=== PATIENT | female | born 1970 | race Caucasian/White ===

== ENCOUNTER 2020-02-22 08:06 | Outpatient (REF) | payer OTHER, SELFPAY ==
[2020-02-22 08:45] LABS: MANUAL DIFF FLAG NO
[2020-02-22 08:50] LABS: Basophils Percent Auto 0.4 % (0-2); Eosinophils Absolute Auto 0.2 X10*3/uL (0.0-0.4); Eosinophils Percent Auto 2.1 % (0-4); Hematocrit 45.3 % (37-47); Hemoglobin 14.4 g/dl (12.0-16.0); Imm Gran Abs Auto 0.01 X10*3/uL (0.00-0.03); Imm Gran Pct Auto 0.1 % (0.0-0.4); Lymphocytes Absolute Auto 1.9 X10*3/uL (1.2-4.9); Lymphocytes Percent Auto 25.6 % (20-40); Mean Corpuscular HGB Conc 31.8 g/dl (31.0-35.0); Mean Corpuscular Hemoglobin 27.6 pg (27.0-33.0); Mean Corpuscular Volume 86.8 fL (80-98); Mean Platelet Volume 9.5 fL (9.4-12.3); Monocytes Absolute Auto 0.4 X10*3/uL (0.1-1.2); Monocytes Percent Auto 5.8 % (2-11); Platelet Count 373 X10*3/uL (160-400); Red Blood Count 5.22 X10*6/uL (4.20-5.50); Red Cell Distribution Width 12.7 % (11.0-16.0); White Blood Count 7.5 X10*3/uL (4.8-10.8)
[2020-02-22 09:31] LABS: Erythrocyte Sedimentation Rate 13 MM/HR (0-20)
[2020-02-22 10:17] LABS: Glucose Urine UA NEG (NEG); Leukocyte Esterase Urine NEG (NEG); Nitrite Urine NEG (NEG); Urine Blood NEG (NEG); Urine Ketones NEG (NEG); Urine Protein NEG (NEG-TRACE)
[2020-02-22 10:22] LABS: Alanine Aminotransferase 16 U/L (0-31); Albumin Level 4.3 g/dL (3.5-5.0); Alkaline Phosphatase 80 U/L (39-117); Anion Gap 13 (12-20); Aspartate Amino Transferase 16 U/L (5-31); Bilirubin Total 0.6 mg/dL (0.0-1.0); Blood Urea Nitrogen 14 mg/dL (9-16); C Reactive Protein 0.11 mg/dL (< or = 0.50); Calcium 9.7 mg/dL (8.4-10.2); Carbon Dioxide 28 mmol/L (22-29); Chloride 105 mmol/L (96-108); Cholesterol 204 mg/dL; Estimated Glomerular Filt Rate > 60; Glucose Fasting 91 mg/dL (60-99); HDL Cholesterol 56 mg/dL; LDL Cholesterol Calculated 126 mg/dl; Potassium 4.1 mmol/l (3.3-5.1); Sodium 142 mmol/L (135-145); Total Protein 7.3 g/dL (6.5-8.0); Triglycerides 114 mg/dL
[2020-02-22 10:27] LABS: Appearance Urine CLEAR; Color Urine YELLOW
[2020-02-22 10:30] LABS: TSH reflex Free T4 1.67 mIU/mL (0.32-4.0); Vitamin D 25-OH Total 43.1 ng/mL (>30)
[2020-02-22 11:18] LABS: RBC Urine 0 /HPF (0); Squamous Epithelial Cell Urine TRACE /LPF; WBC Urine 0 /HPF (0-4)
== END 2020-02-22 08:07 | disposition home or self-care (01) ==
LOC: HO.LAB 08:06
PROVIDERS: PCP Internal Medicine; Visit Provider Internal Medicine
DX: E78.00 Pure hypercholesterolemia, unspecified (principal); I25.119 Atherosclerotic heart disease of native coronary artery with unspecified angina pectoris; M51.36 Other intervertebral disc degeneration, lumbar region; M54.16 Radiculopathy, lumbar region; I10 Essential (primary) hypertension; E55.9 Vitamin D deficiency, unspecified; E66.3 Overweight
CPT/HCPCS: 36415; 80053; 80061; 81003; 81015; 82306; 84443; 85025; 85652; 86140

== ENCOUNTER 2020-06-14 08:23 | Outpatient (REF) | payer OTHER, SELFPAY ==
[2020-06-14 08:45] LABS: MANUAL DIFF FLAG NO
[2020-06-14 08:55] LABS: Basophils Percent Auto 0.3 % (0-2); Eosinophils Absolute Auto 0.1 X10*3/uL (0.0-0.4); Eosinophils Percent Auto 1.6 % (0-4); Hemoglobin 14.3 g/dl (12.0-16.0); Imm Gran Abs Auto 0.01 X10*3/uL (0.00-0.03); Imm Gran Pct Auto 0.1 % (0.0-0.4); Lymphocytes Percent Auto 28.8 % (20-40); Mean Corpuscular HGB Conc 31.8 g/dl (31.0-35.0); Mean Corpuscular Hemoglobin 27.4 pg (27.0-33.0); Mean Corpuscular Volume 86.4 fL (80-98); Mean Platelet Volume 9.2 fL (9.4-12.3); Monocytes Absolute Auto 0.4 X10*3/uL (0.1-1.2); Monocytes Percent Auto 5.3 % (2-11); Neutrophils Absolute Auto 4.3 X10*3/uL (2.0-8.3); Neutrophils Percent Auto 63.9 % (45-73); Platelet Count 374 X10*3/uL (160-400); Red Blood Count 5.21 X10*6/uL (4.20-5.50); Red Cell Distribution Width 12.9 % (11.0-16.0); White Blood Count 6.8 X10*3/uL (4.8-10.8)
[2020-06-14 08:59] LABS: Glucose Urine UA NEG (NEG); Leukocyte Esterase Urine NEG (NEG); Nitrite Urine NEG (NEG); Specific Gravity - Urine >= 1.030 (1.005-1.025); Urine Blood NEG (NEG); Urine Ketones NEG (NEG); Urine Protein NEG (NEG-TRACE)
[2020-06-14 09:00] LABS: Appearance Urine CLEAR; Color Urine YELLOW
[2020-06-14 09:28] LABS: Alanine Aminotransferase 16 U/L (0-31); Albumin Level 4.2 g/dL (3.5-5.0); Alkaline Phosphatase 91 U/L (39-117); Anion Gap 11 (12-20); Aspartate Amino Transferase 17 U/L (5-31); Bilirubin Total 0.6 mg/dL (0.0-1.0); Blood Urea Nitrogen 13 mg/dL (9-16); Calcium 9.5 mg/dL (8.4-10.2); Carbon Dioxide 29 mmol/L (22-29); Chloride 108 mmol/L (96-108); Cholesterol 195 mg/dL; Estimated Glomerular Filt Rate > 60; Glucose Fasting 90 mg/dL (60-99); HDL Cholesterol 61 mg/dL; LDL Cholesterol Calculated 116 mg/dl; Potassium 4.6 mmol/L (3.3-5.1); Sodium 143 mmol/L (135-145); Total Protein 7.1 g/dL (6.5-8.0); Triglycerides 90 mg/dL
[2020-06-14 09:48] LABS: TSH reflex Free T4 1.26 uIU/mL (0.32-4.0); Vitamin D 25-OH Total 42.7 ng/mL (>30)
== END 2020-06-14 08:24 | disposition home or self-care (01) ==
LOC: HO.LAB 08:23
PROVIDERS: PCP Internal Medicine; Visit Provider Internal Medicine
DX: I10 Essential (primary) hypertension (principal); I25.119 Atherosclerotic heart disease of native coronary artery with unspecified angina pectoris; E78.00 Pure hypercholesterolemia, unspecified; E66.3 Overweight; E55.9 Vitamin D deficiency, unspecified
CPT/HCPCS: 36415; 80053; 80061; 81003; 82306; 84443; 85025

== ENCOUNTER 2020-07-20 15:53 | Outpatient (REF) | payer OTHER, SELFPAY ==
--- NOTE | ~2020-07-20 | XR_ITS ---
EXAMINATION: XR BILATERAL HAND AND LEFT KNEE CLINICAL INFORMATION: Arthralgia. COMPARISON: None. TECHNIQUE: 3 views each hand. 2 views left knee. FINDINGS: Left Hand: There is no visible acute fracture, dislocation or subluxation. The joint spaces are maintained normal. The soft tissues are normal. Right Hand: There is no visible acute fracture, dislocation or subluxation. The joint spaces are normal. No bony erosive changes or periosteal thickening. The soft tissues are normal. Left knee: There is no visible acute fracture, dislocation subluxation. There is no joint effusion. XR/XR hand RT min 3V IMPRESSION: Unremarkable bilateral hands and left knee exam.
--- NOTE | ~2020-07-20 | XR_ITS ---
EXAMINATION: XR BILATERAL HAND AND LEFT KNEE CLINICAL INFORMATION: Arthralgia. COMPARISON: None. TECHNIQUE: 3 views each hand. 2 views left knee. FINDINGS: Left Hand: There is no visible acute fracture, dislocation or subluxation. The joint spaces are maintained normal. The soft tissues are normal. Right Hand: There is no visible acute fracture, dislocation or subluxation. The joint spaces are normal. No bony erosive changes or periosteal thickening. The soft tissues are normal. Left knee: There is no visible acute fracture, dislocation subluxation. There is no joint effusion. XR/XR knee LT 2V IMPRESSION: Unremarkable bilateral hands and left knee exam.
--- NOTE | ~2020-07-20 | XR_ITS ---
EXAMINATION: XR BILATERAL HAND AND LEFT KNEE CLINICAL INFORMATION: Arthralgia. COMPARISON: None. TECHNIQUE: 3 views each hand. 2 views left knee. FINDINGS: Left Hand: There is no visible acute fracture, dislocation or subluxation. The joint spaces are maintained normal. The soft tissues are normal. Right Hand: There is no visible acute fracture, dislocation or subluxation. The joint spaces are normal. No bony erosive changes or periosteal thickening. The soft tissues are normal. Left knee: There is no visible acute fracture, dislocation subluxation. There is no joint effusion. XR/XR hand LT min 3V IMPRESSION: Unremarkable bilateral hands and left knee exam.
[2020-07-20 18:35] LABS: Rheumatoid Factor < 15.0 IU/mL (<15.0)
[2020-07-20 18:57] LABS: Thyroid Stimulating Hormone 1.31 uIU/mL (0.32-4.0)
[2020-07-20 20:22] LABS: Erythrocyte Sedimentation Rate 9 MM/HR (0-20)
[2020-07-22 13:21] LABS: Anti Nuclear Antibody Screen NEGATIVE (NEGATIVE)
== END 2020-07-20 15:54 | disposition home or self-care (01) ==
LOC: HO.XRAY 15:53
PROVIDERS: PCP Internal Medicine; Visit Provider Psychiatry & Neurology Neurology
DX: M79.7 Fibromyalgia (principal); M25.50 Pain in unspecified joint
CPT/HCPCS: 36415; 73130; 73560; 82550; 84443; 85652; 86038; 86039; 86431

== ENCOUNTER 2020-07-25 15:48 | Emergency (ER) | payer OTHER, SELFPAY ==
--- NOTE | ~2020-07-25 | XR_ITS ---
EXAMINATION: SINGLE VIEW CHEST, SINGLE VIEW ABDOMEN CLINICAL INFORMATION: Pain with question of ingestion of glass foreign body COMPARISON: Lumbar spine radiographs 02/19/2019, chest radiograph 06/10/2017 TECHNIQUE: Single view chest, single view abdomen FINDINGS: No significant abnormalities seen involving the heart lungs mediastinum or bony thorax. No radiopaque foreign body is seen incidental note made of a mild thoracic scoliosis The abdominal bowel gas pattern is normal. Phleboliths are noted in the pelvis. There is a 1 cm ovoid bony density seen at the superior aspect of the right acetabulum which appears to represent a bone island. Appearances were identical on the lumbar spine films from 02/19/2019 Bony structures appear unremarkable. No radiopaque foreign body is seen. XR/XR chest 1V IMPRESSION: No acute disease in the chest or abdomen. No evidence of a radiopaque foreign body.
--- NOTE | ~2020-07-25 | XR_ITS ---
EXAMINATION: SINGLE VIEW CHEST, SINGLE VIEW ABDOMEN CLINICAL INFORMATION: Pain with question of ingestion of glass foreign body COMPARISON: Lumbar spine radiographs 02/19/2019, chest radiograph 06/10/2017 TECHNIQUE: Single view chest, single view abdomen FINDINGS: No significant abnormalities seen involving the heart lungs mediastinum or bony thorax. No radiopaque foreign body is seen incidental note made of a mild thoracic scoliosis The abdominal bowel gas pattern is normal. Phleboliths are noted in the pelvis. There is a 1 cm ovoid bony density seen at the superior aspect of the right acetabulum which appears to represent a bone island. Appearances were identical on the lumbar spine films from 02/19/2019 Bony structures appear unremarkable. No radiopaque foreign body is seen. XR/XR KUB IMPRESSION: No acute disease in the chest or abdomen. No evidence of a radiopaque foreign body.
[2020-07-25 16:30] VITALS: BP 148/91; PULSE 85; RESP 16; TEMP 36.5; O2SAT 98; BMI 27.8
--- NOTE | 2020-07-25 17:20 | ED_ITS ---
HPI - General Adult General Chief complaint: Abdominal Pain Stated complaint: Abdominal pain Time Seen by Provider: 07/25/20 17:20 History of Present Illness HPI narrative: Patient complains of intermittent upper abdominal pain coming and going sometimes last in our, not associated with anything, not associated with eating not associated with exertion She is concerned it may be from swallowing a small piece of glass 4 days ago, but the pain began yesterday, pain is located in the upper epigastric area, it does not radiate it sometimes lasts for a few hours sometimes a few minutes, s ometimes it goes away it is not associated with exertion there is no diaphoresis no shortness of breath no radiation of pain no dizziness no fainting no feeling weak no nausea vomiting or diarrhea Related Data Home Medications Medication Instructions Recorded Confirmed ascorbic acid (vitamin C) 500 mg mg PO 03/16/20 06/17/20 capsule aspirin 81 mg tablet,delayed 81 mg PO DAILY 03/16/20 06/17/20 release cholecalciferol (vitamin D3) 50 50 mcg PO DAILY 03/16/20 06/17/20 mcg (2,000 unit) tablet coenzyme Q10 10 mg capsule 10 mg PO TID 03/16/20 06/17/20 plant stanol madonna 450 mg tablet mg PO 03/16/20 06/17/20 Allergies Allergy/AdvReac Type Severity Reaction Status Date / Time lisinopril Allergy Unknown angioedema, Verified 06/17/20 15:21 throat swelling pravastatin Allergy Unknown myalgia, Verified 06/17/20 15:21 angioedema rosuvastatin AdvReac Unknown myalgia Verified 06/17/20 15:21 Review of Systems Review of Systems: Positive for intermittent upper abdominal pain No fever no chills no dizziness no weakness no confusion no headache no vision changes no neck pain no chest pain, no shortness of breath no difficulty breathing, no nausea no vomiting no diarrhea no dysuria no changes to bowel or bladder no skin rash no joint pains no numbness or weakness PMFSH Past Medical History Source: nursing notes reviewed Medical History (Updated 07/26/20 @ 00:00 by Background Daemlillie) Benign essential hypertension Coronary artery disease involving [place] coronary artery of [place] heart with angina pectoris Dizziness Lumbar degenerative disc disease Lumbar radiculopathy, chronic Overweight (BMI 25.0-29.9) Pityriasis rosea Pure hypercholesterolemia Vitamin D deficiency Surgical History History of cardiac catheterization Family History Family History Father Diabetes Hypertension Hypercholesteremia Mother Hypertension Diabetes Hypercholesteremia Family/Other FH: mental illness Social History Social History Alcohol intake: never Smoking Status: Never smoker Use of substances other than those prescribed or required for medical reasons: No Advance Directives: No Advance Directives Information Provided: No Physical Exam Vital Signs: Vital Signs: Last Vital Signs Temp 97.7 F 07/25/20 16:30 Pulse 67 07/25/20 21:08 Resp 16 07/25/20 21:08 BP 149/94 H 07/25/20 21:08 Pulse Ox 98 07/25/20 21:08 Body Mass Index 27.8 General appearance is no acute distress comfortable relaxed cooperative The eyes are anicteric, no pallor Pharynx mucous membranes moist otherwise normal The neck is supple The chest is clear to auscultation bilaterally with full symmetrical breath sounds, there is no pain with deep breath or palpation Heart no murmurs Abdomen soft nontender no rebound no guarding notes extremities no edema no rash, full range of motion x4 Skin no rash Neuro no focal deficit Course Course Course Narrative: EKG was a normal sinus rhythm without any acute ischemic change no acute ST or T-wave changes the rate was 67 PA interval was normal QRS duration was normal QT was normal The patient's abdominal exam remained normal and nontender As the patient has a history of heart attack there is some concern about her upper abdominal intermittent pain which occasionally radiates into her chest so troponins and EKG were done Two troponins were normal A KUB did not show any foreign body we did this because of her concern about swallowing a piece of glass, although she has no difficulty swallowing she has no pain in her throat her chest, and had no abdominal pain for 3 days after p ossibly swallowing the glass She does have a customer contact sales associate and says she will call him tomorrow and the patient is discharged with stable vital signs asymptomatic 2-troponin and normal EKG Medical Decision Making Lab Data Lab results reviewed: Yes I reviewed the patient's lab results. Result diagrams: 07/25/20 17:32 07/25/20 17:32 Labs: Lab Results 07/25/20 07/25/20 07/25/20 Range/Units 17:32 17:32 17:32 WBC 8.7 (4.8-10.8) X10*3/uL RBC 4.93 (4.20-5.50) X10*6/uL Hgb 13.4 (12.0-16.0) g/dl Hct 42.3 (37-47) % MCV 85.8 (80-98) fL MCH 27.2 (27.0-33.0) pg MCHC 31.7 (31.0-35.0) g/dl RDW 13.2 (11.0-16.0) % Plt Count 389 (160-400) X10*3/uL MPV 9.4 (9.4-12.3) fL Immature Gran % (Auto) 0.2 (0.0-0.4) % Neut % (Auto) 70.4 (45-73) % Lymph % (Auto) 22.9 (20-40) % [place] % (Auto) 5.5 (2-11) % Eos % (Auto) 0.7 (0-4) % Baso % (Auto) 0.3 (0-2) % Lymph # (Auto) 2.0 (1.2-4.9) X10*3/uL [place] # (Auto) 0.5 (0.1-1.2) X10*3/uL Eos # (Auto) 0.1 (0.0-0.4) X10*3/uL Baso # (Auto) 0.0 (0.0-0.2) X10*3/uL Abs Immat Gran (auto) 0.02 (0.00-0.03) X10*3/uL Absolute Neuts (auto) 6.1 (2.0-8.3) X10*3/uL Absolute Nucleated RBC 0.000 (0.0-0.012) X10*3/uL Nucleated RBC % (auto) 0.0 (0.0-0.2) /100WBC Sodium 141 (135-145) mmol/L Potassium 4.6 (3.3-5.1) mmol/L Chloride 103 (96-108) mmol/L Carbon Dioxide 30 H (22-29) mmol/L Anion Gap 13 (12-20) BUN 17 H (9-16) mg/dL Creatinine 0.78 (0.5-1.4) mg/dL Estim Creat Clear Calc 80.2 Estimated GFR > 60 Random Glucose 97 (60-115) mg/dL Calcium 9.3 (8.4-10.2) mg/dL Total Bilirubin 0.5 (0.0-1.0) mg/dL Direct Bilirubin < 0.2 (0.0-0.5) mg/dL AST 21 (5-31) U/L ALT 34 H (0-31) U/L Alkaline Phosphatase 94 (39-117) U/L Troponin I High Sens < 3.5 (<3.5-17.0) ng/L Total Protein 6.8 (6.5-8.0) g/dL Albumin 4.0 (3.5-5.0) g/dL Lipase 57 (8-78) U/L Urine Test (NEGATIVE) 07/25/20 07/25/20 Range/Units 17:49 20:20 WBC (4.8-10.8) X10*3/uL RBC (4.20-5.50) X10*6/uL Hgb (12.0-16.0) g/dl Hct (37-47) % MCV (80-98) fL MCH (27.0-33.0) pg MCHC (31.0-35.0) g/dl RDW (11.0-16.0) % Plt Count (160-400) X10*3/uL MPV (9.4-12.3) fL Immature Gran % (Auto) (0.0-0.4) % Neut % (Auto) (45-73) % Lymph % (Auto) (20-40) % [place] % (Auto) (2-11) % Eos % (Auto) (0-4) % Baso % (Auto) (0-2) % Lymph # (Auto) (1.2-4.9) X10*3/uL [place] # (Auto) (0.1-1.2) X10*3/uL Eos # (Auto) (0.0-0.4) X10*3/uL Baso # (Auto) (0.0-0.2) X10*3/uL Abs Immat Gran (auto) (0.00-0.03) X10*3/uL Absolute Neuts (auto) (2.0-8.3) X10*3/uL Absolute Nucleated RBC (0.0-0.012) X10*3/uL Nucleated RBC % (auto) (0.0-0.2) /100WBC Sodium (135-145) mmol/L Potassium (3.3-5.1) mmol/L Chloride (96-108) mmol/L Carbon Dioxide (22-29) mmol/L Anion Gap (12-20) BUN (9-16) mg/dL Creatinine (0.5-1.4) mg/dL Estim Creat Clear Calc Estimated GFR Random Glucose (60-115) mg/dL Calcium (8.4-10.2) mg/dL Total Bilirubin (0.0-1.0) mg/dL Direct Bilirubin (0.0-0.5) mg/dL AST (5-31) U/L ALT (0-31) U/L Alkaline Phosphatase (39-117) U/L Troponin I High Sens < 3.5 (<3.5-17.0) ng/L Total Protein (6.5-8.0) g/dL Albumin (3.5-5.0) g/dL Lipase (8-78) U/L Urine Test NEGATIVE (NEGATIVE) Discharge Plan Discharge Clinical Impression: Chest pain, Abdominal pain Patient Disposition: Home, Self-Care Additional Instructions: You came in for a pain in her upper abdomen We are not sure what is the cause, our testing today did not identify any cause I am concerned because of your history of heart attack, and I saw in the computer your last stress test was somewhat abnormal With a normal EKG today and 2-troponin tests negative it is unlikely you will have any dangerous heart attack in the next several weeks, but we strongly recommend that you follow with your customer contact sales associate this week and see if he wants to do any further testing Return to the ER any time for chest pain worsening abdominal pain vomiting shortness of breath dizziness any worse condition or any concerns Prescriptions: No Action cholecalciferol (vitamin D3) 50 mcg (2,000 unit) tablet 50 mcg PO DAILY RF: 0 aspirin [Adult Low Dose Aspirin] 81 mg tablet,delayed release (DR/EC) 81 mg PO DAILY RF: 0 ascorbic acid (vitamin C) 500 mg capsule PO RF: 0 Cholest Off 450 mg tablet PO RF: 0 coenzyme Q10 10 mg capsule 10 mg PO TID RF: 0 Referrals: Suzette Todd, LISSA-BC [Nurse Practitioner] - 2 days (Patient seen for intermittent abdominal pain, no cause found, EKG in ER normal, 2 troponins negative and recommend close follow-up with customer contact sales associate due to prior heart attack) Aren Mendez MD [Physician] - 2 days (Intermittent upper abdominal pain radiating to the chest with normal EKG and 2-troponins, recommended close follow-up with Cardiology for patient with prior heart attack) Interventions: ED Discharge Assessment Last Done: 07/25/20 21:39 Discharge Date/Time: 07/25/20 21:40
--- NOTE | 2020-07-25 17:21 | ECG_ITS ---
Test Reason : pain Blood Pressure : / mmHG Vent. Rate : 067 BPM Atrial Rate : 067 BPM P-R Int : 118 ms QRS Dur : 088 ms QT Int : 414 ms P-R-T Axes : 051 053 057 degrees QTc Int : 437 ms Normal sinus rhythm Normal ECG No previous ECGs available Referred By: Andrew Christian Electronically Signed By:Luis Roth
[2020-07-25 17:36] LABS: MANUAL DIFF FLAG NO
[2020-07-25 17:37] LABS: Basophils Percent Auto 0.3 % (0-2); Eosinophils Absolute Auto 0.1 X10*3/uL (0.0-0.4); Eosinophils Percent Auto 0.7 % (0-4); Hematocrit 42.3 % (37-47); Hemoglobin 13.4 g/dl (12.0-16.0); Imm Gran Abs Auto 0.02 X10*3/uL (0.00-0.03); Imm Gran Pct Auto 0.2 % (0.0-0.4); Lymphocytes Percent Auto 22.9 % (20-40); Mean Corpuscular HGB Conc 31.7 g/dl (31.0-35.0); Mean Corpuscular Hemoglobin 27.2 pg (27.0-33.0); Mean Corpuscular Volume 85.8 fL (80-98); Mean Platelet Volume 9.4 fL (9.4-12.3); Monocytes Absolute Auto 0.5 X10*3/uL (0.1-1.2); Monocytes Percent Auto 5.5 % (2-11); Neutrophils Absolute Auto 6.1 X10*3/uL (2.0-8.3); Neutrophils Percent Auto 70.4 % (45-73); Platelet Count 389 X10*3/uL (160-400); Red Blood Count 4.93 X10*6/uL (4.20-5.50); Red Cell Distribution Width 13.2 % (11.0-16.0); White Blood Count 8.7 X10*3/uL (4.8-10.8)
[2020-07-25 18:04] LABS: UPreg QC Valid YES; Urine Pregnancy NEGATIVE (NEGATIVE)
[2020-07-25 18:08] LABS: Alanine Aminotransferase 34 U/L (0-31); Alkaline Phosphatase 94 U/L (39-117); Anion Gap 13 (12-20); Aspartate Amino Transferase 21 U/L (5-31); Bilirubin Direct < 0.2 mg/dL (0.0-0.5); Bilirubin Total 0.5 mg/dL (0.0-1.0); Blood Urea Nitrogen 17 mg/dL (9-16); Calcium 9.3 mg/dL (8.4-10.2); Carbon Dioxide 30 mmol/L (22-29); Chloride 103 mmol/L (96-108); Creatinine Clr Calc Pharmacy 80.2; Estimated Glomerular Filt Rate > 60; Glucose Random 97 mg/dL (60-115); Lipase 57 U/L (8-78); Potassium 4.6 mmol/L (3.3-5.1); Sodium 141 mmol/L (135-145); Total Protein 6.8 g/dL (6.5-8.0)
[2020-07-25 18:14] LABS: Troponin-I High Sensitivity < 3.5 ng/L (<3.5-17.0)
[2020-07-25 19:01] VITALS: BP 161/88; PULSE 71; RESP 14; O2SAT 99
[2020-07-25 21:04] LABS: Troponin-I High Sensitivity < 3.5 ng/L (<3.5-17.0)
[2020-07-25 21:08] VITALS: BP 149/94; PULSE 67; RESP 16; O2SAT 98
== END 2020-07-25 21:40 | disposition home or self-care (01) ==
PROVIDERS: Physician Assistant Medical; Emergency Provider Emergency Medicine Emergency Medical Services; PCP Internal Medicine
DX: R07.9 Chest pain, unspecified (principal); R10.10 Upper abdominal pain, unspecified; I10 Essential (primary) hypertension; E78.00 Pure hypercholesterolemia, unspecified; Z79.82 Long term (current) use of aspirin; Z79.899 Other long term (current) drug therapy
CPT/HCPCS: 36415; 71045; 74018; 80048; 80076; 81025; 83690; 84484; 85025; 93005; 99283; 99284

== ENCOUNTER 2020-08-25 09:13 | Outpatient (REF) | payer OTHER, SELFPAY ==
[2020-08-25 09:42] LABS: MANUAL DIFF FLAG NO
[2020-08-25 09:44] LABS: Basophils Percent Auto 0.3 % (0-2); Eosinophils Absolute Auto 0.1 X10*3/uL (0.0-0.4); Hematocrit 44.4 % (37-47); Imm Gran Abs Auto 0.02 X10*3/uL (0.00-0.03); Imm Gran Pct Auto 0.3 % (0.0-0.4); Lymphocytes Absolute Auto 1.4 X10*3/uL (1.2-4.9); Lymphocytes Percent Auto 20.4 % (20-40); Mean Corpuscular HGB Conc 31.5 g/dl (31.0-35.0); Mean Corpuscular Volume 85.7 fL (80-98); Mean Platelet Volume 9.4 fL (9.4-12.3); Monocytes Absolute Auto 0.5 X10*3/uL (0.1-1.2); Monocytes Percent Auto 7.3 % (2-11); Neutrophils Absolute Auto 4.9 X10*3/uL (2.0-8.3); Neutrophils Percent Auto 70.7 % (45-73); Platelet Count 427 X10*3/uL (160-400); Red Blood Count 5.18 X10*6/uL (4.20-5.50)
[2020-08-25 10:12] LABS: Alanine Aminotransferase 15 U/L (0-31); Albumin Level 4.2 g/dL (3.5-5.0); Alkaline Phosphatase 92 U/L (39-117); Anion Gap 12 (12-20); Aspartate Amino Transferase 14 U/L (5-31); Bilirubin Total 0.6 mg/dL (0.0-1.0); Blood Urea Nitrogen 9 mg/dL (9-16); Calcium 9.5 mg/dL (8.4-10.2); Carbon Dioxide 26 mmol/L (22-29); Chloride 110 mmol/L (96-108); Cholesterol 184 mg/dL; Estimated Glomerular Filt Rate > 60; Glucose Fasting 96 mg/dL (60-99); HDL Cholesterol 51 mg/dL; LDL Cholesterol Calculated 117 mg/dl; Potassium 4.7 mmol/L (3.3-5.1); Sodium 143 mmol/L (135-145); Total Protein 7.2 g/dL (6.5-8.0); Triglycerides 80 mg/dL
[2020-08-25 10:33] LABS: TSH reflex Free T4 0.74 uIU/mL (0.32-4.0); Vitamin D 25-OH Total 44.1 ng/mL (>30)
[2020-08-25 10:41] LABS: Appearance Urine CLOUDY; Color Urine DARK YELLOW; Glucose Urine UA NEG (NEG); Leukocyte Esterase Urine NEG (NEG); Nitrite Urine NEG (NEG); PH 6.5 (5.0-8.0); Specific Gravity - Urine 1.025 (1.005-1.025); Urine Blood 3+ (NEG); Urine Ketones NEG (NEG); Urine Protein TRACE MG/DL (NEG-TRACE)
[2020-08-25 10:54] LABS: Bacteria Urine 3+ /LPF; Mucus Urine 1+ /LPF; Squamous Epithelial Cell Urine 1+ /LPF
== END 2020-08-25 09:14 | disposition home or self-care (01) ==
LOC: HO.LAB 09:13
PROVIDERS: PCP Internal Medicine; Visit Provider Internal Medicine
DX: E55.9 Vitamin D deficiency, unspecified (principal); I10 Essential (primary) hypertension; E78.00 Pure hypercholesterolemia, unspecified
CPT/HCPCS: 36415; 80053; 80061; 81001; 82306; 84443; 85025

== ENCOUNTER → 2020-09-02 11:08 | Outpatient (BNVA) | payer OTHER, SELFPAY | PROVIDERS: PCP Internal Medicine; Referring Provider Internal Medicine; Visit Provider Nurse Practitioner Family | DX: I42.9 Cardiomyopathy, unspecified (principal); I25.119 Atherosclerotic heart disease of native coronary artery with unspecified angina pectoris; I10 Essential (primary) hypertension; E78.00 Pure hypercholesterolemia, unspecified; Z98.890 Other specified postprocedural states | CPT/HCPCS: 99212 ==

== ENCOUNTER 2020-09-14 16:32 | Outpatient (REF) | payer OTHER, SELFPAY ==
[2020-09-15 04:28] LABS: SARS COV2 IgG Positive (Negative)
== END 2020-09-14 16:33 | disposition home or self-care (01) ==
LOC: HO.LAB 16:32
PROVIDERS: PCP Internal Medicine; Visit Provider Internal Medicine
DX: Z20.822 Contact with and (suspected) exposure to COVID-19 (principal)
CPT/HCPCS: 36415; 86769

== ENCOUNTER → 2020-09-19 13:47 | Outpatient (BNVA) | payer OTHER, SELFPAY | PROVIDERS: PCP Internal Medicine; Referring Provider Internal Medicine; Visit Provider Nurse Practitioner Family | DX: I42.9 Cardiomyopathy, unspecified (principal); I25.119 Atherosclerotic heart disease of native coronary artery with unspecified angina pectoris; I10 Essential (primary) hypertension; E78.00 Pure hypercholesterolemia, unspecified; Z98.890 Other specified postprocedural states | CPT/HCPCS: 99212 ==

== ENCOUNTER 2020-10-06 22:03 | Emergency (ER) | payer OTHER, SELFPAY ==
--- NOTE | ~2020-10-06 | XR_ITS ---
EXAMINATION: CHEST 2 VIEWS CLINICAL INFORMATION: Palpitations. COMPARISON: 07/25/2020. TECHNIQUE: PA and lateral views of the chest obtained. FINDINGS: The lungs are well expanded. No focal infiltrate, effusion, edema, or pneumothorax. Cardiac and mediastinal silhouettes are within normal limits for technique. No acute bony abnormality seen XR/XR chest 2V IMPRESSION: No evidence of acute disease
[2020-10-06 22:05] VITALS: BP 193/106; PULSE 119; RESP 22; TEMP 36.6; O2SAT 100; BMI 28.3
--- NOTE | 2020-10-06 23:38 | ECG_ITS ---
Test Reason : PALPITATIONS Blood Pressure : / mmHG Vent. Rate : 116 BPM Atrial Rate : 116 BPM P-R Int : 136 ms QRS Dur : 082 ms QT Int : 322 ms P-R-T Axes : 070 056 061 degrees QTc Int : 447 ms Sinus tachycardia Left ventricular hypertrophy with repolarization abnormality Abnormal ECG When compared with ECG of 25-JUL-2020 17:53, Vent. rate has increased BY 49 BPM Nonspecific T wave abnormality, worse in Lateral leads Referred By: Generic ED Physician Electronically Signed By:REG CARNES MD
[2020-10-07 01:11] VITALS: BP 158/89; PULSE 69; RESP 14; O2SAT 99
[2020-10-07 02:00] VITALS: BP 150/83; PULSE 63; RESP 16; O2SAT 100
--- NOTE | 2020-10-07 03:24 | ED.ARRPALP ---
HPI - Arrhythmia/Palpitations General Chief Complaint: Arrhythmia/Palpitations Stated Complaint: palpitations Time Seen by Provider: 10/07/20 03:17 History of Present Illness HPI narrative: Patient is a 50-year-old female presents today with having palpitation. It was very sudden in onset. But patient was talking on the phone. Patient denies any history of the same. No coughing or congestion or upper respiratory symptoms. No diaphoresis. No chest pain associated with the symptoms. Patient's symptom has resolved. Patient was not extremely upset at the time. Patient denies any history of thyroid problems. Any history of irregular heartbeat. Any history of sudden . Patient is from home. Denies any alcohol. Denies any recreational drugs. Related Data Home Medications Medication Instructions Recorded Confirmed aspirin 81 mg tablet,delayed 81 mg PO DAILY 03/16/20 09/19/20 release cholecalciferol (vitamin D3) 50 50 mcg PO DAILY 03/16/20 09/19/20 mcg (2,000 unit) tablet coenzyme Q10 10 mg capsule 10 mg PO TID 03/16/20 09/19/20 plant stanol madonna 450 mg tablet mg PO 03/16/20 09/19/20 ascorbic acid (vitamin C) 500 mg See Rx Instructions PO DAILY cap 09/14/20 09/19/20 capsule ibuprofen 600 mg tablet 600 mg PO TID PRN 09/14/20 09/19/20 Previous Rx's Medication Instructions Recorded evolocumab 140 mg/mL subcutaneous 140 mg SUBCUT Q2W 90 Days #7 ml 09/02/20 pen injector lisinopril 2.5 mg tablet 2.5 mg PO DAILY 30 Days #30 tab 09/02/20 Allergies Allergy/AdvReac Type Severity Reaction Status Date / Time lisinopril Allergy Unknown angioedema, Verified 09/19/20 13:49 throat swelling pravastatin Allergy Unknown myalgia, Verified 09/19/20 13:49 angioedema rosuvastatin AdvReac Unknown myalgia Verified 09/19/20 13:49 Review of Systems Review of Systems: Constitutional: No Weight loss, No Fever, No Chills, No Night Sweats, No Fatigue, No Malaise ENT/Mouth: No Hearing loss, No Ear Pain, No Nasal Congestion, No Sinus Pain, No Hoarseness, No sore throat, No Rhinorrhea, No Swallowing Difficulty Eyes: No Eye Pain, No Swelling, No Redness, No Foreign Body, No Discharge, No Vision Changes Cardiovascular: No Chest Pain, No SOB, No Dyspnea on Exertion, No Orthopnea, No Edema, positive Palpitations Respiratory: No Cough, No Sputum, No Wheezing, No Smoke Exposure, No Dyspnea Gastrointestinal: No Nausea, No Vomiting, No Diarrhea, No Constipation, No abdominal Pain, No Hematochezia, No Melena Genitourinary: no irregular bleeding, No Dysuria, No Urinary Frequency, No Hematuria, No Urinary Incontinence, No Urgency, No Flank Pain, No Urinary Flow Changes, No Hesitancy Musculoskeletal: No joint pain, No Myalgias, No Joint Swelling Skin: No Skin Lesions, No rash Neuro: No Weakness, No Numbness, No Paresthesias, No Loss of Consciousness, No Dizziness, No Headache Psych: No Anxiety/Panic, No Depression, No SI/HI/AH/VH, No Social Issues, Heme/Lymph: No Bruising, No Bleeding,No Lymphadenopathy Endocrine: No Polyuria, No Polydipsia, No Temperature Intolerance PMFSH Past Medical History Medical History Benign essential hypertension Cardiomyopathy Coronary artery disease involving [place] coronary artery of [place] heart with angina pectoris Dizziness Lumbar degenerative disc disease Lumbar radiculopathy, chronic Overweight (BMI 25.0-29.9) Pityriasis rosea Pure hypercholesterolemia Throat pain Visual impairment Vitamin D deficiency Surgical History History of cardiac catheterization Family History Family History Father Diabetes Hypertension Hypercholesteremia Mother Hypertension Diabetes Hypercholesteremia Family/Other FH: mental illness Social History Social History Alcohol intake: never Advance Directives: No Advance Directives Information Provided: No Patient : No Physical Exam Vital Signs: Vital Signs: Last Vital Signs Temp 98 F 10/06/20 22:05 Pulse 64 10/07/20 03:48 Resp 16 10/07/20 03:48 BP 137/82 10/07/20 03:48 Pulse Ox 100 10/07/20 02:00 Body Mass Index 28.3 MDM - Arrhythmia/Palpitations MDM Narrative Medical decision making narrative: Patient fair peering no acute distress. Heart rate is now 70. Patient's blood pressure is normal. Will get EKG. Will place patient on monitor. Will check electrolytes. Currently in no distress Patient never had any chest pain. No diaphoresis. Had palpitation. Never had near-syncope or syncopal episode. Well-appearing. Patient has had previous stress test. The last EF was actually normal. Has been followed by Cardiology. Patient wants to go home. Will have patient closely follow-up with cardiology on an outpatient basis. Question further monitoring. In stable condition.. Lab Data Result diagrams: 10/07/20 03:35 10/07/20 03:35 Labs: Lab Results 10/07/20 10/07/20 10/07/20 Range/Units 03:35 03:35 03:35 WBC 7.9 (4.8-10.8) X10*3/uL RBC 5.05 (4.20-5.50) X10*6/uL Hgb 13.7 (12.0-16.0) g/dl Hct 42.9 (37-47) % MCV 85.0 (80-98) fL MCH 27.1 (27.0-33.0) pg MCHC 31.9 (31.0-35.0) g/dl RDW 13.6 (11.0-16.0) % Plt Count 331 (160-400) X10*3/uL MPV 9.1 L (9.4-12.3) fL Immature Gran % (Auto) 0.1 (0.0-0.4) % Neut % (Auto) 73.7 H (45-73) % Lymph % (Auto) 19.9 L (20-40) % [place] % (Auto) 5.3 (2-11) % Eos % (Auto) 0.6 (0-4) % Baso % (Auto) 0.4 (0-2) % Lymph # (Auto) 1.6 (1.2-4.9) X10*3/uL [place] # (Auto) 0.4 (0.1-1.2) X10*3/uL Eos # (Auto) 0.1 (0.0-0.4) X10*3/uL Baso # (Auto) 0.0 (0.0-0.2) X10*3/uL Abs Immat Gran (auto) 0.01 (0.00-0.03) X10*3/uL Absolute Neuts (auto) 5.8 (2.0-8.3) X10*3/uL Absolute Nucleated RBC 0.000 (0.0-0.012) X10*3/uL Nucleated RBC % (auto) 0.0 (0.0-0.2) /100WBC Sodium 142 (135-145) mmol/L Potassium 4.2 (3.3-5.1) mmol/L Chloride 108 (96-108) mmol/L Carbon Dioxide 27 (22-29) mmol/L Anion Gap 11 L (12-20) BUN 14 D (9-16) mg/dL Creatinine 0.81 (0.5-1.4) mg/dL Estim Creat Clear Calc 77.9 Estimated GFR > 60 Random Glucose 106 (60-115) mg/dL Calcium 9.4 (8.4-10.2) mg/dL Troponin I High Sens 6.4 (<3.5-17.0) ng/L ECG Data Interpretation: EKG showed a sinus pattern heart rate was 115. TR cares QT within normal limits. There is no acute ST segment elevation noted. Discharge Plan Discharge Clinical Impression: Palpitations Patient Disposition: Home, Self-Care Instructions: Heart Palpitations (ED) Prescriptions: No Action cholecalciferol (vitamin D3) 50 mcg (2,000 unit) tablet 50 mcg PO DAILY RF: 0 aspirin [Adult Low Dose Aspirin] 81 mg tablet,delayed release (DR/EC) 81 mg PO DAILY RF: 0 Cholest Off 450 mg tablet PO RF: 0 coenzyme Q10 10 mg capsule 10 mg PO TID RF: 0 ascorbic acid (vitamin C) 500 mg capsule See Rx Instructions PO DAILY RF: 0 ibuprofen 600 mg tablet 600 mg PO TID PRNRF: 0 lisinopril 2.5 mg tablet 2.5 mg PO DAILY 30 Days Qty: 30 RF: 1 Repatha SureClick 140 mg/mL pen injector 140 mg subcut Q2W 90 Days Qty: 7 RF: 3 Referrals: Aren Mendez MD [Physician] - 2 days
[2020-10-07 03:45] LABS: MANUAL DIFF FLAG NO
[2020-10-07 03:47] LABS: Basophils Percent Auto 0.4 % (0-2); Eosinophils Absolute Auto 0.1 X10*3/uL (0.0-0.4); Eosinophils Percent Auto 0.6 % (0-4); Hematocrit 42.9 % (37-47); Hemoglobin 13.7 g/dl (12.0-16.0); Imm Gran Abs Auto 0.01 X10*3/uL (0.00-0.03); Imm Gran Pct Auto 0.1 % (0.0-0.4); Lymphocytes Absolute Auto 1.6 X10*3/uL (1.2-4.9); Lymphocytes Percent Auto 19.9 % (20-40); Mean Corpuscular HGB Conc 31.9 g/dl (31.0-35.0); Mean Corpuscular Hemoglobin 27.1 pg (27.0-33.0); Mean Platelet Volume 9.1 fL (9.4-12.3); Monocytes Absolute Auto 0.4 X10*3/uL (0.1-1.2); Monocytes Percent Auto 5.3 % (2-11); Neutrophils Absolute Auto 5.8 X10*3/uL (2.0-8.3); Neutrophils Percent Auto 73.7 % (45-73); Platelet Count 331 X10*3/uL (160-400); Red Blood Count 5.05 X10*6/uL (4.20-5.50); Red Cell Distribution Width 13.6 % (11.0-16.0); White Blood Count 7.9 X10*3/uL (4.8-10.8)
--- NOTE | 2020-10-07 03:47 | PC.NURSE ---
LABS DRAWN TO LAB. PT UP TO RESTROOM. SAMPLE OBTAINED. PT DENIES FEELING PALPITATIONS AT THIS TIME. PT DENIES ANY CP. PT REMAINS ON MONITOR WITH HR 64. WILL CONTINUE TO MONITOR PT.
[2020-10-07 03:48] VITALS: BP 137/82; PULSE 64; RESP 16
[2020-10-07 04:12] LABS: Troponin-I High Sensitivity 6.4 ng/L (<3.5-17.0)
[2020-10-07 04:34] LABS: Anion Gap 11 (12-20); Blood Urea Nitrogen 14 mg/dL (9-16); Calcium 9.4 mg/dL (8.4-10.2); Carbon Dioxide 27 mmol/L (22-29); Creatinine Clr Calc Pharmacy 77.9; Estimated Glomerular Filt Rate > 60; Glucose Random 106 mg/dL (60-115)
[2020-10-07 04:36] LABS: Chloride 108 mmol/L (96-108); Potassium 4.2 mmol/L (3.3-5.1); Sodium 142 mmol/L (135-145)
== END 2020-10-07 05:01 | disposition home or self-care (01) ==
PROVIDERS: Emergency Provider Emergency Medicine Emergency Medical Services; PCP Internal Medicine
DX: R00.2 Palpitations (principal); I10 Essential (primary) hypertension; I25.119 Atherosclerotic heart disease of native coronary artery with unspecified angina pectoris; Z79.82 Long term (current) use of aspirin; Z79.899 Other long term (current) drug therapy
CPT/HCPCS: 36415; 71046; 80048; 84484; 85025; 93005; 99283; 99284

== ENCOUNTER → 2020-11-08 14:59 | Outpatient (REF) | payer OTHER, SELFPAY ==
--- NOTE | 2020-11-08 15:02 | CA_ITS ---
Transthoracic Echocardiogram Patient (Last, First, Middle): Susy Concepcion, Gender: Female Date of : 1970 Age: 50 Procedure Date: 11/08/2020 Procedure Type: Transthoracic Echocardiogram Location: OP Height: 157.48 cm Weight: 69.4 kg BSA: 1.71 m2 Heart Rate: bpm BP: 122 / 60 mmHg Helper Metal Hanging: LAWRENCE Referring MD: Mabel Tafoya FUR DRESSERLavern Symptoms: I25.119 - Atherosclerotic heart disease of [place] coronar... Study Quality: Fair ECG Rhythm: Sinus Conclusions: - The left ventricular systolic function is mildly decreased. The visually estimated ejection fraction is between 45-50%. - No obvious valvular pathology seen on this study. Findings Left Ventricle Normal left ventricular cavity size. There is normal left ventricular wall thickness. The left ventricular systolic function is mildly decreased. The visually estimated ejection fraction is between 45-50%. There is mild global hypokinesis. Diastolic function is normal for age. Right Ventricle Normal right ventricular cavity size and systolic function. Atria Both atria are normal in size. Aortic Valve There is a normal trileaflet aortic valve. There is no aortic valve stenosis. There is no aortic valve regurgitation. Mitral Valve The posterior mitral leaflet has restricted mobility. There is trace mitral valve regurgitation. There is no mitral valve stenosis. Pulmonic Valve The pulmonic valve was not well visualized. Tricuspid Valve Normal tricuspid valve structure. There is mild tricuspid valve regurgitation. The pulmonary artery systolic pressure is normal. Great Vessels The aortic annulus, sinuses of valsalva, and asc aorta are normal in size. Venous The inferior vena cava is normal in size and collapses greater than 50% with inspiration. Pericardium/Pleural There is no evidence of pericardial effusion. Prior Study Comparison No significant change compared to prior study dated: 08/12/2018. Recommendations, Care & Conclusions No obvious valvular pathology seen on this study. Measurements 2D Linear Measurements IVSd: 1.11 0.6-0.9/0.6-1.0 cm LVIDd: 4.89 3.9-5.3/4.2-5.9 cm LVIDd Index: 2.86 2.4-3.2/2.2-3.1 cm/m2 LVIDs: 3.92 2.0-3.6 cm LVPWd: 1.12 0.7-1.1 cm Ao Root: 2.60 2.1-3.5 cm LA Diam: 4.10 2.7-3.8/3.0-4.0 cm LAIDs Index: 2.40 1.5-2.3 cm/m2 LV Mass: 253.77 67-162/88-224 g LV Mass Index: 148.41 43-95/49-115 g/m2 LVOT Diam: 2.00 3.0+(-)1.3 cm 2D Systolic Function EF 4C: 36.30 >55% EF 2C: 46.20 >55% EF BiP: 41.40 >55% Mitral Valve MV Pk E: 0.72 MV PK A: 0.65 MV Decel Time: 188.00 E/A: 1.10 E'Lateral: 14.50 E'Medial: 7.07 E/E' Med: 10.10 E/E' Lat: 4.90 PHT: 55.00 MVA PHT: 4.00 Decel [place]: 3.81 Aortic Valve AoV Pk Silviano: 1.18 AoV Mn Silviano: 0.80 AoV VTI: 0.26 AoV Pk Grad: 6.00 Aov Mn Grad: 3.00 DEVORAH Cont.VTI: 2.26 LVOT LVOT Pk Silviano: 0.76 LVOT Mn Silviano: 0.58 LVOT VTI: 0.19 LVOT Pk Grad: 2.00 LVOT Mn Grad: 1.00 LVOT Diam: 2.00 LVOT Area: 3.14 Diastolic Function MV Pk E: 0.72 MV Pk A: 0.65 E/A: 1.10 E'Medial: 7.07 E/E' Med: 10.10 E' Laterial: 14.50 E/E' Lat: 4.90 Tricuspid Valve TR Pk Silviano: 1.72 TR Pk Grad: 12.00 RA Press: 3.00 RVSP: 15.00 Great Vessels Aorta Ao Root-2D: 2.60 2.0-3.7 cm Ao Asc: 2.90 2.1-3.4 cm Pulmonary Valve PV Pk Silviano: 0.76 Peak PV Grad: 2.00 Updated in Other Vendor System with Status of Final Samson Pineda MD electronically signed on 11/09/2020 12:20:16 PM with status of Final
== END ==
LOC: HO.CARD 14:59
PROVIDERS: Visit Provider Nurse Practitioner Family
DX: I25.119 Atherosclerotic heart disease of native coronary artery with unspecified angina pectoris (principal); I42.9 Cardiomyopathy, unspecified
CPT/HCPCS: 93306

== ENCOUNTER 2021-01-12 16:59 | Outpatient (REF) | payer OTHER, SELFPAY ==
[2021-01-12 18:03] LABS: MANUAL DIFF FLAG NO
[2021-01-12 18:08] LABS: Appearance Urine CLEAR; Color Urine YELLOW; Glucose Urine UA NEG (NEG); Leukocyte Esterase Urine NEG (NEG); Nitrite Urine NEG (NEG); Specific Gravity - Urine >= 1.030 (1.005-1.025); Urine Blood NEG (NEG); Urine Ketones 5 MG/DL (NEG); Urine Protein TRACE MG/DL (NEG-TRACE)
[2021-01-12 18:23] LABS: Alanine Aminotransferase 16 U/L (0-31); Albumin Level 4.4 g/dL (3.5-5.0); Alkaline Phosphatase 87 U/L (39-117); Anion Gap 11 (12-20); Aspartate Amino Transferase 15 U/L (5-31); Bilirubin Total 0.6 mg/dL (0.0-1.0); Blood Urea Nitrogen 12 mg/dL (9-16); Calcium 9.9 mg/dL (8.4-10.2); Carbon Dioxide 28 mmol/L (22-29); Chloride 106 mmol/L (96-108); Cholesterol 199 mg/dL; Estimated Glomerular Filt Rate > 60; Glucose Fasting 101 mg/dL (60-99); HDL Cholesterol 56 mg/dL; LDL Cholesterol Calculated 122 mg/dl; Potassium 4.3 mmol/L (3.3-5.1); Sodium 141 mmol/L (135-145); Total Protein 7.2 g/dL (6.5-8.0); Triglycerides 108 mg/dL
[2021-01-12 18:43] LABS: TSH reflex Free T4 0.78 uIU/mL (0.32-4.0); Vitamin D 25-OH Total 53.3 ng/mL (>30)
[2021-01-12 20:26] LABS: Basophils Percent Auto 0.5 % (0-2); Eosinophils Percent Auto 0.5 % (0-4); Hemoglobin 13.5 g/dl (12.0-16.0); Imm Gran Abs Auto 0.01 X10*3/uL (0.00-0.03); Imm Gran Pct Auto 0.1 % (0.0-0.4); Lymphocytes Absolute Auto 1.9 X10*3/uL (1.2-4.9); Lymphocytes Percent Auto 24.1 % (20-40); Mean Corpuscular HGB Conc 32.1 g/dl (31.0-35.0); Mean Corpuscular Hemoglobin 27.9 pg (27.0-33.0); Mean Corpuscular Volume 86.8 fL (80-98); Mean Platelet Volume 9.9 fL (9.4-12.3); Monocytes Absolute Auto 0.4 X10*3/uL (0.1-1.2); Monocytes Percent Auto 5.4 % (2-11); Neutrophils Absolute Auto 5.5 X10*3/uL (2.0-8.3); Neutrophils Percent Auto 69.4 % (45-73); Platelet Count 397 X10*3/uL (160-400); Red Blood Count 4.84 X10*6/uL (4.20-5.50); Red Cell Distribution Width 13.1 % (11.0-16.0); White Blood Count 7.9 X10*3/uL (4.8-10.8)
== END 2021-01-12 17:00 | disposition home or self-care (01) ==
LOC: HO.LAB 16:59
PROVIDERS: PCP Internal Medicine; Visit Provider Internal Medicine
DX: E55.9 Vitamin D deficiency, unspecified (principal); E66.3 Overweight; I10 Essential (primary) hypertension; I25.119 Atherosclerotic heart disease of native coronary artery with unspecified angina pectoris
CPT/HCPCS: 36415; 80053; 80061; 81003; 82306; 84443; 85025

== ENCOUNTER → 2021-01-25 13:39 | Outpatient (BNVA) | payer OTHER, SELFPAY | PROVIDERS: PCP Internal Medicine; Referring Provider Internal Medicine; Visit Provider Nurse Practitioner Family | DX: I42.9 Cardiomyopathy, unspecified (principal); I25.119 Atherosclerotic heart disease of native coronary artery with unspecified angina pectoris; I10 Essential (primary) hypertension; E78.00 Pure hypercholesterolemia, unspecified | CPT/HCPCS: 99212 ==

== ENCOUNTER → 2021-02-08 15:27 | Outpatient (BNVA) | payer OTHER, SELFPAY | PROVIDERS: PCP Internal Medicine; Referring Provider Internal Medicine; Visit Provider Nurse Practitioner Family ==

== ENCOUNTER → 2021-03-01 14:16 | Outpatient (BNVA) | payer OTHER, SELFPAY | PROVIDERS: PCP Internal Medicine; Referring Provider Internal Medicine; Visit Provider Nurse Practitioner Family | DX: I10 Essential (primary) hypertension (principal); I42.9 Cardiomyopathy, unspecified; I25.119 Atherosclerotic heart disease of native coronary artery with unspecified angina pectoris; E78.00 Pure hypercholesterolemia, unspecified | CPT/HCPCS: 99212 ==

== ENCOUNTER 2021-03-21 07:29 | Outpatient (REF) | payer OTHER, SELFPAY ==
[2021-03-21 09:01] LABS: Appearance Urine HAZY; Color Urine YELLOW; Glucose Urine UA NEG (NEG); Leukocyte Esterase Urine NEG (NEG); Nitrite Urine NEG (NEG); Urine Blood NEG (NEG); Urine Ketones NEG (NEG); Urine Protein NEG (NEG-TRACE)
== END 2021-03-21 07:30 | disposition home or self-care (01) ==
LOC: HO.LAB 07:29
PROVIDERS: PCP Internal Medicine; Visit Provider Internal Medicine
DX: I10 Essential (primary) hypertension (principal)
CPT/HCPCS: 81003

== ENCOUNTER 2021-05-09 07:27 | Outpatient (REF) | payer OTHER, SELFPAY ==
[2021-05-09 08:11] LABS: MANUAL DIFF FLAG NO
[2021-05-09 08:31] LABS: Basophils Percent Auto 0.3 % (0-2); Eosinophils Absolute Auto 0.1 X10*3/uL (0.0-0.4); Eosinophils Percent Auto 1.8 % (0-4); Hematocrit 44.1 % (37.0-47.0); Imm Gran Abs Auto 0.01 X10*3/uL (0.00-0.03); Imm Gran Pct Auto 0.1 % (0.0-0.4); Lymphocytes Absolute Auto 1.8 X10*3/uL (1.2-4.9); Lymphocytes Percent Auto 23.9 % (20-40); Mean Corpuscular HGB Conc 31.7 g/dl (31.0-35.0); Mean Corpuscular Hemoglobin 27.6 pg (27.0-33.0); Mean Corpuscular Volume 86.8 fL (80.0-98.0); Mean Platelet Volume 9.5 fL (9.4-12.3); Monocytes Absolute Auto 0.4 X10*3/uL (0.1-1.2); Monocytes Percent Auto 5.3 % (2-11); Neutrophils Percent Auto 68.6 % (45-73); Platelet Count 370 X10*3/uL (160-400); Red Blood Count 5.08 X10*6/uL (4.20-5.50); Red Cell Distribution Width 12.9 % (11.0-16.0); White Blood Count 7.4 X10*3/uL (4.8-10.8)
[2021-05-09 08:48] LABS: Alanine Aminotransferase 20 U/L (0-31); Alkaline Phosphatase 96 U/L (39-117); Anion Gap 9 (12-20); Aspartate Amino Transferase 15 U/L (5-31); Bilirubin Total 0.4 mg/dL (0.0-1.0); Blood Urea Nitrogen 13 mg/dL (9-16); Carbon Dioxide 31 mmol/L (22-29); Chloride 109 mmol/L (96-108); Cholesterol 196 mg/dL; Estimated Glomerular Filt Rate > 60; Glucose Fasting 95 mg/dL (60-99); HDL Cholesterol 52 mg/dL; LDL Cholesterol Calculated 124 mg/dl; Potassium 4.7 mmol/L (3.3-5.1); Sodium 144 mmol/L (135-145); Triglycerides 102 mg/dL
[2021-05-09 09:08] LABS: TSH reflex Free T4 1.48 uIU/mL (0.32-4.0); Vitamin D 25-OH Total 51.8 ng/mL (>30)
[2021-05-09 09:15] LABS: Appearance Urine CLEAR; Color Urine YELLOW; Glucose Urine UA NEG (NEG); Leukocyte Esterase Urine NEG (NEG); Nitrite Urine NEG (NEG); PH 6.5 (5.0-8.0); Urine Blood NEG (NEG); Urine Ketones NEG (NEG); Urine Protein NEG (NEG-TRACE)
== END 2021-05-09 07:28 | disposition home or self-care (01) ==
LOC: HO.LAB 07:27
PROVIDERS: PCP Internal Medicine; Visit Provider Internal Medicine
DX: E78.00 Pure hypercholesterolemia, unspecified (principal); E55.9 Vitamin D deficiency, unspecified; I10 Essential (primary) hypertension
CPT/HCPCS: 36415; 80053; 80061; 81003; 82306; 84443; 85025

== ENCOUNTER 2021-05-10 10:03 | Outpatient (REF) | payer OTHER, SELFPAY ==
--- NOTE | ~2021-05-10 | XR_ITS ---
EXAMINATION: XR RIBS, BILATERAL CLINICAL INFORMATION: Chest pain COMPARISON: Previous chest x-ray most recent September 2020 TECHNIQUE: 3 views of the bilateral ribs and one view of the chest were obtained. FINDINGS: Lungs are clear. No consolidation, pneumothorax, or pleural effusion. The cardiomediastinal silhouette and pulmonary vasculature are normal. There is a mild thoracic scoliosis similar to previous exam. Osseous structures are otherwise unremarkable. Ribs are intact. No fractures are identified. XR/XR ribs BI min 4V w CXR1V IMPRESSION: Mild thoracic scoliosis otherwise unremarkable examination.
== END 2021-05-10 10:04 | disposition home or self-care (01) ==
LOC: HO.XRAY 10:03
PROVIDERS: PCP Internal Medicine; Visit Provider Internal Medicine
DX: R07.9 Chest pain, unspecified (principal)
CPT/HCPCS: 71111

== ENCOUNTER → 2021-06-06 14:42 | Outpatient (BNVA) | payer OTHER, SELFPAY | PROVIDERS: PCP Internal Medicine; Referring Provider Internal Medicine; Visit Provider Nurse Practitioner Family | DX: I42.9 Cardiomyopathy, unspecified (principal); I25.119 Atherosclerotic heart disease of native coronary artery with unspecified angina pectoris; I10 Essential (primary) hypertension; E78.00 Pure hypercholesterolemia, unspecified; I25.2 Old myocardial infarction; Z79.82 Long term (current) use of aspirin; Z79.899 Other long term (current) drug therapy | CPT/HCPCS: 93005; 99212 ==

== ENCOUNTER 2021-09-06 11:53 | Outpatient (REF) | payer OTHER, SELFPAY ==
--- NOTE | ~2021-09-06 | XR_ITS ---
EXAMINATION: XR FOOT, RIGHT CLINICAL INFORMATION: Pain in right foot COMPARISON: Right foot radiograph from 11/28/2009 TECHNIQUE: AP, lateral, and oblique views of the right foot. FINDINGS: No acute visible fracture or dislocation. Joint spaces and alignment are maintained. Soft tissues are unremarkable. XR/XR foot RT 2V IMPRESSION: No acute visible fracture or dislocation.
[2021-09-06 12:07] LABS: MANUAL DIFF FLAG NO
[2021-09-06 13:14] LABS: Basophils Percent Auto 0.3 % (0-2); Eosinophils Absolute Auto 0.1 X10*3/uL (0.0-0.4); Eosinophils Percent Auto 1.7 % (0-4); Hematocrit 43.4 % (37.0-47.0); Hemoglobin 13.7 g/dl (12.0-16.0); Imm Gran Abs Auto 0.03 X10*3/uL (0.00-0.03); Imm Gran Pct Auto 0.5 % (0.0-0.4); Lymphocytes Absolute Auto 1.5 X10*3/uL (1.2-4.9); Lymphocytes Percent Auto 25.3 % (20-40); Mean Corpuscular HGB Conc 31.6 g/dl (31.0-35.0); Mean Corpuscular Volume 85.4 fL (80.0-98.0); Mean Platelet Volume 9.9 fL (9.4-12.3); Monocytes Absolute Auto 0.4 X10*3/uL (0.1-1.2); Monocytes Percent Auto 6.7 % (2-11); Neutrophils Absolute Auto 3.9 x10*3/uL (2.0-8.3); Neutrophils Percent Auto 65.5 % (45-73); Platelet Count 384 X10*3/uL (160-400); Red Blood Count 5.08 X10*6/uL (4.20-5.50); Red Cell Distribution Width 12.8 % (11.0-16.0); White Blood Count 5.9 X10*3/uL (4.8-10.8)
[2021-09-06 13:45] LABS: Alanine Aminotransferase 23 U/L (0-31); Albumin Level 4.2 g/dL (3.5-5.0); Alkaline Phosphatase 90 U/L (39-117); Anion Gap 12 (12-20); Aspartate Amino Transferase 22 U/L (5-31); Bilirubin Total 0.4 mg/dL (0.0-1.0); Blood Urea Nitrogen 12 mg/dL (9-16); Carbon Dioxide 26 mmol/L (22-29); Chloride 108 mmol/L (96-108); Cholesterol 193 mg/dL; Estimated Glomerular Filt Rate > 60; Glucose Fasting 83 mg/dL (60-99); HDL Cholesterol 56 mg/dL; LDL Cholesterol Calculated 121 mg/dl; Potassium 4.3 mmol/L (3.3-5.1); Sodium 142 mmol/L (135-145); Total Protein 7.1 g/dL (6.5-8.0); Triglycerides 84 mg/dL
[2021-09-06 13:53] LABS: Appearance Urine CLEAR; Color Urine YELLOW; Glucose Urine UA NEG (NEG); Leukocyte Esterase Urine NEG (NEG); Nitrite Urine NEG (NEG); PH 5.5 (5.0-8.0); Specific Gravity - Urine >= 1.030 (1.005-1.025); Urine Blood NEG (NEG); Urine Ketones 5 MG/DL (NEG); Urine Protein TRACE MG/DL (NEG-TRACE)
[2021-09-06 14:11] LABS: TSH reflex Free T4 1.12 uIU/mL (0.32-4.0)
== END 2021-09-06 11:54 | disposition home or self-care (01) ==
LOC: HO.LAB 11:53
PROVIDERS: PCP Internal Medicine; Visit Provider Internal Medicine
DX: M79.671 Pain in right foot (principal); E78.00 Pure hypercholesterolemia, unspecified; E55.9 Vitamin D deficiency, unspecified; I10 Essential (primary) hypertension
CPT/HCPCS: 36415; 73620; 80053; 80061; 81003; 82306; 84443; 85025

== ENCOUNTER 2021-09-22 16:16 | Outpatient (REF) | payer OTHER, SELFPAY ==
--- NOTE | ~2021-09-22 | XR_ITS ---
EXAMINATION: XR THORACIC SPINE CLINICAL INFORMATION: Pain in thoracic spine. COMPARISON: 07/18/2011 TECHNIQUE: 3 views of the thoracic spine were obtained. FINDINGS: There is minimal scoliosis of the upper thoracic spine convex left and of the lower thoracic spine convex right. Disc spaces appear generally maintained without significant spurring appreciated. No paraspinal line bulge is identified. Pedicles appear intact. No destructive bony lesions appreciated. There is minimal spurring in the lower thoracic spine. XR/XR thoracic spine 3V IMPRESSION: No significant thoracic spine abnormality appreciated.
== END 2021-09-22 16:17 | disposition home or self-care (01) ==
LOC: HO.XRAY 16:16
PROVIDERS: PCP Internal Medicine; Visit Provider Nurse Practitioner Family
DX: M54.6 Pain in thoracic spine (principal)
CPT/HCPCS: 72072

== ENCOUNTER → 2021-11-20 13:59 | Outpatient (REF) | payer OTHER, SELFPAY ==
--- NOTE | 2021-11-20 14:02 | CA_ITS ---
Transthoracic Echocardiogram Patient (Last, First, Middle): Susy Concepcion, Gender: Female Date of : 1970 Age: 51 Procedure Date: 11/20/2021 Procedure Type: Transthoracic Echocardiogram Location: OP Height: 157.48 cm Weight: 68.95 kg BSA: 1.70 m2 Heart Rate: 67 bpm BP: 126 / 78 mmHg Custodial Services Manager: SB Referring MD: Mabel Tafoya HOSPICE LIAISONLavern Symptoms: I42.9 - Cardiomyopathy, unspecified Study Quality: Adequate ECG Rhythm: Sinus Conclusions: - The left ventricular systolic function is mildly decreased. The calculated ejection fraction is 50% by biplane method. - No obvious valvular pathology seen on this study. Findings Left Ventricle Normal left ventricular cavity size. The left ventricular systolic function is mildly decreased. The calculated ejection fraction is 50% by biplane method. Diastolic function is normal for age. There is mild septal asymmetric hypertrophy. Right Ventricle Normal right ventricular cavity size. There is low normal right ventricular systolic function. Atria Both atria are normal in size. Aortic Valve There is a normal trileaflet aortic valve. There is no aortic valve stenosis. There is no aortic valve regurgitation. Mitral Valve The mitral valve appears normal. There is trace mitral valve regurgitation. There is no mitral valve stenosis. Pulmonic Valve The pulmonic valve is likely normal. Tricuspid Valve Normal tricuspid valve structure. There is trace tricuspid valve regurgitation. The pulmonary artery systolic pressure is normal. Great Vessels The aorta was not well visualized. Venous The inferior vena cava is normal in size and collapses greater than 50% with inspiration. Pericardium/Pleural There is no evidence of pericardial effusion. Prior Study Comparison No significant change compared to prior study dated: 11/08/2020. Recommendations, Care & Conclusions No obvious valvular pathology seen on this study. Measurements 2D Linear Measurements IVSd: 1.11 0.6-0.9/0.6-1.0 cm LVIDd: 5.33 3.9-5.3/4.2-5.9 cm LVIDd Index: 3.14 2.4-3.2/2.2-3.1 cm/m2 LVIDs: 3.86 2.0-3.6 cm LVPWd: 0.65 0.7-1.1 cm LA Diam: 4.00 2.7-3.8/3.0-4.0 cm LAIDs Index: 2.35 1.5-2.3 cm/m2 LV Mass: 213.49 67-162/88-224 g LV Mass Index: 125.58 43-95/49-115 g/m2 LVOT Diam: 2.20 3.0+(-)1.3 cm 2D Systolic Function EF 4C: 48.80 >55% EF 2C: 49.40 >55% EF BiP: 50.20 >55% Mitral Valve MV Pk E: 0.56 MV PK A: 0.41 MV Decel Time: 213.00 E/A: 1.40 E'Lateral: 8.92 E'Medial: 6.31 E/E' Med: 8.90 E/E' Lat: 6.30 PHT: 62.00 MVA PHT: 3.55 Decel [place]: 2.63 Aortic Valve AoV Pk Silviano: 1.26 AoV Mn Silviano: 0.87 AoV VTI: 0.25 AoV Pk Grad: 6.00 Aov Mn Grad: 4.00 DEVORAH Cont.VTI: 2.51 LVOT LVOT Pk Silviano: 0.82 LVOT Mn Silviano: 0.57 LVOT VTI: 0.16 LVOT Pk Grad: 3.00 LVOT Mn Grad: 2.00 LVOT Diam: 2.20 LVOT Area: 3.80 Diastolic Function MV Pk E: 0.56 MV Pk A: 0.41 E/A: 1.40 E'Medial: 6.31 E/E' Med: 8.90 E' Laterial: 8.92 E/E' Lat: 6.30 Right Ventricle TAPSE (mm): 16.90 TVS' Silviano: 11.20 Tricuspid Valve TR Pk Silviano: 1.86 TR Pk Grad: 14.00 RA Press: 3.00 RVSP: 17.00 Great Vessels Aorta Sinus of Valsalva: 3.00 2.0-3.5 cm Ao Asc: 3.10 2.1-3.4 cm Pulmonary Veins Pulm Vein S/D 1.40 Pulmonary Valve PV Pk Silviano: 0.83 Peak PV Grad: 3.00 Updated in Other Vendor System with Status of Final Samson Pineda MD electronically signed on 11/20/2021 4:04:51 PM with status of Final
== END ==
LOC: HO.CARD 13:59
PROVIDERS: PCP Internal Medicine; Visit Provider Nurse Practitioner Family
DX: I42.9 Cardiomyopathy, unspecified (principal); I10 Essential (primary) hypertension
CPT/HCPCS: 93306

== ENCOUNTER 2021-12-15 20:28 | Emergency (ER) | payer OTHER, SELFPAY ==
--- NOTE | 2021-12-15 20:29 | ECG_ITS ---
Test Reason : CHEST PAIN Blood Pressure : / mmHG Vent. Rate : 096 BPM Atrial Rate : 096 BPM P-R Int : 118 ms QRS Dur : 094 ms QT Int : 352 ms P-R-T Axes : 064 021 005 degrees QTc Int : 444 ms AGE AND GENDER SPECIFIC ECG ANALYSIS Normal sinus rhythm Moderate voltage criteria for LVH, may be normal variant ( R in aVL , Gove product ) Anterior infarct , possibly acute Lateral injury pattern ACUTE PA / STEMI Abnormal ECG When compared with ECG of 06-OCT-2020 22:09, ST now depressed in Inferior leads ST elevation has replaced ST depression in Anterior leads Nonspecific T wave abnormality no longer evident in Lateral leads Referred By: Lyn Kemp Electronically Signed By:NIK MCNEAL
[2021-12-15 20:35] VITALS: BP 197/111; PULSE 108; RESP 18; TEMP 36.6; O2SAT 98; BMI 27.4
--- NOTE | 2021-12-15 20:42 | ED_ITS ---
HPI - Chest Pain General Chief Complaint: Chest Pain Stated Complaint: Chest pain Time Seen by Provider: 12/15/21 20:34 Source: patient, old records reviewed and science interpreter Mode of arrival: ambulatory Limitations: no limitations History of Present Illness HPI narrative: 51 yo female with hx of HTN, HLD, Cardiomyopathy, CAD s/p angioplasty in 2016 here with c/o chest pain x 4 hours with SOB and nausea. Didn't take any medications today. She reports her pain did not improve with a shower. She has not had this pain before. MD complaint: chest pain Pertinent past history: coronary artery disease Onset (ago): hour(s) (4) Timing of current episode: constant Prior episodes: No Onset: during rest Pain location: substernal Pain radiation: right arm and left arm Severity: severe Quality: other (pressure) Relieving factors: nothing Exacerbating factors: exertion Associated symptoms: nausea and dyspnea Treatment prior to arrival: none Related Data Home Medications Medication Instructions Recorded Confirmed aspirin 81 mg tablet,delayed 81 mg PO DAILY 03/16/20 06/06/21 release (Adult Low Dose Aspirin) cholecalciferol (vitamin D3) 50 50 mcg PO DAILY 03/16/20 06/06/21 mcg (2,000 unit) tablet coenzyme Q10 10 mg capsule 10 mg PO TID 03/16/20 06/06/21 ibuprofen 600 mg tablet 600 mg PO TID PRN 09/14/20 06/06/21 ascorbic acid (vitamin C) 500 mg 500 mg PO DAILY 01/16/21 06/06/21 capsule plant stanol madonna 450 mg tablet 450 mg PO .QD 03/01/21 06/06/21 (Cholest Off) Previous Rx's Medication Instructions Recorded metoprolol succinate 25 mg 25 mg PO BID 90 days #180 tabs 02/08/21 tablet,extended release 24 hr alirocumab 75 mg/mL subcutaneous 75 mg subcut Q2W 90 days #7 mL 06/06/21 pen injector (Praluent Pen) Allergies Allergy/AdvReac Type Severity Reaction Status Date / Time lisinopril Allergy Unknown angioedema, Verified 09/22/21 15:42 throat swelling pravastatin Allergy Unknown myalgia, Verified 09/22/21 15:42 angioedema rosuvastatin AdvReac Unknown myalgia Verified 09/22/21 15:42 Review of Systems Review of Systems: Constitutional : No Weight loss, No Fever, No Chills ENT/Mouth : No sore throat, No Rhinorrhea Eyes: No Eye Pain, No Swelling Cardiovascular : pos Chest Pain, pos SOB, no Dyspnea on Exertion, No Orthopnea, No Edema, No Palpitations Respiratory : No Cough, No Sputum Gastrointestinal : pos Nausea, No Vomiting, No Diarrhea, No abdominal Pain, No Hematochezia, No Melena Genitourinary : No Dysuria, No Urinary Frequency Musculoskeletal : No joint pain, No Myalgias, No Joint Swelling Skin : No Skin Lesions, No rash Neuro : No Weakness, No Numbness, No Dizziness, No Headache Psych : No Anxiety/Panic, No Depression Heme/Lymph: No Bruising, No Lymphadenopathy Endocrine : No Polyuria, No Polydipsia All other systems reviewed and are negative [facility] Past Medical History Attestation statement: The following information was validated with the patient. Medical History Anxiety Benign essential hypertension Cardiomyopathy Coronary artery disease involving jamul coronary artery of jamul heart with angina pectoris Dizziness Lumbar degenerative disc disease Lumbar radiculopathy, chronic Overweight (BMI 25.0-29.9) Pityriasis rosea Pure hypercholesterolemia Tachycardia Throat pain Visual impairment Vitamin D deficiency Surgical History History of cardiac catheterization Family History Family History Father Diabetes Hypertension Hypercholesteremia Mother Hypertension Diabetes Hypercholesteremia Family/Other FH: mental illness Social History Social History Housing: House Alcohol intake: never Patient Tobacco Use Status: Former Tobacco user Second Hand Smoke Exposure: Yes Advance Directives: No service: No Current occupational status: employed 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 Oriented X3. in pain mild acute distress. Eyes: Pupils equal, round and reactive to light. ENT: Pharynx normal. Neck: Normal inspection. Neck supple. CVS: Normal heart rate and rhythm. Pulses normal. Respiratory: No respiratory distress. Breath sounds normal. Abdomen: Soft and non-tender. Skin: Skin warm and dry. Normal skin color. Normal skin turgor. Extremities: No lower extremity edema. No calf ttp Neuro: Oriented X 3. No motor deficit. No sensory deficit. Course Course Course Narrative: call to interventional cardiology 840pm - 842pm Dr. Roth send to medical laboratory technologist [facility] was called 842pm states they do not have a truck attempting to call [facility] for transport given ASPIRIN, brilinta, heparin, nitro paste - statin held as patient has hx of angioedema due statins IV fentanyl for pain as well MDM - Chest Pain MDM Narrative Medical decision making narrative: 51 yo female with a hx of HTN, HLD, cardiomyopathy, CAD s/p angioplasty in 2016 comes in with 4 hours of chest pain at rest feels like pressure, did not take any of her medications today. States she has shortness of breath. She tried to take a shower but it did not help. Her EKG shows anterior/lateral STEMI. Meds ordered other than statin given angioedema. Lab Data Result diagrams: 12/15/21 20:43 12/15/21 20:43 Labs: Lab Results 12/15/21 12/15/21 12/15/21 Range/Units 20:39 20:43 20:43 WBC (4.8-10.8) X10*3/uL RBC (4.20-5.50) X10*6/uL Hgb (12.0-16.0) g/dl Hct (37.0-47.0) % MCV (80.0-98.0) fL MCH (27.0-33.0) pg MCHC (31.0-35.0) g/dl RDW (11.0-16.0) % Plt Count (160-400) X10*3/uL MPV (9.4-12.3) fL Immature Gran % (Auto) (0.0-0.4) % Neut % (Auto) (45-73) % Lymph % (Auto) (20-40) % [place] % (Auto) (2-11) % Eos % (Auto) (0-4) % Baso % (Auto) (0-2) % Lymph # (Auto) (1.2-4.9) X10*3/uL [place] # (Auto) (0.1-1.2) X10*3/uL Eos # (Auto) (0.0-0.4) X10*3/uL Baso # (Auto) (0.0-0.2) X10*3/uL Abs Immat Gran (auto) (0.00-0.03) X10*3/uL Absolute Neuts (auto) (2.0-8.3) x10*3/uL Absolute Nucleated RBC (0.0-0.012) X10*3/uL Nucleated RBC % (auto) (0.0-0.2) /100WBC Sodium 143 (135-145) mmol/L Potassium 3.7 (3.3-5.1) mmol/L Chloride 106 (96-108) mmol/L Carbon Dioxide 24 (22-29) mmol/L Anion Gap 17 (12-20) BUN 15 (9-16) mg/dL Creatinine 0.92 (0.5-1.4) mg/dL Estim Creat Clear Calc 69.4 Estimated GFR > 60 POC Glucose 132 H (60-115) mg/dL Random Glucose 140 H (60-115) mg/dL Calcium 9.7 (8.4-10.2) mg/dL Total Bilirubin 0.4 (0.0-1.0) mg/dL AST 19 (5-31) U/L ALT 15 (0-31) U/L Alkaline Phosphatase 107 (39-117) U/L Troponin I High Sens 94.6 H* (<3.5-17.0) ng/L Total Protein 8.0 (6.5-8.0) g/dL Albumin 4.7 (3.5-5.0) g/dL COVID-19 (AYAKA) (Negative) COVID-19 Clin Com 12/15/21 12/15/21 Range/Units 20:43 20:46 WBC 8.7 (4.8-10.8) X10*3/uL RBC 5.43 (4.20-5.50) X10*6/uL Hgb 14.3 (12.0-16.0) g/dl Hct 44.3 (37.0-47.0) % MCV 81.6 (80.0-98.0) fL MCH 26.3 L (27.0-33.0) pg MCHC 32.3 (31.0-35.0) g/dl RDW 13.7 (11.0-16.0) % Plt Count 445 H (160-400) X10*3/uL MPV 9.5 (9.4-12.3) fL Immature Gran % (Auto) 0.3 (0.0-0.4) % Neut % (Auto) 59.1 (45-73) % Lymph % (Auto) 32.8 (20-40) % [place] % (Auto) 6.5 (2-11) % Eos % (Auto) 0.8 (0-4) % Baso % (Auto) 0.5 (0-2) % Lymph # (Auto) 2.9 (1.2-4.9) X10*3/uL [place] # (Auto) 0.6 (0.1-1.2) X10*3/uL Eos # (Auto) 0.1 (0.0-0.4) X10*3/uL Baso # (Auto) 0.0 (0.0-0.2) X10*3/uL Abs Immat Gran (auto) 0.03 (0.00-0.03) X10*3/uL Absolute Neuts (auto) 5.1 (2.0-8.3) x10*3/uL Absolute Nucleated RBC 0.000 (0.0-0.012) X10*3/uL Nucleated RBC % (auto) 0.0 (0.0-0.2) /100WBC Sodium (135-145) mmol/L Potassium (3.3-5.1) mmol/L Chloride (96-108) mmol/L Carbon Dioxide (22-29) mmol/L Anion Gap (12-20) BUN (9-16) mg/dL Creatinine (0.5-1.4) mg/dL Estim Creat Clear Calc Estimated GFR POC Glucose (60-115) mg/dL Random Glucose (60-115) mg/dL Calcium (8.4-10.2) mg/dL Total Bilirubin (0.0-1.0) mg/dL AST (5-31) U/L ALT (0-31) U/L Alkaline Phosphatase (39-117) U/L Troponin I High Sens (<3.5-17.0) ng/L Total Protein (6.5-8.0) g/dL Albumin (3.5-5.0) g/dL COVID-19 (AYAKA) Negative (Negative) COVID-19 Clin Com See Note ECG Data ECG #1: Attestation: I personally reviewed and interpreted this ECG as follows: ECG interpretation date: 12/15/21 Interpretation: Rate: 96 Rhythm: NSR Palmer: normal ,m LVH Normal P waves. Normal GABRIEL. Normal QRS complex. ST T wave : NENA I , aVL V2/V3 ST depressions in II, III, aVF. qTC: normal prior studies: ACUTE [place] The study has been interpreted contemporaneously by me. . Critical Care Time Critical Care Time Critical Care Time: Yes Total Critical Care Time: 35 Attestation: review of records, transfer to tertiary center I attest to this time spent taking care of the patient Discharge Plan Discharge Clinical Impression: ST elevation (STEMI) myocardial infarction Patient Disposition: Xfer Acute Care Hospital Transfer Details: [facility] Prescriptions: No [facility] metoprolol succinate 25 mg tablet extended release 24 hr 25 mg PO BID 90 Days Qty: 180 3RF cholecalciferol (vitamin D3) 50 mcg (2,000 unit) tablet 50 mcg PO DAILY aspirin [Adult Low Dose Aspirin] 81 mg tablet,delayed release (DR/EC) 81 mg PO DAILY coenzyme Q10 10 mg capsule 10 mg PO TID ascorbic acid (vitamin C) 500 mg capsule 500 mg PO DAILY Cholest Off 450 mg tablet 450 mg PO .QD ibuprofen 600 mg tablet 600 mg PO TID PRN Praluent Pen 75 mg/mL pen injector 75 mg subcut Q2W 90 Days Qty: 7 3RF Rx Instructions: inject into abdomen, thigh, or upper arm (deltoid muscle); rotate sites Interventions: Acute Care Transfer Worksheet (ED) Last Done: 12/15/21 21:16 Discharge Date/Time: 12/15/21 21:00
[2021-12-15 20:43] LABS: Glucose, Whole Blood 132 mg/dL (60-115)
[2021-12-15 20:45] VITALS: BP 190/123; PULSE 105; PULSE 107; RESP 20; O2SAT 99; BMI 29.5
[2021-12-15] MEDS: Ticagrelor 90 MG TABLET 180 MG PO (20:45)
[2021-12-15] MEDS: Heparin Sodium,Porcine 5,000 UNIT/ML VIAL 4000 UNIT IVPUSH (20:46)
[2021-12-15] MEDS: Aspirin 81 MG TAB.CHEW 324 MG PO (20:47)
[2021-12-15] MEDS: Nitroglycerin 2 % Oint 1 GM Packet 1 INCH TRANSDERMA (20:47)
[2021-12-15 20:48] LABS: MANUAL DIFF FLAG NO
[2021-12-15 20:51] VITALS: RESP 16
[2021-12-15] MEDS: fentaNYL citrate/PF 100 MCG/2 ML VIAL 25 MCG IVPUSH (20:51)
[2021-12-15] MEDS: ondansetron HCL 4 MG/2 ML VIAL IVPUSH (20:51)
[2021-12-15 20:55] VITALS: BP 176/119; PULSE 109; RESP 22; O2SAT 99
--- NOTE | 2021-12-15 20:56 | PC.NURSE ---
This US/Pct called [facility] at 2036 per .[facility] called for a Stemi-Standby at 2037 Chandler stated he had to pass to [facility],due to being at level 0. At 2055 accepted patient to the International Account Representative.EMS transfered pt at 2101
[2021-12-15 21:03] LABS: Basophils Percent Auto 0.5 % (0-2); Eosinophils Absolute Auto 0.1 X10*3/uL (0.0-0.4); Eosinophils Percent Auto 0.8 % (0-4); Hematocrit 44.3 % (37.0-47.0); Hemoglobin 14.3 g/dl (12.0-16.0); Imm Gran Abs Auto 0.03 X10*3/uL (0.00-0.03); Imm Gran Pct Auto 0.3 % (0.0-0.4); Lymphocytes Absolute Auto 2.9 X10*3/uL (1.2-4.9); Lymphocytes Percent Auto 32.8 % (20-40); Mean Corpuscular HGB Conc 32.3 g/dl (31.0-35.0); Mean Corpuscular Hemoglobin 26.3 pg (27.0-33.0); Mean Corpuscular Volume 81.6 fL (80.0-98.0); Mean Platelet Volume 9.5 fL (9.4-12.3); Monocytes Absolute Auto 0.6 X10*3/uL (0.1-1.2); Monocytes Percent Auto 6.5 % (2-11); Neutrophils Absolute Auto 5.1 x10*3/uL (2.0-8.3); Neutrophils Percent Auto 59.1 % (45-73); Platelet Count 445 X10*3/uL (160-400); Red Blood Count 5.43 X10*6/uL (4.20-5.50); Red Cell Distribution Width 13.7 % (11.0-16.0); White Blood Count 8.7 X10*3/uL (4.8-10.8)
[2021-12-15 21:08] LABS: COVID-19 Test Negative (Negative)
--- NOTE | 2021-12-15 21:12 | PC.NURSE ---
multiple attempts to give report to crime lab technician and there was no answer. pt left at 2099 and they answered at this time 2112 report being given by Camelia LUNA.
--- NOTE | 2021-12-15 21:15 | PC.NURSE ---
EMS left with pt approx 2100. Report given to CHERYL Rodriguez at [facility] 21:15.
[2021-12-15 21:33] LABS: Troponin-I High Sensitivity 94.6 ng/L (<3.5-17.0)
[2021-12-15 21:37] LABS: Alanine Aminotransferase 15 U/L (0-31); Albumin Level 4.7 g/dL (3.5-5.0); Alkaline Phosphatase 107 U/L (39-117); Anion Gap 17 (12-20); Aspartate Amino Transferase 19 U/L (5-31); Bilirubin Total 0.4 mg/dL (0.0-1.0); Blood Urea Nitrogen 15 mg/dL (9-16); Calcium 9.7 mg/dL (8.4-10.2); Carbon Dioxide 24 mmol/L (22-29); Chloride 106 mmol/L (96-108); Creatinine Clr Calc Pharmacy 69.4; Estimated Glomerular Filt Rate > 60; Glucose Random 140 mg/dL (60-115); Potassium 3.7 mmol/L (3.3-5.1); Sodium 143 mmol/L (135-145)
== END 2021-12-15 21:00 | disposition short-term general hospital (02) ==
PROVIDERS: Emergency Provider Emergency Medicine; PCP Internal Medicine
DX: I21.3 ST elevation (STEMI) myocardial infarction of unspecified site (principal); R07.89 Other chest pain; I25.10 Atherosclerotic heart disease of native coronary artery without angina pectoris; I10 Essential (primary) hypertension; Z20.822 Contact with and (suspected) exposure to COVID-19; Z79.899 Other long term (current) drug therapy; Z87.891 Personal history of nicotine dependence
CPT/HCPCS: 36415; 80053; 82947; 84484; 85025; 87635; 93005; 96374; 96375; 99285; J2405; J3010

== ENCOUNTER 2022-01-05 08:05 | Outpatient (REF) | payer OTHER, SELFPAY ==
--- NOTE | ~2022-01-05 | XR_ITS ---
EXAMINATION: XR KNEE, LEFT CLINICAL INFORMATION: Pain. COMPARISON: Left knee radiographs dated 07/20/2020. TECHNIQUE: AP and lateral views of the left knee. FINDINGS: No joint space narrowing or marginal osteophytes. No osseous erosion. No fracture or dislocation. No abnormal soft tissue calcification. No significant joint effusion. XR/XR knee LT 2V IMPRESSION: Unremarkable examination.
== END 2022-01-05 08:06 | disposition home or self-care (01) ==
LOC: HO.XRAY 08:05
PROVIDERS: PCP Internal Medicine; Visit Provider Internal Medicine
DX: M25.562 Pain in left knee (principal)
CPT/HCPCS: 73560

== ENCOUNTER 2022-01-19 09:22 | Outpatient (REF) | payer OTHER, SELFPAY ==
[2022-01-19 09:40] LABS: MANUAL DIFF FLAG NO
[2022-01-19 10:48] LABS: Basophils Percent Auto 0.4 % (0-2); Eosinophils Absolute Auto 0.1 X10*3/uL (0.0-0.4); Eosinophils Percent Auto 1.9 % (0-4); Hematocrit 42.7 % (37.0-47.0); Hemoglobin 13.3 g/dl (12.0-16.0); Imm Gran Abs Auto 0.01 X10*3/uL (0.00-0.03); Imm Gran Pct Auto 0.1 % (0.0-0.4); Lymphocytes Absolute Auto 1.5 X10*3/uL (1.2-4.9); Mean Corpuscular HGB Conc 31.1 g/dl (31.0-35.0); Mean Corpuscular Hemoglobin 26.2 pg (27.0-33.0); Mean Corpuscular Volume 84.1 fL (80.0-98.0); Mean Platelet Volume 9.8 fL (9.4-12.3); Monocytes Absolute Auto 0.4 X10*3/uL (0.1-1.2); Monocytes Percent Auto 5.9 % (2-11); Neutrophils Absolute Auto 5.2 x10*3/uL (2.0-8.3); Neutrophils Percent Auto 71.7 % (45-73); Platelet Count 362 X10*3/uL (160-400); Red Blood Count 5.08 X10*6/uL (4.20-5.50); Red Cell Distribution Width 13.7 % (11.0-16.0); White Blood Count 7.3 X10*3/uL (4.8-10.8)
[2022-01-19 11:21] LABS: Alanine Aminotransferase 21 U/L (0-31); Albumin Level 4.1 g/dL (3.5-5.0); Alkaline Phosphatase 94 U/L (39-117); Anion Gap 15 (12-20); Aspartate Amino Transferase 19 U/L (5-31); Bilirubin Total 0.4 mg/dL (0.0-1.0); Blood Urea Nitrogen 14 mg/dL (9-16); Calcium 10.1 mg/dL (8.4-10.2); Carbon Dioxide 27 mmol/L (22-29); Chloride 108 mmol/L (96-108); Cholesterol 196 mg/dL; Estimated Glomerular Filt Rate > 60; Glucose Fasting 84 mg/dL (60-99); HDL Cholesterol 52 mg/dL; LDL Cholesterol Calculated 129 mg/dl; Potassium 4.8 mmol/L (3.3-5.1); Sodium 145 mmol/L (135-145); Triglycerides 78 mg/dL
[2022-01-23 15:27] LABS: Vitamin D 25-OH, D2 <4 ng/mL; Vitamin D 25-OH, D3 39 ng/mL; Vitamin D 25-OH, Total 39 ng/mL (30-100)
== END 2022-01-19 09:23 | disposition home or self-care (01) ==
LOC: HO.LAB 09:22
PROVIDERS: PCP Internal Medicine; Visit Provider Nurse Practitioner Family
DX: I42.9 Cardiomyopathy, unspecified (principal); E55.9 Vitamin D deficiency, unspecified; E78.00 Pure hypercholesterolemia, unspecified; I10 Essential (primary) hypertension
CPT/HCPCS: 36415; 80053; 80061; 82306; 85025

== ENCOUNTER → 2022-01-24 09:28 | Outpatient (BNVA) | payer OTHER, SELFPAY | PROVIDERS: PCP Internal Medicine; Referring Provider Internal Medicine; Visit Provider Internal Medicine Cardiovascular Disease | DX: I22.0 Subsequent ST elevation (STEMI) myocardial infarction of anterior wall (principal); I25.5 Ischemic cardiomyopathy; I10 Essential (primary) hypertension; Z79.899 Other long term (current) drug therapy | CPT/HCPCS: 93005; 99212 ==

== ENCOUNTER → 2022-02-15 12:56 | Outpatient (REF) | payer OTHER, SELFPAY ==
--- NOTE | 2022-02-15 12:58 | CA_ITS ---
Transthoracic Echocardiogram Patient (Last, First, Middle): Susy Concepcion, Gender: Female Date of : 1970 Age: 52 Procedure Date: 02/15/2022 Procedure Type: Transthoracic Echocardiogram Location: OP Height: 157.48 cm Weight: 70.31 kg BSA: 1.72 m2 Heart Rate: bpm BP: 118 / 82 mmHg Photograph Tinter: TO Referring MD: Aren Mendez MD Symptoms: I42.9 - Cardiomyopathy, unspecified Study Quality: Adequate ECG Rhythm: Sinus Conclusions: - The left ventricular systolic function is low normal. The visually estimated ejection fraction is between 50-55%. Findings Left Ventricle Normal left ventricular cavity size. The left ventricular systolic function is low normal. The visually estimated ejection fraction is between 50-55%. There is no evidence of regional wall motion abnormalities. Prior Study Comparison No significant change compared to prior study dated: 11/20/2021. Measurements 2D Linear Measurements IVSd: 1.01 0.6-0.9/0.6-1.0 cm LVIDd: 4.98 3.9-5.3/4.2-5.9 cm LVIDd Index: 2.90 2.4-3.2/2.2-3.1 cm/m2 LVIDs: 3.57 2.0-3.6 cm LVPWd: 0.90 0.7-1.1 cm LA Diam: 3.60 2.7-3.8/3.0-4.0 cm LAIDs Index: 2.09 1.5-2.3 cm/m2 LV Mass: 212.02 67-162/88-224 g LV Mass Index: 123.27 43-95/49-115 g/m2 2D Systolic Function EF 4C: 57.20 >55% EF 2C: 56.60 >55% EF BiP: 56.80 >55% Mitral Valve MV Pk E: 0.57 MV PK A: 0.48 MV Decel Time: 247.00 E/A: 1.20 E'Lateral: 12.30 E'Medial: 6.96 E/E' Med: 8.20 E/E' Lat: 4.60 PHT: 72.00 MVA PHT: 3.06 Decel [place]: 2.31 Diastolic Function MV Pk E: 0.57 MV Pk A: 0.48 E/A: 1.20 E'Medial: 6.96 E/E' Med: 8.20 E' Laterial: 12.30 E/E' Lat: 4.60 Tricuspid Valve RA Press: 3.00 Updated in Other Vendor System with Status of Final Samson Pineda MD electronically signed on 02/15/2022 5:48:39 PM with status of Final
== END ==
LOC: HO.CARD 12:56
PROVIDERS: PCP Internal Medicine; Visit Provider Internal Medicine Cardiovascular Disease
DX: I42.9 Cardiomyopathy, unspecified (principal); I25.5 Ischemic cardiomyopathy
CPT/HCPCS: 93308

== ENCOUNTER 2022-02-16 07:44 | Outpatient (REF) | payer OTHER, SELFPAY ==
[2022-02-16 09:28] LABS: Alanine Aminotransferase 45 U/L (0-31); Albumin Level 4.3 g/dL (3.5-5.0); Alkaline Phosphatase 98 U/L (39-117); Anion Gap 14 (12-20); Aspartate Amino Transferase 30 U/L (5-31); Bilirubin Total 0.6 mg/dL (0.0-1.0); Blood Urea Nitrogen 13 mg/dL (9-16); Calcium 9.5 mg/dL (8.4-10.2); Carbon Dioxide 26 mmol/L (22-29); Chloride 108 mmol/L (96-108); Cholesterol 141 mg/dL; Estimated Glomerular Filt Rate > 60; Glucose Fasting 84 mg/dL (60-99); HDL Cholesterol 53 mg/dL; LDL Cholesterol Calculated 64 mg/dl; Potassium 4.3 mmol/L (3.3-5.1); Sodium 144 mmol/L (135-145); Total Protein 7.1 g/dL (6.5-8.0); Triglycerides 123 mg/dL
== END 2022-02-16 07:45 | disposition home or self-care (01) ==
LOC: HO.LAB 07:44
PROVIDERS: PCP Internal Medicine; Visit Provider Internal Medicine
DX: E78.00 Pure hypercholesterolemia, unspecified (principal)
CPT/HCPCS: 36415; 80053; 80061

== ENCOUNTER → 2022-02-21 14:52 | Outpatient (BNVA) | payer OTHER, SELFPAY | PROVIDERS: PCP Internal Medicine; Visit Provider Internal Medicine Cardiovascular Disease | DX: I25.10 Atherosclerotic heart disease of native coronary artery without angina pectoris (principal); I25.5 Ischemic cardiomyopathy | CPT/HCPCS: 99212 ==

== ENCOUNTER 2022-04-03 11:03 | Outpatient (REF) | payer OTHER, SELFPAY ==
[2022-04-03 12:40] LABS: Cholesterol 127 mg/dL; HDL Cholesterol 61 mg/dL; LDL Cholesterol Calculated 51 mg/dl; Triglycerides 78 mg/dL
[2022-04-03 13:36] LABS: Appearance Urine Clear; Color Urine Yellow; Glucose Urine UA Negative (Negative); Leukocyte Esterase Urine Negative (Negative); Nitrite Urine Negative (Negative); PH 7.5 (5.0-9.0); Specific Gravity - Urine 1.025 (1.005-1.025); Urine Blood Negative (Negative); Urine Ketones Negative (Negative); Urine Protein Trace mg/dL (Neg-Trace)
== END 2022-04-03 11:04 | disposition home or self-care (01) ==
LOC: HO.LAB 11:03
PROVIDERS: PCP Internal Medicine; Visit Provider Internal Medicine Cardiovascular Disease
DX: N39.0 Urinary tract infection, site not specified (principal); I25.119 Atherosclerotic heart disease of native coronary artery with unspecified angina pectoris
CPT/HCPCS: 36415; 80061; 81003

== ENCOUNTER → 2022-04-25 08:20 | Outpatient (REF) | payer OTHER, SELFPAY ==
--- NOTE | ~2022-04-25 | NM_ITS ---
Myocardial perfusion study Indication: Chest pain with prior coronary disease to evaluate for myocardial ischemia Technique: The patient was brought in for a Lexiscan perfusion study on 04/25/2022. Patient performed low-level exercise and was injected 0.4 mg of Lexiscan intravenously. Within a minute of injection, 25 mCi of sestamibi was given intravenously. Images were obtained using the SPECT gamma camera interlaced with the gating device. Images were obtained in supine position. Resting perfusion study was performed on 04/26/2022. Patient was administered 25 mCi of sestamibi intravenously at rest. Images were then obtained in supine position. Images obtained with and without CT attenuation. Total DLP 103 mGy-cm. Images were processed with the software and compared side to side in short axis, horizontal long axis and vertical long axis views. Findings: The stress perfusion study showed non attenuated images show mildly reduced uptake in the apex of the LV myocardium. Remainder of the LV myocardium is normally perfused. Attenuation corrected images show moderately reduced uptake in the apex and mildly reduced uptake in the distal anterior and distal septum of the LV myocardium.. The gated study shows low normal LV systolic function with calculated LVEF of 50%. LV cavity is mildly dilated size. The gated study shows normal systolic wall thickening and contraction of segments. Resting study shows improved uptake in the apex both on attenuated as well as non attenuated corrected images. Gating at rest reveals normal systolic wall motion with ejection fraction at 51%. The findings are consistent with apical ischemia. NM/NM radha perf SPECT rest & str Impression: 1. Myocardial perfusion imaging study shows apical ischemia 2. Gated LVEF is 50% 3. Transient ischemic dilatation present with baseline LV cavity dilatation EKG is nondiagnostic for ischemia
--- NOTE | 2022-04-25 08:26 | CA_ITS ---
Acquisition Time: 2022-04-25 08:37:05 Total Exercise Time: 00:02:00 Test Indications: CAD Medications: Protocol: LEXISCAN Max HR: 148 BPM 87% of Pred: 170 BPM Max BP: 158/088 mmHG Max Work Load: 1.6 METS Pharmacological stress test with Lexiscan injection, while walking slow on treadmill, with sob and feeling awful , without arrythmia, with normotensive response to injection, with nondiagnostic EKG for ischemia - nonspecific ST changes at baseline and during test. She expereinced much anxiety post injection and in recovery. She was treated with Aminophylline 75mg IVP to reverse Lexsican. Nuclear images pending. Test reviewed with Dr Mendez. Referred By: Aren Mendez Overread By: MICHAELA ESTEVES
== END ==
LOC: HO.CARD 08:20
PROVIDERS: Visit Provider Internal Medicine Cardiovascular Disease
DX: R07.89 Other chest pain (principal); I22.0 Subsequent ST elevation (STEMI) myocardial infarction of anterior wall; I25.10 Atherosclerotic heart disease of native coronary artery without angina pectoris
CPT/HCPCS: 78452; 93017; A9500; J2785

== ENCOUNTER → 2022-05-17 14:44 | Outpatient (BNVA) | payer OTHER, SELFPAY | PROVIDERS: PCP Internal Medicine; Referring Provider Internal Medicine; Visit Provider Internal Medicine Cardiovascular Disease | DX: I25.119 Atherosclerotic heart disease of native coronary artery with unspecified angina pectoris (principal); I10 Essential (primary) hypertension; I22.0 Subsequent ST elevation (STEMI) myocardial infarction of anterior wall; R42 Dizziness and giddiness; E78.00 Pure hypercholesterolemia, unspecified; M79.605 Pain in left leg; M79.604 Pain in right leg; Z95.2 Presence of prosthetic heart valve | CPT/HCPCS: 99212 ==

== ENCOUNTER 2022-05-28 14:59 | Outpatient (REF) | payer OTHER, SELFPAY | END 2022-05-28 15:00 | disposition home or self-care (01) | LOC: HO.MAMMO 14:59 | PROVIDERS: PCP Internal Medicine; Visit Provider Internal Medicine | DX: Z13.89 Encounter for screening for other disorder (principal) ==

== ENCOUNTER 2022-06-06 14:40 | Outpatient (REF) | payer OTHER, SELFPAY ==
--- NOTE | ~2022-06-06 | US_ITS ---
EXAMINATION: US LOWER EXTREMITY DUPLEX, BILATERAL CLINICAL INFORMATION: Pain in right leg TECHNIQUE: Real-time ultrasound and Doppler techniques (integrating B-mode 2-D vascular images, Doppler spectral analysis and color flow Doppler imaging) were utilized to interrogate the lower extremities. COMPARISON: None FINDINGS: RIGHT LEG: Common femoral artery: 109 cm/s, Triphasic Profunda femoris artery: 88.6 cm/s, Triphasic Superficial femoral artery (proximal): 101 cm/s, Triphasic Superficial femoral artery (mid): 104 cm/s, Triphasic Superficial femoral artery (distal): 110 cm/s, Triphasic Popliteal artery: 57.2 cm/s, Triphasic Posterior tibial artery: 81.4 cm/s, Triphasic Peroneal artery: 39.8 cm/s, Triphasic LEFT LEG: Common femoral artery: 127 cm/s, Triphasic Profunda femoris artery: 94.9 cm/s, Triphasic Superficial femoral artery (proximal): 94.4 cm/s, Triphasic Superficial femoral artery (mid): 112 cm/s, Triphasic Superficial femoral artery (distal): 103 cm/s, Triphasic Popliteal artery: 64.6 cm/s, Triphasic Posterior tibial artery: 68.3 cm/s, Triphasic Peroneal artery: 36.9 cm/s, Triphasic US/US arterial duplex LE BI IMPRESSION: There is no evidence of any hemodynamically significant lower extremity arterial disease by waveform or duplex Doppler criteria at rest.
--- NOTE | ~2022-06-06 | XR_ITS ---
EXAMINATION: XR FOOT, RIGHT CLINICAL INFORMATION: Pain COMPARISON: 09/06/2021 TECHNIQUE: AP, lateral, and oblique views of the right foot. FINDINGS: First MTP joint degenerative changes. No acute fracture or dislocation. XR/XR foot RT min 3V IMPRESSION: First MTP joint degenerative changes.
== END 2022-06-06 14:41 | disposition home or self-care (01) ==
LOC: HO.US 14:40
PROVIDERS: Absent Provider Internal Medicine; PCP Internal Medicine; Visit Provider Internal Medicine Cardiovascular Disease
DX: M79.604 Pain in right leg (principal); M79.605 Pain in left leg; M79.671 Pain in right foot
CPT/HCPCS: 73630; 93925

== ENCOUNTER 2022-06-17 15:41 | Emergency (ER) | payer OTHER, SELFPAY ==
--- NOTE | 2022-06-17 15:43 | ECG_ITS ---
Test Reason : SYNCOPE Blood Pressure : / mmHG Vent. Rate : 070 BPM Atrial Rate : 070 BPM P-R Int : 120 ms QRS Dur : 088 ms QT Int : 366 ms P-R-T Axes : 070 054 068 degrees QTc Int : 395 ms Normal sinus rhythm Nonspecific T wave abnormality Abnormal ECG When compared with ECG of 15-DEC-2021 20:30, ST no longer depressed in Inferior leads ST no longer elevated in Anterolateral leads Nonspecific T wave abnormality now evident in Anterolateral leads Referred By: Generic ED Physician Electronically Signed By:ALICIA ESTEVEZ
[2022-06-17 16:17] LABS: MANUAL DIFF FLAG NO
[2022-06-17 16:19] VITALS: BP 148/86; PULSE 77; RESP 16; TEMP 36.6; O2SAT 100; BMI 28.3
[2022-06-17 16:19] LABS: Basophils Percent Auto 0.3 % (0-2); Eosinophils Percent Auto 0.1 % (0-4); Hematocrit 42.7 % (37.0-47.0); Hemoglobin 13.5 g/dl (12.0-16.0); Imm Gran Abs Auto 0.02 X10*3/uL (0.00-0.03); Imm Gran Pct Auto 0.3 % (0.0-0.4); Lymphocytes Absolute Auto 1.1 X10*3/uL (1.2-4.9); Lymphocytes Percent Auto 15.7 % (20-40); Mean Corpuscular HGB Conc 31.6 g/dl (31.0-35.0); Mean Corpuscular Hemoglobin 26.8 pg (27.0-33.0); Mean Corpuscular Volume 84.7 fL (80.0-98.0); Mean Platelet Volume 8.9 fL (9.4-12.3); Monocytes Absolute Auto 0.2 X10*3/uL (0.1-1.2); Monocytes Percent Auto 3.4 % (2-11); Neutrophils Absolute Auto 5.7 x10*3/uL (2.0-8.3); Neutrophils Percent Auto 80.2 % (45-73); Platelet Count 348 X10*3/uL (160-400); Red Blood Count 5.04 X10*6/uL (4.20-5.50); Red Cell Distribution Width 13.5 % (11.0-16.0); White Blood Count 7.2 X10*3/uL (4.8-10.8)
[2022-06-17 16:24] VITALS: PULSE 78; RESP 16; TEMP 37.1; O2SAT 100
[2022-06-17 16:26] LABS: COVID-19 Test Positive (Negative); IDNOW Serial# 55D5AD1C
[2022-06-17 16:36] LABS: Alanine Aminotransferase 16 U/L (0-31); Albumin Level 4.2 g/dL (3.5-5.0); Alkaline Phosphatase 92 U/L (39-117); Anion Gap 13 (12-20); Aspartate Amino Transferase 14 U/L (5-31); Bilirubin Total 0.4 mg/dL (0.0-1.0); Blood Urea Nitrogen 7 mg/dL (9-16); Calcium 9.3 mg/dL (8.4-10.2); Carbon Dioxide 28 mmol/L (22-29); Chloride 104 mmol/L (96-108); Creatinine Clr Calc Pharmacy 92.1; Estimated Glomerular Filt Rate > 60; Glucose Random 180 mg/dL (60-115); Potassium 4.1 mmol/L (3.3-5.1); Sodium 141 mmol/L (135-145); Total Protein 6.8 g/dL (6.5-8.0)
--- NOTE | 2022-06-17 16:44 | ED_ITS ---
HPI - General Adult General Chief complaint: Syncope Stated complaint: syncope Time Seen by Provider: 06/17/22 16:33 Source: patient and family (Daughter) Mode of arrival: ambulatory Limitations: no limitations History of Present Illness HPI narrative: 52-year-old female history of HTN, HLD, Cardiomyopathy, CAD s/p angioplasty, with recently in November patient had ST elevation CA, patient is here visiting her father who is terminally sick and passing away patient got very emotional and sad about her father became anxious and passed out for few seconds, patient was advised to come down to the emergency room for further evaluation, while in the emergency room patient appears very anxious apparently patient is in grief, patient decline headache, no chest pain, no shortness of breath. Patient also declined any flu-like symptoms however patient tested positive for COVID during this visit. Patient now feels back to her normal baseline. Related Data Home Medications Medication Instructions Recorded Confirmed cholecalciferol (vitamin D3) 50 50 mcg PO DAILY 03/16/20 05/17/22 mcg (2,000 unit) tablet coenzyme Q10 10 mg capsule 10 mg PO TID 03/16/20 05/17/22 ascorbic acid (vitamin C) 500 mg 500 mg PO DAILY 01/16/21 05/17/22 capsule ticagrelor 90 mg tablet (Brilinta) 90 mg PO BID 01/24/22 05/17/22 Previous Rx's Medication Instructions Recorded aspirin 81 mg tablet,delayed 81 mg PO DAILY 90 days #90 tabs 12/25/21 release (Adult Low Dose Aspirin) alirocumab 75 mg/mL subcutaneous 75 mg subcut Q14D #2 mL 01/31/22 pen injector (Praluent Pen) ezetimibe 10 mg tablet 10 mg PO DAILY #90 tabs 03/23/22 sacubitril 24 mg-valsartan 26 mg 1 tab PO BID #180 tabs 03/23/22 tablet (Entresto) metoprolol succinate 25 mg 50 mg PO BID #90 tabs 05/17/22 tablet,extended release 24 hr Allergies Allergy/AdvReac Type Severity Reaction Status Date / Time lisinopril Allergy Unknown angioedema, Verified 06/05/22 14:36 throat swelling pravastatin Allergy Unknown myalgia, Verified 06/05/22 14:36 angioedema rosuvastatin AdvReac Unknown myalgia Verified 06/05/22 14:36 Review of Systems Review of Systems: All other systems are reviewed and are negative Constitutional: Reports as per HPI and Reports no additional constitutional complaints Eyes: Reports as per HPI and Reports no additional eye complaints Reports system reviewed and no additional complaints, except as documented Cardiovascular: Reports as per HPI and Reports no additional cardiovascular complaints Respiratory: Reports as per HPI and Reports no additional respiratory complaints Gastrointestinal: Reports as per HPI and Reports no additional gastrointestinal complaints Genitourinary: Reports no additional female genitourinary complaints Musculoskeletal: Reports no additional musculoskeletal complaints Skin/Breast: Reports system reviewed and no additional complaints, except as docu Psychiatric: Reports no additional psychiatric complaints Endocrine: Reports no additional endocrine complaints Hematologic/Lymphatic: Reports no additional hematologic/lymphatic complaints Allergic/Immunologic: Reports no additional allergic/immunologic complaints Reports system reviewed and no additional complaints, except as documented and Reports Abnormal speech present [facility] Past Medical History Medical History Anxiety Benign essential hypertension Cardiomyopathy Coronary artery disease involving [place] coronary artery of [place] heart with angina pectoris Dizziness Lumbar degenerative disc disease Lumbar radiculopathy, chronic Overweight (BMI 25.0-29.9) Pityriasis rosea Pure hypercholesterolemia Tachycardia Throat pain Visual impairment Vitamin D deficiency Surgical History History of cardiac catheterization Stented coronary artery Family History Family History Father Diabetes Hypertension Hypercholesteremia Mother Hypertension Diabetes Hypercholesteremia Family/Other FH: mental illness Social History Social History Housing: House Alcohol intake: never Patient Tobacco Use Status: Former Tobacco user Second Hand Smoke Exposure: Yes Advance Directives: No Advance Directives Information Provided: No service: No Current occupational status: employed 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 Blood pressure normal. Heart rate normal. Respiration rate normal. Temperature normal. Oxygen saturation normal. Appearance: Anxious, Alert. Oriented X3. No acute distress. Head: Normal external exam. Normocephalic. Atraumatic. No López signs noted. No raccoon eyes noted Eyes: PERRLA. EOMI. Conjunctiva and sclera normal. Eyelids normal. ENT: TM's Normal. Pharynx normal. Uvula midline. Moist mucous membranes. No trismus noted. No drooling noted. No muffled voice noted. Neck: Normal inspection. Neck supple. FROM. No adenopathy. Thyroid Normal. No meningeal signs. No neck mass noted. CVS: Normal heart rate and rhythm. Heart sound normal. No murmurs noted. Pulses normal throughout. Respiratory: No respiratory distress. Painless inspiration. Breath sounds normal. No wheezes/rales/rhonchi noted. Chest nontender. No accessory muscle usage noted or decreased air movement noted. Abdomen: Soft and nontender. Bowel sounds normal in all 4 quadrants. No distention noted. No organomegaly noted. No visible injury noted. Back: No CVA tenderness. Full range of motion noted. Skin: Skin warm and dry. Normal skin color. Normal skin turgor. No rashes/lesions/lacerations noted. Extremities: No lower extremity edema. Extremities exhibit normal range of motion. Extremities nontender. Neuro: Oriented X 3. Cranial nerve exam: II-XII are grossly intact No motor deficit. No sensory deficit. Reflexes normal. Course Course Course Narrative: 52-year-old female who is going through stressful event in her life that her father is passing away in the hospital, patient got emotional while visiting her sick father and had anxiety attack ended up with brief period of syncope, patie nt had a history of ACS and STEMI with 2 stent placed 6 months ago but patient today has no symptoms to suggest ACS. Medical Decision Making Differential Diagnosis Differential Diagnoses: The differential diagnosis associated with the presentation includes (ACS, dehydration, neurogenic syncope, vasovagal syncope, anxiety and emotional syncope) Lab Data MDM Lab Attestation statement: I reviewed the patient's lab results. 06/17/22 16:11 06/17/22 16:11 Labs: Lab Results 06/17/22 06/17/22 06/17/22 Range/Units 16:11 16:11 16:12 WBC 7.2 (4.8-10.8) X10*3/uL RBC 5.04 (4.20-5.50) X10*6/uL Hgb 13.5 (12.0-16.0) g/dl Hct 42.7 (37.0-47.0) % MCV 84.7 (80.0-98.0) fL MCH 26.8 L (27.0-33.0) pg MCHC 31.6 (31.0-35.0) g/dl RDW 13.5 (11.0-16.0) % Plt Count 348 (160-400) X10*3/uL MPV 8.9 L (9.4-12.3) fL Immature Gran % (Auto) 0.3 (0.0-0.4) % Neut % (Auto) 80.2 H (45-73) % Lymph % (Auto) 15.7 L (20-40) % [place] % (Auto) 3.4 (2-11) % Eos % (Auto) 0.1 (0-4) % Baso % (Auto) 0.3 (0-2) % Lymph # (Auto) 1.1 L (1.2-4.9) X10*3/uL [place] # (Auto) 0.2 (0.1-1.2) X10*3/uL Eos # (Auto) 0.0 (0.0-0.4) X10*3/uL Baso # (Auto) 0.0 (0.0-0.2) X10*3/uL Abs Immat Gran (auto) 0.02 (0.00-0.03) X10*3/uL Absolute Neuts (auto) 5.7 (2.0-8.3) x10*3/uL Absolute Nucleated RBC 0.000 (0.0-0.012) X10*3/uL Nucleated RBC % (auto) 0.0 (0.0-0.2) /100WBC Sodium 141 (135-145) mmol/L Potassium 4.1 (3.3-5.1) mmol/L Chloride 104 (96-108) mmol/L Carbon Dioxide 28 (22-29) mmol/L Anion Gap 13 (12-20) BUN 7 L (9-16) mg/dL Creatinine 0.75 (0.5-1.4) mg/dL Estim Creat Clear Calc 92.1 Estimated GFR > 60 Random Glucose 180 H (60-115) mg/dL Calcium 9.3 (8.4-10.2) mg/dL Magnesium 2.0 (1.6-2.6) mg/dL Total Bilirubin 0.4 (0.0-1.0) mg/dL AST 14 (5-31) U/L ALT 16 (0-31) U/L Alkaline Phosphatase 92 (39-117) U/L Total Protein 6.8 (6.5-8.0) g/dL Albumin 4.2 (3.5-5.0) g/dL COVID-19 (AYAKA) Positive A (Negative) COVID-19 Clin Com See Note Independent Interpretation I performed an independent interpretation of an: EKG (Normal sinus rhythm at 70 beats per minute, normal intervals, normal axis deviation, nonspecific T-wave abnormality.) Discharge Plan Discharge Clinical Impression: Anxiety Patient Disposition: Home, Self-Care Instructions: Anxiety (ED) Prescriptions: No Action aspirin [Adult Low Dose Aspirin] 81 mg tablet,delayed release (DR/EC) 81 mg PO DAILY 90 Days Qty: 90 3RF Praluent Pen 75 mg/mL pen injector 75 mg subcut Q14D Qty: 2 11RF Entresto 24-26 mg tablet 1 tab PO BID Qty: 180 1RF ezetimibe 10 mg tablet 10 mg PO DAILY Qty: 90 1RF cholecalciferol (vitamin D3) 50 mcg (2,000 unit) tablet 50 mcg PO DAILY coenzyme Q10 10 mg capsule 10 mg PO TID ascorbic acid (vitamin C) 500 mg capsule 500 mg PO DAILY Brilinta 90 mg tablet 90 mg PO BID metoprolol succinate 25 mg tablet extended release 24 hr 50 mg PO BID Qty: 90 3RF Referrals: Jamey Garcia MD [Primary Care Provider] -
[2022-06-17 17:05] LABS: Appearance Urine Clear; Color Urine Yellow; Glucose Urine UA Negative (Negative); Leukocyte Esterase Urine Trace (Negative); Nitrite Urine Negative (Negative); Specific Gravity - Urine <= 1.005 (1.005-1.025); UMIC TRIGGER UACC YES; Urine Blood Negative (Negative); Urine Ketones Negative (Negative); Urine Protein Negative (Neg-Trace)
[2022-06-17 17:10] LABS: Bacteria Urine None Seen (None Seen); Hyaline Casts Urine 0-2 /LPF (0-2); RBC Urine 0-2 /HPF (0-2); Squamous Epithelial Cell Urine 0-2 /HPF (0-2); WBC Urine 0-5 /HPF (0-5)
[2022-06-17 17:21] LABS: Amphetamine Screen Urine Not Detected (Not Detect); Barbiturates, Urine Not Detected (Not Detect); Benzodiazepines Screen Urine Not Detected (Not Detect); Cannabinoid Screen Urine Not Detected (Not Detect); Cocaine Screen Urine Not Detected (Not Detect); Fentanyl, urine Not Detected (Not Detect); Opiate Screen Urine Not Detected (Not Detect); Phencyclidine Screen Urine Not Detected (Not Detect)
[2022-06-17 17:28] VITALS: BP 138/77; PULSE 69
[2022-06-17 17:29] VITALS: BP 153/83; PULSE 73
[2022-06-17 17:30] VITALS: BP 129/87; PULSE 83
[2022-06-17 17:33] LABS: Troponin-I High Sensitivity 4.7 ng/L (<3.5-17.0)
== END 2022-06-17 19:31 | disposition home or self-care (01) ==
PROVIDERS: Physician Assistant; Emergency Provider Emergency Medicine; PCP Internal Medicine
DX: R55 Syncope and collapse (principal); F41.1 Generalized anxiety disorder; F43.0 Acute stress reaction; Z20.822 Contact with and (suspected) exposure to COVID-19; Z20.828 Contact with and (suspected) exposure to other viral communicable diseases; Z79.899 Other long term (current) drug therapy; Z87.891 Personal history of nicotine dependence
CPT/HCPCS: 36415; 80053; 80307; 81001; 83735; 84484; 85025; 87635; 93005; 99285

== ENCOUNTER 2022-07-13 12:49 | Outpatient (REF) | payer OTHER, SELFPAY ==
--- NOTE | ~2022-07-13 | MM_ITS ---
EXAMINATION: MM SCREENING DIGITAL BREAST TOMOSYNTHESIS, BILATERAL CLINICAL INFORMATION: Screening. Asymptomatic. The lifetime risk of breast cancer based on the Tyrer-Cuzick Model is 11.3%. COMPARISON: Mammography: July 10, 2021 and studies dating back to May 13, 2012 TECHNIQUE: Digital breast tomosynthesis is performed in both the craniocaudal and mediolateral oblique views along with computer-aided detection (CAD). Synthesized 2D images are generated from the tomosynthesis. FINDINGS: The breasts are extremely dense, which lowers the sensitivity of mammography (ACR BI-RADS breast composition Category d). There are no significant masses, abnormal calcifications, or other abnormalities. MM/MM tomosynthesis screening BI IMPRESSION: No significant changes ASSESSMENT: BI-RADS 1: Negative RECOMMENDATION: Routine annual mammography screening. This patient's information was entered into a reminder system with a target due date for their next mammogram.
== END 2022-07-13 12:50 | disposition home or self-care (01) ==
LOC: HO.MAMMO 12:49
PROVIDERS: PCP Internal Medicine; Visit Provider Internal Medicine
DX: Z12.31 Encounter for screening mammogram for malignant neoplasm of breast (principal)
CPT/HCPCS: 77063; 77067

== ENCOUNTER 2022-08-15 09:11 | Outpatient (REF) | payer OTHER, SELFPAY ==
[2022-08-15 09:32] LABS: MANUAL DIFF FLAG NO
[2022-08-15 10:34] LABS: Appearance Urine Clear; Color Urine Yellow; Glucose Urine UA Negative (Negative); Leukocyte Esterase Urine Negative (Negative); Nitrite Urine Negative (Negative); PH 6.5 (5.0-9.0); Specific Gravity - Urine 1.015 (1.005-1.025); Urine Blood Negative (Negative); Urine Ketones Negative (Negative); Urine Protein Negative (Neg-Trace)
[2022-08-15 10:35] LABS: Basophils Percent Auto 0.4 % (0-2); Eosinophils Absolute Auto 0.2 X10*3/uL (0.0-0.4); Eosinophils Percent Auto 2.5 % (0-4); Hematocrit 43.9 % (37.0-47.0); Hemoglobin 13.6 g/dl (12.0-16.0); Imm Gran Abs Auto 0.02 X10*3/uL (0.00-0.03); Imm Gran Pct Auto 0.3 % (0.0-0.4); Lymphocytes Absolute Auto 1.5 X10*3/uL (1.2-4.9); Lymphocytes Percent Auto 21.4 % (20-40); Mean Corpuscular Hemoglobin 26.6 pg (27.0-33.0); Mean Corpuscular Volume 85.9 fL (80.0-98.0); Mean Platelet Volume 9.4 fL (9.4-12.3); Monocytes Absolute Auto 0.5 X10*3/uL (0.1-1.2); Monocytes Percent Auto 7.2 % (2-11); Neutrophils Absolute Auto 4.9 x10*3/uL (2.0-8.3); Neutrophils Percent Auto 68.2 % (45-73); Platelet Count 400 X10*3/uL (160-400); Red Blood Count 5.11 X10*6/uL (4.20-5.50); Red Cell Distribution Width 13.6 % (11.0-16.0); White Blood Count 7.1 X10*3/uL (4.8-10.8)
[2022-08-15 11:04] LABS: Alanine Aminotransferase 20 U/L (0-31); Albumin Level 4.2 g/dL (3.5-5.0); Alkaline Phosphatase 82 U/L (39-117); Anion Gap 11 (12-20); Aspartate Amino Transferase 17 U/L (5-31); Bilirubin Total 0.5 mg/dL (0.0-1.0); Blood Urea Nitrogen 14 mg/dL (9-16); Calcium 9.6 mg/dL (8.4-10.2); Carbon Dioxide 29 mmol/L (22-29); Chloride 108 mmol/L (96-108); Cholesterol 147 mg/dL; Estimated Glomerular Filt Rate > 60; Glucose Fasting 80 mg/dL (60-99); HDL Cholesterol 56 mg/dL; LDL Cholesterol Calculated 74 mg/dl; Potassium 4.6 mmol/L (3.3-5.1); Sodium 143 mmol/L (135-145); Total Protein 6.8 g/dL (6.5-8.0); Triglycerides 89 mg/dL
[2022-08-15 11:23] LABS: TSH reflex Free T4 1.75 uIU/mL (0.32-4.0); Vitamin D 25-OH Total 56.5 ng/mL (>30)
== END 2022-08-15 09:12 | disposition home or self-care (01) ==
LOC: HO.LAB 09:11
PROVIDERS: PCP Internal Medicine; Visit Provider Internal Medicine
DX: E78.00 Pure hypercholesterolemia, unspecified (principal); I10 Essential (primary) hypertension; E55.9 Vitamin D deficiency, unspecified; R30.0 Dysuria
CPT/HCPCS: 36415; 80053; 80061; 81003; 82306; 84443; 85025

== ENCOUNTER → 2022-08-16 14:19 | Outpatient (BNVA) | payer OTHER, SELFPAY | PROVIDERS: PCP Internal Medicine; Referring Provider Internal Medicine; Visit Provider Internal Medicine Cardiovascular Disease | DX: I25.10 Atherosclerotic heart disease of native coronary artery without angina pectoris (principal); I25.5 Ischemic cardiomyopathy | CPT/HCPCS: 93005; 99212 ==

== ENCOUNTER 2022-08-31 14:49 | Outpatient (REF) | payer OTHER, SELFPAY ==
--- NOTE | ~2022-08-31 | XR_ITS ---
EXAMINATION: Left knee and left tibia and fibula. CLINICAL INDICATION: Pain in left leg. COMPARISON: None. TECHNIQUE: Left knee 2 views. Left tibia and fibula 2 views. FINDINGS: LEFT KNEE: There is mild loss of patellofemoral compartment joint space. The medial and lateral compartment is patent. No visible fracture, dislocation or bony erosive changes. The soft tissues are normal. LEFT TIBIA AND FIBULA: There is no visible fracture or bony abnormality. The soft tissues are normal. The ankle mortise and subtalar joints are normal. XR/XR tibia fibula LT 2V IMPRESSION: 1. Unremarkable left knee exam. 2. Unremarkable left tibia and fibula exam.
--- NOTE | ~2022-08-31 | XR_ITS ---
EXAMINATION: Left knee and left tibia and fibula. CLINICAL INDICATION: Pain in left leg. COMPARISON: None. TECHNIQUE: Left knee 2 views. Left tibia and fibula 2 views. FINDINGS: LEFT KNEE: There is mild loss of patellofemoral compartment joint space. The medial and lateral compartment is patent. No visible fracture, dislocation or bony erosive changes. The soft tissues are normal. LEFT TIBIA AND FIBULA: There is no visible fracture or bony abnormality. The soft tissues are normal. The ankle mortise and subtalar joints are normal. XR/XR knee LT 2V IMPRESSION: 1. Unremarkable left knee exam. 2. Unremarkable left tibia and fibula exam.
== END 2022-08-31 14:50 | disposition home or self-care (01) ==
LOC: HO.XRAY 14:49
PROVIDERS: PCP Internal Medicine; Visit Provider Internal Medicine
DX: M25.562 Pain in left knee (principal); M79.605 Pain in left leg
CPT/HCPCS: 73560; 73590

== ENCOUNTER 2022-09-03 14:35 | Outpatient (AMB) | payer OTHER, SELFPAY ==
[2022-09-03 14:48] VITALS: BP 122/80; PULSE 80; O2SAT 98; BMI 26.0
--- NOTE | 2022-09-03 14:48 | MHC.PC.OV ---
Vital Signs 09/03/22 14:48 Height 5 ft 5 in Weight 156 lb BMI 26.0 BP 122/80 Blood Pressure Location Lt brachial Position Sitting Pulse 80 Pulse Source Pulse Oximeter Pulse Oximetry (%) 98 Oxygen Delivery Method Room Air Intake Visit Reasons: F/U Intake Note: Patient is here for a follow up appointment and left leg pain. Program Strategist Required: No Accompanied by: Self / Same As Patient Allergies lisinopril Allergy (Unknown, Verified 09/13/23 14:55) angioedema, throat swelling pravastatin Allergy (Unknown, Verified 09/13/23 14:55) myalgia, angioedema rosuvastatin Adverse Reaction (Unknown, Verified 09/13/23 14:55) myalgia Medication List - Last Reconciled 09/03/22 by Jamey Garcia MD alirocumab (Praluent Pen) 75 mg subcut Q14D ascorbic acid (vitamin C) 500 mg PO DAILY aspirin (Adult Low Dose Aspirin) 81 mg PO DAILY 90 days cholecalciferol (vitamin D3) 50 mcg PO DAILY coenzyme Q10 10 mg PO TID ezetimibe 10 mg PO DAILY metoprolol succinate ER 50 mg (2 x 25 mg) PO BID sacubitril-valsartan 24-26 mg (Entresto) 1 tab PO BID ticagrelor (Brilinta) 90 mg PO BID Tobacco use date assessed: 09/03/22 HPI F/U HPI Details Patient comes in today for her follow-up visit States that she continues to experience a persistent pain over her left posterior leg (proximally) and left popliteal area - states that she had this pain for years but feels that her symptoms have been getting worse lately She has been worked up for this and so far all of her tests have been negative but patient is insistent that it feels like she has some vascular occlusive disease that is causing her leg symptoms and would like to see a specialist for this States that she feels okay otherwise She denies any headaches or dizziness Denies any chest pains, no shortness of breath No nausea/ vomiting, no abdominal pain No change in bowel habits noted Had her follow-up labs done couple of weeks ago - to discuss her results COUNT INCLUDES THE [facility] Medical History Anxiety Tachycardia Visual impairment Throat pain Dizziness Overweight (BMI 25.0-29.9) Vitamin D deficiency Lumbar radiculopathy, chronic Lumbar degenerative disc disease Pityriasis rosea Pure hypercholesterolemia Coronary artery disease involving [place] coronary artery of [place] heart with angina pectoris Surgical History Stented coronary artery History of cardiac catheterization Family History Father Diabetes Hypertension Hypercholesteremia Mother Hypertension Diabetes Hypercholesteremia Family/Other FH: mental illness Social History Housing: House Alcohol intake: never Patient Tobacco Use Status: Former Tobacco user e-Cigarette/Vaping Use: Never Used Second Hand Smoke Exposure: Yes service: No Current occupational status: employed Current occupation: [employer] Cognitive needs: No Hearing needs: No Vision needs: No Questionnaire PHQ-9 Over the last 2 weeks, how often have you been bothered by any of the following problems? 1. Little interest or pleasure in doing things: not at all 2. Feeling down, depressed, or hopeless: not at all 3. Trouble falling or staying asleep, or sleeping too much: not at all 4. Feeling tired or having little energy: not at all 5. Poor appetite or overeating: not at all 6. Feeling bad about yourself - or that you are a failure or have let yourself or your family down: not at all 7. Trouble concentrating on things, such as reading the newspaper or watching television: not at all 8. Moving or speaking so slowly that other people could have noticed. Or the opposite - being so fidgety or restless that you have been moving around a lot more than usual: not at all 9. Thoughts that you would be better off or of hurting yourself in some way: not at all Total score: 0 Depression Screening Interpretation: Negative 48834 - PHQ-9 Billing: Yes Source: Developed by Drs. Aaron Bettencourt, Rand Loja, James Pires and colleagues, with an educational tez from [employer]. Thrive Questionnaire Date Thrive assessed: 09/03/22 I am a: Patient What is your living situation today?: I have a steady place to live Within the past 12 months, did the food you bought not last and you didn't have the money to get more?: Never true Within the past 12 months, did you worry whether your food would run out before you got money to buy more?: Never true Do you have trouble paying for medicines?: No Do you have trouble getting transportation to medical appointments?: No Do you have trouble paying your heating and electricity bill?: No Do you have trouble taking care of your child, family member or friend?: No Do you have trouble with day-to-day activities such as bathing, preparing meals, shopping, managing finances, etc.?: No Are you currently unemployed and looking for a job?: No Are you interested in more education?: No Please select the resources that you would like help with: None Currently or been in a relationship where the following occur: no concerns reported AUDIT C Alcohol Use Questionnaire (AUDIT-C) 1. How often do you have a drink containing alcohol?: Never 3. How often do you have six or more drinks on one occasion?: Never Total Score: 0 Score Reviewed/Action Taken: Yes JOHANNE-7 AMB Questionnaire JOHANNE-7 Date JOHANNE - 7 assessed: 09/03/22 Feeling nervous, anxious, or on edge: 1 = Several days (pt has family emergency at the moment. ) Not being able to stop or control worryin = Not at all Worrying too much about different things: 0 = Not at all Trouble relaxin = Not at all Being so restless that it is hard to sit still: 0 = Not at all Becoming easily annoyed or irritable: 0 = Not at all Feeling afraid as if something awful might happen: 0 = Not at all Total JOHANNE-7 score (0-4 normal; 5-9 mild; 10-14 moderate; 15-21 severe): 1 Source: Developed by Drs. Aaron Bettencourt, Rand Loja, James Pires and colleagues, with an educational tez from [employer]. Review of Systems Const Denies chills, Reports fatigue, Denies fever(s) and Denies headache(s) ENT Denies dysphagia, Denies dizziness, Denies otalgia, Denies headache(s), Denies odynophagia, Denies sinus pain and Denies sore throat Card Denies chest pain, Denies palpitations and Denies dyspnea Resp Denies cough, Denies dyspnea and Denies wheezing GI Denies abdominal pain, Denies constipation, Denies dysphagia, Denies heartburn, Denies diarrhea, Denies nausea, Denies odynophagia and Denies vomiting Denies difficulty voiding, Denies nocturia and Denies dysuria Musc Details: (+) worsening pain over her left popliteal area (behind the knee) and over the adjacent posterior aspect of the left leg proximally Reports back pain (over the lower back - chronic) Skin/Breast Denies rash Neuro Denies dizziness and Denies headache(s) Endo Reports fatigue and Denies palpitations Aller/Immun Denies wheezing Physical exam (Primary Care) Vital Signs: Last Vital Signs Pulse 80 09/03/22 14:48 BP 122/80 09/03/22 14:48 Pulse Ox 98 09/03/22 14:48 Oxygen Delivery Method Room Air 09/03/22 14:48 BMI result Body Mass Index 26.0 Tobacco/Smoking Status: Tobacco use Status Tobacco use date assessed 09/03/22 09/03/22 14:50 Patient Tobacco Use Status Former Tobacco user 09/03/22 14:50 e-Cigarette/Vaping Use Never Used 09/03/22 14:50 PHQ-9: PHQ-9 Score PHQ-9: Total score 0 09/03/22 15:30 Depression Screening Interpretation: Negative Thrive Assessment: Date of Thrive Assessment Date Thrive assessed 09/03/22 09/03/22 14:50 Currently or been in a relationship where the following occur: no concerns reported Const General: no acute distress and alert HENMT Ears: TM normal on the left and TM abnormal perforated without discharge on the right Throat: Yes posterior oropharynx normal and Yes tonsils normal (no TP congestion) Neck Neck: Yes no lymphadenopathy and Yes supple Thyroid: Thyroid normal Resp Auscultation: clear to auscultation bilaterally, no rales and no wheezes Cardio Rate: regular rate Rhythm: regular rhythm Heart sounds: no murmurs GI Palpation (GI): Soft to palpation and nontender Auscultation: normal bowel sounds General: Yes no CVA tenderness Back/Spine/Pelvis Back: no CVA tenderness Thoracic/Lumbar Spine: lumbar spinal tenderness (mild) Extrem General: Yes no clubbing, cyanosis or edema Left lower extremity: knee Details: tenderness Location: of the popliteal fossa; no swelling and lower leg Details: tenderness (mild) Location: of the posterior calf (proximally) and no edema Results Reviewed Results Reviewed: Laboratory Tests 04/03/22 08/15/22 08/15/22 11:27 09:30 09:30 WBC 7.1 Hgb 13.6 Hct 43.9 Plt Count 400 Sodium Potassium Creatinine Estimated GFR Fasting Glucose Calcium AST ALT Triglycerides 78 Cholesterol 127 LDL Cholesterol, Calc 51 HDL Cholesterol 61 25-OH Vitamin D Total TSH Ur Specific [place] 1.015 Urine Protein Negative Urine Glucose (UA) Negative Urine Blood Negative 08/15/22 09:30 WBC Hgb Hct Plt Count Sodium 143 Potassium 4.6 Creatinine 0.89 Estimated GFR > 60 Fasting Glucose 80 Calcium 9.6 AST 17 ALT 20 Triglycerides 89 Cholesterol 147 LDL Cholesterol, Calc 74 HDL Cholesterol 56 25-OH Vitamin D Total 56.5 TSH 1.75 Ur Specific [place] Urine Protein Urine Glucose (UA) Urine Blood Assessment and Plan Assessment & Plan (1) Popliteal pain: Code(s): M79.609 - Pain in unspecified limb Plan: Per request, will refer her to vascular surgery for further evaluation and management (2) Coronary artery disease involving [place] coronary artery of [place] heart with angina pectoris: Comment: Had NSTEMI, S/P angioplasty (PTCA) in 02/2016; myocardial perfusion study done on 07/25/2017 was normal. Repeat study done at [facility] in 08/2020 showed normal imaging after exercise stress test at average estimated functional capacity. Mild small perfusion defects in the mid to basal anteroseptal wall and apex that improved on stress images, suggestive of artifact. LV function is borderline normal with an EF of 58% at rest and 52% with stress, with normal wall motion and thickening Code(s): I25.119 - Atherosclerotic heart disease of [place] coronary artery with unspecified angina pectoris Plan: S/P STEMI in November 2021, with EKG (+) for ST elevations in the precordial leads and ST depression in the inferior leads; troponin I levels were significanty elevated at the time Coronary angiography done at [facility] on 12/15/21 revealed (+) total occlusion of the mid LAD with severe mid RCA stenosis Patient underwent PCI of the mid LAD on 12/15/21 with a single DESMOND and staged PCI of the mid RCA 3 days later on 12/18/21 with a single DESMOND Echocardiogram done on 12/17/21 revealed severely reduced LV systolic function at 20 to 25% with regional wall abnormalities in the LAD territory Patient also had NSTEMI, S/P angioplasty (PTCA) back in 02/2016; myocardial perfusion study done on 07/25/2017 was normal Continue Aspirin 81 mg QD and Brilinta 90 mg BID Continue Metoprolol ER 50 mg BID and Entresto 24-26 mg BID Follow up with cardiology as scheduled (3) Benign essential hypertension: Code(s): I10 - Essential (primary) hypertension Plan: ReInforced low-sodium diet -? goal is systolic BP of at least 120 or less Continue Metoprolol ER 50 mg BID and Entresto 24-26 mg BID BP currently remains elevated and cardiology is considering switching Entresto to ARB if high BP persists (4) Pure hypercholesterolemia: Code(s): E78.00 - Pure hypercholesterolemia, unspecified Plan: Results of her labs done a couple of weeks ago reviewed and discussed with patient Reinforced low cholesterol diet Continue Praluent 75 mg Q 2 weeks (was started on this by cardiology a few months ago) Patient has been tried on and could not tolerate several statins in the past, including Rosuvastatin and Pravastatin; also reportedly could not tolerate Repatha in the past Patient has been taking OTC CholestOff and Ezetimibe 10 mg QD but her lipids were still not at goal Will recheck her fasting lipids in 3 months for follow up (5) Vitamin D deficiency: Code(s): E55.9 - Vitamin D deficiency, unspecified Plan: Continue Vitamin D3 1000 units QD (6) Lumbar degenerative disc disease: Code(s): M51.36 - Other intervertebral disc degeneration, lumbar region Plan: Reinforced activity and weight lifting restrictions Lumbar spine MRI done at [facility] back in February 2020 revealed (+) transitional segment anatomy and lumbar spine degenerative disease with left L4-L5 lateral recess stenosis and possible traversing left L5 nerve root impingement (7) Arthralgia: Code(s): M25.50 - Pain in unspecified joint Qualifiers: Joint pain location: unspecified Qualified Code(s): M25.50 - Pain in unspecified joint Plan: Follow up with rheumatology as scheduled (8) Anxiety: Code(s): F41.9 - Anxiety disorder, unspecified Plan: Feels that she is doing well presently although still has frequent wide swings in her blood pressure readings, which were thought to be related to her anxiety in the past Was started on a trial of Escitalopram 5 mg QD a few months ago to see if this will help control her anxiety better - patient stopped taking it after 1 dose as she felt that this Rx caused her BP and HR to increase further and does not wish to start or try anything else for now (9) Overweight (BMI 25.0-29.9): Code(s): E66.3 - Overweight Plan: Reinforced diet/exercise as tolerated/lose weight Plan Follow up in 3 months Orders: Orders Lipid Panel 3 Months E78.00 - Pure hypercholesterolemia, unspecified Complete Blood Count Auto Diff 3 Months I10 - Essential (primary) hypertension Comprehensive [place]. Panel Fast 3 Months E78.00 - Pure hypercholesterolemia, unspecified Referrals Vascular Surgery Referral M79.609 - Pain in unspecified limb Coding Level of Care Code Est Pt Level 4 (49295) Diagnoses Popliteal pain M79.609 Coronary artery disease involving [place] coronary artery of [place] heart with angina pectoris I25.119 Benign essential hypertension I10 Pure hypercholesterolemia E78.00 Vitamin D deficiency E55.9 Lumbar degenerative disc disease M51.36 Arthralgia, unspecified joint M25.50 Joint pain location: unspecified Anxiety F41.9 Overweight (BMI 25.0-29.9) E66.3
== END 2022-09-03 15:45 | disposition home or self-care (01) ==
LOC: HO.HMGH 14:35
PROVIDERS: PCP Internal Medicine; Visit Provider Internal Medicine
DX: M79.609 Pain in unspecified limb (principal); I25.119 Atherosclerotic heart disease of native coronary artery with unspecified angina pectoris; I10 Essential (primary) hypertension; E78.00 Pure hypercholesterolemia, unspecified; E55.9 Vitamin D deficiency, unspecified; M51.36 Other intervertebral disc degeneration, lumbar region; M25.50 Pain in unspecified joint; F41.9 Anxiety disorder, unspecified; E66.3 Overweight
CPT/HCPCS: 99499

== ENCOUNTER 2022-09-06 07:42 | Emergency (ER) | payer OTHER, SELFPAY ==
--- NOTE | ~2022-09-06 | US_ITS ---
EXAMINATION: US VENOUS ULTRASOUND WITH DOPPLER LOWER EXTREMITY, LEFT CLINICAL INFORMATION: Left lower extremity pain. COMPARISON: 06/06/2022. TECHNIQUE: Ultrasound of the deep veins is performed from the hip to the calf with compression sonography and color and pulse Doppler assessment. Spectral analysis with color-flow imaging is performed. FINDINGS: There is normal venous compression and respiratory variation and augmented flow. The visualized common femoral vein, superficial femoral vein, profunda femoral vein, popliteal vein, and the trifurcation region shows no evidence of deep venous thrombosis. There is a 1.9 x 1.5 x 2.2 cm left-sided Valle cyst. If the patient's symptoms persist, followup ultrasound in 5 days 7 days might be of value to exclude proximal propagation from a non-visualized calf vein. US/US venous duplex LE IMPRESSION: 1. No DVT demonstrated in the left lower extremity. 2. There is a 2.2 cm left-sided Valle's cyst.
--- NOTE | 2022-09-06 07:56 | ED.LOWEXIN ---
HPI - Extremity Injury (Lower) General Chief Complaint: Extremity Problem Stated Complaint: L leg pain Time Seen by Provider: 09/06/22 07:53 Source: patient, RN notes reviewed and old records reviewed Mode of arrival: ambulatory History of Present Illness HPI Narrative: 52-year-old female history of HTN, HLD, Cardiomyopathy, CAD s/p angioplasty,?STEMI on Brilinta and ASA, presenting to the ED complaining of LLE pain times 2-3 weeks. Reports pain behind knee. Also reports intermittent abdominal pain with associated nausea for some time, denies abdominal pain at present. Denies known injury/trauma or fall, numbness, tingling, weakness, SOB/CP, fever, vomiting Onset (ago): week(s) Related Data Home Medications Medication Instructions Recorded Confirmed cholecalciferol (vitamin D3) 50 50 mcg PO DAILY 03/16/20 09/03/22 mcg (2,000 unit) tablet coenzyme Q10 10 mg capsule 10 mg PO TID 03/16/20 09/03/22 ascorbic acid (vitamin C) 500 mg 500 mg PO DAILY 01/16/21 09/03/22 capsule Previous Rx's Medication Instructions Recorded aspirin 81 mg tablet,delayed 81 mg PO DAILY 90 days #90 tabs 12/25/21 release (Adult Low Dose Aspirin) alirocumab 75 mg/mL subcutaneous 75 mg subcut Q14D #2 mL 01/31/22 pen injector (Praluent Pen) ezetimibe 10 mg tablet 10 mg PO DAILY #90 tabs 03/23/22 metoprolol succinate 25 mg 50 mg PO BID #90 tabs 05/17/22 tablet,extended release 24 hr sacubitril 24 mg-valsartan 26 mg 1 tab PO BID #180 tabs 07/02/22 tablet (Entresto) ticagrelor 90 mg tablet (Brilinta) 90 mg PO BID #180 tabs 07/02/22 Allergies Allergy/AdvReac Type Severity Reaction Status Date / Time lisinopril Allergy Unknown angioedema, Verified 09/06/22 08:04 throat swelling pravastatin Allergy Unknown myalgia, Verified 09/06/22 08:04 angioedema rosuvastatin AdvReac Unknown myalgia Verified 09/06/22 08:04 Review of Systems Review of Systems: Constitutional: No Fever, No Chills ENT/Mouth: No Ear Pain, No Nasal Congestion, No sore throat, No Rhinorrhea, No Swallowing Difficulty Cardiovascular: No Chest Pain, No SOB Respiratory: No Cough, No Sputum, No Wheezing Gastrointestinal: No Nausea, No Vomiting, No Diarrhea, No Constipation, + Abdominal pain Genitourinary: No Dysuria, No Urinary Frequency, No Hematuria, No Flank Pain Musculoskeletal: + joint pain, No Myalgias, No Joint Swelling Skin: No Skin Lesions, No rash Neuro: No Weakness, No Numbness, No Paresthesias Yes all other systems are reviewed and are negative Constitutional: Constitutional: Reports as per [facility] Past Medical History Attestation statement: The following information was validated with the patient. Source: old records reviewed Medical History Anxiety Coronary artery disease involving [place] coronary artery of [place] heart with angina pectoris Dizziness Lumbar degenerative disc disease Lumbar radiculopathy, chronic Overweight (BMI 25.0-29.9) Pityriasis rosea Pure hypercholesterolemia Tachycardia Throat pain Visual impairment Vitamin D deficiency Surgical History History of cardiac catheterization Stented coronary artery Family History Family History Father Diabetes Hypertension Hypercholesteremia Mother Hypertension Diabetes Hypercholesteremia Family/Other FH: mental illness Social History Social History Housing: House Alcohol intake: never Patient Tobacco Use Status: Former Tobacco user e-Cigarette/Vaping Use: Never Used Second Hand Smoke Exposure: Yes service: No Current occupational status: employed 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 Cognitive needs: No Hearing needs: No Vision needs: No Physical Exam Vital Signs: Vital Signs: Last Vital Signs Temp 97.3 F 09/06/22 07:59 Pulse 80 09/06/22 08:05 Resp 16 09/06/22 08:05 BP 134/87 09/06/22 07:59 Pulse Ox 99 09/06/22 08:05 O2 Del Method Room Air 09/06/22 08:05 BMI result Body Mass Index 28.6 Const: General: cooperative, healthy appearing and no acute distress Orientation/consciousness: patient oriented x3 Limitations: no limitations HEENT: Head: Yes normal to inspection and Yes atraumatic Ears: hearing grossly normal bilaterally General nose exam: Normal external nose present Face and sinus: Yes normal facial exam Eyes: General: appearance normal, both eyes and all related structures EOM: EOMs intact bilaterally Neck: Neck: Yes normal visual inspection and Yes no meningeal signs Resp: Effort & Inspection: normal respiratory effort and no respiratory distress Auscultation: clear to auscultation bilaterally Cardio: Rate: regular rate Heart sounds: S1 normal heart sound present and S2 normal heart sound present GI: Inspection: Yes normal to inspection Palpation (GI): Soft to palpation, nontender, no guarding and not rigid : General: Yes no CVA tenderness Back/Spine/Pelvis: Back: no CVA tenderness Skin: Rashes: no rashes Wounds: no wounds Neuro: General: patient oriented x3, tone normal and no meningeal signs Gait exam (Neuro): Normal gait present Extrem: Other: No appreciable left lower extremity pitting edema. No erythema/warmth. + mild tenderness to left calf/behind knee. No ecchymosis. NV intact distally General: Yes normal to inspection and Yes no pedal edema Course Course Course Narrative: -[id number]--no leukocytosis. Labs otherwise reassuring. UA negative US venous duplex LE LT IMPRESSION: 1.? No DVT demonstrated in the left lower extremity. 2.? There is a 2.2 cm left-sided Valle's cyst. Results discussed with patient including worrisome signs and symptoms and strict return precautions, and when to return to the emergency department. They verbalized understanding and feel safe for discharge at this time. Medical Decision Making Medical Decision Making MDM Narrative: 52-year-old female history of HTN, HLD, Cardiomyopathy, CAD s/p angioplasty,?STEMI on Brilinta and ASA, presenting to the ED complaining of LLE pain times 2-3 weeks. Also reports intermittent abdominal pain with associated nausea for some time, denies abdominal pain at present. On exam vital signs stable, NAD, nontoxic appearing, physical exam as noted above, abdomen soft/nontender. No appreciable left lower extremity pitting edema. Mild tenderness to left calf/behind knee. Neurovascular intact distally. Concern for DVT vs MSK pain/strain. Lower suspicion for PE, sciatica, cellulitis, compartment syndrome, appendicitis/diverticulitis with nontender abdomen Plan: Labs, UA, venous duplex ultrasound Please refer to course for remaining clinical decision making, interpretation of labs/imaging results, and discussions with consultants and/or family members. Differential Diagnosis Differential Diagnoses: The differential diagnosis associated with the presentation includes As above Admission/Observation Consideration of admission/observation: Escalation of care including admission/observation considered Lab Data MDM Lab Attestation statement: I reviewed the patient's lab results. 09/06/22 08:37 09/06/22 08:37 Labs: Lab Results 09/06/22 09/06/22 09/06/22 Range/Units 08:37 08:37 08:37 WBC 5.5 (4.8-10.8) X10*3/uL RBC 4.97 (4.20-5.50) X10*6/uL Hgb 13.4 (12.0-16.0) g/dl Hct 42.5 (37.0-47.0) % MCV 85.5 (80.0-98.0) fL MCH 27.0 (27.0-33.0) pg MCHC 31.5 (31.0-35.0) g/dl RDW 13.6 (11.0-16.0) % Plt Count 385 (160-400) X10*3/uL MPV 9.4 (9.4-12.3) fL Immature Gran % (Auto) 0.2 (0.0-0.4) % Neut % (Auto) 61.6 (45-73) % Lymph % (Auto) 29.1 (20-40) % Cole % (Auto) 6.1 (2-11) % Eos % (Auto) 2.5 (0-4) % Baso % (Auto) 0.5 (0-2) % Lymph # (Auto) 1.6 (1.2-4.9) X10*3/uL Cole # (Auto) 0.3 (0.1-1.2) X10*3/uL Eos # (Auto) 0.1 (0.0-0.4) X10*3/uL Baso # (Auto) 0.0 (0.0-0.2) X10*3/uL Abs Immat Gran (auto) 0.01 (0.00-0.03) X10*3/uL Absolute Neuts (auto) 3.4 (2.0-8.3) x10*3/uL Absolute Nucleated RBC 0.000 (0.0-0.012) X10*3/uL Nucleated RBC % (auto) 0.0 (0.0-0.2) /100WBC Sodium 145 (135-145) mmol/L Potassium 4.8 (3.3-5.1) mmol/L Chloride 113 H (96-108) mmol/L Carbon Dioxide 26 (22-29) mmol/L Anion Gap 11 L (12-20) BUN 10 (9-16) mg/dL Creatinine 0.83 (0.5-1.4) mg/dL Estim Creat Clear Calc 74.8 Estimated GFR > 60 Random Glucose 94 (60-115) mg/dL Calcium 9.6 (8.4-10.2) mg/dL Magnesium 2.1 (1.6-2.6) mg/dL Total Bilirubin 0.6 (0.0-1.0) mg/dL Direct Bilirubin 0.2 (0.0-0.5) mg/dL AST 19 (5-31) U/L ALT 19 (0-31) U/L Alkaline Phosphatase 82 (39-117) U/L Total Protein 6.7 (6.5-8.0) g/dL Albumin 4.0 (3.5-5.0) g/dL Lipase 30 (8-78) U/L Urine Color Yellow Urine Appearance Clear Urine pH 6.5 (5.0-9.0) Ur Specific [place] 1.020 (1.005-1.025) Urine Protein Negative (Neg-Trace) mg/dL Urine Glucose (UA) Negative (Negative) mg/dL Urine Ketones Negative (Negative) mg/dL Urine Blood Negative (Negative) Urine Nitrite Negative (Negative) Ur Leukocyte Esterase Negative (Negative) Radiology Impression Discussion of test interpretation with radiology: I have reviewed the radiologist's reading. External Record Review External record reviewed: Inpatient record, Office record, Outpatient record, Prior outpatient labs, Prior outpatient radiology, Primary care record and Outside ED record Tests considered The following testing was considered but not selected: As above Discharge Plan Discharge Clinical Impression: Valle's cyst Patient Disposition: Home, Self-Care Instructions: Bakers Cyst (ED) Additional Instructions: Your ultrasound shows a Valle cyst, no DVT If you continue to have symptoms we recommend a follow-up ultrasound in 5-7 days Your blood work is unremarkable Paced follow-up with her doctor If you develop worsening swelling, redness, fever, shortness of breath return to the ED Prescriptions: No Action aspirin [Adult Low Dose Aspirin] 81 mg tablet,delayed release (DR/EC) 81 mg PO DAILY 90 Days Qty: 90 3RF Praluent Pen 75 mg/mL pen injector 75 mg subcut Q14D Qty: 2 11RF ezetimibe 10 mg tablet 10 mg PO DAILY Qty: 90 1RF Entresto 24-26 mg tablet 1 tab PO BID Qty: 180 1RF Brilinta 90 mg tablet 90 mg PO BID Qty: 180 1RF cholecalciferol (vitamin D3) 50 mcg (2,000 unit) tablet 50 mcg PO DAILY coenzyme Q10 10 mg capsule 10 mg PO TID ascorbic acid (vitamin C) 500 mg capsule 500 mg PO DAILY metoprolol succinate 25 mg tablet extended release 24 hr 50 mg PO BID Qty: 90 3RF Referrals: [facility] [place] [facility] Surgeons [Provider Group] Jamey Garcia MD [Primary Care Provider] - 3 days Interventions: ED Discharge Assessment Last Done: 09/06/22 10:10 Discharge Date/Time: 09/06/22 10:11
[2022-09-06 07:59] VITALS: BP 134/87; PULSE 66; RESP 16; TEMP 36.3; O2SAT 99; BMI 28.6
[2022-09-06 08:05] VITALS: PULSE 80; RESP 16; O2SAT 99
--- NOTE | 2022-09-06 08:10 | PC.NURSE ---
Pt on stretcher, airway open and patent, no obvious signs of distress, no difficulty/labored breathing. Pt a&ox4, skin color normal for ethnicity, warm, and dry. Lung sounds clr and equal bilaterally all lezama. Heart sounds normal. Bowel sounds present. Abdomen soft, non-tender. Pt reports that she gets abdominal pain every once in a while that comes and goes, pt denies any abdominal pain currently. No edema noted. Pt complaining of left posterior leg pain for the past 3 weeks, area appears unremarkable, no redness or swelling noted. Pt hx OR about a year ago, pt on blood thinners, and reports that she has taken all her medications as prescribed.
[2022-09-06 08:42] LABS: MANUAL DIFF FLAG NO
[2022-09-06 08:46] LABS: Basophils Percent Auto 0.5 % (0-2); Eosinophils Absolute Auto 0.1 X10*3/uL (0.0-0.4); Eosinophils Percent Auto 2.5 % (0-4); Hematocrit 42.5 % (37.0-47.0); Hemoglobin 13.4 g/dl (12.0-16.0); Imm Gran Abs Auto 0.01 X10*3/uL (0.00-0.03); Imm Gran Pct Auto 0.2 % (0.0-0.4); Lymphocytes Absolute Auto 1.6 X10*3/uL (1.2-4.9); Lymphocytes Percent Auto 29.1 % (20-40); Mean Corpuscular HGB Conc 31.5 g/dl (31.0-35.0); Mean Corpuscular Volume 85.5 fL (80.0-98.0); Mean Platelet Volume 9.4 fL (9.4-12.3); Monocytes Absolute Auto 0.3 X10*3/uL (0.1-1.2); Monocytes Percent Auto 6.1 % (2-11); Neutrophils Absolute Auto 3.4 x10*3/uL (2.0-8.3); Neutrophils Percent Auto 61.6 % (45-73); Platelet Count 385 X10*3/uL (160-400); Red Blood Count 4.97 X10*6/uL (4.20-5.50); Red Cell Distribution Width 13.6 % (11.0-16.0); White Blood Count 5.5 X10*3/uL (4.8-10.8)
[2022-09-06 08:48] LABS: Appearance Urine Clear; Color Urine Yellow; Glucose Urine UA Negative (Negative); Leukocyte Esterase Urine Negative (Negative); Nitrite Urine Negative (Negative); PH 6.5 (5.0-9.0); Urine Blood Negative (Negative); Urine Ketones Negative (Negative); Urine Protein Negative (Neg-Trace)
[2022-09-06 09:03] LABS: Alanine Aminotransferase 19 U/L (0-31); Alkaline Phosphatase 82 U/L (39-117); Anion Gap 11 (12-20); Aspartate Amino Transferase 19 U/L (5-31); Bilirubin Direct 0.2 mg/dL (0.0-0.5); Bilirubin Total 0.6 mg/dL (0.0-1.0); Blood Urea Nitrogen 10 mg/dL (9-16); Calcium 9.6 mg/dL (8.4-10.2); Carbon Dioxide 26 mmol/L (22-29); Chloride 113 mmol/L (96-108); Creatinine Clr Calc Pharmacy 74.8; Estimated Glomerular Filt Rate > 60; Glucose Random 94 mg/dL (60-115); Lipase 30 U/L (8-78); Magnesium 2.1 mg/dL (1.6-2.6); Potassium 4.8 mmol/L (3.3-5.1); Sodium 145 mmol/L (135-145); Total Protein 6.7 g/dL (6.5-8.0)
== END 2022-09-06 10:11 | disposition home or self-care (01) ==
PROVIDERS: Physician Assistant; Emergency Provider Emergency Medicine; PCP Internal Medicine
DX: M71.22 Synovial cyst of popliteal space [Baker], left knee (principal); I25.10 Atherosclerotic heart disease of native coronary artery without angina pectoris; R60.0 Localized edema; Z79.899 Other long term (current) drug therapy; Z87.891 Personal history of nicotine dependence
CPT/HCPCS: 36415; 80048; 80076; 81003; 83690; 83735; 85025; 93971; 99284

== ENCOUNTER → 2022-09-10 08:31 | Outpatient (REF) | payer OTHER, SELFPAY ==
--- NOTE | ~2022-09-10 | NM_ITS ---
EXERCISE MYOCARDIAL PERFUSION STUDY INDICATION: Coronary artery disease, assess for ischemia TECHNIQUE: The patient was brought in for an exercise perfusion study on 09/10/2022. Patient performed exercise as per Ifeanyi protocol and was injected 25 mCi of sestamibi once target heart rate was achieved. Images were obtained using the SPECT gamma camera interlaced with the gating device. Images were obtained in supine position. Resting perfusion study was performed on 09/13/2022. Patient was administered 25 mCi of sestamibi intravenously at rest. Images were then obtained in supine position. Images were processed with the software and compared side to side in short axis, horizontal long axis and vertical long axis views. Total DLP 104mGy-cm. FINDINGS: Raw images were reviewed. The stress perfusion study showed mildly diminished tracer uptake at the apex. There is improvement in uptake with CT attenuation correction and hence could be artifactual. The gated study shows low normal LV systolic function with calculated LVEF of 50%. LV cavity is normal in size. The gated study shows normal wall thickening and contraction of segments. Resting study shows minimally reduced uptake at the apex but otherwise unremarkable. Gating at rest reveals normal wall motion with ejection fraction at 49%. The findings are consistent with no clear reversible defects. Very mild fixed apical defect which might be just artifactual. NM/NM cardiolite stress test IMPRESSION: 1. Myocardial perfusion imaging study shows no clear evidence of any ischemia or infarction. In spite of stated history of LAD occlusion/STEMI, perfusion in this territory looks almost normal except for very small fixed defect at the apex; this also has normal contractility and hence could be artifactual. 2. Gated LVEF is 50% during stress and 49% during rest. 3. Transient ischemic dilatation not present. EKG component of the test reported separately.
--- NOTE | 2022-09-10 08:33 | CA_ITS ---
Acquisition Time: 2022-09-10 09:41:31 Total Exercise Time: 00:06:14 Test Indications: CP Medications: SEE H Protocol: BENJAMIN Max HR: 144 BPM 84% of Pred: 170 BPM Max BP: 140/074 mmHG Max Work Load: 7.3 METS Exercise stress test with exercise 6 min 14 sec of Benjamin protocol, briefly achieving 85% MPHR, with need to stop due to left knee discomfort, with report of 3/10 burning across anterior chest, without arrythmia, with normotensive response to exercise, with artifact during exercise, unable to accurately assess for ischemia, with nonspecific ST changes noted in recovery. Nuclear images pending. Test reviewed with Dr Roth. Referred By: Aren Mendez Overread By: MICHAELA ESTEVES
== END ==
LOC: HO.CARD 08:31
PROVIDERS: PCP Internal Medicine; Visit Provider Internal Medicine Cardiovascular Disease
DX: R07.89 Other chest pain (principal)
CPT/HCPCS: 78452; 93017; A9500

== ENCOUNTER → 2022-10-04 09:26 | Outpatient (BNVA) | payer OTHER, SELFPAY | PROVIDERS: PCP Internal Medicine; Visit Provider Nurse Practitioner Family | DX: M25.562 Pain in left knee (principal); M71.20 Synovial cyst of popliteal space [Baker], unspecified knee; M48.061 Spinal stenosis, lumbar region without neurogenic claudication; M41.9 Scoliosis, unspecified; M54.16 Radiculopathy, lumbar region; M51.36 Other intervertebral disc degeneration, lumbar region; M62.830 Muscle spasm of back | CPT/HCPCS: 99202 ==

== ENCOUNTER 2022-11-06 10:01 | Outpatient (AMB) | payer OTHER, SELFPAY ==
[2022-11-06 10:04] VITALS: BMI 28.9
--- NOTE | 2022-11-06 10:04 | A.OFFVIS_ITS ---
Intake Vital Signs 11/06/22 10:04 Height 5 ft 2 in Weight 158 lb BMI 28.9 Intake Visit Reasons: N/P left knee bakers cyst Intake Note: Susy, 52 year old female, presents today as a new patient for her left knee pain. Patient reports she has pain/pressure behind her knee that comes and goes for about 1 year now. Patient seen with pain mgmt and was given medication but states its not working. No injury she can recall. States its painful to bend, walk or put pressure on leg knee. Also states she has numbness and tingling in upper and lower limbs as well as burning sensation in her hands especially in the morning. Hx of herniated disc and sciatic pain. No EMG done. Allergies lisinopril Allergy (Unknown, Verified 11/06/22 10:04) angioedema, throat swelling pravastatin Allergy (Unknown, Verified 11/06/22 10:04) myalgia, angioedema rosuvastatin Adverse Reaction (Unknown, Verified 11/06/22 10:04) myalgia HPI N/P left knee bakers cyst HPI Details 52-year-old female, who is Mac[place] speaking, presents in the office today, as a new patient, for an evaluation of left knee pain. The patient reports intermittent pain and pressure for the last year, since 2021, that is located behind her left knee. She does not recall any known injury. She claims to have pain with bending, ambulating, and applying pressure to the left lower extremity. Patient reports numbness and tingling in the upper and lower extremities with a burning sensation in her hands, which is increased in the morning. The patient has been followed by Pain Management who gave her medication that she reports is not working. Patient has a history of herniated disc and sciatic pain. [facility] Medical History Anxiety Coronary artery disease involving [place] coronary artery of [place] heart with angina pectoris Dizziness Lumbar degenerative disc disease Lumbar radiculopathy, chronic Overweight (BMI 25.0-29.9) Pityriasis rosea Pure hypercholesterolemia Tachycardia Throat pain Visual impairment Vitamin D deficiency Surgical History History of cardiac catheterization Stented coronary artery Family History Father Diabetes Hypertension Hypercholesteremia Mother Hypertension Diabetes Hypercholesteremia Family/Other FH: mental illness Social History Housing: House Alcohol intake: never Patient Tobacco Use Status: Former Tobacco user e-Cigarette/Vaping Use: Never Used Second Hand Smoke Exposure: Yes service: No Current occupational status: employed 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 Cognitive needs: No Hearing needs: No Vision needs: No Review of Systems Const All systems reviewed & are unremarkable except as noted in HPI and below Physical Exam Vital Signs: BMI result Body Mass Index 28.9 Const General: cooperative, healthy appearing, comfortable, no acute distress, well developed and alert Orientation/consciousness: patient oriented x3 HEENT Head: Yes normal to inspection, Yes normocephalic and Yes atraumatic Eyes General: appearance normal, both eyes and all related structures Resp Effort & Inspection: normal respiratory effort and able to speak in complete sentences Cardio Rate: regular rate Peripheral pulses: Peripheral pulses 2+ throughout GI Palpation (GI): Soft to palpation Skin Lesions: no lesions Rashes: no rashes Neuro General: patient oriented x3 Extrem Other: Left knee: Normal to inspection. No ecchymosis, erythema, or joint effusion. No tenderness to palpation to the medial or lateral joint lines. Full knee extension and flexion. Negative Laureen's. Negative anterior draw. NVI. Assessment & Plan Assessment & Plan (1) Synovial cyst of popliteal space [Valle], left knee: Code(s): M71.22 - Synovial cyst of popliteal space [Valle], left knee Plan Ms. Concepcion is a 52-year-old female, who is [place] speaking, presents in the office today, as a new patient, for an evaluation of left knee pain. The patient reports intermittent pain and pressure for the last year, since 2021, that is located behind her left knee. She does not recall any known injury. She claims to have pain with bending, ambulating, and applying pressure to the left lower extremity. Patient reports numbness and tingling in the upper and lower extremities with a burning sensation in her hands, which is increased in the morning. The patient has been followed by Pain Management who gave her medication that she reports is not working. Patient has a history of herniated disc and sciatic pain. I discussed the role of cortisone injection. Due to the pain decreasing we have agreed to defer at this time. She will call the office if she would like to move forward with them. Follow up will be PRN, or sooner if needed. X-rays of the left knee which were obtained while in the office today and were reviewed by me, Rizwana Villanueva PA-C, revealed no acute fractures or dislocation. Orders: Orders XR knee LT 1V Today M25.569 - Pain in unspecified knee XR knee standing BI Today M25.569 - Pain in unspecified knee Patient Instructions: Scribed for Rizwana Villanueva PA-C by Whitney Alvarez, medical associate, on 11/06/2022 at 10:03 am, EST. Your attestation Coding Level of Care Code New Pt Level 3 (90258) Diagnoses Synovial cyst of popliteal space [Valle], left knee M71.22
== END 2022-11-06 11:09 | disposition home or self-care (01) ==
PROVIDERS: PCP Internal Medicine; Visit Provider Physician Assistant
DX: M71.22 Synovial cyst of popliteal space [Baker], left knee (principal)
CPT/HCPCS: 99203

== ENCOUNTER 2022-11-06 11:23 | Outpatient (REF) | payer OTHER, SELFPAY ==
--- NOTE | ~2022-11-06 | XR_ITS ---
Examination: XR knee LT 1V, XR knee standing BI Indication: M25.569 - Pain in unspecified knee Comparison: 08/31/2022 Technique: Standing frontal view of both knees with sunrise view of the left knee obtained Findings: On the standing view there is minimal loss of joint space in the medial compartment bilaterally with mild valgus angulation of both knees. I do not appreciate any acute fracture or dislocation. The additional sunrise view of the left knee is obtained with images in normal anatomic alignment. There may be some very mild soft tissue swelling medially about the knee difficult to define further on these projections XR/XR knee LT 1V Impression: Mild loss of joint space in the medial compartment bilaterally with mild valgus angulation bilaterally. No acute fracture or dislocation. There may be some mild soft tissue swelling medially about the left knee.
--- NOTE | ~2022-11-06 | XR_ITS ---
Examination: XR knee LT 1V, XR knee standing BI Indication: M25.569 - Pain in unspecified knee Comparison: 08/31/2022 Technique: Standing frontal view of both knees with sunrise view of the left knee obtained Findings: On the standing view there is minimal loss of joint space in the medial compartment bilaterally with mild valgus angulation of both knees. I do not appreciate any acute fracture or dislocation. The additional sunrise view of the left knee is obtained with images in normal anatomic alignment. There may be some very mild soft tissue swelling medially about the knee difficult to define further on these projections XR/XR knee standing BI Impression: Mild loss of joint space in the medial compartment bilaterally with mild valgus angulation bilaterally. No acute fracture or dislocation. There may be some mild soft tissue swelling medially about the left knee.
== END 2022-11-06 11:24 | disposition home or self-care (01) ==
LOC: HO.HOSX 11:23
PROVIDERS: Visit Provider Physician Assistant
DX: M71.22 Synovial cyst of popliteal space [Baker], left knee (principal)
CPT/HCPCS: 73560; 73565; 99202

== ENCOUNTER 2022-11-19 09:21 | Outpatient (AMB) | payer OTHER, SELFPAY ==
--- NOTE | 2022-11-19 10:32 | AM.OFFWIN_ITS ---
Intake Vital Signs 11/19/22 10:35 Height 5 ft 2 in BP 130/72 Blood Pressure Location Lt brachial Position Sitting Pulse 97 Pulse Source Pulse Oximeter Temp 97.3 F Temp Source Temporal Artery Scan Pulse Oximetry (%) 98 Oxygen Delivery Method Room Air Intake Visit Reasons: EP reaction to bite? (lobby) Intake Note: Pt is here c/o possibly having a reaction to a bug bite. Pt states she is not sure what it was but she does have a reaction all over her body. Patient Tobacco Use Status: Former Tobacco user Allergies lisinopril Allergy (Unknown, Verified 11/19/22 10:35) angioedema, throat swelling pravastatin Allergy (Unknown, Verified 11/19/22 10:35) myalgia, angioedema rosuvastatin Adverse Reaction (Unknown, Verified 11/19/22 10:35) myalgia HPI HPI Comments History of Present Illness Details 52-year-old female presents for evaluation for multiple infected bug bites. She does not know what bit her, but she has redness to multiple sites on her chest, back, and arms and neck. She does not report any fevers or chills. 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 Dizziness Lumbar degenerative disc disease Lumbar radiculopathy, chronic Overweight (BMI 25.0-29.9) Pityriasis rosea Pure hypercholesterolemia Tachycardia Throat pain Visual impairment Vitamin D deficiency Surgical History History of cardiac catheterization Stented coronary artery Family History Father Diabetes Hypertension Hypercholesteremia Mother Hypertension Diabetes Hypercholesteremia Family/Other FH: mental illness Social History Housing: House Alcohol intake: never Patient Tobacco Use Status: Former Tobacco user e-Cigarette/Vaping Use: Never Used Second Hand Smoke Exposure: Yes service: No Current occupational status: employed 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 Cognitive needs: No Hearing needs: No Vision needs: No Review of Systems Const Details: Constitutional: No Fever, No Chills Cardiovascular: No Chest Pain, No SOB Respiratory: No Cough, No Dyspnea Gastrointestinal: No Nausea, No Vomiting, No Diarrhea, No abdominal Pain Genitourinary: No Dysuria, No Hematuria Musculoskeletal: No joint pain, No Myalgias, No Joint Swelling Skin: Multiple infected insect bites, No Skin lacerations, No rash Neuro: No Weakness, No Dizziness, No Headache All systems reviewed & are unremarkable except as noted in HPI and below Physical Exam Vital Signs: Last Vital Signs Temp 97.3 F 11/19/22 10:35 Pulse 97 11/19/22 10:35 BP 130/72 11/19/22 10:35 Pulse Ox 98 11/19/22 10:35 Oxygen Delivery Method Room Air 11/19/22 10:35 Appearance: Alert. Oriented X3. No acute distress. Eyes: Pupils equal, round and reactive to light. Neck: Normal inspection. Neck supple. CVS: Normal heart rate and rhythm. Pulses normal. Respiratory: No respiratory distress. Breath sounds normal. Skin: Numerous insect bites, largest in diameter measuring 2 cm with erythema. No pustules. Extremities: Gait well balanced well coordinated. Neuro: No motor deficit. No sensory deficit. Cranial nerves 2-12 intact peer Assessment & Plan Assessment & Plan (1) Insect bites of multiple sites, infected: Code(s): T07.XXXA - Unspecified multiple injuries, initial encounter; L08.9 - Local infection of the skin and subcutaneous tissue, unspecified; W57.XXXA - Bitten or stung by nonvenomous insect and other nonvenomous arthropods, initial encounter Plan 52-year-old female presents with numerous insect bites that have erythema surrounding the bite site. Largest measuring 2 cm in diameter to approximately 0.5 cm in diameter. There are no pustules these insect bites, and do not appear to be contact dermatitis or varicella. The insect bites are mostly on her arms, chest and neck. She states that she has been using hydrocortisone cream with poor effect. Patient is alert oriented x4, answering questions politely and appropriately, no fevers or chills, or diaphoresis. Plan of care is to treat for cellulitis with cefuroxime. Patient verbalized understanding of and agrees to plan of care discharge home. Verbalized understanding of signs and symptoms indicating need for emergent intervention Medications: New cefuroxime axetil 500 mg PO Q12H 7 days 14 tabs 0RF Patient Instructions: You were evaluated for multiple insect bites that are infected. Take cefuroxime 500 mg every 12 hours for the next 7 days. Continue to apply a small amount of hydrocortisone cream to each site. Take Benadryl 25 mg every 6 hours as needed for itching. This medication may make you drowsy, do not drive or operate machinery while taking this medication. Thank you for choosing this urgent care for evaluation. Please follow-up with primary care physician as needed. Return to the emergency department for any new, concerning, or worsening symptoms. Usted fue evaluado por m?ltiples picaduras de insectos que est?n infectados. [place] cefuroxima 500 mg cada 12 horas anival los pr?ximos 7 d?as. Contin?e aplicando kory jazz?a cantidad de crema de hidrocortisona en cada sitio. [place] Benadryl 25 mg cada 6 horas seg?n sea necesario para la picaz?n. [place] medicamento puede causarle somnolencia, no conduzca ni maneje maquinaria mientras dagoberto mary anne medicamento. [place] por elegir esta atenci?n de urgencia para alejo evaluaci?n. Por favor, erasto un seguimiento con el m?dico de atenci?n primaria seg?n sea necesario. Regrese al departamento de emergencias por cualquier s?ntoma nuevo, preocupante o que empeore. Coding Level of Care Code Est Pt Level 3 (86913) Diagnoses Insect bites of multiple sites, infected T07.XXXA; L08.9; W57.XXXA
[2022-11-19 10:35] VITALS: BP 130/72; PULSE 97; TEMP 36.3; O2SAT 98
== END 2022-11-19 11:12 | disposition home or self-care (01) ==
PROVIDERS: PCP Internal Medicine; Visit Provider Nurse Practitioner Family
DX: T07.XXXA Unspecified multiple injuries, initial encounter (principal); L08.9 Local infection of the skin and subcutaneous tissue, unspecified; W57.XXXA Bitten or stung by nonvenomous insect and other nonvenomous arthropods, initial encounter
CPT/HCPCS: 99213

== ENCOUNTER 2022-12-11 09:13 | Outpatient (REF) | payer OTHER, SELFPAY ==
[2022-12-11 09:35] LABS: MANUAL DIFF FLAG NO
[2022-12-11 10:19] LABS: Basophils Percent Auto 0.3 % (0-2); Eosinophils Absolute Auto 0.1 X10*3/uL (0.0-0.4); Eosinophils Percent Auto 1.5 % (0-4); Hematocrit 42.1 % (37.0-47.0); Hemoglobin 13.2 g/dl (12.0-16.0); Imm Gran Abs Auto 0.04 X10*3/uL (0.00-0.03); Imm Gran Pct Auto 0.5 % (0.0-0.4); Lymphocytes Absolute Auto 1.7 X10*3/uL (1.2-4.9); Mean Corpuscular HGB Conc 31.4 g/dl (31.0-35.0); Mean Corpuscular Hemoglobin 26.6 pg (27.0-33.0); Mean Corpuscular Volume 84.7 fL (80.0-98.0); Mean Platelet Volume 9.3 fL (9.4-12.3); Monocytes Absolute Auto 0.6 X10*3/uL (0.1-1.2); Monocytes Percent Auto 7.1 % (2-11); Neutrophils Absolute Auto 6.1 x10*3/uL (2.0-8.3); Neutrophils Percent Auto 70.6 % (45-73); Platelet Count 399 X10*3/uL (160-400); Red Blood Count 4.97 X10*6/uL (4.20-5.50); Red Cell Distribution Width 13.6 % (11.0-16.0); White Blood Count 8.7 X10*3/uL (4.8-10.8)
[2022-12-11 11:08] LABS: Alanine Aminotransferase 28 U/L (0-31); Alkaline Phosphatase 79 U/L (39-117); Anion Gap 11 (12-20); Aspartate Amino Transferase 21 U/L (5-31); Bilirubin Total 0.5 mg/dL (0.0-1.0); Blood Urea Nitrogen 10 mg/dL (9-16); Calcium 9.6 mg/dL (8.4-10.2); Carbon Dioxide 27 mmol/L (22-29); Chloride 110 mmol/L (96-108); Cholesterol 181 mg/dL; Estimated Glomerular Filt Rate > 60; Glucose Fasting 90 mg/dL (60-99); HDL Cholesterol 56 mg/dL; LDL Cholesterol Calculated 108 mg/dl; Potassium 4.5 mmol/L (3.3-5.1); Sodium 143 mmol/L (135-145); Total Protein 7.1 g/dL (6.5-8.0); Triglycerides 89 mg/dL
== END 2022-12-11 09:14 | disposition home or self-care (01) ==
LOC: HO.LAB 09:13
PROVIDERS: PCP Internal Medicine; Visit Provider Internal Medicine
DX: E78.00 Pure hypercholesterolemia, unspecified (principal); I10 Essential (primary) hypertension
CPT/HCPCS: 36415; 80053; 80061; 85025

== ENCOUNTER 2022-12-12 12:17 | Outpatient (AMB) | payer OTHER, SELFPAY ==
[2022-12-12 12:32] VITALS: BP 108/72; PULSE 78; O2SAT 98; BMI 28.7
--- NOTE | 2022-12-12 12:32 | A.OFFPC_ITS ---
Vital Signs 12/12/22 12:32 Height 5 ft 2 in Weight 157 lb 2 oz BMI 28.7 BP 108/72 Blood Pressure Location Lt brachial Position Sitting Pulse 78 Pulse Source Pulse Oximeter Pulse Oximetry (%) 98 Oxygen Delivery Method Room Air Intake Visit Reasons: CAD, hyperlipidemia, chronic left leg pain Customer Order Clerk Required: No Accompanied by: Self / Same As Patient Allergies lisinopril Allergy (Unknown, Verified 12/12/22 12:47) angioedema, throat swelling pravastatin Allergy (Unknown, Verified 12/12/22 12:47) myalgia, angioedema rosuvastatin Adverse Reaction (Unknown, Verified 12/12/22 12:47) myalgia Medication List - Last Reconciled 12/12/22 by Jamey Garcia MD alirocumab (Praluent Pen) 75 mg subcut Q14D ascorbic acid (vitamin C) 500 mg PO DAILY aspirin (Adult Low Dose Aspirin) 81 mg PO DAILY 90 days cefuroxime axetil 500 mg PO Q12H 7 days cholecalciferol (vitamin D3) 50 mcg PO DAILY coenzyme Q10 10 mg PO TID diclofenac sodium 1% (Arthritis Pain (diclofenac)) 4 grams topical QID ezetimibe 10 mg PO DAILY lidocaine 5% 1 patch topical DAILY 30 days methocarbamol 750 mg PO BID PRN 30 days metoprolol succinate ER 50 mg (2 x 25 mg) PO BID sacubitril-valsartan 24-26 mg (Entresto) 1 tab PO BID ticagrelor (Brilinta) 90 mg PO BID tramadol 50 mg PO TID PRN 10 days Tobacco use date assessed: 12/12/22 Dental Screening Dental Screen Date: 12/12/22 Did you have a dental visit in the last 12 months?: Yes Did you have a dental problem in the last 6 months where you did not have access to dental care?: No Was dental information given to patient?: Patient has dentist HPI CAD, hyperlipidemia, chronic left leg pain HPI Details Patient comes in today for her follow up visit States that she feels okay Still has occasional sharp pains over her anterior chest wall - states that these are brief and are not related to activity or exertion She also had stress test and nuclear imaging done in August 2022 and both tests came out okay She denies any headaches or dizziness Denies any SOB No nausea/vomiting, no abdominal pain No change in bowel habits noted States that she still has not gotten back on Praluent injections yet and is currently only taking Ezetimibe and OTC CholestOFF for her hyperlipidemia Relates that cardiology was supposed to help her get her Rx approved a few months ago but she has not heard back from anyone regarding her Rx Had her follow up labs done yesterday - to discuss her results [facility] Medical History Anxiety Coronary artery disease involving absentee-shawnee coronary artery of absentee-shawnee heart with angina pectoris Dizziness Lumbar degenerative disc disease Lumbar radiculopathy, chronic Overweight (BMI 25.0-29.9) Pityriasis rosea Pure hypercholesterolemia Tachycardia Throat pain Visual impairment Vitamin D deficiency Surgical History History of cardiac catheterization Stented coronary artery Family History Father Diabetes Hypertension Hypercholesteremia Mother Hypertension Diabetes Hypercholesteremia Family/Other FH: mental illness Social History Housing: House Alcohol intake: never Patient Tobacco Use Status: Former Tobacco user e-Cigarette/Vaping Use: Never Used Second Hand Smoke Exposure: Yes service: No Current occupational status: employed 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 1. Little interest or pleasure in doing things: not at all 2. Feeling down, depressed, or hopeless: not at all 3. Trouble falling or staying asleep, or sleeping too much: not at all 4. Feeling tired or having little energy: not at all 5. Poor appetite or overeating: not at all 6. Feeling bad about yourself - or that you are a failure or have let yourself or your family down: not at all 7. Trouble concentrating on things, such as reading the newspaper or watching television: not at all 8. Moving or speaking so slowly that other people could have noticed. Or the opposite - being so fidgety or restless that you have been moving around a lot more than usual: not at all 9. Thoughts that you would be better off or of hurting yourself in some way: not at all Total score: 0 Depression Screening Interpretation: Negative 67545 - PHQ-9 Billing: Yes Source: Developed by Drs. Aaron Bettencourt, Rand Loja, James Pires and colleagues, with an educational tez from [employer]. Thrive Questionnaire Date Thrive assessed: 12/12/22 I am a: Patient What is your living situation today?: I have a steady place to live Within the past 12 months, did the food you bought not last and you didn't have the money to get more?: Never true Within the past 12 months, did you worry whether your food would run out before you got money to buy more?: Never true Do you have trouble paying for medicines?: No Do you have trouble getting transportation to medical appointments?: No Do you have trouble paying your heating and electricity bill?: No Do you have trouble taking care of your child, family member or friend?: No Do you have trouble with day-to-day activities such as bathing, preparing meals, shopping, managing finances, etc.?: No Are you currently unemployed and looking for a job?: No Are you interested in more education?: No Please select the resources that you would like help with: None Currently or been in a relationship where the following occur: no concerns reported AUDIT C Alcohol Use Questionnaire (AUDIT-C) 1. How often do you have a drink containing alcohol?: Never 3. How often do you have six or more drinks on one occasion?: Never Total Score: 0 Score Reviewed/Action Taken: Yes JOHANNE-7 AMB Questionnaire JOHANNE-7 Date JOHANNE - 7 assessed: 12/12/22 Feeling nervous, anxious, or on edge: 1 = Several days (pt has family emergency at the moment. ) Not being able to stop or control worryin = Not at all Worrying too much about different things: 0 = Not at all Trouble relaxin = Not at all Being so restless that it is hard to sit still: 0 = Not at all Becoming easily annoyed or irritable: 0 = Not at all Feeling afraid as if something awful might happen: 0 = Not at all Total JOHANNE-7 score (0-4 normal; 5-9 mild; 10-14 moderate; 15-21 severe): 1 Source: Developed by Drs. Aaron Bettencourt, Rand Loja, James Pires and colleagues, with an educational tez from [employer]. Review of Systems Const Denies chills, Denies fatigue, Denies fever(s) and Denies headache(s) ENT Denies dysphagia, Denies dizziness, Denies otalgia, Denies headache(s), Denies neck pain, Denies odynophagia and Denies sore throat Card Reports chest pain (on and off sharp chest wall pains), Denies chest pain with activity, Denies palpitations and Denies dyspnea Resp Denies cough, Denies dyspnea and Denies wheezing GI Denies abdominal pain, Denies constipation, Denies dysphagia, Denies heartburn, Denies diarrhea, Denies nausea, Denies odynophagia and Denies vomiting Denies difficulty voiding, Denies nocturia and Denies dysuria Musc Reports back pain, Reports arthralgias (on and off, in the left knee) and Denies neck pain Neuro Denies dizziness and Denies headache(s) Endo Denies fatigue and Denies palpitations Aller/Immun Denies wheezing Physical exam (Primary Care) Vital Signs: Last Vital Signs Pulse 78 12/12/22 12:32 BP 108/72 12/12/22 12:32 Pulse Ox 98 12/12/22 12:32 Oxygen Delivery Method Room Air 12/12/22 12:32 BMI result Body Mass Index 28.7 Tobacco/Smoking Status: Tobacco use Status Tobacco use date assessed 12/12/22 12/12/22 12:38 Patient Tobacco Use Status Former Tobacco user 12/12/22 12:38 e-Cigarette/Vaping Use Never Used 12/12/22 12:38 PHQ-9: PHQ-9 Score PHQ-9: Total score 0 12/12/22 12:38 Depression Screening Interpretation: Negative Thrive Assessment: Date of Thrive Assessment Date Thrive assessed 12/12/22 12/12/22 12:38 Currently or been in a relationship where the following occur: no concerns reported Const General: no acute distress and alert HENMT Ears: TM normal on the left and TM abnormal perforated without discharge on the right Throat: Yes posterior oropharynx normal and Yes tonsils normal (no TP congestion) Neck Neck: Yes no lymphadenopathy and Yes supple Resp Auscultation: clear to auscultation bilaterally, no rales and no wheezes Cardio Rate: regular rate Rhythm: regular rhythm Heart sounds: no murmurs GI Palpation (GI): Soft to palpation and nontender Auscultation: normal bowel sounds Back/Spine/Pelvis Thoracic/Lumbar Spine: lumbar spinal tenderness Skin Rashes: no rashes Extrem General: Yes no clubbing, cyanosis or edema Left lower extremity: knee Details: tenderness (mild); no swelling Results Reviewed Results Reviewed: Laboratory Tests 12/11/22 12/11/22 09:34 09:34 WBC 8.7 Hgb 13.2 Hct 42.1 Plt Count 399 Sodium 143 Potassium 4.5 Creatinine 0.86 Estimated GFR > 60 Fasting Glucose 90 Calcium 9.6 AST 21 ALT 28 Triglycerides 89 Cholesterol 181 LDL Cholesterol, Calc 108 HDL Cholesterol 56 Assessment and Plan Assessment & Plan (1) Coronary artery disease involving absentee-shawnee coronary artery of absentee-shawnee heart with angina pectoris: Comment: Had NSTEMI, S/P angioplasty (PTCA) in 02/2016; myocardial perfusion study done on 07/25/2017 was normal. Repeat study done at [facility] in 08/2020 showed normal imaging after exercise stress test at average estimated functional capacity. Mild small perfusion defects in the mid to basal anteroseptal wall and apex that improved on stress images, suggestive of artifact. LV function is borderline normal with an EF of 58% at rest and 52% with stress, with normal wall motion and thickening Code(s): I25.119 - Atherosclerotic heart disease of absentee-shawnee coronary artery with unspecified angina pectoris Plan: S/P STEMI in November 2021, with EKG (+) for ST elevations in the precordial leads and ST depression in the inferior leads; troponin I levels were significanty elevated at the time Coronary angiography done at [facility] on 12/15/21 revealed (+) total occlusion of the mid LAD with severe mid RCA stenosis Patient underwent PCI of the mid LAD on 12/15/21 with a single DESMOND and staged PCI of the mid RCA 3 days later on 12/18/21 with a single DESMOND Echocardiogram done on 12/17/21 revealed severely reduced LV systolic function at 20 to 25% with regional wall abnormalities in the LAD territory Patient also had NSTEMI, S/P angioplasty (PTCA) back in 02/2016; myocardial perfusion study done on 07/25/2017 was normal Continue Aspirin 81 mg QD and Brilinta 90 mg BID Continue Metoprolol ER 50 mg BID and Entresto 24-26 mg BID Follow up with cardiology as scheduled (2) Benign essential hypertension: Code(s): I10 - Essential (primary) hypertension Plan: ReInforced low-sodium diet -? goal is systolic BP of at least 120 or less Continue Metoprolol ER 50 mg BID and Entresto 24-26 mg BID (3) Pure hypercholesterolemia: Code(s): E78.00 - Pure hypercholesterolemia, unspecified Plan: Results of her labs done yesterday reviewed and discussed with patient - advised that her cholesterol levels have increased slightly from previous and her LDL cholesterol is now at 108 mg/dl (should ideally be <70 mg/dl due to her significant cardiac history) Reinforced low cholesterol diet Patient has been tried on and could not tolerate several statins in the past, including Rosuvastatin and Pravastatin; also reportedly could not tolerate Repatha in the past Patient has been taking OTC CholestOff and Ezetimibe 10 mg QD but her lipids were still not at goal She was started on Praluent 75 mg every 2 weeks by cardiology in the past with significant reduction in her cholesterol numbers but the garcias that be at her health insurance company have inexplicably continue to deny covering her Rx even though we have provided them with irrefutable evidence that patient really needs to be on the medication to prevent another cardiac event from occurring Cardiology has indicated a few months ago that they will try to help patient get her Rx approved but patient states that she has not heard back from them so far Wel will try to send in another Rx for Praluent at this time and start again the prior authorization process if we have to Will recheck her fasting lipids and labs in 3 months for follow up (4) Vitamin D deficiency: Code(s): E55.9 - Vitamin D deficiency, unspecified Plan: Continue Vitamin D3 1000 units QD (5) Lumbar degenerative disc disease: Code(s): M51.36 - Other intervertebral disc degeneration, lumbar region Plan: Reinforced activity and weight lifting restrictions Lumbar spine MRI done at [facility] back in February 2020 revealed (+) transitional segment anatomy and lumbar spine degenerative disease with left L4- L5 lateral recess stenosis and possible traversing left L5 nerve root impin gement Follow up with Pain Management as scheduled (6) Arthralgia: Code(s): M25.50 - Pain in unspecified joint Qualifiers: Joint pain location: unspecified Qualified Code(s): M25.50 - Pain in unspecified joint Plan: Follow up with rheumatology as scheduled Has also been seen by orthopedics recently for her left knee pain and advised to follow up with them as needed Patient has also been seeing pain management for her low back pain and joint pains (7) Anxiety: Code(s): F41.9 - Anxiety disorder, unspecified Plan: Feels that she is doing well presently although still has frequent wide swings in her blood pressure readings, which were thought to be related to her anxiety in the past Was started on a trial of Escitalopram 5 mg QD a few months ago to see if this will help control her anxiety better - patient stopped taking it after 1 dose as she felt that this Rx caused her BP and HR to increase further and does not wish to start or try anything else for now (8) Overweight (BMI 25.0-29.9): Code(s): E66.3 - Overweight Plan: Reinforced diet/exercise as tolerated/lose weight Plan Follow up in 3 months Orders: Orders Complete Blood Count Auto Diff 3 Months I10 - Essential (primary) hypertension Comprehensive [place]. Panel Fast 3 Months E78.00 - Pure hypercholesterolemia, unspecified Lipid Panel 3 Months E78.00 - Pure hypercholesterolemia, unspecified TSH reflex Free T4 3 Months E78.00 - Pure hypercholesterolemia, unspecified UA CC w/rflx Micro + Cult 3 Months R30.0 - Dysuria Vitamin D 25-OH Total 3 Months E55.9 - Vitamin D deficiency, unspecified Medications: Refilled alirocumab (Praluent Pen) 75 mg subcut Q14D 2 mL 11RF I25.5 - Ischemic cardiomyopathy Coding Level of Care Code Est Pt Level 4 (47795) Diagnoses Coronary artery disease involving absentee-shawnee coronary artery of absentee-shawnee heart with angina pectoris I25.119 Benign essential hypertension I10 Pure hypercholesterolemia E78.00 Vitamin D deficiency E55.9 Lumbar degenerative disc disease M51.36 Arthralgia M25.50 Joint pain location: unspecified Anxiety F41.9 Overweight (BMI 25.0-29.9) E66.3
== END 2022-12-12 13:03 | disposition home or self-care (01) ==
PROVIDERS: PCP Internal Medicine; Visit Provider Internal Medicine
DX: I25.119 Atherosclerotic heart disease of native coronary artery with unspecified angina pectoris (principal); I10 Essential (primary) hypertension; E55.9 Vitamin D deficiency, unspecified; F41.9 Anxiety disorder, unspecified; E78.00 Pure hypercholesterolemia, unspecified; M51.36 Other intervertebral disc degeneration, lumbar region; M25.50 Pain in unspecified joint; E66.3 Overweight
CPT/HCPCS: 99214

== ENCOUNTER 2022-12-26 09:04 | Outpatient (REF) | payer OTHER, SELFPAY ==
--- NOTE | ~2022-12-26 | MR_ITS ---
EXAMINATION: MR LUMBAR SPINE WITHOUT CONTRAST CLINICAL INFORMATION: Lumbar spinal stenosis. COMPARISON: Lumbar spine MRI from 07/22/2014. TECHNIQUE: MRI of the lumbar spine was obtained using routine sequences without contrast. FINDINGS: Mild degenerative retrolisthesis of L5 on S1. Otherwise, normal anatomic alignment. Mild degenerative disc disease at T10-T11, T11-T12, and from L3-S1. Associated mild mixed Modic type discogenic and plate changes including minimal Modic type I discogenic edema at T11-T12 and L3-L4. No additional suspicious marrow edema. The vertebral body heights are well-maintained. The conus medullaris is low-lying, terminating at the level of L3. The distal spinal cord is normal in appearance. No significant abnormalities of the paraspinal musculature. Limited evaluation of the intra-abdominal structures without significant abnormalities. The abdominal aorta is of normal contour and caliber. AXIAL SPINAL LEVELS: L1-L2: Normal annular contour. There is mild bilateral facet joint arthropathy. There is no neural foraminal stenosis. There is no spinal canal stenosis. L2-L3: Normal annular contour. There is mild bilateral facet joint arthropathy. There is no neural foraminal stenosis. There is no spinal canal stenosis. L3-L4: Shallow diffuse disc bulge. There is mild bilateral facet joint arthropathy. There is no neural foraminal stenosis. There is no spinal canal stenosis. L4-L5: Shallow diffuse disc bulge. There is mild bilateral facet joint arthropathy. There is mild left and no right neural foraminal stenosis. There is no spinal canal stenosis. L5-S1: Mild diffuse disc bulge. There is moderate left worse than right facet joint arthropathy. There is severe left and moderate right neural foraminal stenosis. There is stenosis of the left worse than right subarticular zones with no overt spinal canal stenosis centrally. MR/MR lumbar spine wo con IMPRESSION: Mild to moderate multilevel degenerative spondyloarthropathy of the lumbar spine as described in detail above. Most notably, there are stenoses of the left worse than right subarticular zones and moderate to severe neural foraminal stenoses at L5-S1. No overt spinal canal stenosis centrally. Overall, degenerative changes are mildly progressed compared to 2014.
== END 2022-12-26 09:05 | disposition home or self-care (01) ==
LOC: HO.MRI 09:04
PROVIDERS: PCP Internal Medicine; Visit Provider Nurse Practitioner Family
DX: M48.061 Spinal stenosis, lumbar region without neurogenic claudication (principal); M41.9 Scoliosis, unspecified; M51.36 Other intervertebral disc degeneration, lumbar region; M54.16 Radiculopathy, lumbar region
CPT/HCPCS: 72148

== ENCOUNTER 2023-01-08 12:50 | Outpatient (AMB) | payer OTHER, SELFPAY ==
--- NOTE | 2023-01-08 13:08 | MHC.OFFVIS ---
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 Patient reports decrease in her symptoms significantly and rates her pain at 0/10 today. She has tried lidocaine patches, muscle relaxants, and diclofenac gel applications which provided some relief. Due to decrease in pain she has not started physical therapy. Patient was also seen by Orthopedics 2 months ago and also disappeared cortisone injections due to no pain. Patient states occasional flare-up in her lower back is movements or bending but no numbness, tingling, or burning in her left lower extremity or left knee pain. Denies any recent cough, cold, infection, fever or other significant changes in medical history since last office visit. Patient denies any bladder or bowel incontinence or saddle anesthesia. PRIOR: Patient is a pleasant 52 years old female with known history of lumbar degenerative disc disease, spinal stenosis, left knee Valle's cyst, CAD with 3 cardiac stents, thoracic scoliosis, polyarthralgia and chronic lumbar radiculopathy presents today for initial evaluation of left knee and low back pain. Denies any past or recent trauma, injury or falls. Patient reports she had neurosurgical evaluation in 2020 for disc herniation and spinal stenosis and was deemed non surgical. Her back symptoms have been intermittent but over the past year, she started experiencing left posterior knee pain and left radicular back pain and this has been progressively worsening. Patient reports she has good and bad days and past few weeks pain has been minimal. She does presents with significant left sided radiculpathy in L4-L5 distribution with positive SLR testing on the left and localized tenderness in the projection of left sacroiliac joint. Left knee pain is mainly posterior with tenderness consistent with Valle's cyst. Recent US duplex of left lower extremity was negative for DVT. She reports gradual onset of left popliteal pain over the past year. Pain affects her daily activities, ADLs, mobility, sleep and social activities. 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 Reports pain is worse with walking and climbing stairs. Denies any fever, weight changes, abdominal or groin pain, knee buckling or locking, anterior knee pain, Location Left knee anterior and posterior, lower back pain with left radicular pain Duration Started over one year, no injury Characteristics of symptom or complaint Burning, stabbing, sharp, tiring, exhausting, numbness, tingling, aching Aggravating or associated factors Walking, climbing stairs, changing positions, prolonged sitting, running Relieving factors Ibuprofen, tramadol, ice and heat therapy Treatment None PFSH Medical History Anxiety Tachycardia Visual impairment Throat pain Dizziness Overweight (BMI 25.0-29.9) Vitamin D deficiency Lumbar radiculopathy, chronic Lumbar degenerative disc disease Pityriasis rosea Pure hypercholesterolemia Coronary artery disease involving [place] coronary artery of [place] heart with angina pectoris Surgical History Stented coronary artery History of cardiac catheterization Family History Father Diabetes Hypertension Hypercholesteremia Mother Hypertension Diabetes Hypercholesteremia Family/Other FH: mental illness Social History Housing: House Alcohol intake: never Patient Tobacco Use Status: Former Tobacco user e-Cigarette/Vaping Use: Never Used Second Hand Smoke Exposure: Yes service: No Current occupational status: employed 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 Alert and oriented. Mood and affect appropriate. No acute distress. Follows and participates in conversation appropriately. Respiratory effort is unlabored. No cough. Able to transition from sit to stand unassisted. Ambulates with bilaterally normal heel strike and toe off. Lumbar spine extension and flexion reproduces mild pain. Neuro General: moves all extremities, Normal light touch and pain sensation, no focal motor deficits and CN's II-XI intact bilaterally Gait exam (Neuro): Normal gait present Motor exam (neuro): 5/5 motor strength present throughout and Motor abnormalities not present Sensory Exam: No Sensory deficit (Neuro) Results Reviewed Results Reviewed: MR LUMBAR SPINE WITHOUT CONTRAST 12/26/22 CLINICAL INFORMATION: Lumbar spinal stenosis. COMPARISON: Lumbar spine MRI from 07/22/2014. TECHNIQUE: MRI of the lumbar spine was obtained using routine sequences without contrast. FINDINGS: Mild degenerative retrolisthesis of L5 on S1. Otherwise, normal anatomic alignment. Mild degenerative disc disease at T10-T11, T11-T12, and from L3-S1. Associated mild mixed Modic type discogenic and plate changes including minimal Modic type I discogenic edema at T11-T12 and L3-L4. No additional suspicious marrow edema. The vertebral body heights are well-maintained. The conus medullaris is low-lying, terminating at the level of L3. The distal spinal cord is normal in appearance. No significant abnormalities of the paraspinal musculature. Limited evaluation of the intra-abdominal structures without significant abnormalities. The abdominal aorta is of normal contour and caliber. AXIAL SPINAL LEVELS: L1-L2: Normal annular contour. There is mild bilateral facet joint arthropathy. There is no neural foraminal stenosis. There is no spinal canal stenosis. L2-L3: Normal annular contour. There is mild bilateral facet joint arthropathy. There is no neural foraminal stenosis. There is no spinal canal stenosis. L3-L4: Shallow diffuse disc bulge. There is mild bilateral facet joint arthropathy. There is no neural foraminal stenosis. There is no spinal canal stenosis. L4-L5: Shallow diffuse disc bulge. There is mild bilateral facet joint arthropathy. There is mild left and no right neural foraminal stenosis. There is no spinal canal stenosis. L5-S1: Mild diffuse disc bulge. There is moderate left worse than right facet joint arthropathy. There is severe left and moderate right neural foraminal stenosis. There is stenosis of the left worse than right subarticular zones with no overt spinal canal stenosis centrally. IMPRESSION: Mild to moderate multilevel degenerative spondyloarthropathy of the lumbar spine as described in detail above. Most notably, there are stenoses of the left worse than right subarticular zones and moderate to severe neural foraminal stenoses at L5-S1. No overt spinal canal stenosis centrally. Overall, degenerative changes are mildly progressed compared to 2015. Assessment & Plan Assessment & Plan (1) Degenerative lumbar spinal stenosis: Code(s): M48.061 - Spinal stenosis, lumbar region without neurogenic claudication (2) Thoracic scoliosis: Code(s): M41.9 - Scoliosis, unspecified (3) Lumbar degenerative disc disease: Code(s): M51.36 - Other intervertebral disc degeneration, lumbar region (4) Spondyloarthropathy of lumbar spine: Code(s): M47.816 - Spondylosis without myelopathy or radiculopathy, lumbar region (5) Vertebrogenic low back pain: Code(s): M54.51 - Vertebrogenic low back pain Plan MRI spine results reviewed with patient today and are noted for mild mixed Modic type discogenic and plate changes including minimal Modic type I discogenic edema at T11-T12 and L3-L4 as well as multilevel degenerative spondyloarthropathy. Patient reports no pain today and therefore interventional treatments will be deferred at this time. She is still recommended to start formal physical therapy if symptoms return. PT script was provided previous visit. Patient will notify our office if your symptoms return. All questions and concerns have been answered and patient agreed with the plan. Follow-up as needed. Medications: Discontinued tramadol Discontinued Reason: Patient no longer taking 50 mg PO TID 10 days PRN 30 tabs 0RF pain Coding Level of Care Code Est Pt Level 4 (00554) Diagnoses Degenerative lumbar spinal stenosis M48.061 Thoracic scoliosis M41.9 Lumbar degenerative disc disease M51.36 Spondyloarthropathy of lumbar spine M47.816 Vertebrogenic low back pain M54.51
[2023-01-08 13:13] VITALS: BP 141/84; PULSE 67; O2SAT 98; BMI 28.4
== END 2023-01-08 13:28 | disposition home or self-care (01) ==
PROVIDERS: PCP Internal Medicine; Visit Provider Nurse Practitioner Family
DX: M48.061 Spinal stenosis, lumbar region without neurogenic claudication (principal); M41.9 Scoliosis, unspecified; M51.36 Other intervertebral disc degeneration, lumbar region; M47.816 Spondylosis without myelopathy or radiculopathy, lumbar region; M54.51 Vertebrogenic low back pain
CPT/HCPCS: 99213

== ENCOUNTER → 2023-01-08 12:50 | Outpatient (BNVA) | payer OTHER, SELFPAY | PROVIDERS: PCP Internal Medicine; Visit Provider Nurse Practitioner Family | DX: M48.061 Spinal stenosis, lumbar region without neurogenic claudication (principal); M41.9 Scoliosis, unspecified; M51.36 Other intervertebral disc degeneration, lumbar region; M47.816 Spondylosis without myelopathy or radiculopathy, lumbar region; M54.51 Vertebrogenic low back pain | CPT/HCPCS: 99212 ==

== ENCOUNTER 2023-02-14 08:57 | Outpatient (REF) | payer OTHER, SELFPAY ==
[2023-02-14 09:17] LABS: MANUAL DIFF FLAG NO
[2023-02-14 09:37] LABS: Basophils Percent Auto 0.4 % (0-2); Eosinophils Absolute Auto 0.1 X10*3/uL (0.0-0.4); Eosinophils Percent Auto 1.8 % (0-4); Hematocrit 42.7 % (37.0-47.0); Hemoglobin 13.5 g/dl (12.0-16.0); Imm Gran Abs Auto 0.03 X10*3/uL (0.00-0.03); Imm Gran Pct Auto 0.4 % (0.0-0.4); Lymphocytes Absolute Auto 1.6 X10*3/uL (1.2-4.9); Lymphocytes Percent Auto 21.3 % (20-40); Mean Corpuscular HGB Conc 31.6 g/dl (31.0-35.0); Mean Corpuscular Hemoglobin 26.4 pg (27.0-33.0); Mean Corpuscular Volume 83.6 fL (80.0-98.0); Monocytes Absolute Auto 0.4 X10*3/uL (0.1-1.2); Monocytes Percent Auto 5.6 % (2-11); Neutrophils Absolute Auto 5.2 x10*3/uL (2.0-8.3); Neutrophils Percent Auto 70.5 % (45-73); Platelet Count 395 X10*3/uL (160-400); Red Blood Count 5.11 X10*6/uL (4.20-5.50); Red Cell Distribution Width 13.8 % (11.0-16.0); White Blood Count 7.4 X10*3/uL (4.8-10.8)
[2023-02-14 10:05] LABS: Alanine Aminotransferase 26 U/L (0-31); Albumin Level 4.2 g/dL (3.5-5.0); Alkaline Phosphatase 83 U/L (39-117); Anion Gap 11 (12-20); Aspartate Amino Transferase 24 U/L (5-31); Bilirubin Total 0.5 mg/dL (0.0-1.0); Blood Urea Nitrogen 10 mg/dL (9-16); Calcium 10.1 mg/dL (8.4-10.2); Carbon Dioxide 27 mmol/L (22-29); Chloride 110 mmol/L (96-108); Cholesterol 126 mg/dL (<200); Estimated Glomerular Filt Rate > 60; Glucose Fasting 91 mg/dL (60-99); Glucose Random 92 mg/dL (60-115); HDL Cholesterol 59 mg/dL (>40); LDL Cholesterol Calculated 49 mg/dL (<100); Potassium 4.6 mmol/L (3.3-5.1); Sodium 143 mmol/L (135-145); Total Protein 7.4 g/dL (6.5-8.0); Triglycerides 94 mg/dL (<150)
[2023-02-14 10:24] LABS: Cholesterol 124 mg/dL (<200); HDL Cholesterol 58 mg/dL (>40); LDL Cholesterol Calculated 48 mg/dL (<100); Triglycerides 93 mg/dL (<150)
[2023-02-14 10:43] LABS: TSH reflex Free T4 1.29 uIU/mL (0.32-4.0); Vitamin D 25-OH Total 57.4 ng/mL (>30)
[2023-02-14 11:07] LABS: Appearance Urine Clear; Color Urine Yellow; Glucose Urine UA Negative (Negative); Leukocyte Esterase Urine Negative (Negative); Nitrite Urine Negative (Negative); Specific Gravity - Urine 1.015 (1.005-1.025); Urine Blood Negative (Negative); Urine Ketones Negative (Negative); Urine Protein Negative (Neg-Trace)
== END 2023-02-14 08:58 | disposition home or self-care (01) ==
LOC: HO.LAB 08:57
PROVIDERS: PCP Internal Medicine; Visit Provider Internal Medicine Cardiovascular Disease
DX: I25.10 Atherosclerotic heart disease of native coronary artery without angina pectoris (principal); E55.9 Vitamin D deficiency, unspecified; R30.0 Dysuria; E78.00 Pure hypercholesterolemia, unspecified; I10 Essential (primary) hypertension; I22.0 Subsequent ST elevation (STEMI) myocardial infarction of anterior wall
CPT/HCPCS: 36415; 80048; 80053; 80061; 81003; 82306; 84443; 85025

== ENCOUNTER → 2023-02-15 09:39 | Outpatient (REF) | payer OTHER, SELFPAY ==
--- NOTE | 2023-02-15 09:42 | CA_ITS ---
Transthoracic Echocardiogram Patient (Last, First, Middle): Susy Concepcion, Gender: Female Date of : 1970 Age: 53 Procedure Date: 02/15/2023 Procedure Type: Transthoracic Echocardiogram Location: OP Height: 157.48 cm Weight: 70.31 kg BSA: 1.72 m2 Heart Rate: 67 bpm BP: 120 / 80 mmHg Janitor And Cleaner: SB/JV/VH Referring MD: Aren Mendez MD Symptoms: I25.5 - Ischemic cardiomyopathy Study Quality: Adequate ECG Rhythm: Sinus Conclusions: - The left ventricular systolic function is mildly decreased. The visually estimated ejection fraction is between 40-45%. - No obvious valvular pathology seen on this study. Findings Left Ventricle Normal left ventricular cavity size. There is normal left ventricular wall thickness. The left ventricular systolic function is mildly decreased. The visually estimated ejection fraction is between 40-45%. There is mild global hypokinesis. Diastolic function is normal for age. Right Ventricle Normal right ventricular cavity size and systolic function. Atria Both atria are normal in size. Aortic Valve There is a normal trileaflet aortic valve. There is no aortic valve stenosis. There is no aortic valve regurgitation. Mitral Valve The mitral valve appears normal. There is no mitral valve regurgitation. There is no mitral valve stenosis. Pulmonic Valve The pulmonic valve is likely normal. Tricuspid Valve Normal tricuspid valve structure. There is trace tricuspid valve regurgitation. There is no evidence of pulmonary hypertension. Great Vessels The asc aorta is normal in size. Venous The inferior vena cava is normal in size and collapses greater than 50% with inspiration. Pericardium/Pleural There is no evidence of pericardial effusion. Prior Study Comparison Changes noted compared to prior study dated: 02/15/2022. LVEF slightly lower than prior study. Recommendations, Care & Conclusions No obvious valvular pathology seen on this study. Measurements 2D Linear Measurements IVSd: 1.00 0.6-0.9/0.6-1.0 cm LVIDd: 5.20 3.9-5.3/4.2-5.9 cm LVIDd Index: 3.02 2.4-3.2/2.2-3.1 cm/m2 LVIDs: 3.70 2.0-3.6 cm LVPWd: 0.60 0.7-1.1 cm LA Diam: 3.30 2.7-3.8/3.0-4.0 cm LAIDs Index: 1.92 1.5-2.3 cm/m2 LV Mass: 180.78 67-162/88-224 g LV Mass Index: 105.10 43-95/49-115 g/m2 LVOT Diam: 2.10 3.0+(-)1.3 cm 2D Systolic Function EF 4C: 41.40 >55% EF 2C: 41.90 >55% EF BiP: 39.90 >55% Mitral Valve MV Pk E: 0.75 MV PK A: 0.67 MV Decel Time: 227.00 E/A: 1.10 E'Lateral: 10.10 E'Medial: 7.94 E/E' Med: 9.50 E/E' Lat: 7.50 PHT: 66.00 MVA PHT: 3.33 Decel Mckenzie: 3.33 Aortic Valve AoV Pk Silviano: 1.18 AoV Mn Silviano: 0.83 AoV VTI: 0.22 AoV Pk Grad: 6.00 Aov Mn Grad: 3.00 DEVORAH Cont.VTI: 2.82 LVOT LVOT Pk Silviano: 0.84 LVOT Mn Silviano: 0.62 LVOT VTI: 0.18 LVOT Pk Grad: 3.00 LVOT Mn Grad: 2.00 LVOT Diam: 2.10 LVOT Area: 3.46 Diastolic Function MV Pk E: 0.75 MV Pk A: 0.67 E/A: 1.10 E'Medial: 7.94 E/E' Med: 9.50 E' Laterial: 10.10 E/E' Lat: 7.50 Right Ventricle TAPSE (mm): 16.50 TVS' Silviano: 10.00 Tricuspid Valve TR Pk Silviano: 2.17 TR Pk Grad: 19.00 RA Press: 3.00 RVSP: 22.00 Great Vessels Aorta Sinus of Valsalva: 2.80 2.0-3.5 cm Ao Asc: 3.00 2.1-3.4 cm Pulmonary Veins Pulm Vein S/D 1.10 Pulmonary Valve PV Pk Silviano: 0.72 Peak PV Grad: 2.00 Updated in Other Vendor System with Status of Final Samson Pineda MD electronically signed on 02/16/2023 2:40:05 PM with status of Final
== END ==
LOC: HO.CARD 09:39
PROVIDERS: PCP Internal Medicine; Visit Provider Internal Medicine Cardiovascular Disease
DX: I25.5 Ischemic cardiomyopathy (principal)
CPT/HCPCS: 93306

== ENCOUNTER → 2023-02-15 09:42 | Outpatient (BNV) | payer OTHER, SELFPAY | PROVIDERS: PCP Internal Medicine; Visit Provider Internal Medicine | DX: I25.5 Ischemic cardiomyopathy (principal) | CPT/HCPCS: 93306 ==

== ENCOUNTER 2023-02-18 12:10 | Outpatient (AMB) | payer OTHER, SELFPAY ==
[2023-02-18 12:32] VITALS: BP 120/80; PULSE 68; BMI 28.2
--- NOTE | 2023-02-18 12:32 | MHC.OFFVIS ---
Intake Vital Signs 02/18/23 12:32 Height 5 ft 2 in Weight 154 lb 5.177 oz BMI 28.2 BP 120/80 Blood Pressure Location Lt brachial Position Sitting Pulse 68 Intake Visit Reasons: 6 MON FUP AFTER ECHO + NUC STRESS TEST Intake Note: 6 month follow-up after echo and stress c/o palpitations Landing Signal Officer Required: No Allergies lisinopril Allergy (Unknown, Verified 01/08/23 13:09) angioedema, throat swelling pravastatin Allergy (Unknown, Verified 01/08/23 13:09) myalgia, angioedema rosuvastatin Adverse Reaction (Unknown, Verified 01/08/23 13:09) myalgia Medication List - Last Reconciled 02/18/23 by Aren Mendez MD alirocumab (Praluent Pen) 75 mg subcut Q14D ascorbic acid (vitamin C) 500 mg PO DAILY aspirin (Adult Low Dose Aspirin) 81 mg PO DAILY 90 days cholecalciferol (vitamin D3) 50 mcg PO DAILY coenzyme Q10 10 mg PO TID diclofenac sodium 1% (Arthritis Pain (diclofenac)) 4 grams topical QID ezetimibe 10 mg PO DAILY lidocaine 5% 1 patch topical DAILY 30 days methocarbamol 750 mg PO BID PRN metoprolol succinate ER 50 mg (2 x 25 mg) PO BID sacubitril-valsartan 24-26 mg (Entresto) 1 tab PO BID ticagrelor (Brilinta) 90 mg PO BID HPI HPI Comments History of Present Illness Details Susy comes for follow-up. She complains of palpitation with heart rate racing almost every day. She monitors by pulse ox and notice heart rate up to 120-125. No obvious triggers. Symptoms last for few seconds. She is anxious about it. Most recent LDL at 48 mg/dL. Myocardial perfusion imaging within normal limits. Echocardiogram shows mild LV systolic dysfunction. She has no signs or symptoms of heart failure. Denies any exertional chest pain. No lightheadedness, syncope. Takes all her medications. [facility] Medical History Anxiety Tachycardia Visual impairment Throat pain Dizziness Overweight (BMI 25.0-29.9) Vitamin D deficiency Lumbar radiculopathy, chronic Lumbar degenerative disc disease Pityriasis rosea Pure hypercholesterolemia Coronary artery disease involving [place] coronary artery of [place] heart with angina pectoris Surgical History Stented coronary artery History of cardiac catheterization Family History Father Diabetes Hypertension Hypercholesteremia Mother Hypertension Diabetes Hypercholesteremia Family/Other FH: mental illness Social History Housing: House Alcohol intake: never Patient Tobacco Use Status: Former Tobacco user e-Cigarette/Vaping Use: Never Used Second Hand Smoke Exposure: Yes service: No Current occupational status: employed 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 [employer] Cognitive needs: No Hearing needs: No Vision needs: No Review of Systems Const Denies chills, Denies fatigue, Denies fever(s), Denies frequent falls, Denies weakness, Denies weight gain and Denies weight loss ENT Denies dizziness Card Denies chest pain, Denies leg edema, Denies lightheadedness, Denies palpitations, Denies dyspnea, Denies dyspnea on exertion, Denies orthopnea and Denies other (loss of consciousness) Resp Denies cough, Denies dyspnea and Denies dyspnea on exertion GI Denies hematochezia and Denies change in stool character Musc Denies abnormal gait, Denies muscle weakness, Denies numbness, Denies radiating pain into limb and Denies tingling Neuro Denies abnormal gait, Denies dizziness, Denies frequent falls, Denies numbness, Denies tingling and Denies weakness Endo Denies fatigue and Denies palpitations Physical Exam Vital Signs: Last Vital Signs Pulse 68 02/18/23 12:32 BP 120/80 02/18/23 12:32 BMI result Body Mass Index 28.2 Const General: cooperative, comfortable, no acute distress, alert, awake and anxious Nutritional Appearance: overweight Orientation/consciousness: patient oriented x3 Limitations: no limitations Neck Neck: Yes trachea midline, Yes supple and Yes no JVD Resp Effort & Inspection: normal respiratory effort Auscultation: clear to auscultation bilaterally Cardio Jugular venous distension: no JVD Palpation: normal PMI Rate: regular rate Rhythm: regular rhythm Heart sounds: S1 normal heart sound present, S2 normal heart sound present, no click, no gallops, no murmurs and no rubs GI Auscultation: normal bowel sounds Skin General skin exam: no rashes or lesions noted Neuro General: patient oriented x3 and no focal motor deficits Extrem General: Yes no clubbing, cyanosis or edema Assessment & Plan Assessment & Plan (1) Coronary artery disease involving [place] coronary artery of [place] heart with angina pectoris: Comment: Had NSTEMI, S/P angioplasty (PTCA) in 02/2016; myocardial perfusion study done on 07/25/2017 was normal. Repeat study done at [facility] in 08/2020 showed normal imaging after exercise stress test at average estimated functional capacity. Mild small perfusion defects in the mid to basal anteroseptal wall and apex that improved on stress images, suggestive of artifact. LV function is borderline normal with an EF of 58% at rest and 52% with stress, with normal wall motion and thickening Code(s): I25.119 - Atherosclerotic heart disease of [place] coronary artery with unspecified angina pectoris Plan: CAD status post drug-eluting stent to LAD for acute myocardial infarction, more than a year ago. Discussed about prolonged dual antiplatelet therapy given her age and low risk for bleeding. She says the cause for Brilinta as high. However she currently as a 3 month supply. Advised to complete the therapy and then switch to Plavix 75 mg daily in addition to aspirin 81 mg daily for total period of 30 days since her stenting. Her blood pressure is well optimized. She is having symptoms of palpitation would therefore recommend her to undergo Holter monitor to assess for the same. LDL is well optimized, see below. (2) Pure hypercholesterolemia: Code(s): E78.00 - Pure hypercholesterolemia, unspecified Plan: Family history of Hypercholesteremia with marked hyperlipidemia and high LDL much improved with dual therapy with Praluent and Zetia. This should significantly benefit her long-term in reducing her cardiovascular events. This was discussed with her. Continue the same. Advised diet modification. (3) Ischemic cardiomyopathy: Code(s): I25.5 - Ischemic cardiomyopathy Plan: Mild ischemic cardiomyopathy without overt congestive heart failure. Continue current therapy with Entresto and metoprolol for neurohormonal modulation. Importance of medical therapy was discussed. Will follow up in the clinic in 6 months time, sooner p.r.n.. Thank you for allowing me to partake in the care Orders: Orders ECG holter monitor 24 hour Today R00.2 - Palpitations Coding Level of Care Code Est Pt Level 4 (93411) Diagnoses Coronary artery disease involving [place] coronary artery of [place] heart with angina pectoris I25.119 Pure hypercholesterolemia E78.00 Ischemic cardiomyopathy I25.5
== END 2023-02-18 12:44 | disposition home or self-care (01) ==
PROVIDERS: PCP Internal Medicine; Visit Provider Internal Medicine Cardiovascular Disease
DX: I25.119 Atherosclerotic heart disease of native coronary artery with unspecified angina pectoris (principal); E78.00 Pure hypercholesterolemia, unspecified; I25.5 Ischemic cardiomyopathy
CPT/HCPCS: 99214

== ENCOUNTER → 2023-02-18 12:10 | Outpatient (BNVA) | payer OTHER, SELFPAY | PROVIDERS: PCP Internal Medicine; Visit Provider Internal Medicine Cardiovascular Disease | DX: I25.119 Atherosclerotic heart disease of native coronary artery with unspecified angina pectoris (principal); I25.5 Ischemic cardiomyopathy; E78.00 Pure hypercholesterolemia, unspecified | CPT/HCPCS: 99212 ==

== ENCOUNTER → 2023-02-22 10:03 | Outpatient (REF) | payer OTHER, SELFPAY ==
--- NOTE | 2023-02-22 10:08 | HM_ITS ---
conclusion: 1. Patient was monitored for total period of 1 day 2. Baseline was normal sinus rhythm with average heart of 84 beats per minute 3. No significant pauses noted 4. Occasional PVCs noted 5. No patient reported events MTDD
== END ==
LOC: HO.CARD 10:03
PROVIDERS: PCP Internal Medicine; Visit Provider Internal Medicine Cardiovascular Disease
DX: R00.2 Palpitations (principal)
CPT/HCPCS: 93225

== ENCOUNTER → 2023-02-22 10:08 | Outpatient (BNV) | payer OTHER, SELFPAY | PROVIDERS: PCP Internal Medicine; Visit Provider Internal Medicine Cardiovascular Disease | DX: I49.3 Ventricular premature depolarization (principal) | CPT/HCPCS: 93227 ==

== ENCOUNTER 2023-03-14 09:02 | Outpatient (AMB) | payer OTHER, SELFPAY ==
[2023-03-14 09:03] VITALS: BP 120/86; PULSE 71; O2SAT 98; BMI 28.8
--- NOTE | 2023-03-14 09:03 | A.OFFPC_ITS ---
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 Required: No Accompanied by: Self / Same As Patient Allergies lisinopril Allergy (Unknown, Verified 03/14/23 09:04) angioedema, throat swelling pravastatin Allergy (Unknown, Verified 03/14/23 09:04) myalgia, angioedema rosuvastatin Adverse Reaction (Unknown, Verified 03/14/23 09:04) myalgia Tobacco use date assessed: 03/14/23 Dental Screening Dental Screen Date: 03/14/23 Did you have a dental visit in the last 12 months?: No Did you have a dental problem in the last 6 months where you did not have access to dental care?: No Was dental information given to patient?: No HPI CAD, hyperlipidemia HPI Details Patient comes in today for her follow up visit States that she is still experiencing on and off sensations of her heart racing - states that this has been going on for a while now Had a 24 hour Holter monitor done by cardiology last month to look into this but her Holter came back basically normal Adds that she has also been experiencing recurrent sensation of tingling and numbness over the tips of her fingers over the past couple of months and noted that this seems to occur more often when she is sleeping She denies any headaches or dizziness Denies any chest pains, no increased SOB No nausea/vomiting, no abdominal pain No change in bowel habits noted Adds that she has been losing a lot of hair for months now; has tried taking OTC Hair and Nail supplements for a while with no improvement States that one of her friends recently recommended she try OTC Viviscal Pro, which her friend has been taking with good results and she is requesting for a prescription for this Had her follow up labs done last month - to discuss her results States that she has also discussed with cardiology about the high cost of her Brilinta Rx and the plan at this time, per cardiology, is to have her finish up her remaining 3 months' supply of her Brilinta and to switch her over to Clopidogrel afterwards and she will remain on dual antiplatelet therapy with Aspirin 81 mg and Clopidogrel 75 mg QD [facility] Medical History Anxiety Tachycardia Visual impairment Throat pain Dizziness Overweight (BMI 25.0-29.9) Vitamin D deficiency Lumbar radiculopathy, chronic Lumbar degenerative disc disease Pityriasis rosea Pure hypercholesterolemia 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 Surgical History Stented coronary artery History of cardiac catheterization Family History Father Diabetes Hypertension Hypercholesteremia Mother Hypertension Diabetes Hypercholesteremia Family/Other FH: mental illness Social History Housing: House Alcohol intake: never Patient Tobacco Use Status: Former Tobacco user e-Cigarette/Vaping Use: Never Used Second Hand Smoke Exposure: Yes service: No Current occupational status: employed 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 1. Little interest or pleasure in doing things: not at all 2. Feeling down, depressed, or hopeless: not at all 3. Trouble falling or staying asleep, or sleeping too much: not at all 4. Feeling tired or having little energy: not at all 5. Poor appetite or overeating: not at all 6. Feeling bad about yourself - or that you are a failure or have let yourself or your family down: not at all 7. Trouble concentrating on things, such as reading the newspaper or watching television: not at all 8. Moving or speaking so slowly that other people could have noticed. Or the opposite - being so fidgety or restless that you have been moving around a lot more than usual: not at all 9. Thoughts that you would be better off or of hurting yourself in some way: not at all Total score: 0 Depression Screening Interpretation: Negative Depression Screening Done: Yes [id number] - PHQ-9 Billing: Yes Source: Developed by Drs. Aaron Bettencourt, Rand Loja, James Pires and colleagues, with an educational tez from [employer]. Thrive Questionnaire Date Thrive assessed: 03/14/23 I am a: Patient What is your living situation today?: I have a steady place to live Within the past 12 months, did the food you bought not last and you didn't have the money to get more?: Never true Within the past 12 months, did you worry whether your food would run out before you got money to buy more?: Never true Do you have trouble paying for medicines?: No Do you have trouble getting transportation to medical appointments?: No Do you have trouble paying your heating and electricity bill?: No Do you have trouble taking care of your child, family member or friend?: No Do you have trouble with day-to-day activities such as bathing, preparing meals, shopping, managing finances, etc.?: No Are you currently unemployed and looking for a job?: No Are you interested in more education?: No Please select the resources that you would like help with: None Currently or been in a relationship where the following occur: no concerns reported AUDIT C Alcohol Use Questionnaire (AUDIT-C) 1. How often do you have a drink containing alcohol?: Never 3. How often do you have six or more drinks on one occasion?: Never Total Score: 0 Score Reviewed/Action Taken: Yes JOHANNE-7 AMB Questionnaire JOHANNE-7 Date JOHANNE - 7 assessed: 03/14/23 Feeling nervous, anxious, or on edge: 1 = Several days (pt has family emergency at the moment. ) Not being able to stop or control worryin = Not at all Worrying too much about different things: 0 = Not at all Trouble relaxin = Not at all Being so restless that it is hard to sit still: 0 = Not at all Becoming easily annoyed or irritable: 0 = Not at all Feeling afraid as if something awful might happen: 0 = Not at all Total JOHANNE-7 score (0-4 normal; 5-9 mild; 10-14 moderate; 15-21 severe): 1 Source: Developed by Drs. Aaron Bettencourt, Rand Loja, James Pires and colleagues, with an educational tez from [employer]. Review of Systems Const Denies chills, Denies fatigue, Denies fever(s), Denies headache(s) and Denies weakness ENT Denies dysphagia, Denies dizziness, Denies otalgia, Denies headache(s), Denies neck pain, Denies odynophagia and Denies sore throat Card Denies chest pain, Reports rapid heart rate (on and off), Denies palpitations and Denies dyspnea Resp Denies cough, Denies dyspnea and Denies wheezing GI Denies abdominal pain, Denies constipation, Denies dysphagia, Denies heartburn, Denies diarrhea, Denies nausea, Denies odynophagia and Denies vomiting Denies difficulty voiding, Denies nocturia, Denies dysuria and Denies urinary urgency Musc Reports back pain, Reports arthralgias (on and off, in the left knee), Denies neck pain, Reports numbness (on and off over the tip of her fingers - see HPI) and Reports tingling (on and off over the tip of her fingers - see HPI) Skin/Breast Reports alopecia (increased lately) Neuro Denies dizziness, Denies headache(s), Reports numbness (on and off over the tip of her fingers - see HPI), Reports tingling (on and off over the tip of her fingers - see HPI) and Denies weakness Endo Denies fatigue and Denies palpitations Aller/Immun Denies wheezing Physical exam (Primary Care) Vital Signs: Last Vital Signs Pulse 71 03/14/23 09:03 BP 120/86 03/14/23 09:03 Pulse Ox 98 03/14/23 09:03 Oxygen Delivery Method Room Air 03/14/23 09:03 BMI result Body Mass Index 28.8 Tobacco/Smoking Status: Tobacco use Status Tobacco use date assessed 03/14/23 03/14/23 09:08 Patient Tobacco Use Status Former Tobacco user 03/14/23 09:08 e-Cigarette/Vaping Use Never Used 03/14/23 09:08 PHQ-9: PHQ-9 Score PHQ-9: Total score 0 03/14/23 09:08 Depression Screening Interpretation: Negative Thrive Assessment: Date of Thrive Assessment Date Thrive assessed 03/14/23 03/14/23 09:08 Currently or been in a relationship where the following occur: no concerns reported Const General: no acute distress and alert HENMT Ears: TM normal on the left and TM abnormal perforated without discharge on the right Throat: Yes posterior oropharynx normal and Yes tonsils normal (no TP congestion) Neck Neck: Yes no lymphadenopathy and Yes supple Resp Auscultation: clear to auscultation bilaterally, no rales and no wheezes Cardio Rate: regular rate Rhythm: regular rhythm Heart sounds: no murmurs GI Palpation (GI): Soft to palpation and nontender Auscultation: normal bowel sounds Back/Spine/Pelvis Thoracic/Lumbar Spine: lumbar spinal tenderness Skin Rashes: no rashes Extrem General: Yes no clubbing, cyanosis or edema Left lower extremity: knee Details: tenderness (mild); no swelling Results Reviewed Results Reviewed: Laboratory Tests 02/14/23 02/14/23 09:15 09:16 WBC 7.4 Hgb 13.5 Hct 42.7 Plt Count 395 Sodium 143 Potassium 4.6 Creatinine 0.80 Estimated GFR > 60 Fasting Glucose 91 Calcium 10.1 AST 24 ALT 26 Triglycerides 93 Cholesterol 124 LDL Cholesterol, Calc 48 HDL Cholesterol 58 25-OH Vitamin D Total 57.4 TSH 1.29 Ur Specific [place] 1.015 Urine Protein Negative Urine Glucose (UA) Negative Urine Blood Negative Assessment and Plan Assessment & Plan (1) 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 Repeat study done at [facility] in 08/2020 showed normal imaging after exercise stress test at average estimated functional capacity. Mild small perfusion defects in the mid to basal anteroseptal wall and apex that improved on stress images, suggestive of artifact. LV function is borderline normal with an EF of 58% at rest and 52% with stress, with normal wall motion and thickening Code(s): I25.119 - Atherosclerotic heart disease of upper [place] coronary artery with unspecified angina pectoris Plan: S/P STEMI in November 2021, with EKG (+) for ST elevations in the precordial leads and ST depression in the inferior leads; troponin I levels were significanty elevated at the time Coronary angiography done at [facility] on 12/15/21 revealed (+) total occlusion of the mid LAD with severe mid RCA stenosis Patient underwent PCI of the mid LAD on 12/15/21 with a single DESMOND and staged PCI of the mid RCA 3 days later on 12/18/21 with a single DESMOND Echocardiogram done on 12/17/21 revealed severely reduced LV systolic function at 20 to 25% with regional wall abnormalities in the LAD territory Patient also had NSTEMI, S/P angioplasty (PTCA) back in 02/2016; myocardial perfusion study done on 07/25/2017 was normal Continue Aspirin 81 mg QD and Brilinta 90 mg BID; patient complains of the high cost of her Rx and per cardiology, she will finish her remaining supply of Brilinta and she will be switched over to Clopidigrel in about 3 months when her Brilinta runs out Continue Metoprolol ER 50 mg BID and Entresto 24-26 mg BID Follow up with cardiology as scheduled (2) Benign essential hypertension: Code(s): I10 - Essential (primary) hypertension Plan: ReInforced low-sodium diet -? goal is systolic BP of at least 120 or less Continue Metoprolol ER 50 mg BID and Entresto 24-26 mg BID (3) Tachycardia, paroxysmal: Code(s): I47.9 - Paroxysmal tachycardia, unspecified Plan: Patient continues to complain of on and off episodes of tachycardia/ heart racing over the past few months She had a 24-hour Holter ordered by cardiology and done last month - Holter came out normal Have advised patient the if her symptoms continue to recur, she should reach out to cardiology and request for a 3 or 7 days Holter monitor instead to see it these longer period of monitoring will help catch her cardiac rhythm when her heart racing episodes occur (4) Pure hypercholesterolemia: Code(s): E78.00 - Pure hypercholesterolemia, unspecified Plan: Results of her labs done last month reviewed and discussed with patient Reinforced low cholesterol diet She is now back on Praluent 75 mg Q 14 days; is also continuing on Ezetimibe 10 mg QD and her cholesterol levels are currently at goal Patient could not tolerate statins, including Rosuvastatin and Pravastatin and Repatha in the past Will recheck her fasting lipids and labs in 3 months for follow up (5) Paresthesia of both hands: Code(s): R20.2 - Paresthesia of skin Plan: Will include a Vitamin B12 level and serum magnesium level with her next set of labs in 3 months for further evaluation Will also send her for EMG and NCV of the upper extremities for further evaluation of her recurrent symptoms (6) Vitamin D deficiency: Code(s): E55.9 - Vitamin D deficiency, unspecified Plan: Continue Vitamin D3 1000 units QD (7) Lumbar degenerative disc disease: Code(s): M51.36 - Other intervertebral disc degeneration, lumbar region Plan: Reinforced activity and weight lifting restrictions Lumbar spine MRI done at [facility] back in February 2020 revealed (+) transitional segment anatomy and lumbar spine degenerative disease with left L4- L5 lateral recess stenosis and possible traversing left L5 nerve root impingement Follow up with Pain Management as scheduled (8) Arthralgia: Code(s): M25.50 - Pain in unspecified joint Qualifiers: Joint pain location: unspecified Qualified Code(s): M25.50 - Pain in unspecified joint Plan: Follow up with rheumatology as scheduled Has also been seen by orthopedics recently for her left knee pain and advised to follow up with them as needed Patient has also been seeing pain management for her low back pain and joint pains (9) Anxiety: Code(s): F41.9 - Anxiety disorder, unspecified Plan: Feels that she is doing well presently although still has frequent wide swings in her blood pressure readings, which were thought to be related to her anxiety in the past Was started on a trial of Escitalopram 5 mg QD a few months ago to see if this will help control her anxiety better - patient stopped taking it after 1 dose as she felt that this Rx caused her BP and HR to increase further and does not wish to start or try anything else for now (10) Overweight (BMI 25.0-29.9): Code(s): E66.3 - Overweight Plan: Reinforced diet/exercise as tolerated/lose weight (11) Hair loss: Code(s): L65.9 - Nonscarring hair loss, unspecified Plan: Per request, will provide her with a printed Rx for Viviscal Pro, which she states is an OTC supplement to help with her hair loss that was recommended by one of her friends who she states has been taking this for a while now with good results Advised that insurance will not cover these as they are supplements and she will likely have to pay for this [id number] Plan Follow up in 3 months Orders: Orders NE electromyogram (EMG) Today R20.2 - Paresthesia of skin TSH reflex Free T4 3 Months E78.00 - Pure hypercholesterolemia, unspecified UA CC w/rflx Micro + Cult 3 Months R30.0 - Dysuria Vitamin B12 and Folate 3 Months E53.8 - Deficiency of other specified B group vitamins NE nerve conduction velocity Today R20.2 - Paresthesia of skin Complete Blood Count Auto Diff 3 Months I10 - Essential (primary) hypertension Comprehensive [place]. 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
== END 2023-03-14 09:59 | disposition home or self-care (01) ==
PROVIDERS: PCP Internal Medicine; Visit Provider Internal Medicine
DX: I25.119 Atherosclerotic heart disease of native coronary artery with unspecified angina pectoris (principal); I10 Essential (primary) hypertension; I47.9 Paroxysmal tachycardia, unspecified; E78.00 Pure hypercholesterolemia, unspecified; R20.2 Paresthesia of skin; E55.9 Vitamin D deficiency, unspecified; M51.36 Other intervertebral disc degeneration, lumbar region; M25.50 Pain in unspecified joint; F41.9 Anxiety disorder, unspecified; E66.3 Overweight; L65.9 Nonscarring hair loss, unspecified
CPT/HCPCS: 99214

== ENCOUNTER 2023-04-04 08:11 | Outpatient (REF) | payer OTHER, SELFPAY ==
--- NOTE | 2023-04-04 08:13 | EMG_ITS ---
Bilateral median and ulnar motor and sensory studies were performed. Bilateral radial sensory study was performed and paraspinal muscles were tested with a needle. IMPRESSION: 1. Mild bilateral median neuropathy across carpal tunnel. 2. Mild left ulnar neuropathy across cubital tunnel. MD KWADWO Salcedo/DIANA / [id number]
== END 2023-04-04 08:12 | disposition home or self-care (01) ==
LOC: HO.NEURO 08:11
PROVIDERS: PCP Internal Medicine; Visit Provider Internal Medicine
DX: R20.2 Paresthesia of skin (principal)
CPT/HCPCS: 95886; 95911

== ENCOUNTER 2023-06-03 14:47 | Outpatient (REF) | payer OTHER, SELFPAY | END 2023-06-03 14:48 | disposition home or self-care (01) | LOC: HO.MAMMO 14:47 | PROVIDERS: PCP Internal Medicine; Visit Provider Internal Medicine | DX: Z13.89 Encounter for screening for other disorder (principal) ==

== ENCOUNTER 2023-06-10 08:19 | Outpatient (REF) | payer OTHER, SELFPAY ==
[2023-06-10 08:38] LABS: MANUAL DIFF FLAG NO
[2023-06-10 09:17] LABS: Basophils Percent Auto 0.6 % (0-2); Eosinophils Absolute Auto 0.2 X10*3/uL (0.0-0.4); Eosinophils Percent Auto 2.8 % (0-4); Hematocrit 45.2 % (37.0-47.0); Hemoglobin 14.4 g/dl (12.0-16.0); Imm Gran Abs Auto 0.02 X10*3/uL (0.00-0.03); Imm Gran Pct Auto 0.3 % (0.0-0.4); Lymphocytes Absolute Auto 1.8 X10*3/uL (1.2-4.9); Lymphocytes Percent Auto 25.8 % (20-40); Mean Corpuscular HGB Conc 31.9 g/dl (31.0-35.0); Mean Corpuscular Hemoglobin 27.3 pg (27.0-33.0); Mean Corpuscular Volume 85.8 fL (80.0-98.0); Mean Platelet Volume 9.3 fL (9.4-12.3); Monocytes Absolute Auto 0.4 X10*3/uL (0.1-1.2); Neutrophils Absolute Auto 4.7 x10*3/uL (2.0-8.3); Neutrophils Percent Auto 65.5 % (45-73); Platelet Count 373 X10*3/uL (160-400); Red Blood Count 5.27 X10*6/uL (4.20-5.50); Red Cell Distribution Width 13.9 % (11.0-16.0); White Blood Count 7.1 X10*3/uL (4.8-10.8)
[2023-06-10 10:09] LABS: Appearance Urine Clear; Color Urine Yellow; Glucose Urine UA Negative (Negative); Leukocyte Esterase Urine Negative (Negative); Nitrite Urine Negative (Negative); PH 7.5 (5.0-9.0); Specific Gravity - Urine 1.015 (1.005-1.025); Urine Blood Negative (Negative); Urine Ketones Negative (Negative); Urine Protein Negative (Neg-Trace)
[2023-06-10 10:29] LABS: Alanine Aminotransferase 25 U/L (0-31); Albumin Level 4.1 g/dL (3.5-5.0); Alkaline Phosphatase 76 U/L (39-117); Anion Gap 12 (12-20); Aspartate Amino Transferase 19 U/L (5-31); Bilirubin Total 0.3 mg/dL (0.0-1.0); Blood Urea Nitrogen 12 mg/dL (9-16); Calcium 9.7 mg/dL (8.4-10.2); Carbon Dioxide 27 mmol/L (22-29); Chloride 110 mmol/L (96-108); Cholesterol 159 mg/dL (<200); Estimated Glomerular Filt Rate > 60; Glucose Fasting 87 mg/dL (60-99); HDL Cholesterol 59 mg/dL (>40); LDL Cholesterol Calculated 84 mg/dL (<100); Potassium 4.7 mmol/L (3.3-5.1); Sodium 144 mmol/L (135-145); Total Protein 7.4 g/dL (6.5-8.0); Triglycerides 84 mg/dL (<150)
[2023-06-10 10:34] LABS: TSH reflex Free T4 1.48 uIU/mL (0.32-4.0)
[2023-06-10 10:41] LABS: Folate 10.5 ng/mL (> or = 4.0); Vitamin B12 447 pg/mL (200-900)
== END 2023-06-10 08:20 | disposition home or self-care (01) ==
LOC: HO.LAB 08:19
PROVIDERS: PCP Internal Medicine; Visit Provider Internal Medicine
DX: I10 Essential (primary) hypertension (principal); E78.00 Pure hypercholesterolemia, unspecified; E53.8 Deficiency of other specified B group vitamins; E55.9 Vitamin D deficiency, unspecified; R30.0 Dysuria
CPT/HCPCS: 36415; 80053; 80061; 81003; 82306; 82607; 82746; 83735; 84443; 85025

== ENCOUNTER 2023-06-14 13:09 | Outpatient (AMB) | payer OTHER, SELFPAY ==
[2023-06-14 13:16] VITALS: BP 130/82; PULSE 85; O2SAT 97; BMI 28.8
--- NOTE | 2023-06-14 13:16 | MHC.PC.OV ---
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 Accompanied by: Self / Same As Patient Allergies lisinopril Allergy (Unknown, Verified 06/14/23 14:08) angioedema, throat swelling pravastatin Allergy (Unknown, Verified 06/14/23 14:08) myalgia, angioedema rosuvastatin Adverse Reaction (Unknown, Verified 06/14/23 14:08) myalgia Medication List - Last Reconciled 06/14/23 by Jamey Garcia MD alirocumab (Praluent Pen) 75 mg subcut Q14D ascorbic acid (vitamin C) 500 mg PO DAILY aspirin (Adult Low Dose Aspirin) 81 mg PO DAILY 90 days blood pressure monitor As directed cholecalciferol (vitamin D3) 50 mcg PO DAILY coenzyme Q10 10 mg PO TID diclofenac sodium 1% (Arthritis Pain (diclofenac)) 4 grams topical QID evolocumab (Repatha SureClick) 140 mg subcut Q2W 3 months ezetimibe 10 mg PO DAILY lidocaine 5% 1 patch topical DAILY 30 days methocarbamol 750 mg PO BID PRN metoprolol succinate ER 50 mg (2 x 25 mg) PO BID sacubitril-valsartan 24-26 mg (Entresto) 1 tab PO BID ticagrelor (Brilinta) 90 mg PO BID [VIVISCAL PRO Take 2 tablets orally once a day; 90 days] Tobacco use date assessed: 06/14/23 Dental Screening Dental Screen Date: 06/14/23 Did you have a dental visit in the last 12 months?: No Did you have a dental problem in the last 6 months where you did not have access to dental care?: No Was dental information given to patient?: No HPI 3mth f/u HPI Details Patient comes in today for her follow up visit States that she feels okay She denies any headaches or dizziness Denies any exertional chest pains although she still gets some on and off sharp pains over her sternal area, over the anterior chest wall and over her lower ribs on both side; she denies any SOB No nausea/vomiting, no abdominal pain No change in bowel habits noted Had her follow up labs done a few days ago - to discuss her results States that she is still on Praluent injections every couple of weeks but is not sure how long she can stay on it as the cost of her Rx is getting more and more expensive [facility] Medical History Anxiety Tachycardia Visual impairment Throat pain Dizziness Overweight (BMI 25.0-29.9) Vitamin D deficiency Lumbar radiculopathy, chronic Lumbar degenerative disc disease Pityriasis rosea Pure hypercholesterolemia Coronary artery disease involving [place] coronary artery of [place] heart with angina pectoris Surgical History Stented coronary artery History of cardiac catheterization Family History Father Diabetes Hypertension Hypercholesteremia Mother Hypertension Diabetes Hypercholesteremia Family/Other FH: mental illness Social History Housing: House Alcohol intake: never Patient Tobacco Use Status: Former Tobacco user e-Cigarette/Vaping Use: Never Used Second Hand Smoke Exposure: Yes service: No Current occupational status: employed 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 1. Little interest or pleasure in doing things: not at all 2. Feeling down, depressed, or hopeless: not at all 3. Trouble falling or staying asleep, or sleeping too much: not at all 4. Feeling tired or having little energy: not at all 5. Poor appetite or overeating: not at all 6. Feeling bad about yourself - or that you are a failure or have let yourself or your family down: not at all 7. Trouble concentrating on things, such as reading the newspaper or watching television: not at all 8. Moving or speaking so slowly that other people could have noticed. Or the opposite - being so fidgety or restless that you have been moving around a lot more than usual: not at all 9. Thoughts that you would be better off or of hurting yourself in some way: not at all Total score: 0 Depression Screening Interpretation: Negative Depression Screening Done: Yes 36182 - PHQ-9 Billing: Yes Source: Developed by Drs. Aaron Bettencourt, Rand Loja, James Pires and colleagues, with an educational tez from [employer]. Thrive Questionnaire Date Thrive assessed: 06/14/23 I am a: Patient What is your living situation today?: I have a steady place to live Within the past 12 months, did the food you bought not last and you didn't have the money to get more?: Never true Within the past 12 months, did you worry whether your food would run out before you got money to buy more?: Never true Do you have trouble paying for medicines?: No Do you have trouble getting transportation to medical appointments?: No Do you have trouble paying your heating and electricity bill?: No Do you have trouble taking care of your child, family member or friend?: No Do you have trouble with day-to-day activities such as bathing, preparing meals, shopping, managing finances, etc.?: No Are you currently unemployed and looking for a job?: No Are you interested in more education?: No Please select the resources that you would like help with: None Currently or been in a relationship where the following occur: no concerns reported THRIVE Score: 0 AUDIT C Alcohol Use Questionnaire (AUDIT-C) 1. How often do you have a drink containing alcohol?: Never 3. How often do you have six or more drinks on one occasion?: Never Total Score: 0 Score Reviewed/Action Taken: Yes JOHANNE-7 AMB Questionnaire JOHANNE-7 Date JOHANNE - 7 assessed: 06/14/23 Feeling nervous, anxious, or on edge: 1 = Several days (pt has family emergency at the moment. ) Not being able to stop or control worryin = Not at all Worrying too much about different things: 0 = Not at all Trouble relaxin = Not at all Being so restless that it is hard to sit still: 0 = Not at all Becoming easily annoyed or irritable: 0 = Not at all Feeling afraid as if something awful might happen: 0 = Not at all Total JOHANNE-7 score (0-4 normal; 5-9 mild; 10-14 moderate; 15-21 severe): 1 Source: Developed by Drs. Aaron Bettencourt, Rand Loja, James Pires and colleagues, with an educational tez from [employer]. Review of Systems Const Denies fatigue, Denies fever(s), Denies headache(s) and Denies weakness ENT Denies dysphagia, Denies dizziness, Denies otalgia, Denies headache(s), Denies neck pain, Denies odynophagia and Denies sore throat Card Details: (+) recurrent sharp pains over the sternal area, over the anterior chest wall bilaterally and over the lower ribs on both sides Denies chest pain with activity, Denies palpitations and Denies dyspnea Resp Denies cough, Denies dyspnea and Denies wheezing GI Denies abdominal pain, Denies constipation, Denies dysphagia, Denies heartburn, Denies diarrhea, Denies nausea, Denies odynophagia and Denies vomiting Denies difficulty voiding, Denies nocturia, Denies dysuria and Denies urinary urgency Musc Reports back pain, Reports arthralgias (on and off, in the left knee), Denies neck pain, Reports numbness (on and off over the tip of her fingers ) and Reports tingling (on and off over the tip of her fingers ) Skin/Breast Reports alopecia (increased lately) Neuro Denies dizziness, Denies headache(s), Reports numbness (on and off over the tip of her fingers ), Reports tingling (on and off over the tip of her fingers ) and Denies weakness Endo Denies fatigue and Denies palpitations Aller/Immun Denies wheezing Physical exam (Primary Care) Vital Signs: Last Vital Signs Pulse 85 06/14/23 13:16 BP 130/82 06/14/23 13:16 Pulse Ox 97 06/14/23 13:16 Oxygen Delivery Method Room Air 06/14/23 13:16 BMI result Body Mass Index 28.8 Tobacco/Smoking Status: Tobacco use Status Tobacco use date assessed 06/14/23 06/14/23 13:23 Patient Tobacco Use Status Former Tobacco user 06/14/23 13:23 e-Cigarette/Vaping Use Never Used 06/14/23 13:23 PHQ-9: PHQ-9 Score PHQ-9: Total score 0 06/14/23 13:23 Depression Screening Interpretation: Negative Thrive Assessment: Date of Thrive Assessment Date Thrive assessed 06/14/23 06/14/23 13:23 Currently or been in a relationship where the following occur: no concerns reported Const General: no acute distress and alert HENMT Ears: TM normal on the left, EAC's normal and TM abnormal perforated without discharge on the right Throat: Yes posterior oropharynx normal and Yes tonsils normal (no TP congestion) Neck Neck: Yes no lymphadenopathy and Yes supple Chest Other: (+) tenderness on palpation over the sternal area and anterior chest wall bilaterally as well as over the lower ribs laterally on both sides Resp Auscultation: clear to auscultation bilaterally, no rales and no wheezes Cardio Rate: regular rate Rhythm: regular rhythm Heart sounds: no murmurs GI Palpation (GI): Soft to palpation and nontender Auscultation: normal bowel sounds Back/Spine/Pelvis Thoracic/Lumbar Spine: lumbar spinal tenderness Skin Rashes: no rashes Extrem General: Yes no clubbing, cyanosis or edema Left lower extremity: knee Details: tenderness (mild); no swelling Results Reviewed Results Reviewed: Laboratory Tests 06/10/23 06/10/23 06/10/23 08:37 08:37 08:37 WBC 7.1 Hgb 14.4 Hct 45.2 Plt Count 373 Sodium 144 Potassium 4.7 Creatinine 0.76 Estimated GFR > 60 Fasting Glucose 87 Calcium 9.7 Magnesium 2.0 AST 19 ALT 25 Triglycerides 84 Cholesterol 159 LDL Cholesterol, Calc 84 HDL Cholesterol 59 Vitamin B12 447 25-OH Vitamin D Total 51.0 TSH 1.48 Ur Specific [place] Urine Protein Urine Glucose (UA) Urine Blood Urine Nitrite Ur Leukocyte Esterase 06/10/23 06/10/23 08:40 08:40 WBC Hgb Hct Plt Count Sodium Potassium Creatinine Estimated GFR Fasting Glucose Calcium Magnesium AST ALT Triglycerides Cholesterol LDL Cholesterol, Calc HDL Cholesterol Vitamin B12 25-OH Vitamin D Total TSH Ur Specific [place] 1.015 Urine Protein Negative Urine Glucose (UA) Negative Urine Blood Negative Urine Nitrite Negative Ur Leukocyte Esterase Negative Assessment and Plan Assessment & Plan (1) Coronary artery disease involving [place] coronary artery of [place] heart with angina pectoris: Comment: Had NSTEMI, S/P angioplasty (PTCA) in 02/2016; myocardial perfusion study done on 07/25/2017 was normal. Repeat study done at [facility] in 08/2020 showed normal imaging after exercise stress test at average estimated functional capacity. Mild small perfusion defects in the mid to basal anteroseptal wall and apex that improved on stress images, suggestive of artifact. LV function is borderline normal with an EF of 58% at rest and 52% with stress, with normal wall motion and thickening Code(s): I25.119 - Atherosclerotic heart disease of [place] coronary artery with unspecified angina pectoris Plan: S/P STEMI in November 2021, with EKG (+) for ST elevations in the precordial leads and ST depression in the inferior leads; troponin I levels were significanty elevated at the time Coronary angiography done at [facility] on 12/15/21 revealed (+) total occlusion of the mid LAD with severe mid RCA stenosis Patient underwent PCI of the mid LAD on 12/15/21 with a single DESMOND and staged PCI of the mid RCA 3 days later on 12/18/21 with a single DESMOND Echocardiogram done on 12/17/21 revealed severely reduced LV systolic function at 20 to 25% with regional wall abnormalities in the LAD territory Patient also had NSTEMI, S/P angioplasty (PTCA) back in 02/2016; myocardial perfusion study done on 07/25/2017 was normal Continue Aspirin 81 mg QD and Brilinta 90 mg BID; patient complains of the high cost of her Rx and per cardiology, she will finish her remaining supply of Brilinta and she will be switched over to Clopidigrel when her Brilinta runs out Continue Metoprolol ER 50 mg BID and Entresto 24-26 mg BID Follow up with cardiology as scheduled (2) Benign essential hypertension: Code(s): I10 - Essential (primary) hypertension Plan: ReInforced low-sodium diet -? goal is systolic BP of at least 120 or less Continue Metoprolol ER 50 mg BID and Entresto 24-26 mg BID (3) Tachycardia, paroxysmal: Code(s): I47.9 - Paroxysmal tachycardia, unspecified Plan: Patient was complaining of on and off episodes of tachycardia/ heart racing over the past few months although this seems to have subsided recently She had a 24-hour Holter ordered by cardiology and done a few months ago - Holter came out normal Have advised patient the if her symptoms recur, she should reach out again to cardiology regarding her symptoms and they may need to be worked up further (4) Pure hypercholesterolemia: Code(s): E78.00 - Pure hypercholesterolemia, unspecified Plan: Results of her labs done a few days ago reviewed and discussed with patient - advised that her cholesterol levels are near goal but they have increased from previous Reinforced low cholesterol diet She is now on Praluent 75 mg Q 14 days and on Ezetimibe 10 mg QD but is complaining about the high cost of Praluent Patient could not tolerate statins, including Rosuvastatin and Pravastatin and Repatha in the past did not help much with her cholesterol Advised that if she really can no longer afford Praluent, since her cholesterol numbers are now much better controlled, she can try going back on Repatha (if it is cheaper for her) but if her cholesterol levels go up further while on Repatha, then she will have to switch back over tooooooooooo Will recheck her fasting lipids and labs in 3 months for follow up (5) Paresthesia of both hands: Code(s): R20.2 - Paresthesia of skin Plan: Vitamin B12 level was normal on her recent labs EMG and NCV of the upper extremities done back in March 2023 revealed (+) mild bilateral median neuropathy across carpal tunnel and mild left ulnar neuropathy across the cubital tunnel (6) Vitamin D deficiency: Code(s): E55.9 - Vitamin D deficiency, unspecified Plan: Continue Vitamin D3 1000 units QD (7) Lumbar degenerative disc disease: Code(s): M51.36 - Other intervertebral disc degeneration, lumbar region Plan: Reinforced activity and weight lifting restrictions Lumbar spine MRI done at [facility] back in February 2020 revealed (+) transitional segment anatomy and lumbar spine degenerative disease with left L4-L5 lateral recess stenosis and possible traversing left L5 nerve root impingement Follow up with Pain Management as scheduled (8) Arthralgia: Code(s): M25.50 - Pain in unspecified joint Qualifiers: Joint pain location: unspecified Qualified Code(s): M25.50 - Pain in unspecified joint Plan: Follow up with rheumatology as scheduled Has also been seen by orthopedics recently for her left knee pain and advised to follow up with them as needed Patient has also been seeing pain management for her low back pain and joint pains (9) Anxiety: Code(s): F41.9 - Anxiety disorder, unspecified Plan: Feels that she is doing well presently although still has frequent wide swings in her blood pressure readings, which were thought to be related to her anxiety in the past Was started on a trial of Escitalopram 5 mg QD a few months ago to see if this will help control her anxiety better - patient stopped taking it after 1 dose as she felt that this Rx caused her BP and HR to increase further and does not wish to start or try anything else for now (10) Overweight (BMI 25.0-29.9): Code(s): E66.3 - Overweight Plan: Reinforced diet/exercise as tolerated/lose weight Plan Follow up in 3 months Orders: Orders Lipid Panel 3 Months E78.00 - Pure hypercholesterolemia, unspecified Comprehensive [place]. Panel Fast 3 Months E78.00 - Pure hypercholesterolemia, unspecified Medications: New evolocumab (Repatha SureAustenick) 140 mg subcut Q2W 3 months 7 mL 3RF Coding Level of Care Code Est Pt Level 4 (47028) Diagnoses Coronary artery disease involving q[place] coronary artery of [place] heart with angina pectoris I25.119 Benign essential hypertension I10 Tachycardia, paroxysmal I47.9 Pure hypercholesterolemia E78.00 Paresthesia of both hands R20.2 Vitamin D deficiency E55.9 Lumbar degenerative disc disease M51.36 Arthralgia, unspecified joint M25.50 Joint pain location: unspecified Anxiety F41.9 Overweight (BMI 25.0-29.9) E66.3
== END 2023-06-14 14:08 | disposition home or self-care (01) ==
PROVIDERS: PCP Internal Medicine; Visit Provider Internal Medicine
DX: I25.119 Atherosclerotic heart disease of native coronary artery with unspecified angina pectoris (principal); I10 Essential (primary) hypertension; I47.9 Paroxysmal tachycardia, unspecified; E78.00 Pure hypercholesterolemia, unspecified; R20.2 Paresthesia of skin; E55.9 Vitamin D deficiency, unspecified; M51.36 Other intervertebral disc degeneration, lumbar region; M25.50 Pain in unspecified joint; F41.9 Anxiety disorder, unspecified; E66.3 Overweight
CPT/HCPCS: 99214

== ENCOUNTER 2023-08-19 08:26 | Outpatient (REF) | payer OTHER, SELFPAY ==
[2023-08-19 09:46] LABS: Cholesterol 225 mg/dL (<200); HDL Cholesterol 55 mg/dL (>40); LDL Cholesterol Calculated 145 mg/dL (<100); Triglycerides 126 mg/dL (<150)
[2023-08-19 09:54] LABS: Alanine Aminotransferase 14 U/L (0-31); Albumin Level 4.4 g/dL (3.5-5.0); Alkaline Phosphatase 79 U/L (39-117); Anion Gap 11 (12-20); Aspartate Amino Transferase 15 U/L (5-31); Bilirubin Total 0.6 mg/dL (0.0-1.0); Blood Urea Nitrogen 14 mg/dL (9-16); Calcium 10.1 mg/dL (8.4-10.2); Carbon Dioxide 28 mmol/L (22-29); Chloride 108 mmol/L (96-108); Cholesterol 227 mg/dL (<200); Estimated Glomerular Filt Rate > 60; Glucose Fasting 93 mg/dL (60-99); HDL Cholesterol 54 mg/dL (>40); LDL Cholesterol Calculated 147 mg/dL (<100); Potassium 4.1 mmol/L (3.3-5.1); Sodium 143 mmol/L (135-145); Total Protein 7.9 g/dL (6.5-8.0); Triglycerides 133 mg/dL (<150)
== END 2023-08-19 08:27 | disposition home or self-care (01) ==
LOC: HO.LAB 08:26
PROVIDERS: PCP Internal Medicine; Visit Provider Internal Medicine Cardiovascular Disease
DX: E78.00 Pure hypercholesterolemia, unspecified (principal); I25.10 Atherosclerotic heart disease of native coronary artery without angina pectoris
CPT/HCPCS: 36415; 80053; 80061

== ENCOUNTER 2023-08-20 13:31 | Outpatient (REF) | payer OTHER, SELFPAY ==
--- NOTE | ~2023-08-20 | MM_ITS ---
EXAMINATION: MM SCREENING DIGITAL BREAST TOMOSYNTHESIS, BILATERAL CLINICAL INFORMATION: Screening. Asymptomatic. COMPARISON: Mammography: 07/13/2022, [place] [place] and 07/10/2021, 07/24/2018, and dating back to 07/22/2017. ([facility]) TECHNIQUE: Digital breast tomosynthesis is performed in both the craniocaudal and mediolateral oblique views along with computer-aided detection (CAD). Synthesized 2D images are generated from the tomosynthesis. FINDINGS: The breasts are heterogeneously dense, which may obscure small masses (ACR BI-RADS breast composition Category c). There are no suspicious masses, suspicious grouped calcifications, or areas of architectural distortion in either breast. The parenchymal pattern is stable from prior exams. No skin or axillary abnormalities. MM/MM tomosynthesis screening BI IMPRESSION: No mammographic evidence of malignancy. ASSESSMENT: BI-RADS BI-RADS 1 - Negative RECOMMENDATION: Routine annual mammography screening. 1 year F/U This examination should not preclude the clinical evaluation of a suspicious palpable abnormality. This patient's information was entered into a reminder system with a target due date for their next mammogram.
== END 2023-08-20 13:32 | disposition home or self-care (01) ==
LOC: HO.MAMMO 13:31
PROVIDERS: PCP Internal Medicine; Visit Provider Internal Medicine
DX: Z12.31 Encounter for screening mammogram for malignant neoplasm of breast (principal)
CPT/HCPCS: 77063; 77067

== ENCOUNTER → 2023-08-20 13:45 | Outpatient (BNV) | payer OTHER, SELFPAY | PROVIDERS: PCP Internal Medicine; Visit Provider Radiology Diagnostic Radiology | DX: Z12.31 Encounter for screening mammogram for malignant neoplasm of breast (principal) | CPT/HCPCS: 77063; 77067 ==

== ENCOUNTER 2023-08-26 12:15 | Outpatient (AMB) | payer OTHER, SELFPAY ==
[2023-08-26 12:47] VITALS: BP 120/70; PULSE 69; BMI 28.6
--- NOTE | 2023-08-26 12:47 | MHC.OFFVIS ---
Vital Signs 08/26/23 12:47 Height 5 ft 2 in Weight 156 lb 8.451 oz BMI 28.6 BP 120/70 Blood Pressure Location Lt brachial Position Sitting Pulse 69 Intake Visit Reasons: 6M follow up Intake Note: 6 month follow-up with ekg c/o palpitations Lift Slab Operator Required: No Allergies lisinopril Allergy (Unknown, Verified 06/14/23 14:08) angioedema, throat swelling pravastatin Allergy (Unknown, Verified 06/14/23 14:08) myalgia, angioedema rosuvastatin Adverse Reaction (Unknown, Verified 06/14/23 14:08) myalgia Medication List - Last Reconciled 08/26/23 by Aren Mendez MD alirocumab (Praluent Pen) 75 mg subcut Q14D ascorbic acid (vitamin C) 500 mg PO DAILY aspirin (Adult Low Dose Aspirin) 81 mg PO DAILY 90 days blood pressure monitor As directed cholecalciferol (vitamin D3) 50 mcg PO DAILY coenzyme Q10 10 mg PO TID diclofenac sodium 1% (Arthritis Pain (diclofenac)) 4 grams topical QID ezetimibe 10 mg PO DAILY lidocaine 5% 1 patch topical DAILY 30 days methocarbamol 750 mg PO BID PRN metoprolol succinate ER 50 mg (2 x 25 mg) PO BID sacubitril-valsartan 24-26 mg (Entresto) 1 tab PO BID ticagrelor (Brilinta) 90 mg PO BID [VIVISCAL PRO Take 2 tablets orally once a day; 90 days] HPI Comments Details: Susy comes for follow-up. She has stopped taking her PCSK9 inhibitor therapy wanted more natural therapy. However LDL bumped up to 147. Now she is started taking her PCSK9 inhibitor therapy again. She denies any exertional chest pain. No symptoms of claudication. No heart failure symptoms. Taking all her medications except for the above. She wants to try more natural therapy. She also worried about some abdominal fat and wants to undergo cosmetic procedures. [facility] Medical History Anxiety Tachycardia Visual impairment Throat pain Dizziness Overweight (BMI 25.0-29.9) Vitamin D deficiency Lumbar radiculopathy, chronic Lumbar degenerative disc disease Pityriasis rosea Pure hypercholesterolemia Coronary artery disease involving [place] coronary artery of [place] heart with angina pectoris Surgical History Stented coronary artery History of cardiac catheterization Family History Father Diabetes Hypertension Hypercholesteremia Mother Hypertension Diabetes Hypercholesteremia Family/Other FH: mental illness Social History Housing: House Alcohol intake: never Patient Tobacco Use Status: Former Tobacco user e-Cigarette/Vaping Use: Never Used Second Hand Smoke Exposure: Yes service: No Current occupational status: employed 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 Cognitive needs: No Hearing needs: No Vision needs: No Review of Systems Const Denies chills, Denies fatigue, Denies fever(s), Denies frequent falls, Denies weakness, Denies weight gain and Denies weight loss ENT Denies dizziness Card Denies chest pain, Denies leg edema, Denies lightheadedness, Denies palpitations, Denies dyspnea, Denies dyspnea on exertion, Denies orthopnea and Denies other (loss of consciousness) Resp Denies cough, Denies dyspnea and Denies dyspnea on exertion GI Denies hematochezia and Denies change in stool character Musc Denies abnormal gait, Denies muscle weakness, Denies numbness, Denies radiating pain into limb and Denies tingling Neuro Denies abnormal gait, Denies dizziness, Denies frequent falls, Denies numbness, Denies tingling and Denies weakness Endo Denies fatigue and Denies palpitations Physical Exam Vital Signs: Last Vital Signs Pulse 69 08/26/23 12:47 BP 120/70 08/26/23 12:47 BMI result Body Mass Index 28.6 Const General: cooperative, comfortable, no acute distress, alert, awake and anxious Nutritional Appearance: overweight Orientation/consciousness: patient oriented x3 Limitations: no limitations Neck Neck: Yes trachea midline, Yes supple and Yes no JVD Resp Effort & Inspection: normal respiratory effort Auscultation: clear to auscultation bilaterally Cardio Jugular venous distension: no JVD Palpation: normal PMI Rate: regular rate Rhythm: regular rhythm Heart sounds: S1 normal heart sound present, S2 normal heart sound present, no click, no gallops, no murmurs and no rubs GI Auscultation: normal bowel sounds Skin General skin exam: no rashes or lesions noted Neuro General: patient oriented x3 and no focal motor deficits Extrem General: Yes no clubbing, cyanosis or edema Office Procedures EKG Details: EKG shows normal sinus rhythm with normal EKG [id number], Complete Assessment & Plan Assessment & Plan (1) CAD (coronary artery disease): Code(s): I25.10 - Atherosclerotic heart disease of [place] coronary artery without angina pectoris Category: Medical Plan: Premature atherosclerosis with CAD with acute myocardial infarction in the LAD territory status post drug-eluting stent. Importance of aggressive medical management including familial hyperlipidemia was discussed. Importance of PCSK9 inhibitor therapy was discussed. Target goal LDL less than 70 mg/dL. Continue Zetia therapy. She can try other natural therapy but this has to be in addition to her current therapy. She is currently only on Brilinta, will switch to Plavix. Continue aggressive blood pressure control which is currently well optimized. Stress mitigation strategies was discussed. Advised to increase activity level. Will follow up in the clinic in 6 months time, sooner p.r.n.. Thank you for allowing me to partake in the care Coding Level of Care Code Est Pt Level 4 (63990) Diagnoses CAD (coronary artery disease) I25.10 CPT Codes EKG - CPT: 73678-[id number], Complete ([id number])
== END 2023-08-26 13:21 | disposition home or self-care (01) ==
PROVIDERS: PCP Internal Medicine; Visit Provider Internal Medicine Cardiovascular Disease
DX: I25.10 Atherosclerotic heart disease of native coronary artery without angina pectoris (principal)
CPT/HCPCS: 93010; 99214

== ENCOUNTER → 2023-08-26 12:15 | Outpatient (BNVA) | payer OTHER, SELFPAY | PROVIDERS: PCP Internal Medicine; Visit Provider Internal Medicine Cardiovascular Disease | DX: I25.10 Atherosclerotic heart disease of native coronary artery without angina pectoris (principal); R00.2 Palpitations | CPT/HCPCS: 93005; 99212 ==

== ENCOUNTER 2023-09-13 14:12 | Outpatient (AMB) | payer OTHER, SELFPAY ==
[2023-09-13 14:17] VITALS: BP 118/72; PULSE 64; O2SAT 98; BMI 28.3
--- NOTE | 2023-09-13 14:17 | A.OFFPC_ITS ---
Vital Signs 09/13/23 14:17 Height 5 ft 2 in Weight 155 lb BMI 28.3 BP 118/72 Blood Pressure Location Lt brachial Position Sitting Pulse 64 Pulse Source Pulse Oximeter Pulse Oximetry (%) 98 Oxygen Delivery Method Room Air Intake Visit Reasons: CAD, hyperlipidemia Filling Station Equipment Mechanic Required: No Target Setter: Not Required per policy Accompanied by: Self / Same As Patient Allergies lisinopril Allergy (Unknown, Verified 09/13/23 14:55) angioedema, throat swelling pravastatin Allergy (Unknown, Verified 09/13/23 14:55) myalgia, angioedema rosuvastatin Adverse Reaction (Unknown, Verified 09/13/23 14:55) myalgia Medication List - Last Reconciled 09/13/23 by Jamey Garcia MD alirocumab (Praluent Pen) 75 mg subcut Q14D ascorbic acid (vitamin C) 500 mg PO DAILY aspirin (Adult Low Dose Aspirin) 81 mg PO DAILY 90 days blood pressure monitor As directed cholecalciferol (vitamin D3) 50 mcg PO DAILY clopidogrel (Plavix) 75 mg PO DAILY coenzyme Q10 10 mg PO TID diclofenac sodium 1% (Arthritis Pain (diclofenac)) 4 grams topical QID ezetimibe 10 mg PO DAILY lidocaine 5% 1 patch topical DAILY 30 days methocarbamol 750 mg PO BID PRN metoprolol succinate ER 50 mg (2 x 25 mg) PO BID sacubitril-valsartan 24-26 mg (Entresto) 1 tab PO BID [VIVISCAL PRO Take 2 tablets orally once a day; 90 days] Tobacco use date assessed: 06/14/23 Dental Screening Dental Screen Date: 06/14/23 HPI CAD, hyperlipidemia HPI Details Patient comes in today for her follow up visit States that she feels okay but continues to experience frequent recurrent pain over both sides of her lower rib care areas just above the right upper and left upper quadrants of the abdomen Notes that the pain here feels worse when she takes deep breaths and is concerned that the pain could be in her lungs She denies any increased SOB or any recent cough/cold symptoms She denies any headaches or dizziness Denies any exertional chest pains No nausea/vomiting, no abdominal pain No change in bowel habits noted Had her follow up labs done a few weeks ago - to discuss her results She was seen by Dr. Mendez a few weeks ago for cardiology follow up and was advised that her cholesterol numbers were not at goal and she was started back on Praluent injections every 2 weeks recently [facility] Medical History Anxiety Tachycardia Visual impairment Throat pain Dizziness Overweight (BMI 25.0-29.9) Vitamin D deficiency Lumbar radiculopathy, chronic Lumbar degenerative disc disease Pityriasis rosea Pure hypercholesterolemia Coronary artery disease involving [place] coronary artery of [place] heart with angina pectoris Surgical History Stented coronary artery History of cardiac catheterization Family History Father Diabetes Hypertension Hypercholesteremia Mother Hypertension Diabetes Hypercholesteremia Family/Other FH: mental illness Social History Housing: House Alcohol intake: never Patient Tobacco Use Status: Former Tobacco user e-Cigarette/Vaping Use: Never Used Second Hand Smoke Exposure: Yes service: No Current occupational status: employed 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 Aaron Bettencourt, Rand Loja, James Pires and colleagues, with an educational tez from [employer]. Review of Systems Const Denies fatigue, Denies fever(s), Denies headache(s) and Denies weakness ENT Denies dysphagia, Denies dizziness, Denies otalgia, Denies headache(s), Denies neck pain, Denies odynophagia and Denies sore throat Card Details: (+) recurrent sharp pains over the sternal area, over the anterior chest wall bilaterally and over the lower ribs on both sides Denies chest pain with activity, Denies palpitations and Denies dyspnea Resp Denies cough, Denies dyspnea and Denies wheezing GI Denies abdominal pain, Denies constipation, Denies dysphagia, Denies heartburn, Denies diarrhea, Denies nausea, Denies odynophagia and Denies vomiting Denies difficulty voiding, Denies nocturia, Denies dysuria and Denies urinary urgency Musc Reports back pain, Reports arthralgias (on and off, in the left knee), Denies neck pain, Reports numbness (on and off over the tip of her fingers ) and Reports tingling (on and off over the tip of her fingers ) Skin/Breast Reports alopecia (increased lately) Neuro Denies dizziness, Denies headache(s), Reports numbness (on and off over the tip of her fingers ), Reports tingling (on and off over the tip of her fingers ) and Denies weakness Endo Denies fatigue and Denies palpitations Aller/Immun Denies wheezing Physical exam (Primary Care) Vital Signs: Last Vital Signs Pulse 64 09/13/23 14:17 BP 118/72 09/13/23 14:17 Pulse Ox 98 09/13/23 14:17 Oxygen Delivery Method Room Air 09/13/23 14:17 BMI result Body Mass Index 28.3 Tobacco/Smoking Status: Tobacco use Status Tobacco use date assessed 06/14/23 09/13/23 14:18 Patient Tobacco Use Status Former Tobacco user 09/13/23 14:18 e-Cigarette/Vaping Use Never Used 09/13/23 14:18 Thrive Assessment: Date of Thrive Assessment Date Thrive assessed 06/14/23 09/13/23 14:18 Const General: no acute distress and alert HENMT Ears: TM normal on the left, EAC's normal and TM abnormal perforated without discharge on the right Throat: Yes posterior oropharynx normal and Yes tonsils normal (no TP congestion) Neck Neck: Yes no lymphadenopathy and Yes supple Chest Other: (+) tenderness on palpation over the sternal area and anterior chest wall bilaterally as well as over the lower ribs laterally on both sides Resp Auscultation: clear to auscultation bilaterally, no rales and no wheezes Cardio Rate: regular rate Rhythm: regular rhythm Heart sounds: no murmurs GI Palpation (GI): Soft to palpation and nontender Auscultation: normal bowel sounds Back/Spine/Pelvis Thoracic/Lumbar Spine: lumbar spinal tenderness Skin Rashes: no rashes Extrem General: Yes no clubbing, cyanosis or edema Left lower extremity: knee Details: tenderness (mild); no swelling Results Reviewed Results Reviewed: Laboratory Tests 08/19/23 08:39 Sodium 143 Potassium 4.1 Creatinine 0.72 Estimated GFR > 60 Fasting Glucose 93 Calcium 10.1 AST 15 ALT 14 Triglycerides 133 Cholesterol 227 H LDL Cholesterol, Calc 147 H HDL Cholesterol 54 Assessment and Plan Assessment & Plan (1) Coronary artery disease involving [place] coronary artery of [place] heart with angina pectoris: Comment: Had NSTEMI, S/P angioplasty (PTCA) in 02/2016; myocardial perfusion study done on 07/25/2017 was normal. Repeat study done at [facility] in 08/2020 showed normal imaging after exercise stress test at average estimated functional capacity. Mild small perfusion d efects in the mid to basal anteroseptal wall and apex that improved on stress images, suggestive of artifact. LV function is borderline normal with an EF of 58% at rest and 52% with stress, with normal wall motion and thickening Code(s): I25.119 - Atherosclerotic heart disease of [place] coronary artery with unspecified angina pectoris Plan: S/P STEMI in November 2021, with EKG (+) for ST elevations in the precordial leads and ST depression in the inferior leads; troponin I levels were significanty e levated at the time Coronary angiography done at [facility] on 12/15/21 revealed (+) total occlusion of the mid LAD with severe mid RCA stenosis Patient underwent PCI of the mid LAD on 12/15/21 with a single DESMOND and staged PCI of the mid RCA 3 days later on 12/18/21 with a single DESMOND Echocardiogram done on 12/17/21 revealed severely reduced LV systolic function at 20 to 25% with regional wall abnormalities in the LAD territory Patient also had NSTEMI, S/P angioplasty (PTCA) back in 02/2016; myocardial perfusion study done on 07/25/2017 was normal Continue Aspirin 81 mg QD and Clopidogrel 75 mg QD She was switched out from Brilinta 90 mg BID as patient was complaining of the high cost of her Rx Continue Metoprolol ER 50 mg BID and Entresto 24-26 mg BID Follow up with cardiology as scheduled (2) Pure hypercholesterolemia: Code(s): E78.00 - Pure hypercholesterolemia, unspecified Plan: Results of her labs done a few weeks ago reviewed and discussed with patient - advised that her cholesterol levels have again increases significantly from previous and her LDL cholesterol is again at 147 mg/dl Reinforced low cholesterol diet She is now BACK on Praluent 75 mg Q 14 days and on Ezetimibe 10 mg QD - continues to complain about the high cost (co-pay of $50 per Rx) of Praluent Patient could not tolerate statins, including Rosuvastatin and Pravastatin and Repatha in the past did not help much with her cholesterol Will recheck her fasting lipids and labs in 3 months for follow up (3) Benign essential hypertension: Code(s): I10 - Essential (primary) hypertension Plan: ReInforced low-sodium diet -? goal is systolic BP of at least 120 or less Continue Metoprolol ER 50 mg BID and Entresto 24-26 mg BID (4) Tachycardia, paroxysmal: Code(s): I47.9 - Paroxysmal tachycardia, unspecified Plan: Patient was complaining of on and off episodes of tachycardia/ heart racing o bartolome the past few months although this seems to have subsided recently She had a 24-hour Holter ordered by cardiology and done a few months ago - Holter came out normal Have advised patient the if her symptoms recur, she should reach out again to cardiology regarding her symptoms and they may need to be worked up further (5) Paresthesia of both hands: Code(s): R20.2 - Paresthesia of skin Plan: Vitamin B12 level was normal on her recent labs EMG and NCV of the upper extremities done back in March 2023 revealed (+) mild bilateral median neuropathy across carpal tunnel and mild left ulnar neuropathy across the cubital tunnel (6) Vitamin D deficiency: Code(s): E55.9 - Vitamin D deficiency, unspecified Plan: Continue Vitamin D3 1000 units QD (7) Lumbar degenerative disc disease: Code(s): M51.36 - Other intervertebral disc degeneration, lumbar region Plan: Reinforced activity and weight lifting restrictions Lumbar spine MRI done at [facility] back in February 2020 revealed (+) transitional segment anatomy and lumbar spine degenerative disease with left L4- L5 lateral recess stenosis and possible traversing left L5 nerve root impingement Follow up with Pain Management as scheduled (8) Arthralgia: Code(s): M25.50 - Pain in unspecified joint Qualifiers: Joint pain location: unspecified Qualified Code(s): M25.50 - Pain in unspecified joint Plan: Follow up with rheumatology as scheduled Has also been seen by orthopedics recently for her left knee pain and advised to follow up with them as needed Patient has also been seeing pain management for her low back pain and joint pains (9) Anxiety: Code(s): F41.9 - Anxiety disorder, unspecified Plan: Feels that she is doing well presently although still has frequent wide swings in her blood pressure readings, which were thought to be related to her anxiety in the past Was started on a trial of Escitalopram 5 mg QD a few months ago to see if this will help control her anxiety better - patient stopped taking it after 1 dose as she felt that this Rx caused her BP and HR to increase further and does not wish to start or try anything else for now (10) Overweight (BMI 25.0-29.9): Code(s): E66.3 - Overweight Plan: Reinforced diet/exercise as tolerated/lose weight Plan Follow up in 3 months Orders: Orders Complete Blood Count Auto Diff 3 Months D64.9 - Anemia, unspecified Comprehensive [place]. Panel Fast 3 Months E78.00 - Pure hypercholesterolemia, unspecified TSH reflex Free T4 3 Months E78.00 - Pure hypercholesterolemia, unspecified UA CC w/rflx Micro + Cult 3 Months R30.0 - Dysuria Hemoglobin A1c 3 Months R73.9 - Hyperglycemia, unspecified Lipid Panel 3 Months E78.00 - Pure hypercholesterolemia, unspecified Vitamin D 25-OH Total 3 Months E55.9 - Vitamin D deficiency, unspecified Coding Level of Care Code Est Pt Level 4 (07512) Diagnoses Coronary artery disease involving [place] coronary artery of [place] heart with angina pectoris I25.119 Pure hypercholesterolemia E78.00 Benign essential hypertension I10 Tachycardia, paroxysmal I47.9 Paresthesia of both hands R20.2 Vitamin D deficiency E55.9 Lumbar degenerative disc disease M51.36 Arthralgia, unspecified joint M25.50 Joint pain location: unspecified Anxiety F41.9 Overweight (BMI 25.0-29.9) E66.3
== END 2023-09-13 15:07 | disposition home or self-care (01) ==
PROVIDERS: PCP Internal Medicine; Visit Provider Internal Medicine
DX: I25.119 Atherosclerotic heart disease of native coronary artery with unspecified angina pectoris (principal); E78.00 Pure hypercholesterolemia, unspecified; I10 Essential (primary) hypertension; I47.9 Paroxysmal tachycardia, unspecified; R20.2 Paresthesia of skin; E55.9 Vitamin D deficiency, unspecified; M51.36 Other intervertebral disc degeneration, lumbar region; M25.50 Pain in unspecified joint; F41.9 Anxiety disorder, unspecified; E66.3 Overweight
CPT/HCPCS: 99214

== ENCOUNTER 2023-10-21 06:40 | Outpatient (REF) | payer OTHER, SELFPAY ==
[2023-10-21 06:53] LABS: MANUAL DIFF FLAG NO
[2023-10-21 07:52] LABS: Appearance Urine Clear; Color Urine Yellow; Glucose Urine UA Negative (Negative); Leukocyte Esterase Urine Negative (Negative); Nitrite Urine Negative (Negative); Specific Gravity - Urine 1.015 (1.005-1.025); Urine Blood Negative (Negative); Urine Ketones Negative (Negative); Urine Protein Negative (Neg-Trace)
[2023-10-21 07:53] LABS: Basophils Percent Auto 0.5 % (0-2); Eosinophils Absolute Auto 0.3 X10*3/uL (0.0-0.4); Eosinophils Percent Auto 3.6 % (0-4); Hematocrit 41.6 % (37.0-47.0); Hemoglobin 13.4 g/dl (12.0-16.0); Imm Gran Abs Auto 0.02 X10*3/uL (0.00-0.03); Imm Gran Pct Auto 0.3 % (0.0-0.4); Lymphocytes Percent Auto 26.9 % (20-40); Mean Corpuscular HGB Conc 32.2 g/dl (31.0-35.0); Mean Corpuscular Hemoglobin 27.5 pg (27.0-33.0); Mean Corpuscular Volume 85.4 fL (80.0-98.0); Mean Platelet Volume 9.4 fL (9.4-12.3); Monocytes Absolute Auto 0.5 X10*3/uL (0.1-1.2); Monocytes Percent Auto 6.4 % (2-11); Neutrophils Absolute Auto 4.7 x10*3/uL (2.0-8.3); Neutrophils Percent Auto 62.3 % (45-73); Platelet Count 369 X10*3/uL (160-400); Red Blood Count 4.87 X10*6/uL (4.20-5.50); Red Cell Distribution Width 13.2 % (11.0-16.0); White Blood Count 7.5 X10*3/uL (4.8-10.8)
[2023-10-21 07:59] LABS: Estimated Average Glucose 105 mg/dL; Hemoglobin A1c % 5.3 % (<6.0)
[2023-10-21 08:35] LABS: Alanine Aminotransferase 19 U/L (0-31); Albumin Level 3.9 g/dL (3.5-5.0); Alkaline Phosphatase 78 U/L (39-117); Anion Gap 13 (12-20); Aspartate Amino Transferase 23 U/L (5-31); Bilirubin Total 0.4 mg/dL (0.0-1.0); Blood Urea Nitrogen 12 mg/dL (9-16); Calcium 9.4 mg/dL (8.4-10.2); Carbon Dioxide 25 mmol/L (22-29); Chloride 109 mmol/L (96-108); Cholesterol 144 mg/dL (<200); Estimated Glomerular Filt Rate > 60; Glucose Fasting 88 mg/dL (60-99); HDL Cholesterol 54 mg/dL (>40); LDL Cholesterol Calculated 74 mg/dL (<100); Potassium 3.9 mmol/L (3.3-5.1); Sodium 143 mmol/L (135-145); TSH reflex Free T4 2.52 uIU/mL (0.32-4.0); Triglycerides 82 mg/dL (<150); Vitamin D 25-OH Total 45.7 ng/mL (>30)
== END 2023-10-21 06:41 | disposition home or self-care (01) ==
LOC: HO.LAB 06:40
PROVIDERS: PCP Internal Medicine; Visit Provider Internal Medicine
DX: E78.00 Pure hypercholesterolemia, unspecified (principal); R30.0 Dysuria; R73.9 Hyperglycemia, unspecified; E55.9 Vitamin D deficiency, unspecified; D64.9 Anemia, unspecified
CPT/HCPCS: 36415; 80053; 80061; 81003; 82306; 83036; 84443; 85025

== ENCOUNTER 2024-01-15 07:19 | Outpatient (REF) | payer OTHER, SELFPAY ==
[2024-01-15 07:31] LABS: MANUAL DIFF FLAG NO
[2024-01-15 08:30] LABS: Basophils Percent Auto 0.6 % (0-2); Eosinophils Absolute Auto 0.2 X10*3/uL (0.0-0.4); Eosinophils Percent Auto 2.2 % (0-4); Hematocrit 45.2 % (37.0-47.0); Hemoglobin 14.1 g/dl (12.0-16.0); Imm Gran Abs Auto 0.02 X10*3/uL (0.00-0.03); Imm Gran Pct Auto 0.3 % (0.0-0.4); Lymphocytes Absolute Auto 2.1 X10*3/uL (1.2-4.9); Lymphocytes Percent Auto 29.7 % (20-40); Mean Corpuscular HGB Conc 31.2 g/dl (31.0-35.0); Mean Corpuscular Hemoglobin 26.7 pg (27.0-33.0); Mean Corpuscular Volume 85.4 fL (80.0-98.0); Mean Platelet Volume 9.3 fL (9.4-12.3); Monocytes Absolute Auto 0.5 X10*3/uL (0.1-1.2); Monocytes Percent Auto 6.3 % (2-11); Neutrophils Absolute Auto 4.4 x10*3/uL (2.0-8.3); Neutrophils Percent Auto 60.9 % (45-73); Platelet Count 397 X10*3/uL (160-400); Red Blood Count 5.29 X10*6/uL (4.20-5.50); Red Cell Distribution Width 13.5 % (11.0-16.0); White Blood Count 7.2 X10*3/uL (4.8-10.8)
[2024-01-15 09:17] LABS: Alanine Aminotransferase 15 U/L (0-31); Albumin Level 4.2 g/dL (3.5-5.0); Alkaline Phosphatase 94 U/L (39-117); Anion Gap 9 (12-20); Aspartate Amino Transferase 19 U/L (5-31); Bilirubin Total 0.3 mg/dL (0.0-1.0); Blood Urea Nitrogen 14 mg/dL (9-16); Calcium 9.7 mg/dL (8.4-10.2); Carbon Dioxide 30 mmol/L (22-29); Chloride 110 mmol/L (96-108); Cholesterol 152 mg/dL (<200); Estimated Glomerular Filt Rate > 60; Glucose Fasting 98 mg/dL (60-99); HDL Cholesterol 52 mg/dL (>40); LDL Cholesterol Calculated 69 mg/dL (<100); Potassium 4.6 mmol/L (3.3-5.1); Sodium 144 mmol/L (135-145); Total Protein 7.6 g/dL (6.5-8.0); Triglycerides 155 mg/dL (<150)
[2024-01-15 09:20] LABS: TSH reflex Free T4 1.65 uIU/mL (0.32-4.0); Vitamin D 25-OH Total 62.9 ng/mL (>30)
[2024-01-15 09:50] LABS: Appearance Urine Clear; Color Urine Yellow; Glucose Urine UA Negative (Negative); Leukocyte Esterase Urine Negative (Negative); Nitrite Urine Negative (Negative); PH 5.5 (5.0-9.0); Urine Blood Negative (Negative); Urine Ketones Negative (Negative); Urine Protein Negative (Neg-Trace)
== END 2024-01-15 07:20 | disposition home or self-care (01) ==
LOC: HO.LAB 07:19
PROVIDERS: PCP Internal Medicine; Visit Provider Internal Medicine
DX: E78.00 Pure hypercholesterolemia, unspecified (principal); R30.0 Dysuria; E55.9 Vitamin D deficiency, unspecified; D64.9 Anemia, unspecified; E78.5 Hyperlipidemia, unspecified; I25.10 Atherosclerotic heart disease of native coronary artery without angina pectoris; M79.671 Pain in right foot; M79.672 Pain in left foot; I25.119 Atherosclerotic heart disease of native coronary artery with unspecified angina pectoris; I10 Essential (primary) hypertension; I47.9 Paroxysmal tachycardia, unspecified; R20.2 Paresthesia of skin; M51.36 Other intervertebral disc degeneration, lumbar region; M25.50 Pain in unspecified joint; F41.9 Anxiety disorder, unspecified; E66.3 Overweight; E53.8 Deficiency of other specified B group vitamins
CPT/HCPCS: 36415; 80053; 80061; 81003; 82306; 84443; 85025; 99212

== ENCOUNTER 2024-01-15 14:59 | Outpatient (AMB) | payer OTHER, SELFPAY ==
[2024-01-15 14:59] VITALS: BP 118/78; PULSE 73; O2SAT 98; BMI 29.0
--- NOTE | 2024-01-15 14:59 | A.OFFPC_ITS ---
Vital Signs 01/15/24 14:59 Height 5 ft 2 in Weight 158 lb 6 oz BMI 29.0 BP 118/78 Blood Pressure Location Lt brachial Position Sitting Pulse 73 Pulse Source Pulse Oximeter Pulse Oximetry (%) 98 Oxygen Delivery Method Room Air Intake Visit Reasons: hyperlipidemia, CAD, IFG Multimedia Technician Required: No Accompanied by: Self / Same As Patient Allergies lisinopril Allergy (Unknown, Verified 01/15/24 15:31) angioedema, throat swelling pravastatin Allergy (Unknown, Verified 01/15/24 15:31) myalgia, angioedema rosuvastatin Adverse Reaction (Unknown, Verified 01/15/24 15:31) myalgia Medication List - Last Reconciled 01/15/24 by Jamey Garcia MD alirocumab (Praluent Pen) 75 mg subcut Q14D ascorbic acid (vitamin C) 500 mg PO DAILY aspirin (Adult Low Dose Aspirin) 81 mg PO DAILY 90 days blood pressure monitor As directed cholecalciferol (vitamin D3) 50 mcg PO DAILY clopidogrel (Plavix) 75 mg PO DAILY coenzyme Q10 10 mg PO TID diclofenac sodium 1% (Arthritis Pain (diclofenac)) 4 grams topical QID ezetimibe 10 mg PO DAILY lidocaine 5% 1 patch topical DAILY 30 days methocarbamol 750 mg PO BID PRN metoprolol succinate ER 50 mg (2 x 25 mg) PO BID sacubitril-valsartan 24-26 mg (Entresto) 1 tab PO BID [VIVISCAL PRO Take 2 tablets orally once a day; 90 days] Tobacco use date assessed: 01/15/24 Dental Screening Dental Screen Date: 01/15/24 Did you have a dental visit in the last 12 months?: Yes Did you have a dental problem in the last 6 months where you did not have access to dental care?: No Was dental information given to patient?: Patient has dentist HPI hyperlipidemia, CAD, IFG HPI Details Patient comes in today for her follow up visit States that she feels okay except for increased pain in both feet, especially over the bottom of her feet, lately Relates that she sometimes has difficulty walking too far as she finds the pain on the bottom of her feet too much to put up with - states that it feels like there are some painful lumps on the bottom of her feet when she is walking Also notes on and off burning pain in her feet that tends to feel worse at night She denies any headaches or dizziness Denies any chest pains, no SOB No nausea/vomiting, no abdominal pain No change in bowel habits noted She had her follow up labs done earlier this morning - to discuss her results [facility] Medical History Anxiety Tachycardia Visual impairment Throat pain Dizziness Overweight (BMI 25.0-29.9) Vitamin D deficiency Lumbar radiculopathy, chronic Lumbar degenerative disc disease Pityriasis rosea Pure hypercholesterolemia Coronary artery disease involving [place] coronary artery of [place] heart with angina pectoris Surgical History Stented coronary artery History of cardiac catheterization Family History Father Diabetes Hypertension Hypercholesteremia Mother Hypertension Diabetes Hypercholesteremia Family/Other FH: mental illness Social History Housing: House Alcohol intake: never Patient Tobacco Use Status: Former Tobacco user e-Cigarette/Vaping Use: Never Used Second Hand Smoke Exposure: Yes service: No Current occupational status: employed 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 1. Little interest or pleasure in doing things: not at all 2. Feeling down, depressed, or hopeless: not at all 3. Trouble falling or staying asleep, or sleeping too much: not at all 4. Feeling tired or having little energy: not at all 5. Poor appetite or overeating: not at all 6. Feeling bad about yourself - or that you are a failure or have let yourself or your family down: not at all 7. Trouble concentrating on things, such as reading the newspaper or watching television: not at all 8. Moving or speaking so slowly that other people could have noticed. Or the opposite - being so fidgety or restless that you have been moving around a lot more than usual: not at all 9. Thoughts that you would be better off or of hurting yourself in some way: not at all Total score: 0 Depression Screening Interpretation: Negative Depression Screening Done: Yes 64115 - PHQ-9 Billing: Yes Source: Developed by Drs. Aaron Bettencourt, Rand Loja, James Pires and colleagues, with an educational tez from [employer]. Thrive Questionnaire Date Thrive assessed: 01/15/24 I am a: Patient What is your living situation today?: I have a steady place to live Within the past 12 months, did the food you bought not last and you didn't have the money to get more?: Never true Within the past 12 months, did you worry whether your food would run out before you got money to buy more?: Never true Do you have trouble paying for medicines?: No Do you have trouble getting transportation to medical appointments?: No Do you have trouble paying your heating and electricity bill?: No Do you have trouble taking care of your child, family member or friend?: No Do you have trouble with day-to-day activities such as bathing, preparing meals, shopping, managing finances, etc.?: No Are you currently unemployed and looking for a job?: Yes Are you interested in more education?: No Please select the resources that you would like help with: None Currently or been in a relationship where the following occur: No concerns reported THRIVE Score: 0 AUDIT C Alcohol Use Questionnaire (AUDIT-C) 1. How often do you have a drink containing alcohol?: Never 3. How often do you have six or more drinks on one occasion?: Never Total Score: 0 Score Reviewed/Action Taken: Yes JOHANNE-7 AMB Questionnaire JOHANNE-7 Date JOHANNE - 7 assessed: 01/15/24 Feeling nervous, anxious, or on edge: 0 = Not at all Not being able to stop or control worryin = Not at all Worrying too much about different things: 0 = Not at all Trouble relaxin = Not at all Being so restless that it is hard to sit still: 0 = Not at all Becoming easily annoyed or irritable: 0 = Not at all Feeling afraid as if something awful might happen: 0 = Not at all Total JOHANNE-7 score (0-4 normal; 5-9 mild; 10-14 moderate; 15-21 severe): 0 Source: Developed by Rand Nevarez[employer]. [employer], James Pires and colleagues, with an educational tez from [employer]. Review of Systems Const Denies chills, Denies fatigue, Denies fever(s) and Denies headache(s) ENT Denies dysphagia, Denies dizziness, Denies otalgia, Denies headache(s), Denies neck pain, Denies odynophagia and Denies sore throat Card Denies chest pain, Denies chest pain with activity, Denies palpitations and Denies dyspnea Resp Denies chest congestion, Denies cough and Denies dyspnea GI Denies abdominal pain, Denies constipation, Denies dysphagia, Denies heartburn, Denies diarrhea, Denies nausea, Denies odynophagia and Denies vomiting Denies difficulty voiding, Denies nocturia, Denies dysuria and Denies urinary urgency Musc Details: increased pain in both feet, especially over the soles/plantar aspect Reports back pain, Reports arthralgias (on and off, in the left knee), Denies neck pain, Reports numbness (on and off over the tip of her fingers ) and Reports tingling (on and off over the tip of her fingers ) Skin/Breast Denies rash Neuro Denies dizziness, Denies headache(s), Reports numbness (on and off over the tip of her fingers ) and Reports tingling (on and off over the tip of her fingers ) Endo Denies fatigue and Denies palpitations Physical exam (Primary Care) Vital Signs: Last Vital Signs Pulse 73 01/15/24 14:59 BP 118/78 01/15/24 14:59 Pulse Ox 98 01/15/24 14:59 Oxygen Delivery Method Room Air 01/15/24 14:59 BMI result Body Mass Index 29.0 Tobacco/Smoking Status: Tobacco use Status Tobacco use date assessed 01/15/24 01/15/24 15:05 Patient Tobacco Use Status Former Tobacco user 01/15/24 15:05 e-Cigarette/Vaping Use Never Used 01/15/24 15:05 PHQ-9: PHQ-9 Score PHQ-9: Total score 0 01/15/24 16:10 Depression Screening Interpretation: Negative Thrive Assessment: Date of Thrive Assessment Date Thrive assessed 01/15/24 01/15/24 15:05 Currently or been in a relationship where the following occur: No concerns reported Const General: no acute distress and alert HENMT Ears: TM normal on the left, EAC's normal and TM abnormal perforated without discharge on the right Throat: Yes posterior oropharynx normal and Yes tonsils normal (no TP congestion) Neck Neck: Yes no lymphadenopathy and Yes supple Thyroid: Thyroid normal Resp Auscultation: clear to auscultation bilaterally, no rales and no wheezes Cardio Rate: regular rate Rhythm: regular rhythm Heart sounds: no murmurs GI Palpation (GI): Soft to palpation and nontender Auscultation: normal bowel sounds General: Yes no CVA tenderness Back/Spine/Pelvis Back: no CVA tenderness Thoracic/Lumbar Spine: lumbar spinal tenderness (mild) Skin Rashes: no rashes Extrem Other: (+) diffuse tenderness noted on palpation over the plantar aspect of both feet, including over the calcaneus but no nodules or lesions are appreciated General: Yes no clubbing, cyanosis or edema Left lower extremity: knee Details: tenderness (mild); no swelling Results Reviewed Results Reviewed: Laboratory Tests 01/15/24 07:30 WBC 7.2 Hgb 14.1 Hct 45.2 Plt Count 397 Sodium 144 Potassium 4.6 Creatinine 0.76 Estimated GFR > 60 Fasting Glucose 98 Calcium 9.7 AST 19 ALT 15 Triglycerides 155 H Cholesterol 152 LDL Cholesterol, Calc 69 HDL Cholesterol 52 25-OH Vitamin D Total 62.9 TSH 1.65 Ur Specific [place] 1.020 Urine Protein Negative Urine Glucose (UA) Negative Urine Blood Negative Urine Nitrite Negative Ur Leukocyte Esterase Negative Assessment and Plan Assessment & Plan (1) Bilateral foot pain: Code(s): M79.671 - Pain in right foot; M79.672 - Pain in left foot Plan: Suspect neuropathy as at least a partial etiology of her recent increased pain in both feet Will send patient for x-rays of both feet for further evaluation Will also refer her to podiatry for further evaluation and management of her bilateral feet pain (2) Coronary artery disease involving [place] coronary artery of [place] heart with angina pectoris: Comment: Had NSTEMI, S/P angioplasty (PTCA) in 02/2016; myocardial perfusion study done on 07/25/2017 was normal. Repeat study done at [facility] in 08/2020 showed normal imaging after exercise stress test at average estimated functional capacity. Mild small perfusion defects in the mid to basal anteroseptal wall and apex that improved on stress images, suggestive of artifact. LV function is borderline normal with an EF of 58% at rest and 52% with stress, with normal wall motion and thickening Code(s): I25.119 - Atherosclerotic heart disease of [place] coronary artery with unspecified angina pectoris Plan: S/P STEMI in November 2021, with EKG (+) for ST elevations in the precordial leads and ST depression in the inferior leads; troponin I levels were significanty elevated at the time Coronary angiography done at [facility] on 12/15/21 revealed (+) total occlusion of the mid LAD with severe mid RCA stenosis Patient underwent PCI of the mid LAD on 12/15/21 with a single DESMOND and staged PCI of the mid RCA 3 days later on 12/18/21 with a single DESMOND Echocardiogram done on 12/17/21 revealed severely reduced LV systolic function at 20 to 25% with regional wall abnormalities in the LAD territory Patient also had NSTEMI, S/P angioplasty (PTCA) back in 02/2016; myocardial perfusion study done on 07/25/2017 was normal Continue Aspirin 81 mg QD and Clopidogrel 75 mg QD - she was switched out from Brilinta 90 mg BID as patient was complaining of the high cost of the Rx Continue Metoprolol ER 50 mg BID and Entresto 24-26 mg BID Follow up with cardiology as scheduled (3) Pure hypercholesterolemia: Code(s): E78.00 - Pure hypercholesterolemia, unspecified Plan: Results of her labs done earlier this morning reviewed and discussed with patient - advised that her cholesterol levels have improved significantly from previous Reinforced low cholesterol diet She is now BACK on Praluent 75 mg Q 14 days and on Ezetimibe 10 mg QD Patient could not tolerate statins, including Rosuvastatin and Pravastatin and Repatha in the past did not help much with her cholesterol Will recheck her fasting lipids and labs in 4 months for follow up (4) Benign essential hypertension: Code(s): I10 - Essential (primary) hypertension Plan: ReInforced low-sodium diet -? goal is systolic BP of at least 120 or less Continue Metoprolol ER 50 mg BID and Entresto 24-26 mg BID (5) Tachycardia, paroxysmal: Code(s): I47.9 - Paroxysmal tachycardia, unspecified Plan: Patient was experiencing on and off episodes of tachycardia/ heart racing for a few months but this seems to have subsided She had a 24-hour Holter ordered by cardiology and done a few months ago - Holter came out normal Have advised patient the if her symptoms recur, she should reach out again to cardiology regarding her symptoms and she may need to be worked up further (6) Paresthesia of both hands: Code(s): R20.2 - Paresthesia of skin Plan: Vitamin B12 level was normal when previously checked EMG and NCV of the upper extremities done back in March 2023 revealed (+) mild bilateral median neuropathy across carpal tunnel and mild left ulnar neuropathy across the cubital tunnel (7) Vitamin D deficiency: Code(s): E55.9 - Vitamin D deficiency, unspecified Plan: Continue Vitamin D3 1000 units QD (8) Lumbar degenerative disc disease: Code(s): M51.36 - Other intervertebral disc degeneration, lumbar region Plan: Reinforced activity and weight lifting restrictions Lumbar spine MRI done at [facility] back in February 2020 revealed (+) transitional segment anatomy and lumbar spine degenerative disease with left L4- L5 lateral recess stenosis and possible traversing left L5 nerve root impingement Follow up with Pain Management as scheduled or as needed (9) Arthralgia: Code(s): M25.50 - Pain in unspecified joint Qualifiers: Joint pain location: unspecified Qualified Code(s): M25.50 - Pain in unspecified joint Plan: Follow up with rheumatology as scheduled Has also been seen by orthopedics recently for her left knee pain and advised to follow up with them as needed Patient has also been seeing pain management for her low back pain and joint pains (10) Anxiety: Code(s): F41.9 - Anxiety disorder, unspecified Plan: Feels that she is doing well presently although still has frequent wide swings in her blood pressure readings, which were thought to be related to her anxiety in the past She was started on a trial of Escitalopram 5 mg QD a few months ago to see if this will help control her anxiety better - patient stopped taking it after 1 dose as she felt that this Rx caused her BP and HR to increase further and does not wish to start or try anything else for now (11) Overweight (BMI 25.0-29.9): Code(s): E66.3 - Overweight Plan: Reinforced diet/exercise as tolerated/lose weight Plan Follow up in 4 months Orders: Orders XR foot LT min 3V 01/15/24 M79.672 - Pain in left foot Complete Blood Count Auto Diff 4 Months D64.9 - Anemia, unspecified Lipid Panel 4 Months E78.00 - Pure hypercholesterolemia, unspecified Vitamin D 25-OH Total 4 Months E55.9 - Vitamin D deficiency, unspecified UA CC w/rflx Micro + Cult 4 Months R30.0 - Dysuria TSH reflex Free T4 4 Months E78.00 - Pure hypercholesterolemia, unspecified XR foot RT min 3V 01/15/24 M79.671 - Pain in right foot Comprehensive [place]. Panel Fast 4 Months E78.00 - Pure hypercholesterolemia, unspecified Vitamin B12 and Folate 4 Months E53.8 - Deficiency of other specified B group vitamins Referrals Podiatry Referral M79.671 - Pain in right foot, M79.672 - Pain in left foot Coding Level of Care Code Est Pt Level 4 (03532) Complex EM visit Add On G2211 Diagnoses Bilateral foot pain M79.671; M79.672 Coronary artery disease involving [place] coronary artery of [place] heart with angina pectoris I25.119 Pure hypercholesterolemia E78.00 Benign essential hypertension I10 Tachycardia, paroxysmal I47.9 Paresthesia of both hands R20.2 Vitamin D deficiency E55.9 Lumbar degenerative disc disease M51.36 Arthralgia, unspecified joint M25.50 Joint pain location: unspecified Anxiety F41.9 Overweight (BMI 25.0-29.9) E66.3
== END 2024-01-15 15:39 | disposition home or self-care (01) ==
PROVIDERS: PCP Internal Medicine; Visit Provider Internal Medicine
DX: I25.119 Atherosclerotic heart disease of native coronary artery with unspecified angina pectoris (principal); I47.9 Paroxysmal tachycardia, unspecified; M79.671 Pain in right foot; M79.672 Pain in left foot; E78.00 Pure hypercholesterolemia, unspecified; I10 Essential (primary) hypertension; R20.2 Paresthesia of skin; E55.9 Vitamin D deficiency, unspecified; M51.36 Other intervertebral disc degeneration, lumbar region; M25.50 Pain in unspecified joint; F41.9 Anxiety disorder, unspecified; E66.3 Overweight

== ENCOUNTER 2024-01-15 15:47 | Outpatient (REF) | payer OTHER, SELFPAY ==
--- NOTE | ~2024-01-15 | XR_ITS ---
EXAMINATION: XR FOOT, RIGHT CLINICAL INFORMATION: M79.671 - Pain in right foot COMPARISON: None available. TECHNIQUE: AP, lateral, and oblique views of the right foot. FINDINGS: No fracture, dislocation, or focal bony abnormality. Normal alignment. Normal joint spaces. Soft tissues appear normal. XR/XR foot RT min 3V IMPRESSION: No acute findings right foot. Electronically signed by: Mikey Coleman MD 03/27/2024 02:33 PM Z[facility]
--- NOTE | ~2024-01-15 | XR_ITS ---
EXAMINATION: XR FOOT, LEFT CLINICAL INFORMATION: M79.672 - Pain in left foot COMPARISON: None available. TECHNIQUE: AP, lateral, and oblique views of the left foot. FINDINGS: No fracture, dislocation, or focal bony abnormality. Normal alignment. Normal joint spaces. There is a tiny plantar calcaneal spur. Soft tissues appear normal. XR/XR foot LT min 3V IMPRESSION: No acute findings left foot. Electronically signed by: Mikey Coleman MD 03/27/2024 02:31 PM ZEB
== END 2024-01-15 15:48 | disposition home or self-care (01) ==
LOC: HO.LAB 15:47
PROVIDERS: PCP Internal Medicine; Visit Provider Internal Medicine
DX: M79.672 Pain in left foot (principal); M79.671 Pain in right foot
CPT/HCPCS: 73630

== ENCOUNTER → 2024-01-15 15:51 | Outpatient (BNV) | payer OTHER, SELFPAY | PROVIDERS: PCP Internal Medicine; Visit Provider Radiology Diagnostic Radiology | DX: M79.671 Pain in right foot (principal); M79.672 Pain in left foot | CPT/HCPCS: 73630 ==

== ENCOUNTER 2024-03-02 12:37 | Outpatient (AMB) | payer OTHER, SELFPAY ==
--- NOTE | 2024-03-02 12:45 | MHC.OFFVIS ---
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 Allergies lisinopril Allergy (Unknown, Verified 01/15/24 15:31) angioedema, throat swelling pravastatin Allergy (Unknown, Verified 01/15/24 15:31) myalgia, angioedema rosuvastatin Adverse Reaction (Unknown, Verified 01/15/24 15:31) myalgia Medication List - Last Reconciled 03/02/24 by Aren Mendez MD alirocumab (Praluent Pen) 75 mg subcut Q14D ascorbic acid (vitamin C) 500 mg PO DAILY blood pressure monitor As directed cholecalciferol (vitamin D3) 50 mcg PO DAILY clopidogrel (Plavix) 75 mg PO DAILY coenzyme Q10 10 mg PO TID diclofenac sodium 1% (Arthritis Pain (diclofenac)) 4 grams topical QID lidocaine 5% 1 patch topical DAILY 30 days methocarbamol 750 mg PO BID PRN metoprolol succinate ER 50 mg (2 x 25 mg) PO BID sacubitril-valsartan 24-26 mg (Entresto) 1 tab PO BID [VIVISCAL PRO Take 2 tablets orally once a day; 90 days] HPI Comments Details: Susy comes for follow-up. Patient is currently only on Plavix stopped taking aspirin because she said she had bleeding through the GI tract, most likely hemorrhoidal. Since taking Plavix only she has had no further bleeding. She denies any exertional chest pain. However does not exercise regular basis. Denies any symptoms of orthopnea, PND, leg edema. Occasional symptoms of palpitation. She complains of needle-like pain in the left side of the chest which is not similar to her myocardial infarction pain. Complains of bilateral sole discomfort at nighttime. Denies any exertional claudication like symptoms. Takes all her medications. Denies any lightheadedness, syncope. Her last LDL is 69 mg/dL. [facility] Medical History Anxiety Tachycardia Visual impairment Throat pain Dizziness Overweight (BMI 25.0-29.9) Vitamin D deficiency Lumbar radiculopathy, chronic Lumbar degenerative disc disease Pityriasis rosea Pure hypercholesterolemia Coronary artery disease involving [place] coronary artery of [place] heart with angina pectoris Surgical History Stented coronary artery History of cardiac catheterization Family History Father Diabetes Hypertension Hypercholesteremia Mother Hypertension Diabetes Hypercholesteremia Family/Other FH: mental illness Social History Housing: House Alcohol intake: never Patient Tobacco Use Status: Former Tobacco user e-Cigarette/Vaping Use: Never Used Second Hand Smoke Exposure: Yes service: No Current occupational status: employed 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 Cognitive needs: No Hearing needs: No Vision needs: No Review of Systems Const Denies chills, Denies fatigue, Denies fever(s), Denies frequent falls, Denies weakness, Denies weight gain and Denies weight loss ENT Denies dizziness Card Denies chest pain, Denies leg edema, Denies lightheadedness, Denies palpitations, Denies dyspnea, Denies dyspnea on exertion, Denies orthopnea and Denies other (loss of consciousness) Resp Denies cough, Denies dyspnea and Denies dyspnea on exertion GI Denies hematochezia and Denies change in stool character Musc Denies abnormal gait, Denies muscle weakness, Denies numbness, Denies radiating pain into limb and Denies tingling Neuro Denies abnormal gait, Denies dizziness, Denies frequent falls, Denies numbness, Denies tingling and Denies weakness Endo Denies fatigue and Denies palpitations Physical Exam Vital Signs: Last Vital Signs Pulse 71 03/02/24 12:46 BP 120/78 03/02/24 12:46 BMI result Body Mass Index 29.0 Const General: cooperative, comfortable, no acute distress, alert, awake and anxious Nutritional Appearance: overweight Orientation/consciousness: patient oriented x3 Limitations: no limitations Neck Neck: Yes trachea midline, Yes supple and Yes no JVD Resp Effort & Inspection: normal respiratory effort Auscultation: clear to auscultation bilaterally Cardio Jugular venous distension: no JVD Palpation: normal PMI Rate: regular rate Rhythm: regular rhythm Heart sounds: S1 normal heart sound present, S2 normal heart sound present, no click, no gallops, no murmurs and no rubs GI Auscultation: normal bowel sounds Skin General skin exam: no rashes or lesions noted Neuro General: patient oriented x3 and no focal motor deficits Extrem General: Yes no clubbing, cyanosis or edema Assessment & Plan Assessment & Plan (1) CAD (coronary artery disease): Code(s): I25.10 - Atherosclerotic heart disease of [place] coronary artery without angina pectoris Category: Medical Plan: CAD, premature atherosclerosis with prior uncontrolled cholesterol level. She had anterior STEMI with residual LV systolic dysfunction. No recurrent anginal sounding chest discomfort at this point time. Currently doing well. She is currently off dual antiplatelet therapy because of she had some bleeding issues especially what appears to be hemorrhoidal bleed. Doing well on single antiplatelet agent. This more than a year since her stent. This is adequate at this point time. Advised to switch her Plavix to aspirin therapy. Continue aggressive lipid modification which is currently well optimized on current Praluent as well as garlic therapy. Importance of lipid modification was discussed with her. Importance of regular physical activity was discussed and advised to pursue [place] [employer] recommendation. (2) Ischemic cardiomyopathy: Code(s): I25.5 - Ischemic cardiomyopathy Category: Medical Plan: Ischemic cardiomyopathy with [id number] LV systolic dysfunction with the signs and symptoms of heart failure. Currently on neurohormonal modulation with Entresto and metoprolol therapy. Continue both. Signs and symptoms of heart failure were discussed. Semi annual renal renal function test should be pursued. Follow-up echocardiogram in 1 year's time. Will follow up in the clinic in 1 year's time, sooner p.r.n.. Thank you for allowing me to partake in his care Orders: Orders CA echo transthoracic complete 1 Year I25.5 - Ischemic cardiomyopathy Coding Level of Care Code Est Pt Level 4 (59268) Complex EM visit Add On G2211 Diagnoses CAD (coronary artery disease) I25.10 Ischemic cardiomyopathy I25.5
[2024-03-02 12:46] VITALS: BP 120/78; PULSE 71; BMI 29.0
== END 2024-03-02 13:08 | disposition home or self-care (01) ==
LOC: HO.HCS 12:38
PROVIDERS: PCP Internal Medicine; Visit Provider Internal Medicine Cardiovascular Disease
DX: I25.10 Atherosclerotic heart disease of native coronary artery without angina pectoris (principal); I25.5 Ischemic cardiomyopathy
CPT/HCPCS: 99214; G2211

== ENCOUNTER → 2024-03-02 12:37 | Outpatient (BNVA) | payer OTHER, SELFPAY | PROVIDERS: PCP Internal Medicine; Visit Provider Internal Medicine Cardiovascular Disease | DX: I25.10 Atherosclerotic heart disease of native coronary artery without angina pectoris (principal); I25.5 Ischemic cardiomyopathy | CPT/HCPCS: 99212 ==

== ENCOUNTER 2024-05-19 14:05 | Outpatient (AMB) | payer OTHER, SELFPAY ==
--- NOTE | 2024-05-19 14:13 | A.OFFPC_ITS ---
Vital Signs 05/19/24 14:15 Height 5 ft 2 in Weight 157 lb 4 oz BMI 28.8 BP 110/72 Blood Pressure Location Lt brachial Position Sitting Pulse 66 Pulse Source Pulse Oximeter Temp 97.3 F Temp Source Skin Pulse Oximetry (%) 95 Oxygen Delivery Method Room Air Intake Visit Reasons: 4 Months F/U Intake Note: Patient is here to follow up on CAD, LDDD, HTN. Process Control Tech Required: No Crime Investigator Special Agent: Not Required per policy Accompanied by: Self / Same As Patient Allergies lisinopril Allergy (Unknown, Verified 05/19/24 14:48) angioedema, throat swelling pravastatin Allergy (Unknown, Verified 05/19/24 14:48) myalgia, angioedema rosuvastatin Adverse Reaction (Unknown, Verified 05/19/24 14:48) myalgia Medication List - Last Reconciled 05/19/24 by Jamey Garcia MD alirocumab (Praluent Pen) 75 mg subcut Q14D ascorbic acid (vitamin C) 500 mg PO DAILY aspirin (Ecotrin Low Strength) 81 mg PO DAILY blood pressure monitor As directed cholecalciferol (vitamin D3) 50 mcg PO DAILY coenzyme Q10 10 mg PO TID diclofenac sodium 1% (Arthritis Pain (diclofenac)) 4 grams topical QID lidocaine 5% 1 patch topical DAILY 30 days methocarbamol 750 mg PO BID PRN metoprolol succinate ER 50 mg (2 x 25 mg) PO BID sacubitril-valsartan 24-26 mg (Entresto) 1 tab PO BID [VIVISCAL PRO Take 2 tablets orally once a day; 90 days] Tobacco use date assessed: 05/19/24 Dental Screening Dental Screen Date: 05/19/24 Did you have a dental visit in the last 12 months?: No Did you have a dental problem in the last 6 months where you did not have access to dental care?: No Was dental information given to patient?: No HPI 4 Months F/U HPI Details Patient comes in today for her follow-up visit States that she feels okay except for the increased pain in both of her feet, especially over the bottom of her feet - states that the pain feels a lot worse at night and that this has been going on for the past year or two now Relates that she has difficulty walking as she finds the pain on the bottom of her feet too much to put up with She denies any headaches or dizziness Denies any chest pains, no increased shortness of breath No nausea/vomiting, no abdominal pain No change in bowel habits noted She had her follow-up labs done a few days ago - to discuss her results [facility] Medical History (Updated 05/25/24 @ 03:08 by Jamey Garcia MD) Benign essential hypertension Anxiety Tachycardia Visual impairment Throat pain Dizziness Overweight (BMI 25.0-29.9) Vitamin D deficiency Lumbar radiculopathy, chronic Lumbar degenerative disc disease Pityriasis rosea Pure hypercholesterolemia 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 Surgical History Stented coronary artery History of cardiac catheterization Family History (Updated 05/19/24 @ 14:13 by MIKE Galarza) Father Diabetes Hypertension Hypercholesteremia Mother Hypertension Diabetes Hypercholesteremia Family/Other FH: mental illness Other Mental health disorder Social History Housing: House Alcohol intake: never Patient Tobacco Use Status: Former Tobacco user e-Cigarette/Vaping Use: Never Used Second Hand Smoke Exposure: Yes service: No Current occupational status: employed Current occupation: [employer] Cognitive needs: No Hearing needs: No Vision needs: No Questionnaire PHQ-9 Over the last 2 weeks, how often have you been bothered by any of the following problems? 1. Little interest or pleasure in doing things: not at all 2. Feeling down, depressed, or hopeless: not at all 3. Trouble falling or staying asleep, or sleeping too much: not at all 4. Feeling tired or having little energy: not at all 5. Poor appetite or overeating: not at all 6. Feeling bad about yourself - or that you are a failure or have let yourself or your family down: not at all 7. Trouble concentrating on things, such as reading the newspaper or watching television: not at all 8. Moving or speaking so slowly that other people could have noticed. Or the opposite - being so fidgety or restless that you have been moving around a lot more than usual: not at all 9. Thoughts that you would be better off or of hurting yourself in some way: not at all Total score: 0 Depression Screening Interpretation: Negative Depression Screening Done: Yes 16848 - PHQ-9 Billing: Yes Source: Developed by Drs. Aaron Bettencourt, Rand Loja, James Pires and colleagues, with an educational tez from [employer]. Thrive Questionnaire Date Thrive assessed: 05/19/24 I am a: Patient What is your living situation today?: I have a steady place to live Within the past 12 months, did the food you bought not last and you didn't have the money to get more?: Never true Within the past 12 months, did you worry whether your food would run out before you got money to buy more?: Never true Do you have trouble paying for medicines?: No Do you have trouble getting transportation to medical appointments?: No Do you have trouble paying your heating and electricity bill?: No Do you have trouble taking care of your child, family member or friend?: No Do you have trouble with day-to-day activities such as bathing, preparing meals, shopping, managing finances, etc.?: No Are you currently unemployed and looking for a job?: No Are you interested in more education?: No Please select the resources that you would like help with: None Currently or been in a relationship where the following occur: No concerns reported THRIVE Score: 0 AUDIT C Alcohol Use Questionnaire (AUDIT-C) 1. How often do you have a drink containing alcohol?: Never Total Score: 0 Score Reviewed/Action Taken: Yes JOHANNE-7 AMB Questionnaire JOHANNE-7 Date JOHANNE - 7 assessed: 05/19/24 Feeling nervous, anxious, or on edge: 0 = Not at all Not being able to stop or control worryin = Not at all Worrying too much about different things: 0 = Not at all Trouble relaxin = Not at all Being so restless that it is hard to sit still: 0 = Not at all Becoming easily annoyed or irritable: 0 = Not at all Feeling afraid as if something awful might happen: 0 = Not at all Total JOHANNE-7 score (0-4 normal; 5-9 mild; 10-14 moderate; 15-21 severe): 0 Source: Developed by Rand Nevarez Kurt Kroenke and colleagues, with an educational tez from [employer]. Review of Systems Const Denies chills, Denies fatigue, Denies fever(s) and Denies headache(s) ENT Denies dysphagia, Denies dizziness, Denies otalgia, Denies headache(s), Denies neck pain, Denies odynophagia and Denies sore throat Card Denies chest pain, Denies palpitations and Denies dyspnea Resp Denies chest congestion, Denies cough and Denies dyspnea GI Denies abdominal pain, Denies constipation, Denies dysphagia, Denies heartburn, Denies diarrhea, Denies nausea, Denies odynophagia and Denies vomiting Denies difficulty voiding, Denies nocturia, Denies dysuria and Denies urinary urgency Musc Details: increased pain in both feet, especially over the soles/plantar aspect Reports back pain, Reports arthralgias (on and off, in the left knee), Denies neck pain, Reports numbness (on and off over the tip of her fingers ) and Reports tingling (on and off over the tip of her fingers ) Skin/Breast Denies rash Neuro Denies dizziness, Denies headache(s), Reports numbness (on and off over the tip of her fingers ) and Reports tingling (on and off over the tip of her fingers ) Endo Denies fatigue and Denies palpitations Physical exam (Primary Care) Vital Signs: Last Vital Signs Temp 97.3 F 05/19/24 14:15 Pulse 66 05/19/24 14:15 BP 110/72 05/19/24 14:15 Pulse Ox 95 05/19/24 14:15 Oxygen Delivery Method Room Air 05/19/24 14:15 BMI result Body Mass Index 28.8 Tobacco/Smoking Status: Tobacco use Status Tobacco use date assessed 05/19/24 05/19/24 14:20 Patient Tobacco Use Status Former Tobacco user 05/19/24 14:20 e-Cigarette/Vaping Use Never Used 05/19/24 14:20 PHQ-9: PHQ-9 Score PHQ-9: Total score 0 05/19/24 14:48 Depression Screening Interpretation: Negative Thrive Assessment: Date of Thrive Assessment Date Thrive assessed 05/19/24 05/19/24 14:20 Currently or been in a relationship where the following occur: No concerns reported Const General: no acute distress and alert HENMT Ears: TM normal on the left, EAC's normal and TM abnormal perforated without discharge on the right Throat: Yes posterior oropharynx normal and Yes tonsils normal (no TP congestion) Neck Neck: Yes supple and No lymphadenopathy Thyroid: Thyroid normal Resp Auscultation: clear to auscultation bilaterally, no rales and no wheezes Cardio Rate: regular rate Rhythm: regular rhythm Heart sounds: no murmurs GI Palpation (GI): Soft to palpation and nontender Auscultation: normal bowel sounds General: Yes no CVA tenderness Back/Spine/Pelvis Back: no CVA tenderness Thoracic/Lumbar Spine: lumbar spinal tenderness (mild) Skin Rashes: no rashes Extrem Other: (+) diffuse tenderness noted on palpation over the plantar aspect of both feet, including over the calcaneus but no nodules or lesions are appreciated General: Yes no clubbing, cyanosis or edema Left lower extremity: knee Details: tenderness (mild); no swelling Results Reviewed Results Reviewed: Laboratory Tests 05/14/24 05/14/24 08:09 08:10 WBC 8.2 Hgb 14.1 Hct 44.2 Plt Count 389 Sodium 146 H Potassium 4.6 Creatinine 0.76 Estimated GFR > 60 Fasting Glucose 93 Calcium 9.9 AST 25 ALT 28 Triglycerides 82 Cholesterol 148 LDL Cholesterol, Calc 78 HDL Cholesterol 54 Vitamin B12 698 25-OH Vitamin D Total 55.8 TSH 1.78 Ur Specific [place] 1.020 Urine Protein Negative Urine Glucose (UA) Negative Urine Blood Negative Urine Nitrite Negative Ur Leukocyte Esterase Small (1+) H Coding Level of Care Code Est Pt Level 4 (59834) Diagnoses Bilateral foot pain M79.671; M79.672 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 I25.119 Ischemic cardiomyopathy I25.5 Pure hypercholesterolemia E78.00 Tachycardia R00.0 Paresthesia of both hands R20.2 Vitamin D deficiency E55.9 Degeneration of intervertebral disc of lumbar region with discogenic back pain M51.360 Disc-related pain type: discogenic back pain only Arthralgia, unspecified joint M25.50 Joint pain location: unspecified Anxiety F41.9 Overweight (BMI 25.0-29.9) E66.3 Additional Codes PHQ-9 - 50303 - PHQ-9 Billing: Yes ([id number]) Assessment & Plan Assessment & Plan (1) Bilateral foot pain: Code(s): M79.671 - Pain in right foot; M79.672 - Pain in left foot Category: Medical Plan: Suspect neuropathy as at least a partial etiology of her recent increased pain in both feet X-rays of both feet done in December 2023 came out normal She has also been referred to podiatry for further evaluation and management but she has not been seen yet Will also now go ahead and send her for EMG and NCV of both lower extremities for further evaluation (2) 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 Repeat study done at [facility] in 08/2020 showed normal imaging after exercise stress test at average estimated functional capacity. Mild small perfusion defects in the mid to basal anteroseptal wall and apex that improved on stress images, suggestive of artifact. LV function is borderline normal with an EF of 58% at rest and 52% with stress, with normal wall motion and thickening Code(s): I25.119 - Atherosclerotic heart disease of habematolel coronary artery with unspecified angina pectoris Category: Medical Plan: S/P STEMI in November 2021, with EKG (+) for ST elevations in the precordial leads and ST depression in the inferior leads; troponin I levels were significanty elevated at the time Coronary angiography done at [facility] on 12/15/21 revealed (+) total occlusion of the mid LAD with severe mid RCA stenosis Patient underwent PCI of the mid LAD on 12/15/21 with a single DESMOND and staged PCI of the mid RCA 3 days later on 12/18/21 with a single DESMOND Echocardiogram done on 12/17/21 revealed severely reduced LV systolic function at 20 to 25% with regional wall abnormalities in the LAD territory Patient also had NSTEMI, S/P angioplasty (PTCA) back in 02/2016; myocardial perfusion study done on 07/25/2017 was normal Continue Aspirin 81 mg QD and Clopidogrel 75 mg QD - she was switched out from Brilinta 90 mg BID as patient was complaining of the high cost of the Rx Continue Metoprolol ER 50 mg BID and Entresto 24-26 mg BID Follow up with cardiology as scheduled (3) Ischemic cardiomyopathy: Code(s): I25.5 - Ischemic cardiomyopathy Category: Medical Plan: Echocardiogram done back in January 2023 revealed that the left ventricular systolic function is mildly decreased, with the visually estimated ejection fraction between 40-45%. There are no obvious valvular pathology seen on this study Continue Metoprolol ER 50 mg BID and Entresto 24-26 mg BID Follow up with cardiology as scheduled (4) Pure hypercholesterolemia: Code(s): E78.00 - Pure hypercholesterolemia, unspecified Category: Medical Plan: Results of her labs done a few days ago reviewed and discussed with patient Reinforced low cholesterol diet Continue Praluent 75 mg Q 14 days and Ezetimibe 10 mg QD Patient could not tolerate statins, including Rosuvastatin and Pravastatin and Repatha in the past did not help much with her cholesterol Will recheck her fasting lipids and labs in 4 months for follow up (5) Tachycardia: Comment: Exercise stress test done at [facility] recently showed abnormal exercise tolerance test with mild abnormality of exercise physiology but no EKG evidence of ischemia Myocardial perfusion study done a few weeks ago showed normal imaging after exercise stress test at average estimated functional capacity. Mild small perfusion defects in the mid to basal anteroseptal wall and apex that improved on stress images, suggestive of artifact. LV function is borderline normal with an EF of 58% at rest and 52% with stress, with normal wall motion and thickening Code(s): R00.0 - Tachycardia, unspecified Category: Medical Plan: Patient was experiencing on and off episodes of tachycardia/ heart racing for a few months but this seems to have subsided She had a 24-hour Holter ordered by cardiology and done a few months ago - Holter came out normal Have advised patient the if her symptoms recur, she should reach out again to cardiology regarding her symptoms and she may need to be worked up further (6) Paresthesia of both hands: Code(s): R20.2 - Paresthesia of skin Category: Medical Plan: Vitamin B12 level was normal when previously checked EMG and NCV of the upper extremities done back in March 2023 revealed (+) mild bilateral median neuropathy across carpal tunnel and mild left ulnar neuropathy across the cubital tunnel Will consider referring her to Orthopedics for further management if her symptoms continue to get worse (7) Vitamin D deficiency: Code(s): E55.9 - Vitamin D deficiency, unspecified Category: Medical Plan: Continue Vitamin D3 1000 units QD (8) Lumbar degenerative disc disease: Code(s): M51.36 - Other intervertebral disc degeneration, lumbar region Category: Medical Qualifiers: Disc-related pain type: discogenic back pain only Qualified Code(s): M51.360 - Other intervertebral disc degeneration, lumbar region with discogenic back pain only Plan: Reinforced activity and weight lifting restrictions Lumbar spine MRI done at [facility] back in February 2020 revealed (+) transitional segment anatomy and lumbar spine degenerative disease with left L4- L5 lateral recess stenosis and possible traversing left L5 nerve root impingement Follow up with Pain Management as scheduled or as needed (9) Arthralgia: Code(s): M25.50 - Pain in unspecified joint Category: Medical Qualifiers: Joint pain location: unspecified Qualified Code(s): M25.50 - Pain in unspecified joint Plan: Follow up with rheumatology as scheduled Has also been seen by orthopedics recently for her left knee pain and advised to follow up with them as needed Patient has also been seeing pain management for her low back pain and joint pains (10) Anxiety: Code(s): F41.9 - Anxiety disorder, unspecified Category: Medical Plan: Patient feels that she is doing well presently although still has frequent wide swings in her blood pressure readings, which were thought to be related to her anxiety in the past She was started on a trial of Escitalopram 5 mg QD a few months ago to see if this will help control her anxiety better - patient stopped taking it after 1 dose as she felt that this Rx caused her BP and HR to increase further and does not wish to start or try anything else for now (11) Overweight (BMI 25.0-29.9): Code(s): E66.3 - Overweight Category: Medical Plan: Reinforced diet/exercise as tolerated/lose weight Plan Follow up in 4 months Orders: Orders NE electromyogram (EMG) 05/19/24 M79.671 - Pain in right foot, M79.672 - Pain in left foot Complete Blood Count Auto Diff 4 Months D64.9 - Anemia, unspecified Vitamin B12 and Folate 4 Months E53.8 - Deficiency of other specified B group vitamins TSH reflex Free T4 4 Months E78.00 - Pure hypercholesterolemia, unspecified NE nerve conduction velocity 05/19/24 M79.671 - Pain in right foot, M79.672 - Pain in left foot Lipid Panel 4 Months E78.00 - Pure hypercholesterolemia, unspecified Comprehensive [place]. Panel Fast 4 Months E78.00 - Pure hypercholesterolemia, unspecified UA CC w/rflx Micro + Cult 4 Months R30.0 - Dysuria Uric Acid 4 Months M79.671 - Pain in right foot, M79.672 - Pain in left foot
[2024-05-19 14:15] VITALS: BP 110/72; PULSE 66; TEMP 36.3; O2SAT 95; BMI 28.8
== END 2024-05-19 14:59 | disposition home or self-care (01) ==
PROVIDERS: PCP Internal Medicine; Visit Provider Internal Medicine
DX: M79.671 Pain in right foot (principal); M79.672 Pain in left foot; I25.119 Atherosclerotic heart disease of native coronary artery with unspecified angina pectoris; I25.5 Ischemic cardiomyopathy; E78.00 Pure hypercholesterolemia, unspecified; R00.0 Tachycardia, unspecified; R20.2 Paresthesia of skin; E55.9 Vitamin D deficiency, unspecified; M51.360 Other intervertebral disc degeneration, lumbar region with discogenic back pain only; M25.50 Pain in unspecified joint; F41.9 Anxiety disorder, unspecified; E66.3 Overweight

== ENCOUNTER → 2024-05-19 14:05 | Outpatient (BNVA) | payer OTHER, SELFPAY | PROVIDERS: PCP Internal Medicine; Visit Provider Internal Medicine | DX: M79.671 Pain in right foot (principal); M79.672 Pain in left foot; I25.119 Atherosclerotic heart disease of native coronary artery with unspecified angina pectoris; I25.5 Ischemic cardiomyopathy; E78.00 Pure hypercholesterolemia, unspecified; R00.0 Tachycardia, unspecified; R20.2 Paresthesia of skin; E55.9 Vitamin D deficiency, unspecified; M51.360 Other intervertebral disc degeneration, lumbar region with discogenic back pain only; F41.9 Anxiety disorder, unspecified; E66.3 Overweight | CPT/HCPCS: 96127; 99212 ==

== ENCOUNTER 2024-07-02 14:28 | Outpatient (REF) | payer OTHER, SELFPAY ==
--- NOTE | 2024-07-02 14:34 | EMG_ITS ---
Chief complaint: Bilateral feet pain and numbness Reason for referral: Evaluate for neuropathy Referred by: Dr. Garcia Procedure done: Bilateral lower extremity NCS/EMG Precautions and/or limitations: None The limb temperature was monitored continuously and remained between 32-36 degrees C during the performance of the NCS. Nerve Conduction Studies Anti Sensory Summary Table ?Stim Site NR Onset (ms) Norm Onset (ms) Peak (ms) Norm Peak (ms) O-P Amp (?V) Norm O-P Amp Site1 Site2 Delta-0 (ms) Dist (cm) Silviano (m/s) Norm Silviano (m/s) Left Sural Anti Sensory (Lat Mall) Calf ? 2.9 3.5 <4.0 6.4 >5.0 Calf Lat Mall 2.9 14.0 48 Right Sural Anti Sensory (Lat Mall) Calf ? 2.6 3.5 <4.0 5.0 >5.0 Calf Lat Mall 2.6 14.0 54 Motor Summary Table ?Stim Site NR Onset (ms) Norm Onset (ms) O-P Amp (mV) Norm O-P Amp iAmp (mV) Amp (1st) (%) Site1 Site2 Delta-0 (ms) Dist (cm) Silviano (m/s) Norm Silviano (m/s) Left Peroneal Motor (Ext Dig Brev) Ankle ? 4.8 <4.0 4.9 >2.5 6.3 100.0 Ankle Ext Dig Brev 4.8 0.0 B Fib ? 10.9 4.9 6.0 100.0 B Fib Ankle 6.1 30.0 49 >40 Poplt ? 11.6 5.7 7.5 116.3 Poplt B Fib 0.7 4.0 57 >40 Right Peroneal Motor (Ext Dig Brev) Ankle ? 4.6 <4.0 4.1 >2.5 4.6 100.0 Ankle Ext Dig Brev 4.6 0.0 B Fib ? 10.3 3.3 3.8 80.5 B Fib Ankle 5.7 27.5 48 >40 Poplt ? 11.3 3.7 4.2 90.2 Poplt B Fib 1.0 5.0 50 >40 Left Tibial Motor (Abd Catalan Brev) Ankle ? 3.7 <5 8.1 >2.5 13.5 100.0 Ankle Abd Catalan Brev 3.7 0.0 Knee ? 11.5 6.6 10.2 81.5 Knee Ankle 7.8 33.0 42 >40 Right Tibial Motor (Abd Catalan Brev) Ankle ? 3.4 <5 13.8 >2.5 20.1 100.0 Ankle Abd Catalan Brev 3.4 0.0 Knee ? 11.8 8.2 12.2 59.4 Knee Ankle 8.4 33.0 39 >40 EMG ?Side Muscle Nerve Root Ins Act Fibs Psw Amp Dur Poly Recrt Int Pat Comment Right AbdHallucis MedPlantar S1-2 Nml Nml Nml Nml Nml 0 Nml Complete Right AntTibialis Dp Br Peron L4-5 Nml Nml Nml Nml Nml 0 Nml Complete Right PostTibialis Tibial L5, S1 Nml Nml Nml Nml Nml 0 Nml Complete Right MedGastroc Tibial S1-2 Nml Nml Nml Nml Nml 0 Nml Complete Right VastusMed Femoral L2-4 Incr 1+ 1+ Nml Nml 0 Nml Complete Left AbdHallucis MedPlantar S1-2 Nml Nml Nml Nml Nml 0 Nml Complete Left AntTibialis Dp Br Peron L4-5 Nml Nml Nml Nml Nml 0 Nml Complete Left PostTibialis Tibial L5, S1 Nml Nml Nml Nml Nml 0 Nml Complete Left MedGastroc Tibial S1-2 Nml Nml Nml Nml Nml 0 Nml Complete Left VastusMed Femoral L2-4 Incr 1+ 1+ Nml Nml 0 Nml Complete Paraspinal EMG ?Side Muscle Nerve Root Ins Act Fibs Psw Comment Right Lumbar Upper Rami Nml Nml Nml Right Lumbar Mid Rami Nml Nml Nml Right Lumbar Lower Rami Nml Nml Nml Left Lumbar Upper Rami Nml Nml Nml Left Lumbar Mid Rami Nml Nml Nml Left Lumbar Lower Rami Nml Nml Nml FINDINGS: Bilateral peroneal nerves showed prolonged distal latency, normal amplitude and normal conduction velocity. No conduction block across fibular neck. Right tibial nerve showed normal distal latency, normal amplitude and slow conduction velocity. All other nerves tested were within normal. Concentric needle EMG was performed in selected muscles of the bilateral lower extremities and lumbar paraspinals. Study revealed signs of electric abnormalities as shown in the table above. Bilateral vastus medius showed increased insertional activity, PSWs and fibrillations. No denervation seen in paraspinals. IMPRESSION: 1. This is an abnormal study. 2. There are electrodiagnostic evidence suggestive of bilateral L4-5 radiculopathy. 3. There is no definitive electrodiagnostic evidence for peroneal neuropathy at fibular neck or peripheral neuropathy. CLINICAL COMMENT: Further clinical correlation recommended. Thank you for your kind referral. Susana Bowen MD, CELESTINO Board Certified, [place] Board of Physical Medicine and Rehabilitation (ABPMR) Board Certified, [place] Board of Electrodiagnostic Medicine (ABEM) CODIN [id number] x 2 MTDD
--- OUTSIDE RECORDS SUMMARY | 2024-07-02 17:48 | XMS_ITS | Encounter Summary ---
Author Organization [employer] Address [address] [place] [address] Care Team Providers Care Manager Filter Name Role Phone Unavailable Primary Care Provider Unavailabl e Reason for Visit * Reason Onset Date Comments Appointment 06/29/2022 Encounter Details Date Type Department Care Team (Late st Contact Info) Description 06/29/2022 Telephone [facility] [address] [place] [address] Kye Arenas DMD [address] [place] [address] Appointment Social History Tobacco Use Types Packs/Day Years Used Date Smoking Tobacco: Never Assessed Comments Unknown Sex and Gender Information Value Date Recorded Sex Assigned at Female 02/26/2022 10:14 AM EDT Legal Sex Female 10:14 AM EDT Gender Identity Female 02/26/2022 10:14 AM EDT Sexual Orientation Straight 02/26/2022 10 :14 AM EDT documented as of this encounter Miscellaneous Notes * Telephone Encounter - Nat Carmona - 06/29/2022 9:37 AM EST Patient checking in on status for appt with Dr. Arenas for next extractions DR documented in this encounter Plan of Treatment Not on file documented as of this encounter Visit Diagnoses Not on filedocumented in this encounter
--- OUTSIDE RECORDS SUMMARY | 2024-07-02 17:48 | XMS_ITS | Clinical Summary ---
Author Organization [facility] Address [address] [place] [address] Phone Care Team Providers Care Building Dismantler Name Role Phone Jamey Cast MD Primary Care Provider Allergies No known active allergies Medications bisacodyL (DULCOLAX) 5 mg EC tablet Take 2 tablets by mouth right before your first dose of liquid prep. 3 Active aspirin 81 mg EC tablet Take 81 mg by mouth. 6 Active ezetimibe (ZETIA) 10 mg tablet Take 10 mg by mouth. 2 Active metoprolol tartrate (LOPRESSOR) 25 mg tablet Take 25 mg by mouth daily. Active Vitamin C tablet Take 100 mg by mouth daily. Active vitamin E, dl,tocopheryl acet, (vitamin E, dl, acetate,) 45 mg (100 unit) capsule Take 100 Units by mouth daily. Active riboflavin (VITAMIN B2) 100 mg tablet Take 100 mg by mouth daily. Active magnesium glycinate 100 mg magnesium capsule Take 100 mg by mouth daily. Active phytonadione, vit K1, (vitamin k) 100 mcg tablet Take 100 mcg by mouth daily. Active cholecalciferol (VITAMIN D-3) 50 mcg (2,000 unit) capsule Take 1 tablet by mouth daily. 8 Active diclofenac (Voltaren Arthritis Pain) 1 % topical gel Apply 4 g topically 2 (two) times a day. 240 g 1 5 07/18/19 25 Active Active Problems Problem Noted Date Diagnosed Date Vertigo 03/18/2013 Obesity 03/18/2013 Hypertension 03/18/2013 Fibromyalgia 03/18/2013 Encounters Date Type Department Care Team Description 06/01/2024 3:30 PM EST Evaluation [address] [place] [phone] Donald Romero, PT Plantar fascial fibromatosis 05/18/2024 2:30 PM EST Office Visit Orthopedic Surgery - [place] [address] [facility] [address] [place] [phone] Stephen Boston, DPM Plantar fascial fibromatosis (Primary Dx); Neuritis of foot, unspecified laterality; Metatarsalgia of both feet from Last 3 Months Surgical History Surgery Date Site/Laterality Comments OTHER SURGICAL HISTORY 2009 PROCEDURE: LAPAROSCOPY PROCEDURE NEC OTHER SURGICAL HISTORY PROCEDURE: ME CARDIOT EXPL W/RMVL FB ATR/VENTR THRMB W/O BYP Medical History Medical History Date Comments Hypertension 03/18/2013 DX:Hypertension Obesity 03/18/2013 DX:Obesity Vertigo 03/18/2013 DX:Vertigo Fibromyalgia 03/18/2013 DX:Fibromyalgia [place] (myocardial infarction) (CMS/HCC) 2015 DX:[place] (myocardial infarction) (HCC) Heart attack (CMS/[facility]) DX:Heart attack (HCC) Family History Medical History Relation Name Comments Other cancer Aunt stomach Diabetes Brother Other cancer Brother sarcoma leg CABG Father Diabetes Father Hypertension Father Diabetes Mother Hypertension Mother Other: heart problems or a stroke Mother Diabetes Sister Hypertension Sister Cervical cancer Neg Hx Colon cancer Neg Hx Ovarian cancer Neg Hx Prostate cancer Neg Hx Relation Name Status Comments Aunt Brother Father Mother Sister Social History Tobacco Use Types Packs/Day Years Used Date Smoking Tobacco: Never Smokeless Tobacco: Never Alcohol Use Standard Drinks/Week Comments No 0 (1 standard drink = 0.6 oz pur e alcohol) Comments Unknown Sex and Gender Information Value Date Recorded Sex Assigned at Not on file Legal Sex Female 2:33 PM EST Gender Identity Not on file Sexual Orientation Not on file Obstetrics History Last Filed Vital Signs Vital Sign Reading Time Taken Comments Blood Pressure 125/83 09/16/2023 9:36 AM EDT Pulse 70 09/16/2023 9:36 AM EDT Temperature - - Respiratory Rate - - Oxygen Saturation - - Inhaled Oxygen Concentration - - Weight 71.2 kg (157 lb) 05/18/2024 2:37 PM EST Height 157.5 cm (5' 2 ) 09/16/2023 9:36 AM EDT Body Mass Index 28.72 09/16/2023 9:36 AM EDT Plan of Treatment Health Maintenance Due Date Last Done Comments Hepatitis B Vaccines (1 of 3 - 19+ 3-dose series) 01/05/1991 Cervical Cancer Screening: P ap Smear 04/15/2021 04/15/2018, 04/15/2018, 04/15/2018 Pneumococcal Vaccine: 50+ Years (1 of 1 - PCV) 01/05/2022 Zoster Vaccines (1 of 2) 01/05/2022 Cholesterol Screening (Lipid Panel) 04/07/2022 Depression Screening 04/07/2022 Social Influencers of Health Screening 04/07/2022 Hypertension/CHF/CAD Annual BMP Blood Test 04/13/2022 Breast Cancer Screening 07/12/2023 07/12/19, 07/24/2018, 07/22/2017 COVID-19 Vaccine (1 - 2023-2 5 season) 2023 Influenza Vaccine (#1) 2023 02/21/2016 DTaP,Tdap,and Td Vaccines (3 - Td or Tdap) 03/30/2029 03/30/2019, 02/10/2008 Colorectal Cancer Screening: Colonoscopy 12/23/2033 12/24/2023 HIV Screening Completed 08/29/2020 Hepatitis C Screening Completed 08/29/2020 HIB Vaccines Aged Out No longer eligi ble based on patient's age to complete this topic HPV Vaccines Aged Out No longer eligi ble based on patient's age to complete this topic Hepatitis A Vaccines Aged Out No long er eligible based on patient's age to complete this topic IPV Vaccines Aged Out No longer eligi ble based on patient's age to complete this topic MMR Vaccines Aged Out No longer eligi ble based on patient's age to complete this topic Meningococcal ACWY Vaccine Aged Out N o longer eligible based on patient's age to complete this topic Meningococcal B Vacine Aged Out No lo nger eligible based on patient's age to complete this topic Pneumococcal Vaccine: Pediatrics (0 to 5 Years) and At-Risk Patients (6 to 64 Years) Aged Out No longer eligible b ased on patient's age to complete this topic RSV Immunization Patients Under 20 months Aged Out No longer eligible b ased on patient's age to complete this topic Varicella Vaccines Aged Out No longer eligible based on patient's age to complete this topic Goals Goal Patient Goal Type Associated Problems Recent Progress Patient-Stated? Author get better General Yes Donald Romero PT PT STG X 8 VISITS General No Donald Romero PT Note: Pt will report a 2/10 pain level decrease on average Pt will improve SLHR rep strength to 18 reps on R and 10 reps on L Pt will be able to negotiate 5 steps reciprocally PT LTG x 15 visits General No Donald Romero PT Note: Pt will be able to consistently negotiate stairs reciprocally Pt will ambulate without antalgic gait when first standing Pt will improve walking capacity to >60 min to allow shopping Procedures Procedure Name Priority Date/Time Associated Diagnosis Comments COLONOSCOPY Routine 12/24/2023 [facility] SCREENING DIGITAL Routine 07/11/2021 8:01 AM EDT Encounter for screening mammogram for malignant neoplasm of breast HEPATITIS C SCREENING Routine 08/29/2020 HIV SCREENING Routine 08/29/2020 PAP SMEAR Routine 04/15/2018 from Last 3 Months or Most Recently Relevant to Health Maintenance Results * Colonoscopy (12/24/2023) Colonoscopy abstracted, no interpretation Anatomical Region Laterality Modality Other Historical Provider MD HEALTH MAINTENANCE Final Result * [facility] SCREENING DIGITAL (07/11/2021 8:01 AM EDT) Anatomical Region Laterality Modality Mammography 07/10/2021 2:28 PM EDT Narrative 07/11/2021 8:01 AM EDT [facility] Diagnostic Imaging Department [address] [place] [id number] Patient: ??LIANA CONCEPCION ?/Age/Sex: 1970 - 51 - F Unit#: ??[id number] ? Location/Status: ??SPDIMAM/REG CLI ? Mnemonic/Ordering Site: ??DIGSC/SPMAM Ordering Physician: ??JAMEY CAST MD Tad Screening Digital - 07/10/21 - 1605 INDICATION: SCREENING COMPARISON: [facility] mammograms dating back to ?? 05/26/2013 TECHNIQUE: CC and MLO views of the breasts were obtained, using full field digital mammography with 3D tomosynthesis views in the MLO projection. Computer aided detection with the Mobile Service Pros 7.2-H was employed. FINDINGS: The breasts contain heterogeneously dense tissues, which may lower sensitivity of mammography in this patient. No suspicious masses, suspicious microcalcifications, or areas of architectural distortion are identified. ??There are no secondary signs of breast malignancy. IMPRESSION: ??No specific mammographic evidence of breast malignancy. Lack of an imaging correlate should not deter or delay biopsy of a clinically significant palpable finding. BI-RADS ??- Category 1: Negative 3341F, 7025F Annual screening mammography is recommended. Patient entered into a reminder system with a target date for the next mammogram. ([id number] / [id number]) , ??[id number] Dictating Physician: ??LAURA KNOWLES MD Electronically Signed by: ??LAURA KNOWLES MD Dic Date/Time: ??07/11/21 0758 Sign date/Time: ??07/11/21 0801 Procedure Note Laura Knowles MD - 04/18/2022 [facility] Diagnostic Imaging Department [address] [place] [id number] Patient: YO CONCEPCIONISEL /Age/Sex: 1970 - 51 - F Unit#: [id number] Location/Status: SPDIMAM/REG CLI Mnemonic/Ordering Site: [facility] Ordering Physician: JAMEY CAST MD Tad Screening Digital - 07/10/21 - 1605 INDICATION: SCREENING COMPARISON: [facility] mammograms dating back to 05/26/2013 TECHNIQUE: CC and MLO views of the breasts were obtained, using full field digital mammography with 3D tomosynthesis views in the MLO projection. Computer aided detection with the Mobile Service Pros 7.2-H was employed. FINDINGS: The breasts contain heterogeneously dense tissues, which may lowersensitivity of mammography in this patient. No suspicious masses, suspicious microcalcifications, or areas ofarchitectural distortion are identified. There are no secondary signs of breastmalignancy. IMPRESSION: No specific mammographic evidence of breast malignancy. Lack of an imaging correlate should not deter or delay biopsy of aclinically significant palpable finding. BI-RADS - Category 1: Negative 3341F, 7025F Annual screening mammography is recommended. Patient entered into a reminder system with a target date for the next mammogram. [id number]) , [id number] Dictating Physician: LAURA KNOWLES MD Electronically Signed by: LAURA KNOWLES MD Dic Date/Time: 07/11/21 0758 Sign date/Time: 07/11/21 0801 Result [facility] Jamey Cast MD IMG BI PROCEDURES Final Resu lt * HIV Screening (08/29/2020) HIV Screening abstracted Historical Provider HEALTH MAINTENANCE Final Result * Hepatitis C Screening (08/29/2020) Hepatitis C Screening abstracted Historical Provider HEALTH MAINTENANCE Final Result * Pap smear (04/15/2018) 04/15/2018 Narrative HISTORICAL TESTING LAB RESULTING AGENCY - 04/24/2018 9:45 AM EST [id number] THINPREP PAP, IMAGED: NEGATIVE FOR SQUAMOUS INTRAEPITHELIAL LESION AND MALIGNANCY . REACTIVE CELLULAR CHANGES. ABUNDANT ACUTE INFLAMMATION. PILO JOSEPH , CT(ASCP) (CASE SCREENED 04 17 2018) DOOLRES KRISHNAN M.D. , PATHOLOGIST (CASE ELECTRONICALLY SIGNED 04 21 2018) RESULT OF APTIMA HIGH RISK HPV ASSAY: HIGH RISK HPV: ??NEGATIVE (SEROTYPES 16,18,31,33,35,39,45,51,52,56,58,59,66,68) COMPLETED ON 2018-04-17 ADEQUACY: SATISFACTORY ENDOCERVICAL/TRANSFORMATION ZONE COMPONENT PRESENT. SOURCE: THINPREP PAP HPV ANY DX: ??REFLEX 16 AND 18, CERVICAL, IMAGED CLINICAL INFORMATION: HPV ANY DIAGNOSIS. Z12.4, Z12.31, MENOPAUSE, PAP HX: NEGATIVE, LMP: 04/03/18 Result [facility] Eunice Leon CNM LAB CYTOLOGY ORDERABLES Final R esult HISTORICAL TESTING LAB RESULTING AGENCY from Last 3 Months or Most Recently Relevant to Health Maintenance Insurance [facility] [place] [address] Care Teams Building Dismantler Relationship Specialty Start Date End Date Jamey Cast MD [address] [place] [address] [address] [place] PCP - General Internal Medicine 07/02/12
--- OUTSIDE RECORDS SUMMARY | 2024-07-02 17:48 | XMS_ITS | Clinical Summary ---
Author Organization [facility] Address [address] [place] [address] [address] [place] [address] Care Team Providers Care Mat Sewer Name Role Phone Unavailable Primary Care Provider Unavailabl e Allergies Active Allergy Reactions Criticality Noted Date Comments Lisinopril 08/01/2022 Statins 08/01/2022 Social History Tobacco Use Types Packs/Day Years Used Date Smoking Tobacco: Never Smokeless Tobacco: Never Tobacco Cessation:Counseling Given: Not Answered Alcohol Use Standard Drinks/Week Comments Never 0 (1 standard drink = 0.6 oz pur e alcohol) Comments Unknown Sex and Gender Information Value Date Recorded Sex Assigned at Female 02/26/2022 10:14 AM EDT Legal Sex Female 10:14 AM EDT Gender Identity Female 02/26/2022 10:14 AM EDT Sexual Orientation Straight 02/26/2022 10 :14 AM EDT Last Filed Vital Signs Vital Sign Reading Time Taken Comments Blood Pressure 140/82 08/22/2022 10:03 AM EDT Pulse - - Temperature - - Respiratory Rate - - Oxygen Saturation - - Inhaled Oxygen Concentration - - Weight - - Height - - Body Mass Index - - Plan of Treatment Health Maintenance Due Date Last Done Comments CT Colonography 1972 Colonoscopy 1972 Colorectal Cancer Screening 1972 Dental Oral Exam 1972 Dental Prophylaxis 1972 Dental X-Ray: Bitewings 1972 Dental X-Ray: Full Mouth 1972 Depression Screening 1972 FIT DNA/Cologuard 1972 FIT 1972 FOBT 1972 HIV Screening 1972 Lipid Panel 1972 SDOH Screening 1972 Sigmoidoscopy 1972 Alcohol/Substance Use Screening 1984 Family Planning (PISQ) 01/05/1987 Hepatitis C Screening 01/05/1990 Hepatitis B Vaccines (1 of 3 - 19+ 3-dose series) 01/05/1991 Pap Smear 01/05/1993 Cervical Cancer Screening 01/05/2002 HPV/Cotest 01/05/2002 Mammogram 2012 Pneumococcal Vaccine: 50+ Years (1 of 1 - PCV) 01/05/2022 Zoster Vaccines (1 of 2) 01/05/2022 Tobacco Screening 08/23/2023 08/22/2022 COVID-19 Vaccine (1 - 2023-2 5 season) 2023 Influenza Vaccine (#1) 2023 02/21/2016 DTaP/Tdap/Td Vaccines (3 - T d or Tdap) 03/30/2029 03/30/2019, 02/10/2008 RSV Patients and Patients Aged 60 years or older (1 - 1-dose 75+ series) 01/05/2047 HIB Vaccines Aged Out No longer eligi [...] patient's age to complete this topic Meningococcal Vaccine Aged Out No sammy pretty eligible based on patient's age to complete this topic Pneumococcal Vaccine: Pediatrics (0 to 5 Years) and At-Risk Patients (6 to 49) Years) Aged Out No longer eligible b ased on patient's age to complete this topic RSV under 20 months Aged Out No longe r eligible based on patient's age to complete this topic Rotavirus Vaccines Aged Out No longer eligible based on patient's age to complete this topic Insurance DENTAL - [facility] PARTIAL (MEDICAID)
--- OUTSIDE RECORDS SUMMARY | 2024-07-02 17:48 | XMS_ITS | Encounter Summary ---
Author Organization [facility] Address [address] [facility] [address] [place] [address] Care Team Providers Care Learning And Development Administrator Name Role Phone Unavailable Primary Care Provider Unavailabl e Encounter Details Date Type Department Care Team (Latest Contact Info) Description 05/19/2019 Abstract C CONVERSIONS Dental, Provider, DDS Social History Tobacco Use Types Packs/Day Years Used Date Smoking Tobacco: Never Assessed Comments Unknown Sex and Gender Information Value Date Recorded Sex Assigned at Female 02/26/2022 10:14 AM EDT Legal Sex Female 10:14 AM EDT Gender Identity Female 02/26/2022 10:14 AM EDT Sexual Orientation Straight 02/26/2022 10 :14 AM EDT documented as of this encounter Plan of Treatment Not on file documented as of this encounter Visit Diagnoses Not on filedocumented in this encounter
== END 2024-07-02 14:29 | disposition home or self-care (01) ==
LOC: HO.NEURO 14:28
PROVIDERS: PCP Internal Medicine; Visit Provider Internal Medicine
DX: M79.671 Pain in right foot (principal); M79.672 Pain in left foot
CPT/HCPCS: 95886; 95909

== ENCOUNTER → 2024-07-02 14:34 | Outpatient (BNV) | payer OTHER, SELFPAY | PROVIDERS: PCP Internal Medicine; Visit Provider Physical Medicine & Rehabilitation | DX: M54.16 Radiculopathy, lumbar region (principal) | CPT/HCPCS: 95886; 95909 ==

== ENCOUNTER 2024-09-04 11:00 | Outpatient (AMB) | payer OTHER, SELFPAY ==
--- NOTE | 2024-09-04 11:06 | MHC.OFFVIS ---
Vital Signs 09/04/24 11:07 Height 5 ft 2 in Weight 143 lb 4.807 oz BMI 26.2 BP 137/77 Blood Pressure Location Lt brachial Position Sitting Pulse 72 Intake Visit Reasons: abdominal pains Intake Note: Susy presents in the office as a new patient for abdominal pains. Physician Relations Specialist Required: No Allergies lisinopril Allergy (Unknown, Verified 09/04/24 11:10) angioedema, throat swelling pravastatin Allergy (Unknown, Verified 09/04/24 11:10) myalgia, angioedema rosuvastatin Adverse Reaction (Unknown, Verified 09/04/24 11:10) myalgia HPI Comments Details: 54 y.o F with PMH of who is here for abd pain, bloating, nausea that has now resolved. Pt reports sx developed abd discomfort melia post prandially assoc with nausea and bloating x 3-4 months ago. Assoc with constipation. However since losing almost 10 lbs in 2 months through exercise and diet has been feeling better. Has been watching her carb intake. Last colo in 2023 in [facility] - was told no polyps and 10 year recall given. 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 Surgical History (Updated 09/04/24 @ 11:09 by MIKE Knowles) Hx of colonoscopy History of esophagogastroduodenoscopy (EGD) Stented coronary artery History of cardiac catheterization Family History Father Diabetes Hypertension Hypercholesteremia Mother Hypertension Diabetes Hypercholesteremia Family/Other FH: mental illness Other Mental health disorder Social History Housing: House Alcohol intake: never Patient Tobacco Use Status: Former Tobacco user e-Cigarette/Vaping Use: Never Used Second Hand Smoke Exposure: Yes service: No Current occupational status: employed 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 Cognitive needs: No Hearing needs: No Vision needs: No Review of Systems Const All systems reviewed & are unremarkable except as noted in HPI and below Physical Exam Vital Signs: Last Vital Signs Pulse 72 09/04/24 11:07 BP 137/77 09/04/24 11:07 BMI result Body Mass Index 26.2 No apparent distress Nonicteric Abdomen soft, nondistended Alert and oriented x3, normal gait Assessment & Plan Assessment & Plan (1) Abdominal pain: Code(s): R10.9 - Unspecified abdominal pain Category: Medical Qualifiers: Abdominal location: periumbilical Qualified Code(s): R10.33 - Periumbilical pain Plan HISTORY of abd pain, nausea and blaoting that has resolved now since losing 10 lbs over hte past two months. Currently no acute GI issues. Up to date on colorectal ca screening. PRN follow up. Coding Level of Care Code New Pt Level 3 (12346) Diagnoses Periumbilical abdominal pain R10.33 Abdominal location: periumbilical
[2024-09-04 11:07] VITALS: BP 137/77; PULSE 72; BMI 26.2
--- OUTSIDE RECORDS SUMMARY | 2024-09-04 11:33 | XMS_ITS | Encounter Summary ---
Author Organization [employer] Address [address] [facility] 7t [place] [address] Care Team Providers Care Repossessor Name Role Phone Unavailable Primary Care Provider Unavailabl e Reason for Visit * Reason Onset Date Comments Appointment 06/29/2022 Encounter Details Date Type Department Care Team (Late st Contact Info) Description 06/29/2022 Telephone [facility] [address] [place] [address] Kye Arenas DMD [address] [place] [address] Appointment Social History Tobacco Use Types Packs/Day [...]
--- OUTSIDE RECORDS SUMMARY | 2024-09-04 11:33 | XMS_ITS | Clinical Summary ---
Author Organization [employer] [facility] Address [address] [facility] [address]t [place] [address] Care Team Providers Care Gas Station Service Attendant Name Role Phone Unavailable Primary Care Provider [...]
--- OUTSIDE RECORDS SUMMARY | 2024-09-04 11:33 | XMS_ITS | Encounter Summary ---
Author Organization [facility] Address [address] [facility] 7t [place] [address] Care Team Providers Care Coffee Maker Servicer Name Role Phone Unavailable Primary Care Provider [...]
--- OUTSIDE RECORDS SUMMARY | 2024-09-04 11:33 | XMS_ITS | Clinical Summary ---
Author Organization 175 [facility] Address [address] [place] [address] Phone Care Team Providers Care Internet Marketing Director Name Role Phone Jamey Cast MD Primary Care Provider Allergies No known active allergies Medications bisacodyL (DULCOLAX) 5 mg EC tablet Take 2 tablets by mouth right before your first dose of liquid prep. 07/17/2022 Active aspirin 81 mg EC tablet Take 81 mg by mouth. 03/22/2016 Active ezetimibe (ZETIA) 10 mg tablet Take 10 mg by mouth. 12/20/2021 Active metoprolol tartrate (LOPRESSOR) 25 mg tablet [...] capsule Take 1 tablet by mouth daily. 04/15/2018 Active Active Problems Problem Noted Date Diagnosed Date Vertigo 03/18/2013 Obesity 03/18/2013 Hypertension 03/18/2013 Fibromyalgia 03/18/2013 Surgical History Surgery Date Site/Laterality Comments OTHER SURGICAL HISTORY 2009 PROCEDURE: LAPAROSCOPY PROCEDURE NEC OTHER SURGICAL HISTORY PROCEDURE: NM CARDIOT EXPL W/RMVL FB ATR/VENTR THRMB W/O BYP Medical History Medical History Date Comments Hypertension 03/18/2013 DX:Hypertension Obesity 03/18/2013 DX:Obesity Vertigo 03/18/2013 DX:Vertigo Fibromyalgia 03/18/2013 DX:Fibromyalgia [place] (myocardial infarction) ( CMS/HCC V24, CMS/HCC V28) 2015 DX:[place] (myocardial infarction ) (HCC) Heart attack (CMS/HCC V24, CMS/HCC V28) DX:Heart attack (HCC) Family History Medical History [...] Screening 07/12/2023 07/12/19, 07/24/2018, 07/22/2017 COVID-19 Vaccine (2023-2 5 season) 2023 Influenza Vaccine (Season Ended) 2024 02/21/2016 DTaP,Tdap,and Td Vaccines (3 - Td [...] age to complete this topic Meningococcal B Vaccine Aged Out No l onger eligible based on patient's age to complete [...] STG X 8 VISITS General No Donald Romero, PT Note: Pt will report a 2/10 [...] Date/Time Associated Diagnosis Comments COLONOSCOPY Routine 12/24/2023 [facility] SCREENING DIGITAL Routine 07/11/2021 8:01 AM EDT Encounter for screening mammogram for malignant neoplasm of breast HEPATITIS C SCREENING Routine 08/29/2020 HIV SCREENING Routine 08/29/2020 PAP SMEAR Routine 04/15/2018 from Last 3 Months or Most Recently Relevant to Health Maintenance Results * Colonoscopy (12/24/2023) Colonoscopy abstracted, no interpretation Anatomical Region Laterality Modality Other us Historical Provider MD HEALTH MAINTENANCE Final Result * [facility] SCREENING DIGITAL (07/11/2021 8:01 AM EDT) Anatomical Region Laterality Modality Mammography 07/10/2021 2:28 PM EDT Narrative 07/11/2021 8:01 AM EDT [facility] Diagnostic Imaging Department [address] [place], [place] [id number] Patient: ??LIANA CONCEPCION ?/Age/Sex: 1970 - 51 - F Unit#: ??[id number] ? Location/Status: ??SPDIMAM/REG CLI ? Mnemonic/Ordering Site: ??DIGSC/SPMAM Ordering Physician: ??JAMEY CAST MD Tad Screening Digital - 07/10/21 - 1605 INDICATION: SCREENING COMPARISON: [facility] mammograms dating back to ?? 05/26/2013 TECHNIQUE: CC and MLO views of the breasts were obtained, using full field digital mammography with 3D tomosynthesis views in the MLO projection. Computer aided detection with the [employer].2-H was employed. FINDINGS: The breasts contain heterogeneously [...] date for the next mammogram. (G0202 / 67400) , ??[id number] Dictating Physician: ??LAURA KNOWLES MD Electronically Signed by: ??LAURA KNOWLES MD Dic Date/Time: ??07/11/21 0758 Sign date/Time: ??07/11/21 0801 Procedure Note Laura Knowles MD - 04/18/2022 [facility] Diagnostic Imaging Department [address] [place] [address] Patient: KATIALIANA /Age/Sex: 1970 - 51 - F Unit#: [id number] Location/Status: SPDIMAM/REG CLI Mnemonic/Ordering Site: DIGSC/SPMAM Ordering Physician: JAMEY CAST MD Tad Screening Digital - 07/10/21 - 1605 INDICATION: SCREENING COMPARISON: [facility] mammograms dating back to 05/26/2013 TECHNIQUE: CC and MLO views of the breasts were obtained, using full field digital mammography with 3D tomosynthesis views in the MLO projection. Computer aided detection with the [employer] 7.2-H was employed. FINDINGS: The breasts contain [...] a target date for the next mammogram. G0994 / 03663) , [id number] Dictating Physician: LAURA KNOWLES MD Electronically Signed by: LAURA KNOWLES MD Dic Date/Time: 07/11/21 0758 Sign date/Time: 07/11/21 0801 Jamey Cast MD IMG BI PROCEDURES Final Resu lt * HIV Screening (08/29/2020) HIV Screening abstracted Historical Provider HEALTH MAINTENANCE Final Result * Hepatitis C Screening (08/29/2020) Pathologist [facility] Hepatitis C Screening abstracted Noah Provider HEALTH MAINTENANCE Final Result * Pap smear (04/15/2018) 04/15/2018 Narrative HISTORICAL TESTING LAB RESULTING AGENCY - 04/24/2018 9:45 AM EST [id number] THINPREP PAP, IMAGED: NEGATIVE FOR SQUAMOUS INTRAEPITHELIAL LESION AND MALIGNANCY . REACTIVE CELLULAR CHANGES. ABUNDANT ACUTE INFLAMMATION. CONRADO SENIOR(ASCP) (CASE SCREENED 04 17 2018) DOLORES KRISHNAN M.D. , PATHOLOGIST (CASE ELECTRONICALLY SIGNED 04 21 2018) RESULT OF APTIMA HIGH RISK HPV ASSAY: HIGH RISK HPV: ??NEGATIVE (SEROTYPES 16,18,31,33,35,39,45,51,52,56,58,59,66,68) COMPLETED ON 2018-04-17 ADEQUACY: SATISFACTORY ENDOCERVICAL/TRANSFORMATION ZONE COMPONENT PRESENT. SOURCE: THINPREP PAP HPV ANY DX: ??REFLEX 16 AND 18, CERVICAL, IMAGED CLINICAL INFORMATION: HPV ANY DIAGNOSIS. Z12.4, Z12.31, MENOPAUSE, PAP HX: NEGATIVE, LMP: 04/03/18 Eunice Leon [facility] LAB CYTOLOGY ORDERABLES Final R esult HISTORICAL TESTING LAB RESULTING AGENCY from Last 3 Months or Most Recently Relevant to Health Maintenance Insurance [facility] [employer] Care Teams Internet Marketing Director Relationship Specialty Start Date End Date Jamey Cast MD [address] [place] [address] [address] LAILA Zimmerman PCP - General Internal Medicine 07/02/12
== END 2024-09-04 11:30 | disposition home or self-care (01) ==
LOC: HO.HGI 11:01
PROVIDERS: PCP Internal Medicine; Visit Provider Internal Medicine
DX: R10.33 Periumbilical pain (principal)
CPT/HCPCS: 99203

== ENCOUNTER → 2024-09-04 11:00 | Outpatient (BNVA) | payer OTHER, SELFPAY | PROVIDERS: PCP Internal Medicine; Visit Provider Internal Medicine | DX: R10.33 Periumbilical pain (principal) | CPT/HCPCS: 99202 ==

== ENCOUNTER 2024-09-07 07:36 | Outpatient (REF) | payer OTHER, SELFPAY ==
--- OUTSIDE RECORDS SUMMARY | 2024-09-07 07:38 | XMS_ITS | Encounter Summary ---
Author Organization [employer] Address [address] [facility] 7t [place] [address] Care Team Providers Care Alliance Director Name Role Phone Unavailable Primary Care Provider Unavailabl e Reason for Visit * Reason Onset Date Comments Appointment 06/29/2022 Encounter Details Date Type Department Care Team (Late st Contact Info) Description 06/29/2022 Telephone [facility] ADULT DENTAL [address] [place] [address] Kye Arenas DMD [address] [place] [address] Appointment Social History Tobacco Use Types Packs/Day [...]
--- OUTSIDE RECORDS SUMMARY | 2024-09-07 07:38 | XMS_ITS | Encounter Summary ---
Author Organization [facility] Address [address] [facility] 7t [place] [address] Care Team Providers Care Aligning Inspector Name Role Phone Unavailable Primary Care Provider [...]
--- OUTSIDE RECORDS SUMMARY | 2024-09-07 07:38 | XMS_ITS | Clinical Summary ---
Author Organization 175 [facility] Address [address] [place] [address] Phone Care Team Providers Care Banana Expert Name Role Phone Jamey Cast MD Primary [...] LAPAROSCOPY PROCEDURE NEC OTHER SURGICAL HISTORY PROCEDURE: [place] CARDIOT EXPL W/RMVL FB ATR/VENTR THRMB W/O BYP Medical History Medical History Date Comments Hypertension 03/18/2013 DX:Hypertension Obesity 03/18/2013 DX:Obesity Vertigo 03/18/2013 DX:Vertigo Fibromyalgia 03/18/2013 DX:Fibromyalgia [place] (myocardial infarction) ( CMS/HCC V24, CMS/HCC V28) 2015 DX:[place] (myocardial infarction ) (HCC) Heart attack (CMS/HCC [...] Date/Time Associated Diagnosis Comments COLONOSCOPY Routine 12/24/2023 [facility] SCREENING DIGITAL Routine 07/11/2021 8:01 [...] Provider MD HEALTH MAINTENANCE Final Result * [facility] SCREENING DIGITAL (07/11/2021 8:01 AM EDT) Anatomical Region Laterality Modality Mammography 07/10/2021 2:28 PM EDT Narrative 07/11/2021 8:01 AM EDT [facility] Diagnostic Imaging Department [address] [place], [place] [id number] Patient: ??LIANA CONCEPCION ?/Age/Sex: 1970 - 51 - F Unit#: ??[id number] ? Location/Status: ??SPDIMAM/REG CLI ? Mnemonic/Ordering Site: ??DIGSC/SPMAM Ordering Physician: ??JAMEY CAST MD Tda Screening Digital - 07/10/21 - 1605 INDICATION: SCREENING COMPARISON: [facility] mammograms dating back to ?? 05/26/2013 TECHNIQUE: CC and MLO views of the breasts were obtained, using full field digital mammography with 3D tomosynthesis views in the MLO projection. Computer aided detection with the [employer].2-H was employed. FINDINGS: The breasts contain heterogeneously [...] date for the next mammogram. (G0202 / 61080) , ??[id number] Dictating Physician: ??LAURA KNOWLES MD Electronically Signed by: ??LAURA KNOWLES MD Dic Date/Time: ??07/11/21 0758 Sign date/Time: ??07/11/21 0801 Procedure Note Laura Knowles MD - 04/18/2022 [facility] Diagnostic Imaging Department [address] [place] [address] Patient: JAMEYLIANA /Age/Sex: 1970 - 51 - F Unit#: [id number] Location/Status: SPDIMAM/REG CLI Mnemonic/Ordering Site: DIGSC/SPMAM Ordering Physician: JAMEY CAST MD Tad Screening Digital - 07/10/21 - 1605 INDICATION: SCREENING COMPARISON: [facility] mammograms dating back to 05/26/2013 TECHNIQUE: CC and MLO views of the breasts were obtained, using full field digital mammography with 3D tomosynthesis views in the MLO projection. Computer aided detection with the [employer] 7.2-H was employed. FINDINGS: The breasts contain [...] a target date for the next mammogram. G0177 / 61866) , [id number] Dictating Physician: LAURA KNOWLES MD Electronically Signed by: LAURA KNOWLES MD Dic Date/Time: 07/11/21 0758 Sign date/Time: 07/11/21 0801 Jamey Cast MD IMG BI PROCEDURES Final Resu lt * HIV Screening (08/29/2020) HIV Screening abstracted Historical Provider HEALTH MAINTENANCE Final Result * Hepatitis C Screening (08/29/2020) Pathologist [facility] Hepatitis C Screening abstracted Noah Provider HEALTH MAINTENANCE Final Result * Pap smear (04/15/2018) 04/15/2018 Narrative HISTORICAL TESTING LAB RESULTING AGENCY - 04/24/2018 9:45 AM EST [id number] THINPREP PAP, IMAGED: NEGATIVE FOR SQUAMOUS INTRAEPITHELIAL [...] PAP HX: NEGATIVE, LMP: 04/03/18 Eunice Leon [facility] LAB CYTOLOGY ORDERABLES Final R esult HISTORICAL TESTING LAB RESULTING AGENCY from Last 3 Months or Most Recently Relevant to Health Maintenance Insurance [facility] Care Teams Banana Expert Relationship Specialty Start Date End Date Jamey Cast MD [address] [place] [address] [address] LAILA Zimmerman PCP - General Internal Medicine 07/02/12
--- OUTSIDE RECORDS SUMMARY | 2024-09-07 07:38 | XMS_ITS | Clinical Summary ---
Author Organization [employer] [facility] Address [address] [facility] 7t [place] [address] Care Team Providers Care Fuse Cutter Name Role Phone Unavailable Primary Care Provider [...]
[2024-09-07 07:49] LABS: MANUAL DIFF FLAG NO
[2024-09-07 08:19] LABS: Basophils Percent Auto 0.6 % (0-2); Eosinophils Absolute Auto 0.2 X10*3/uL (0.0-0.4); Eosinophils Percent Auto 2.2 % (0-4); Hematocrit 43.6 % (37.0-47.0); Hemoglobin 13.8 g/dl (12.0-16.0); Imm Gran Abs Auto 0.01 X10*3/uL (0.00-0.03); Imm Gran Pct Auto 0.1 % (0.0-0.4); Lymphocytes Absolute Auto 1.7 X10*3/uL (1.2-4.9); Lymphocytes Percent Auto 25.5 % (20-40); Mean Corpuscular HGB Conc 31.7 g/dl (31.0-35.0); Mean Corpuscular Volume 85.3 fL (80.0-98.0); Mean Platelet Volume 9.7 fL (9.4-12.3); Monocytes Absolute Auto 0.4 X10*3/uL (0.1-1.2); Monocytes Percent Auto 5.7 % (2-11); Neutrophils Absolute Auto 4.4 x10*3/uL (2.0-8.3); Neutrophils Percent Auto 65.9 % (45-73); Platelet Count 377 X10*3/uL (160-400); Red Blood Count 5.11 X10*6/uL (4.20-5.50); Red Cell Distribution Width 13.3 % (11.0-16.0); White Blood Count 6.7 X10*3/uL (4.8-10.8)
[2024-09-07 08:24] LABS: Appearance Urine Clear; Color Urine Yellow; Glucose Urine UA Negative (Negative); Leukocyte Esterase Urine Trace (Negative); Nitrite Urine Negative (Negative); UMIC TRIGGER UACC YES; Urine Blood Negative (Negative); Urine Ketones Negative (Negative); Urine Protein Negative (Neg-Trace)
[2024-09-07 08:29] LABS: Bacteria Urine None Seen (None Seen); Hyaline Casts Urine 0-2 /LPF (0-2); RBC Urine 0-2 /HPF (0-2); Squamous Epithelial Cell Urine 0-2 /HPF (0-2); WBC Urine 0-5 /HPF (0-5)
[2024-09-07 08:47] LABS: Alanine Aminotransferase 23 U/L (0-31); Albumin Level 4.2 g/dL (3.5-5.0); Anion Gap 13 (12-20); Aspartate Amino Transferase 25 U/L (5-31); Bilirubin Total 0.4 mg/dL (0.0-1.0); Blood Urea Nitrogen 21 mg/dL (9-16); Calcium 9.8 mg/dL (8.4-10.2); Carbon Dioxide 26 mmol/L (22-29); Chloride 109 mmol/L (96-108); Cholesterol 182 mg/dL (<200); Estimated Glomerular Filt Rate > 60; Glucose Fasting 96 mg/dL (60-99); HDL Cholesterol 53 mg/dL (>40); LDL Cholesterol Calculated 119 mg/dL (<100); Sodium 144 mmol/L (135-145); Total Protein 7.4 g/dL (6.5-8.0); Triglycerides 54 mg/dL (<150)
[2024-09-07 08:50] LABS: Alkaline Phosphatase 86 U/L (39-117)
[2024-09-07 09:03] LABS: TSH reflex Free T4 1.91 uIU/mL (0.32-4.0)
[2024-09-07 09:14] LABS: Folate 10.4 ng/mL (> or = 4.0); Vitamin B12 530 pg/mL (200-900)
== END 2024-09-07 07:37 | disposition home or self-care (01) ==
LOC: HO.LAB 07:36
PROVIDERS: PCP Internal Medicine; Visit Provider Internal Medicine
DX: D64.9 Anemia, unspecified (principal); E53.8 Deficiency of other specified B group vitamins; E78.00 Pure hypercholesterolemia, unspecified; M79.671 Pain in right foot; M79.672 Pain in left foot
CPT/HCPCS: 36415; 80053; 80061; 81001; 82607; 82746; 84443; 84550; 85025

== ENCOUNTER 2024-09-16 15:07 | Outpatient (AMB) | payer OTHER, SELFPAY ==
--- OUTSIDE RECORDS SUMMARY | 2024-09-16 15:10 | XMS_ITS | Clinical Summary ---
Author Organization 175 [facility] Address [address] [place] [address] Phone Care Team Providers Care Data Management Name Role Phone Jamey Cast MD Primary [...] LAPAROSCOPY PROCEDURE NEC OTHER SURGICAL HISTORY PROCEDURE: IN CARDIOT EXPL W/RMVL FB ATR/VENTR THRMB W/O BYP Medical History Medical History Date Comments Hypertension 03/18/2013 DX:Hypertension Obesity 03/18/2013 DX:Obesity Vertigo 03/18/2013 DX:Vertigo Fibromyalgia 03/18/2013 DX:Fibromyalgia [place] (myocardial infarction) ( CMS/HCC V24, CMS/HCC V28) 2015 DX:[place] (myocardial infarction ) (HCC) Heart attack (CMS/HCC [...] PM EDT Narrative 07/11/2021 8:01 AM EDT [facility] Diagnostic Imaging Department [address] [place], [place] [id number] Patient: ??LIANA CONCEPCION ?/Age/Sex: 1970 - 51 - F Unit#: ??[id number] ? Location/Status: ??SPDIMAM/REG CLI ? Mnemonic/Ordering Site: ??DIGSC/SPMAM Ordering Physician: ??JAMEY CAST MD Tad Screening Digital - 07/10/21 - 1605 INDICATION: SCREENING COMPARISON: [facility] mammograms dating back to ?? 05/26/2013 TECHNIQUE: CC and MLO views of the breasts were obtained, using full field digital mammography with 3D tomosynthesis views in the MLO projection. Computer aided detection with the [employer].2-H was employed. FINDINGS: The breasts contain heterogeneously [...] date for the next mammogram. (G0202 / 73744) , ??[id number] Dictating Physician: ??LAURA KNOWLES MD Electronically Signed by: ??LAURA KNOWLES MD Dic Date/Time: ??07/11/21 0758 Sign date/Time: ??07/11/21 0801 Procedure Note Laura Knowles MD - 04/18/2022 [facility] Diagnostic Imaging Department [address] [place] [address] Patient: JAMEYLIANA /Age/Sex: 1970 - 51 - F Unit#: [id number] Location/Status: SPDIMAM/REG CLI Mnemonic/Ordering Site: DIGSC/SPMAM Ordering Physician: JAMEY CAST MD Tad Screening Digital - 07/10/21 - 1605 INDICATION: SCREENING COMPARISON: [facility] mammograms dating back to 05/26/2013 TECHNIQUE: CC and MLO views of the breasts were obtained, using full field digital mammography with 3D tomosynthesis views in the MLO projection. Computer aided detection with the [employer] 7.2-H was employed. FINDINGS: The breasts contain [...] a target date for the next mammogram. G0678 / 19409) , [id number] Dictating Physician: LAURA KNOWLES MD Electronically Signed by: LAURA KNOWLES MD Dic Date/Time: 07/11/21 0758 Sign date/Time: 07/11/21 0801 Jamey Cast MD IMG BI PROCEDURES Final Resu lt * HIV Screening (08/29/2020) HIV Screening abstracted Historical Provider HEALTH MAINTENANCE Final Result * Hepatitis C Screening (08/29/2020) Pathologist [facility] Hepatitis C Screening abstracted Noah Provider HEALTH MAINTENANCE Final Result * Pap smear (04/15/2018) 04/15/2018 Narrative HISTORICAL TESTING LAB RESULTING AGENCY - 04/24/2018 9:45 AM EST [id number] THINPREP PAP, IMAGED: NEGATIVE FOR SQUAMOUS INTRAEPITHELIAL LESION AND MALIGNANCY . REACTIVE CELLULAR CHANGES. ABUNDANT ACUTE INFLAMMATION. CONRADO SENIRO(ASCP) (CASE SCREENED 04 17 2018) DOLORES KRISHNAN [...] PAP HX: NEGATIVE, LMP: 04/03/18 Eunice Leon [facility] LAB CYTOLOGY ORDERABLES Final R esult HISTORICAL TESTING LAB RESULTING AGENCY from Last 3 Months or Most Recently Relevant to Health Maintenance Insurance [facility] [employer] [facility]AN Care Teams Data Management Relationship Specialty Start Date End Date Jamey Cast MD [address] [place] [address] [address] LAILA Zimmerman PCP - General Internal Medicine 07/02/12
--- OUTSIDE RECORDS SUMMARY | 2024-09-16 15:10 | XMS_ITS | Clinical Summary ---
Author Organization [facility] [facility] Address [address] [facility] 7t [place] [address] Care Team Providers Care Tugboat Pilot Name Role Phone Unavailable Primary Care Provider [...] Panel 1970 SDOH Screening 1970 Sigmoidoscopy 1970 Disability Screening 1972 Alcohol/Substance Use Screening 1984 Family Planning [...]
--- OUTSIDE RECORDS SUMMARY | 2024-09-16 15:10 | XMS_ITS | Encounter Summary ---
Author Organization [facility] Address [address] [facility] 7t [place] [address] Care Team Providers Care Pumper Gager Name Role Phone Unavailable Primary Care Provider [...]
--- OUTSIDE RECORDS SUMMARY | 2024-09-16 15:10 | XMS_ITS | Encounter Summary ---
Author Organization [employer] Address [address] [facility] 7t [place] [address] Care Team Providers Care Camera Repairer Name Role Phone Unavailable Primary Care Provider Unavailabl e Reason for Visit * Reason Onset Date Comments Appointment 06/29/2022 Encounter Details Date Type Department Care Team (Late st Contact Info) Description 06/29/2022 Telephone [facility] ADULT D[facility]AL [address] [place] [address] Kye Arenas DMD [address] [place] [address] Appointment Social History Tobacco Use Types Packs/Day [...]
--- NOTE | 2024-09-16 15:15 | MHC.PC.OV ---
Vital Signs 09/16/24 15:16 Height 5 ft 2 in Weight 143 lb 4 oz BMI 26.2 BP 122/86 Blood Pressure Location Lt brachial Position Sitting Pulse 57 Pulse Source Pulse Oximeter Pulse Oximetry (%) 99 Oxygen Delivery Method Room Air Intake Visit Reasons: [facility] f/u Rn Field Required: No Accompanied by: Self / Same As Patient Allergies lisinopril Allergy (Unknown, Verified 09/16/24 15:50) angioedema, throat swelling pravastatin Allergy (Unknown, Verified 09/16/24 15:50) myalgia, angioedema rosuvastatin Adverse Reaction (Unknown, Verified 09/16/24 15:50) myalgia Medication List - Last Reconciled 09/16/24 by Jamey Garcia MD alirocumab (Praluent Pen) 75 mg subcut Q14D ascorbic acid (vitamin C) 500 mg PO DAILY aspirin (Ecotrin Low Strength) 81 mg PO DAILY blood pressure monitor As directed cholecalciferol (vitamin D3) 50 mcg PO DAILY coenzyme Q10 10 mg PO TID diclofenac sodium 1% (Arthritis Pain (diclofenac)) 4 grams topical QID lidocaine 5% 1 patch topical DAILY 30 days methocarbamol 750 mg PO BID PRN metoprolol succinate ER 50 mg (2 x 25 mg) PO BID sacubitril-valsartan 24-26 mg (Entresto) 1 tab PO BID [VIVISCAL PRO Take 2 tablets orally once a day; 90 days] Tobacco use date assessed: 09/16/24 Dental Screening Dental Screen Date: 09/16/24 Did you have a dental visit in the last 12 months?: No Did you have a dental problem in the last 6 months where you did not have access to dental care?: No Was dental information given to patient?: Patient has dentist HPI [facility] f/u HPI Details Patient comes in today for her follow up visit States that she feels okay She denies any headaches or dizziness Denies any chest pains, no increased SOB No nausea/vomiting, no abdominal pain No change in bowel habits noted She had her follow up labs done last week - to discuss her results States that she has lost a lot of weight (almost 15 pounds) since her last visit and is hoping that this helps with her cholesterol as well States that she stopped taking her cholesterol injections (Praluent) a couple of months ago as she is on SSI and has to pay $50 for each Rx refill for her Praluent States that she has been watching her diet closely and is hoping that this and her recent weight loss will help enough that she can stop taking her Praluent injections [facility] Medical History Benign essential hypertension Anxiety Tachycardia Visual impairment Throat pain Dizziness Overweight (BMI 25.0-29.9) Vitamin D deficiency Lumbar radiculopathy, chronic Lumbar degenerative disc disease Pityriasis rosea Pure hypercholesterolemia Coronary artery disease involving [place] coronary artery of [place] heart with angina pectoris Surgical History Hx of colonoscopy History of esophagogastroduodenoscopy (EGD) Stented coronary artery History of cardiac catheterization Family History Father Diabetes Hypertension Hypercholesteremia Mother Hypertension Diabetes Hypercholesteremia Family/Other FH: mental illness Other Mental health disorder Social History Housing: House Alcohol intake: never Patient Tobacco Use Status: Former Tobacco user e-Cigarette/Vaping Use: Never Used Second Hand Smoke Exposure: Yes service: No Current occupational status: employed 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 1. Little interest or pleasure in doing things: not at all 2. Feeling down, depressed, or hopeless: not at all 3. Trouble falling or staying asleep, or sleeping too much: not at all 4. Feeling tired or having little energy: several days 5. Poor appetite or overeating: not at all 6. Feeling bad about yourself - or that you are a failure or have let yourself or your family down: not at all 7. Trouble concentrating on things, such as reading the newspaper or watching television: not at all 8. Moving or speaking so slowly that other people could have noticed. Or the opposite - being so fidgety or restless that you have been moving around a lot more than usual: not at all 9. Thoughts that you would be better off or of hurting yourself in some way: not at all Total score: 1 Depression Screening Interpretation: Negative Depression Screening Done: Yes 67723 - PHQ-9 Billing: Yes Source: Developed by Drs. Aaron Bettencourt, Rand Loja, James Pires and colleagues, with an educational tez from [employer]. Thrive Questionnaire Date Thrive assessed: 09/16/24 I am a: Patient What is your living situation today?: I have a steady place to live Within the past 12 months, did the food you bought not last and you didn't have the money to get more?: Often true Within the past 12 months, did you worry whether your food would run out before you got money to buy more?: Often true Do you have trouble paying for medicines?: No Do you have trouble getting transportation to medical appointments?: No Do you have trouble paying your heating and electricity bill?: No Do you have trouble taking care of your child, family member or friend?: No Do you have trouble with day-to-day activities such as bathing, preparing meals, shopping, managing finances, etc.?: No Are you currently unemployed and looking for a job?: No Are you interested in more education?: No Please select the resources that you would like help with: None Currently or been in a relationship where the following occur: No concerns reported THRIVE Score: 2 AUDIT C Alcohol Use Questionnaire (AUDIT-C) 1. How often do you have a drink containing alcohol?: Never Total Score: 0 Score Reviewed/Action Taken: Yes JOHANNE-7 AMB Questionnaire JOHANNE-7 Date JOHANNE - 7 assessed: 09/16/24 Feeling nervous, anxious, or on edge: 0 = Not at all Not being able to stop or control worryin = Not at all Worrying too much about different things: 0 = Not at all Trouble relaxin = Not at all Being so restless that it is hard to sit still: 0 = Not at all Becoming easily annoyed or irritable: 0 = Not at all Feeling afraid as if something awful might happen: 0 = Not at all Total JOHANNE-7 score (0-4 normal; 5-9 mild; 10-14 moderate; 15-21 severe): 0 Source: Developed by Drs. Aaron Bettencourt, Rand Loja, James Pires and colleagues, with an educational tez from [employer]. Review of Systems Const Denies chills, Denies fatigue, Denies fever(s) and Denies headache(s) ENT Denies dysphagia, Denies dizziness, Denies otalgia, Denies headache(s), Denies neck pain, Denies odynophagia and Denies sore throat Card Denies chest pain, Denies palpitations and Denies dyspnea Resp Denies chest congestion, Denies cough and Denies dyspnea GI Denies abdominal pain, Denies constipation, Denies dysphagia, Denies heartburn, Denies diarrhea, Denies nausea, Denies odynophagia and Denies vomiting Denies difficulty voiding, Denies nocturia, Denies dysuria and Denies urinary urgency Musc Details: increased pain in both feet, especially over the soles/plantar aspect Reports back pain, Reports arthralgias (on and off, in the left knee) and Denies neck pain Skin/Breast Denies rash Neuro Denies dizziness and Denies headache(s) Endo Denies fatigue and Denies palpitations Physical exam (Primary Care) Vital Signs: Last Vital Signs Pulse 57 09/16/24 15:16 BP 122/86 09/16/24 15:16 Pulse Ox 99 09/16/24 15:16 Oxygen Delivery Method Room Air 09/16/24 15:16 BMI result Body Mass Index 26.2 Tobacco/Smoking Status: Tobacco use Status Tobacco use date assessed 09/16/24 09/16/24 15:22 Patient Tobacco Use Status Former Tobacco user 09/16/24 15:22 e-Cigarette/Vaping Use Never Used 09/16/24 15:22 PHQ-9: PHQ-9 Score PHQ-9: Total score 1 09/16/24 15:51 Depression Screening Interpretation: Negative Thrive Assessment: Date of Thrive Assessment Date Thrive assessed 09/16/24 09/16/24 15:22 Currently or been in a relationship where the following occur: No concerns reported Const General: no acute distress and alert HENMT Ears: TM normal on the left, EAC's normal and TM abnormal perforated without discharge on the right Throat: Yes posterior oropharynx normal and Yes tonsils normal (no TP congestion) Neck Neck: Yes supple and No lymphadenopathy Thyroid: Thyroid normal Resp Auscultation: clear to auscultation bilaterally, no rales and no wheezes Cardio Rate: regular rate Rhythm: regular rhythm Heart sounds: no murmurs GI Palpation (GI): Soft to palpation and nontender Auscultation: normal bowel sounds General: Yes no CVA tenderness Back/Spine/Pelvis Back: no CVA tenderness Thoracic/Lumbar Spine: lumbar spinal tenderness (mild) Skin Rashes: no rashes Extrem Other: (+) diffuse tenderness noted on palpation over the plantar aspect of both feet, including over the calcaneus but no nodules or lesions are appreciated General: Yes no clubbing, cyanosis or edema Left lower extremity: knee Details: tenderness (mild); no swelling Results Reviewed Results Reviewed: Laboratory Tests 09/07/24 09/07/24 07:41 07:45 WBC 6.7 Hgb 13.8 Hct 43.6 Plt Count 377 Sodium 144 Potassium 4.0 Creatinine 0.70 Estimated GFR > 60 Fasting Glucose 96 Uric Acid 4.0 Calcium 9.8 AST 25 ALT 23 Triglycerides 54 Cholesterol 182 LDL Cholesterol, Calc 119 H HDL Cholesterol 53 Vitamin B12 530 TSH 1.91 Ur Specific [place] 1.020 Urine Protein Negative Urine Glucose (UA) Negative Urine Blood Negative Urine Nitrite Negative Ur Leukocyte Esterase Trace H Coding Level of Care Code Est Pt Level 4 (22276) Complex EM visit Add On G2211 Diagnoses Coronary artery disease involving [place] coronary artery of [place] heart with angina pectoris I25.119 Ischemic cardiomyopathy I25.5 Pure hypercholesterolemia E78.00 Tachycardia R00.0 Bilateral foot pain M79.671; M79.672 Paresthesia of both hands R20.2 Vitamin D deficiency E55.9 Degeneration of intervertebral disc of lumbar region with discogenic back pain M51.360 Disc-related pain type: discogenic back pain only Arthralgia, unspecified joint M25.50 Joint pain location: unspecified Anxiety F41.9 Overweight (BMI 25.0-29.9) E66.3 Additional Codes PHQ-9 - 80347 - PHQ-9 Billing: Yes ([id number]) Assessment & Plan Assessment & Plan (1) Coronary artery disease involving [place] coronary artery of [place] heart with angina pectoris: Comment: Had NSTEMI, S/P angioplasty (PTCA) in 02/2016; myocardial perfusion study done on 07/25/2017 was normal. Repeat study done at [facility] in 08/2020 showed normal imaging after exercise stress test at average estimated functional capacity. Mild small perfusion defects in the mid to basal anteroseptal wall and apex that improved on stress images, suggestive of artifact. LV function is borderline normal with an EF of 58% at rest and 52% with stress, with normal wall motion and thickening Code(s): I25.119 - Atherosclerotic heart disease of [place] coronary artery with unspecified angina pectoris Category: Medical Plan: S/P STEMI in November 2021, with EKG (+) for ST elevations in the precordial leads and ST depression in the inferior leads; troponin I levels were significanty elevated at the time Coronary angiography done at [facility] on 12/15/21 revealed (+) total occlusion of the mid LAD with severe mid RCA stenosis Patient underwent PCI of the mid LAD on 12/15/21 with a single DESMOND and staged PCI of the mid RCA 3 days later on 12/18/21 with a single DESMOND Echocardiogram done on 12/17/21 revealed severely reduced LV systolic function at 20 to 25% with regional wall abnormalities in the LAD territory Patient also had NSTEMI, S/P angioplasty (PTCA) back in 02/2016; myocardial perfusion study done on 07/25/2017 was normal Continue Aspirin 81 mg QD and Clopidogrel 75 mg QD - she was switched out from Brilinta 90 mg BID as patient was complaining of the high cost of the Rx Continue Metoprolol ER 50 mg BID and Entresto 24-26 mg BID Follow up with cardiology as scheduled (2) Ischemic cardiomyopathy: Code(s): I25.5 - Ischemic cardiomyopathy Category: Medical Plan: Echocardiogram done back in January 2023 revealed that the left ventricular systolic function is mildly decreased, with the visually estimated ejection fraction between 40-45%. There are no obvious valvular pathology seen on this study Continue Metoprolol ER 50 mg BID and Entresto 24-26 mg BID Follow up with cardiology as scheduled (3) Pure hypercholesterolemia: Code(s): E78.00 - Pure hypercholesterolemia, unspecified Category: Medical Plan: Results of her labs done last week reviewed and discussed with patient - she is cautioned that her cholesterol levels have increased significantly from previous Reinforced low cholesterol diet She was on Praluent 75 mg Q 14 days and Ezetimibe 10 mg QD but she stopped taking her Rx a couple of months ago as she could not afford the high co-pay of her Rx Patient could not tolerate statins, including Rosuvastatin and Pravastatin and Repatha in the past did not help much with her cholesterol Will try starting her on Repatha instead; continue Ezetimibe 10 mg QD Will recheck her fasting lipids and labs in 4 months for follow up (4) Tachycardia: Comment: Exercise stress test done at [facility] recently showed abnormal exercise tolerance test with mild abnormality of exercise physiology but no EKG evidence of ischemia Myocardial perfusion study done a few weeks ago showed normal imaging after exercise stress test at average estimated functional capacity. Mild small perfusion defects in the mid to basal anteroseptal wall and apex that improved on stress images, suggestive of artifact. LV function is borderline normal with an EF of 58% at rest and 52% with stress, with normal wall motion and thickening Code(s): R00.0 - Tachycardia, unspecified Category: Medical Plan: Patient was experiencing on and off episodes of tachycardia/ heart racing for a few months but this seems to have subsided She had a 24-hour Holter ordered by cardiology and done a few months ago - Holter came out normal Have advised patient the if her symptoms recur, she should reach out again to cardiology regarding her symptoms and she may need to be worked up further (5) Bilateral foot pain: Code(s): M79.671 - Pain in right foot; M79.672 - Pain in left foot Category: Medical Plan: X-rays of both feet done in December 2023 came out normal EMG and NCV of the lower extremities done a couple of months ago in June 2024 revealed (+) electrodiagnostic evidence suggestive of bilateral L4-5 radiculopathy. There is no definitive electrodiagnostic evidence for peroneal neuropathy at fibular neck or peripheral neuropathy She was also referred to podiatry for further evaluation and management but she has not been seen yet (6) Paresthesia of both hands: Code(s): R20.2 - Paresthesia of skin Category: Medical Plan: Vitamin B12 level was normal when previously checked EMG and NCV of the upper extremities done back in March 2023 revealed (+) mild bilateral median neuropathy across carpal tunnel and mild left ulnar neuropathy across the cubital tunnel Will consider referring her to Orthopedics for further management if her symptoms continue to get worse (7) Vitamin D deficiency: Code(s): E55.9 - Vitamin D deficiency, unspecified Category: Medical Plan: Continue Vitamin D3 1000 units QD (8) Lumbar degenerative disc disease: Code(s): M51.36 - Other intervertebral disc degeneration, lumbar region Category: Medical Qualifiers: Disc-related pain type: discogenic back pain only Qualified Code(s): M51.360 - Other intervertebral disc degeneration, lumbar region with discogenic back pain only Plan: Reinforced activity and weight lifting restrictions Lumbar spine MRI done at [facility] back in February 2020 revealed (+) transitional segment anatomy and lumbar spine degenerative disease with left L4-L5 lateral recess stenosis and possible traversing left L5 nerve root impingement Follow up with Pain Management as scheduled or as needed (9) Arthralgia: Code(s): M25.50 - Pain in unspecified joint Category: Medical Qualifiers: Joint pain location: unspecified Qualified Code(s): M25.50 - Pain in unspecified joint Plan: Follow up with rheumatology as scheduled Has also been seen by orthopedics recently for her left knee pain and advised to follow up with them as needed Patient has also been seeing pain management for her low back pain and joint pains (10) Anxiety: Code(s): F41.9 - Anxiety disorder, unspecified Category: Medical Plan: Patient feels that she is doing well presently although still has frequent wide swings in her blood pressure readings, which were thought to be related to her anxiety in the past She was started on a trial of Escitalopram 5 mg QD a few months ago to see if this will help control her anxiety better - patient stopped taking it after 1 dose as she felt that this Rx caused her BP and HR to increase further and does not wish to start or try anything else for now (11) Overweight (BMI 25.0-29.9): Code(s): E66.3 - Overweight Category: Medical Plan: Reinforced diet/exercise as tolerated/lose weight Plan Follow up in 4 months Orders: Orders Complete Blood Count Auto Diff 4 Months D64.9 - Anemia, unspecified Comprehensive Jean. Panel Fast 4 Months E78.00 - Pure hypercholesterolemia, unspecified Lipid Panel 4 Months E78.00 - Pure hypercholesterolemia, unspecified Medications: New evolocumab (Repatha Syringe) Patient UNABLE to tolerate statins (Atorvastatin, Rosuvastatin, Pravastatin) - severe myalgia; S/P cardiac stenting and NEEDS to get LDL cholesterol 140 mg subcut Q2W 4 weeks 2 mL 3RF
[2024-09-16 15:16] VITALS: BP 122/86; PULSE 57; O2SAT 99; BMI 26.2
== END 2024-09-16 16:00 | disposition home or self-care (01) ==
PROVIDERS: PCP Internal Medicine; Visit Provider Internal Medicine
DX: I25.119 Atherosclerotic heart disease of native coronary artery with unspecified angina pectoris (principal); I25.5 Ischemic cardiomyopathy; E78.00 Pure hypercholesterolemia, unspecified; R00.0 Tachycardia, unspecified; M79.671 Pain in right foot; M79.672 Pain in left foot; R20.2 Paresthesia of skin; E55.9 Vitamin D deficiency, unspecified; M51.360 Other intervertebral disc degeneration, lumbar region with discogenic back pain only; M25.50 Pain in unspecified joint; F41.9 Anxiety disorder, unspecified; E66.3 Overweight

== ENCOUNTER → 2024-09-16 15:07 | Outpatient (BNVA) | payer OTHER, SELFPAY | PROVIDERS: PCP Internal Medicine; Visit Provider Internal Medicine | DX: I25.5 Ischemic cardiomyopathy (principal); I25.119 Atherosclerotic heart disease of native coronary artery with unspecified angina pectoris; E78.00 Pure hypercholesterolemia, unspecified; R00.0 Tachycardia, unspecified; M79.671 Pain in right foot; M79.672 Pain in left foot; R20.2 Paresthesia of skin; E55.9 Vitamin D deficiency, unspecified; M51.360 Other intervertebral disc degeneration, lumbar region with discogenic back pain only; M25.50 Pain in unspecified joint; F41.9 Anxiety disorder, unspecified; E66.3 Overweight; D64.9 Anemia, unspecified; Z68.26 Body mass index [BMI] 26.0-26.9, adult | CPT/HCPCS: 96127; 99212 ==

== ENCOUNTER 2024-12-11 14:23 | Outpatient (REF) | payer OTHER, SELFPAY ==
--- OUTSIDE RECORDS SUMMARY | 2024-12-11 14:26 | XMS_ITS | Clinical Summary ---
Author Organization [address] [facility] Address [address] [place] [address] Phone Care Team Providers Care Java Designer Name Role Phone Jamey Cast MD Primary [...] LAPAROSCOPY PROCEDURE NEC OTHER SURGICAL HISTORY PROCEDURE: SD CARDIOT EXPL W/RMVL FB ATR/VENTR THRMB W/O BYP Medical History Medical History Date Comments Hypertension 03/18/2013 DX:Hypertension Obesity 03/18/2013 DX:Obesity Vertigo 03/18/2013 DX:Vertigo Fibromyalgia 03/18/2013 DX:Fibromyalgia VT (myocardial infarction) ( CMS/HCC V24, CMS/HCC V28) 2015 DX:VT (myocardial infarction ) (HCC) Heart attack (CMS/HCC [...] 2) 01/05/2022 Cholesterol Screening (Lipid Panel) 04/07/2022 Social Influencers of Health Screening 04/07/2022 Hypertension/CHF/CAD Annual BMP Blood Test 04/13/2022 Breast Cancer Screening 07/12/2023 07/12/19, 07/24/2018, 07/22/2017 COVID-19 Vaccine (1 2023-2 5 season) 2023 Depression Screening 04/29/2024 Influenza Vaccine (#1) 2024 02/21/2016 DTaP,Tdap,and Td Vaccines (3 - [...] Patient-Stated? Author get better General Yes Donald Romero, PT PT STG X 8 VISITS General No Donald Romero, PT Note: Pt will report a 2/10 pain level decrease on average Pt will improve SLHR rep strength to 18 reps on R and 10 reps on L Pt will be able to negotiate 5 steps reciprocally PT LTG x 15 visits General No Donald Romero, PT Note: Pt will be able to consistently negotiate stairs reciprocally Pt will ambulate without antalgic gait when first standing Pt will improve walking capacity to >60 min to allow shopping Procedures Procedure Name Priority Date/Time Associated Diagnosis Comments HM COLONOSCOPY Routine 12/24/2023 TAD SCREENING DIGITAL Routine 07/11/2021 8:01 AM EDT Encounter for screening mammogram for malignant neoplasm of breast HEPATITIS C SCREENING Routine 08/29/2020 HIV SCREENING Routine 08/29/2020 PAP SMEAR Routine 04/15/2018 from Last 3 Months or Most Recently Relevant to Health Maintenance Results * Colonoscopy (12/24/2023) Colonoscopy abstracted, no interpretation Anatomical Region Laterality Modality Other us Historical Provider HEALTH MAINTENANCE Final Result * [facility] SCREENING DIGITAL (07/11/2021 8:01 AM EDT) Anatomical Region Laterality Modality Mammography 07/10/2021 2:28 PM EDT Narrative 07/11/2021 8:01 AM EDT [facility] Diagnostic Imaging Department [address] [place] [address] Patient: KATIALIANA /Age/Sex: 1970 - 51 - F Unit#: [id number] Location/Status: [facility] CLI [facility]emonic[facility] Order[facility] Physician: JAMEY CAST MD Tad Screening Digital - 07/10/21 - 1605 INDICATION: SCREENING COMPARISON: [facility] mammograms dating back to 05/26/2013 TECHNIQUE: CC and MLO views of the breasts were obtained, using full field digital mammography with 3D tomosynthesis views in the MLO projection. Computer aided detection with the ITegris 7.2-H was employed. FINDINGS: The breasts contain heterogeneously dense tissues, which may lower sensitivity of mammography in this patient. No suspicious masses, suspicious microcalcifications, or areas of architectural distortion are identified. There are no secondary signs of breast malignancy. IMPRESSION: No specific mammographic evidence of breast malignancy. Lack of an imaging correlate should not deter or delay biopsy of a clinically significant palpable finding. BI-RADS - Category 1: Negative 3341F, 7025F Annual screening mammography is recommended. Patient entered into a reminder system with a target date for the next mammogram. [id number] [id number]) , [id number] Dictating Physician: ISH KNOWLES MD Electronically Signed by: ISH KNOWLES MD Dic Date/Time: 07/11/21 0758 Sign date/Time: 07/11/21 0801 Procedure Note Ish Knowles MD - 04/18/2022 [facility] Diagnostic Imaging Department [address] [place] [address] Patient: LIANA CONCEPCION /Age/Sex: 1970 - 51 - F Unit#: [id number] [facility] Mnemonic/Ordering Site: [facility] Ordering Physician: JAMEY CAST MD Tad Screening Digital - 07/10/21 - 1605 INDICATION: SCREENING COMPARISON: [facility] mammograms dating back to 05/26/2013 TECHNIQUE: CC and MLO views of the breasts were obtained, using full field digital mammography with 3D tomosynthesis views in the MLO projection. Computer aided detection with the ITegris 7.2-H was employed. FINDINGS: The breasts contain [...] date for the next mammogram. (G0202 / 20661) , [id number] Dictating Physician: ISH KNOWLES MD Electronically Signed by: ISH KNOWLES MD Dic Date/Time: 07/11/21 0758 Sign date/Time: 07/11/21 0801 Jamey Cast MD IMG BI PROCEDURES Final Resu lt * HIV Screening (08/29/2020) HIV Screening abstracted Historical Provider HEALTH MAINTENANCE Final Result * Hepatitis C Screening (08/29/2020) Hepatitis C Screening abstracted Historical Provider HEALTH MAINTENANCE Final Result * Pap smear (04/15/2018) 04/15/2018 Narrative HISTORICAL TESTING LAB RESULTING AGENCY - 04/24/2018 9:45 AM EST [id number] THINPREP PAP, IMAGED: NEGATIVE FOR SQUAMOUS INTRAEPITHELIAL LESION AND MALIGNANCY . REACTIVE CELLULAR CHANGES. ABUNDANT ACUTE INFLAMMATION. PILO JOSEPH , CT(ASCP) (CASE SCREENED 04 17 2018) DOLORES KRISHNAN M.D. , PATHOLOGIST (CASE ELECTRONICALLY SIGNED 04 21 2018) RESULT OF APTIMA HIGH RISK HPV ASSAY: HIGH RISK HPV: NEGATIVE (SEROTYPES 16,18,31,33,35,39,45,51,52,56,58,59,66,68) COMPLETED ON 2018-04-17 ADEQUACY: SATISFACTORY ENDOCERVICAL/TRANSFORMATION ZONE COMPONENT PRESENT. SOURCE: THINPREP PAP HPV ANY DX: REFLEX 16 AND 18, CERVICAL, IMAGED CLINICAL INFORMATION: HPV ANY DIAGNOSIS. Z12.4, Z12.31, MENOPAUSE, PAP HX: NEGATIVE, LMP: 04/03/18 Eunice Carolyn [facility] LAB CYTOLOGY ORDERABLES Final R esult HISTORICAL TESTING LAB RESULTING AGENCY from Last 3 Months or Most Recently Relevant to Health Maintenance Insurance [facility] [employer] Care Teams Java Designer Relationship Specialty Start Date End Date Jamey Cast MD [address] [place] [address] [address] [place] PCP - General Internal Medicine 07/02/12
--- OUTSIDE RECORDS SUMMARY | 2024-12-11 14:26 | XMS_ITS | Clinical Summary ---
Author Organization [facility] [employer] [facility] Address [address] [place] [address] 7[address] [place] [address] Care Team Providers Care Blind Aide Name Role Phone Unavailable Primary Care Provider [...] 2023-2 5 season) 2023 Influenza Vaccine (#1) 2024 02/21/2016 DTaP/Tdap/Td Vaccines (3 - T d [...]
[2024-12-11 14:32] LABS: MANUAL DIFF FLAG NO
[2024-12-11 14:42] LABS: Hematocrit 41.8 % (37.0-47.0); Hemoglobin 13.6 g/dl (12.0-16.0); Imm Gran Abs Auto 0.02 X10*3/uL (0.00-0.03); Imm Gran Pct Auto 0.2 % (0.0-0.4); Lymphocytes Absolute Auto 1.6 X10*3/uL (1.2-4.9); Mean Corpuscular HGB Conc 32.5 g/dl (31.0-35.0); Mean Corpuscular Hemoglobin 27.0 pg (27.0-33.0); Mean Corpuscular Volume 83.1 fL (80.0-98.0); NRBC Abs Auto 0.000 X10*3/uL (0.0-0.012); NRBC Pct Auto 0.0 /100WBC (0.0-0.2); Platelet Count 350 X10*3/uL (160-400); Red Blood Count 5.03 X10*6/uL (4.20-5.50); White Blood Count 10.4 X10*3/uL (4.8-10.8)
[2024-12-11 15:08] LABS: Alanine Aminotransferase 16 U/L (0-31); Albumin Level 4.3 g/dL (3.5-5.0); Alkaline Phosphatase 82 U/L (39-117); Anion Gap 14 (12-20); Aspartate Amino Transferase 25 U/L (5-31); Blood Urea Nitrogen 17 mg/dL (9-16); Calcium 9.7 mg/dL (8.4-10.2); Carbon Dioxide 27 mmol/L (22-29); Chloride 105 mmol/L (96-108); Cholesterol 150 mg/dL (<200); Estimated Glomerular Filt Rate > 60; HDL Cholesterol 53 mg/dL (>40); Potassium 4.7 mmol/L (3.3-5.1); Sodium 141 mmol/L (135-145); Total Protein 7.1 g/dL (6.5-8.0); Triglycerides 94 mg/dL (<150)
[2024-12-11 15:15] LABS: Appearance Urine Turbid; Glucose Urine UA Negative (Negative); PH 5.5 (5.0-9.0); Specific Gravity - Urine 1.020 (1.005-1.025); UMIC TRIGGER UACC YES
[2024-12-11 15:17] LABS: UACC Culture Trigger YES
== END 2024-12-11 14:24 | disposition home or self-care (01) ==
LOC: HO.LAB 14:23
PROVIDERS: PCP Internal Medicine; Visit Provider Internal Medicine
DX: E78.00 Pure hypercholesterolemia, unspecified (principal); D64.9 Anemia, unspecified
CPT/HCPCS: 36415; 80053; 80061; 81001; 85025; 87086; 87088; 87186

== ENCOUNTER 2025-01-04 14:43 | Outpatient (REF) | payer OTHER, SELFPAY ==
--- NOTE | ~2025-01-04 | XR_ITS ---
EXAMINATION: XR FOOT, LEFT CLINICAL INFORMATION: M79.672 - Pain in left foot COMPARISON: None available. TECHNIQUE: AP, lateral, and oblique views of the left foot. FINDINGS: The bones and soft tissues are normal. No fracture. Alignment is anatomic. Joint spaces are maintained. There is a small plantar calcaneal enthesophyte. XR/XR foot LT min 3V IMPRESSION: Unremarkable left foot. There is a small plantar calcaneal spur, a nonspecific finding. Electronically signed by: Curtis Shi MD 01/04/2025 05:29 PM EDT
== END 2025-01-04 14:44 | disposition home or self-care (01) ==
LOC: HO.XRAY 14:43
PROVIDERS: PCP Internal Medicine; Visit Provider Internal Medicine
DX: M79.672 Pain in left foot (principal); I25.119 Atherosclerotic heart disease of native coronary artery with unspecified angina pectoris; I25.5 Ischemic cardiomyopathy; E78.00 Pure hypercholesterolemia, unspecified; R00.0 Tachycardia, unspecified; R73.01 Impaired fasting glucose; M79.671 Pain in right foot; R20.2 Paresthesia of skin; E55.9 Vitamin D deficiency, unspecified; M51.360 Other intervertebral disc degeneration, lumbar region with discogenic back pain only; M25.50 Pain in unspecified joint; R30.0 Dysuria; F41.9 Anxiety disorder, unspecified; Z79.82 Long term (current) use of aspirin; Z79.899 Other long term (current) drug therapy
CPT/HCPCS: 73630; 96127; 99212

== ENCOUNTER 2025-01-04 14:43 | Outpatient (AMB) | payer OTHER, SELFPAY ==
--- NOTE | 2025-01-04 15:08 | MHC.PC.OV ---
Vital Signs 01/04/25 15:09 Height 5 ft 2 in Weight 136 lb 8 oz BMI 25.0 BP 110/70 Blood Pressure Location Lt brachial Position Sitting Pulse 66 Pulse Source Pulse Oximeter Pulse Oximetry (%) 98 Oxygen Delivery Method Room Air Intake Visit Reasons: 4mth f/u Roll Capper Required: No Accompanied by: Self / Same As Patient Allergies lisinopril Allergy (Unknown, Verified 01/04/25 16:21) angioedema, throat swelling pravastatin Allergy (Unknown, Verified 01/04/25 16:21) myalgia, angioedema rosuvastatin Adverse Reaction (Unknown, Verified 01/04/25 16:21) myalgia Medication List - Last Reconciled 01/04/25 by Jamey Garcia MD alirocumab (Praluent Pen) 75 mg subcut Q14D 4 weeks ascorbic acid (vitamin C) 500 mg PO DAILY aspirin (Ecotrin Low Strength) 81 mg PO DAILY blood pressure monitor As directed cholecalciferol (vitamin D3) 50 mcg PO DAILY coenzyme Q10 10 mg PO TID diclofenac sodium 1% (Arthritis Pain (diclofenac)) 4 grams topical QID evolocumab (Repatha Syringe) 140 mg subcut Q2W 4 weeks evolocumab (Repatha SureClick) 140 mg subcut Q2W 4 weeks lidocaine 5% 1 patch topical DAILY 30 days methocarbamol 750 mg PO BID PRN metoprolol succinate ER 50 mg (2 x 25 mg) PO BID sacubitril-valsartan 24-26 mg (Entresto) 1 tab PO BID [VIVISCAL PRO Take 2 tablets orally once a day; 90 days] Tobacco use date assessed: 01/04/25 Dental Screening Dental Screen Date: 01/04/25 Did you have a dental visit in the last 12 months?: No Did you have a dental problem in the last 6 months where you did not have access to dental care?: No Was dental information given to patient?: Patient has dentist HPI 4mth f/u HPI Details Patient comes in today for her follow-up visit States that she feels okay and she is now back on her Praluent injections for her cholesterol Notes (+) increasing pain in her left foot for the past couple of weeks She denies any swelling of the foot and does not recall any recent injury or trauma to her foot She denies any headaches or dizziness Denies any chest pains, no increased shortness of breath No nausea/vomiting, no abdominal pain No change in bowel habits noted She had her follow-up labs done about 3 weeks ago - to discuss her results [facility] Medical History Benign essential hypertension Anxiety Tachycardia Visual impairment Throat pain Dizziness Overweight (BMI 25.0-29.9) Vitamin D deficiency Lumbar radiculopathy, chronic Lumbar degenerative disc disease Pityriasis rosea Pure hypercholesterolemia 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 Surgical History Hx of colonoscopy History of esophagogastroduodenoscopy (EGD) Stented coronary artery History of cardiac catheterization Family History Father Diabetes Hypertension Hypercholesteremia Mother Hypertension Diabetes Hypercholesteremia Family/Other FH: mental illness Other Mental health disorder Social History Housing: House Alcohol intake: never Patient Tobacco Use Status: Former Tobacco user e-Cigarette/Vaping Use: Never Used Second Hand Smoke Exposure: Yes service: No Current occupational status: employed 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 1. Little interest or pleasure in doing things: not at all 2. Feeling down, depressed, or hopeless: not at all 3. Trouble falling or staying asleep, or sleeping too much: not at all 4. Feeling tired or having little energy: several days 5. Poor appetite or overeating: not at all 6. Feeling bad about yourself - or that you are a failure or have let yourself or your family down: not at all 7. Trouble concentrating on things, such as reading the newspaper or watching television: not at all 8. Moving or speaking so slowly that other people could have noticed. Or the opposite - being so fidgety or restless that you have been moving around a lot more than usual: not at all 9. Thoughts that you would be better off or of hurting yourself in some way: not at all Total score: 1 Depression Screening Interpretation: Negative Depression Screening Done: Yes 34594 - PHQ-9 Billing: Yes Source: Developed by Drs. Aaron Bettencourt, Rand Loja, James Pires and colleagues, with an educational tez from [employer]. Thrive Questionnaire Date Thrive assessed: 01/04/25 I am a: Patient What is your living situation today?: I have a steady place to live Within the past 12 months, did the food you bought not last and you didn't have the money to get more?: Often true Within the past 12 months, did you worry whether your food would run out before you got money to buy more?: Often true Do you have trouble paying for medicines?: No Do you have trouble getting transportation to medical appointments?: No Do you have trouble paying your heating and electricity bill?: No Do you have trouble taking care of your child, family member or friend?: No Do you have trouble with day-to-day activities such as bathing, preparing meals, shopping, managing finances, etc.?: No Are you currently unemployed and looking for a job?: No Are you interested in more education?: No Please select the resources that you would like help with: None Currently or been in a relationship where the following occur: No concerns reported THRIVE Score: 2 AUDIT C Alcohol Use Questionnaire (AUDIT-C) 1. How often do you have a drink containing alcohol?: Never 3. How often do you have six or more drinks on one occasion?: Never Total Score: 0 Score Reviewed/Action Taken: Yes JOHANNE-7 AMB Questionnaire JOHANNE-7 Date JOHANNE - 7 assessed: 01/04/25 Feeling nervous, anxious, or on edge: 0 = Not at all Not being able to stop or control worryin = Not at all Worrying too much about different things: 0 = Not at all Trouble relaxin = Not at all Being so restless that it is hard to sit still: 0 = Not at all Becoming easily annoyed or irritable: 0 = Not at all Feeling afraid as if something awful might happen: 0 = Not at all Total JOHANNE-7 score (0-4 normal; 5-9 mild; 10-14 moderate; 15-21 severe): 0 Source: Developed by Drs. Aaron Bettencourt, Rand Loja, James Pires and colleagues, with an educational tez from [employer]. Review of Systems Const Denies chills, Denies fatigue, Denies fever(s) and Denies headache(s) ENT Denies dysphagia, Denies dizziness, Denies otalgia, Denies headache(s), Denies neck pain, Denies odynophagia and Denies sore throat Card Denies chest pain, Denies palpitations and Denies dyspnea Resp Denies chest congestion, Denies cough and Denies dyspnea GI Denies abdominal pain, Denies constipation, Denies dysphagia, Denies heartburn, Denies diarrhea, Denies nausea, Denies odynophagia and Denies vomiting Denies difficulty voiding, Denies nocturia, Reports dysuria (more of a mild burning sensation) and Denies urinary urgency Musc Details: increased pain in the left foot, especially over the soles/plantar aspect Reports back pain, Reports arthralgias (on and off, in the left knee) and Denies neck pain Skin/Breast Denies rash Neuro Denies dizziness and Denies headache(s) Endo Denies fatigue and Denies palpitations Physical exam (Primary Care) Vital Signs: Last Vital Signs Pulse 66 01/04/25 15:09 BP 110/70 01/04/25 15:09 Pulse Ox 98 01/04/25 15:09 Oxygen Delivery Method Room Air 01/04/25 15:09 BMI result Body Mass Index 25.0 Tobacco/Smoking Status: Tobacco use Status Tobacco use date assessed 01/04/25 01/04/25 15:11 Patient Tobacco Use Status Former Tobacco user 01/04/25 15:11 e-Cigarette/Vaping Use Never Used 01/04/25 15:11 PHQ-9: PHQ-9 Score PHQ-9: Total score 1 01/04/25 16:23 Depression Screening Interpretation: Negative Thrive Assessment: Date of Thrive Assessment Date Thrive assessed 01/04/25 01/04/25 15:11 Currently or been in a relationship where the following occur: No concerns reported Const General: no acute distress and alert HENMT Ears: TM normal on the left, EAC's normal and TM abnormal perforated without discharge on the right Throat: Yes posterior oropharynx normal and Yes tonsils normal (no TP congestion) Neck Neck: Yes supple and No lymphadenopathy Thyroid: Thyroid normal Resp Auscultation: clear to auscultation bilaterally, no rales and no wheezes Cardio Rate: regular rate Rhythm: regular rhythm Heart sounds: no murmurs GI Palpation (GI): Soft to palpation and nontender Auscultation: normal bowel sounds General: Yes no CVA tenderness Back/Spine/Pelvis Back: no CVA tenderness Thoracic/Lumbar Spine: lumbar spinal tenderness (mild) Skin Rashes: no rashes Extrem Other: (+) diffuse tenderness noted on palpation over the plantar aspect of both feet, including over the calcaneus but no nodules or lesions are appreciated General: Yes no clubbing, cyanosis or edema Left lower extremity: knee Details: tenderness (mild); no swelling and foot Details: tenderness Location: of the plantar foot Results Reviewed Results Reviewed: Laboratory Tests 12/11/24 12/11/24 14:30 14:39 Fasting Glucose 145 H Calcium 9.7 AST 25 ALT 16 Triglycerides 94 Cholesterol 150 LDL Cholesterol, Calc 79 HDL Cholesterol 53 Ur Specific [place] 1.020 Urine Protein 100 (2+) H Urine Glucose (UA) Negative Urine Blood Large (3+) H Urine Nitrite Positive H Ur Leukocyte Esterase Large (3+) H Coding Level of Care Code Est Pt Level 4 (75216) Diagnoses 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 I25.119 Ischemic cardiomyopathy I25.5 Pure hypercholesterolemia E78.00 Tachycardia R00.0 Impaired fasting glucose R73.01 Bilateral foot pain M79.671; M79.672 Paresthesia of both hands R20.2 Vitamin D deficiency E55.9 Degeneration of intervertebral disc of lumbar region with discogenic back pain M51.360 Disc-related pain type: discogenic back pain only Arthralgia, unspecified joint M25.50 Joint pain location: unspecified Dysuria R30.0 Anxiety F41.9 Additional Codes PHQ-9 - 99646 - PHQ-9 Billing: Yes ([id number]) Assessment & Plan Assessment & Plan (1) 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 Repeat study done at [facility] in 08/2020 showed normal imaging after exercise stress test at average estimated functional capacity. Mild small perfusion defects in the mid to basal anteroseptal wall and apex that improved on stress images, suggestive of artifact. LV function is borderline normal with an EF of 58% at rest and 52% with stress, with normal wall motion and thickening Code(s): I25.119 - Atherosclerotic heart disease of atka coronary artery with unspecified angina pectoris Category: Medical Plan: S/P STEMI in November 2021, with EKG (+) for ST elevations in the precordial leads and ST depression in the inferior leads; troponin I levels were significanty elevated at the time Coronary angiography done at [facility] on 12/15/21 revealed (+) total occlusion of the mid LAD with severe mid RCA stenosis Patient underwent PCI of the mid LAD on 12/15/21 with a single DESMOND and staged PCI of the mid RCA 3 days later on 12/18/21 with a single DESMOND Echocardiogram done on 12/17/21 revealed severely reduced LV systolic function at 20 to 25% with regional wall abnormalities in the LAD territory Patient also had NSTEMI, S/P angioplasty (PTCA) back in 02/2016; myocardial perfusion study done on 07/25/2017 was normal Continue Aspirin 81 mg QD and Clopidogrel 75 mg QD - she was switched out from Brilinta 90 mg BID due to the high cost of the Rx Continue Metoprolol ER 50 mg BID and Entresto 24-26 mg BID Follow up with cardiology as scheduled (2) Ischemic cardiomyopathy: Code(s): I25.5 - Ischemic cardiomyopathy Category: Medical Plan: Echocardiogram done back in January 2023 revealed that the left ventricular systolic function is mildly decreased, with the visually estimated ejection fraction between 40-45%. There are no obvious valvular pathology seen on this study Continue Metoprolol ER 50 mg BID and Entresto 24-26 mg BID Follow up with cardiology as scheduled (3) Pure hypercholesterolemia: Code(s): E78.00 - Pure hypercholesterolemia, unspecified Category: Medical Plan: Results of her labs done a few weeks ago reviewed and discussed with patient - her cholesterol levels have again improved significantly from previous and are not back to at or near goal as she is now back on her Praluent injections Reinforced low cholesterol diet Continue Praluent 75 mg Q 14 days and Ezetimibe 10 mg QD Patient could not tolerate statins, including Rosuvastatin and Pravastatin, and Repatha injections in the past did not help much with her cholesterol Will recheck her fasting lipids and labs in 4 months for follow up (4) Tachycardia: Comment: Exercise stress test done at [facility] recently showed abnormal exercise tolerance test with mild abnormality of exercise physiology but no EKG evidence of ischemia Myocardial perfusion study done a few weeks ago showed normal imaging after exercise stress test at average estimated functional capacity. Mild small perfusion defects in the mid to basal anteroseptal wall and apex that improved on stress images, suggestive of artifact. LV function is borderline normal with an EF of 58% at rest and 52% with stress, with normal wall motion and thickening Code(s): R00.0 - Tachycardia, unspecified Category: Medical Plan: Patient was experiencing on and off episodes of tachycardia/ heart racing for a few months but this seems to have subsided She had a 24-hour Holter ordered by cardiology and done a few months ago - Holter came out normal Have advised patient the if her symptoms recur, she should reach out again to cardiology regarding her symptoms and she may need to be worked up further (5) Impaired fasting glucose: Code(s): R73.01 - Impaired fasting glucose Category: Medical Plan: Her fasting blood sugar was elevated at 145 mg/dL on her labs done a few weeks ago and patient is concerned about this and risk for developing diabetes Will send her back to the lab [facility] to recheck her serum glucose; will also include a HgbA1c for further evaluation (6) Bilateral foot pain: Code(s): M79.671 - Pain in right foot; M79.672 - Pain in left foot Category: Medical Plan: X-rays of both feet done in December 2023 came out normal EMG and NCV of the lower extremities done a couple of months ago in June 2024 revealed (+) electrodiagnostic evidence suggestive of bilateral L4-5 radiculopathy. There is no definitive electrodiagnostic evidence for peroneal neuropathy at fibular neck or peripheral neuropathy Due to her recent increasing left foot pain, will send her for repeat x-rays of the left foot [facility] for further evaluation (7) Paresthesia of both hands: Code(s): R20.2 - Paresthesia of skin Category: Medical Plan: Vitamin B12 level was normal when previously checked EMG and NCV of the upper extremities done back in March 2023 revealed (+) mild bilateral median neuropathy across carpal tunnel and mild left ulnar neuropathy across the cubital tunnel Will consider referring her to Orthopedics for further management if her symptoms continue to get worse (8) Vitamin D deficiency: Code(s): E55.9 - Vitamin D deficiency, unspecified Category: Medical Plan: Continue Vitamin D3 1000 units QD (9) Lumbar degenerative disc disease: Code(s): M51.36 - Other intervertebral disc degeneration, lumbar region Category: Medical Qualifiers: Disc-related pain type: discogenic back pain only Qualified Code(s): M51.360 - Other intervertebral disc degeneration, lumbar region with discogenic back pain only Plan: Reinforced activity and weight lifting restrictions Lumbar spine MRI done at [facility] back in February 2020 revealed (+) transitional segment anatomy and lumbar spine degenerative disease with left L4-L5 lateral recess stenosis and possible traversing left L5 nerve root impingement Follow up with Pain Management as scheduled or as needed (10) Arthralgia: Code(s): M25.50 - Pain in unspecified joint Category: Medical Qualifiers: Joint pain location: unspecified Qualified Code(s): M25.50 - Pain in unspecified joint Plan: Follow up with rheumatology as scheduled Has also been seen by orthopedics recently for her left knee pain and advised to follow up with them as needed Patient has also been seeing pain management for her low back pain and joint pains (11) Dysuria: Code(s): R30.0 - Dysuria Category: Medical Plan: As we are sending patient back to the hospital to get some x-rays and additional labs, we will also get a urinalysis done for further evaluation (12) Anxiety: Code(s): F41.9 - Anxiety disorder, unspecified Category: Medical Plan: Patient feels that she is doing well presently although still has frequent wide swings in her blood pressure readings, which were thought to be related to her anxiety in the past She was started on a trial of Escitalopram 5 mg QD a few months ago to see if this will help control her anxiety better - patient stopped taking it after 1 dose as she felt that this Rx caused her BP and HR to increase further and does not wish to start or try anything else for now Plan Follow up in 4 months Orders: Orders XR foot LT min 3V 01/04/25 M79.672 - Pain in left foot Hemoglobin A1c 01/07/25 R73.9 - Hyperglycemia, unspecified Comprehensive [place]. Panel Fast 4 Months E78.00 - Pure hypercholesterolemia, unspecified UA CC w/rflx Micro + Cult 01/07/25 R30.0 - Dysuria Complete Blood Count Auto Diff 4 Months D64.9 - Anemia, unspecified Lipid Panel 4 Months E78.00 - Pure hypercholesterolemia, unspecified
[2025-01-04 15:09] VITALS: BP 110/70; PULSE 66; O2SAT 98; BMI 25.0
--- OUTSIDE RECORDS SUMMARY | 2025-01-04 17:04 | XMS_ITS | Clinical Summary ---
Author Organization [address] [facility] Address [address] [place] [address] Phone Care Team Providers Care Heavy Equipment Service Manager Name Role Phone Jamey Cast MD Primary Care Provider [phone] Allergies No known active allergies Medications bisacodyL [...] LAPAROSCOPY PROCEDURE NEC OTHER SURGICAL HISTORY PROCEDURE: DE CARDIOT EXPL W/RMVL FB ATR/VENTR THRMB W/O BYP Medical History Medical History Date Comments Hypertension 03/18/2013 DX:Hypertension Obesity 03/18/2013 DX:Obesity Vertigo 03/18/2013 DX:Vertigo Fibromyalgia 03/18/2013 DX:Fibromyalgia [place] (myocardial infarction) ( CMS/HCC V24, CMS/HCC V28) 2015 DX:[place] (myocardial infarction ) (HCC) Heart attack (CMS/HCC [...] Breast Cancer Screening 07/12/2023 07/12/19, 07/24/2018, 07/22/2017 Depression Screening 04/29/2024 COVID-19 Vaccine ( - 2023-2 5 season) 2024 Influenza Vaccine (#1) 2024 02/21/2016 DTaP,Tdap,and Td [...] Historical Provider HEALTH MAINTENANCE Final Result * [facility] SCREENING DIGITAL (07/11/2021 8:01 AM EDT) Anatomical Region Laterality Modality Mammography 07/10/2021 2:28 PM EDT Narrative 07/11/2021 8:01 AM EDT [facility] Diagnostic Imaging Department [address] [place] [address] Patient: JAMEYLIANA /Age/Sex: 1970 - 51 - F Unit#: [id number] Location/Status: [facility] CLI [facility]em[facility] Order[facility] Physician: JAMEY CAST MD Tad Screening Digital - 07/10/21 - 1605 INDICATION: SCREENING COMPARISON: [facility] mammograms dating back to 05/26/2013 TECHNIQUE: CC and MLO views of the breasts were obtained, using full field digital mammography with 3D tomosynthesis views in the MLO projection. Computer aided detection with the [employer] 7.2-H was employed. FINDINGS: The breasts contain [...] target date for the next mammogram. [id number]) , [id number] Dictating Physician: ISH KNOWLES MD Electronically Signed by: ISH KNOWLES MD Dic Date/Time: 07/11/21 0758 Sign date/Time: 07/11/21 0801 Procedure Note Ish Knowles MD - 04/18/2022 [facility] Diagnostic Imaging Department [address] [place] [address] Patient: LIANA CONCEPCION /Age/Sex: 1970 - 51 - F Unit#: [id number] [facility] Mnemonic/Ordering Site: [facility] Ordering Physician: JAMEY CAST MD Tad Screening Digital - 07/10/21 - 1605 INDICATION: SCREENING COMPARISON: [facility] mammograms dating back to 05/26/2013 TECHNIQUE: CC and MLO views of the breasts were obtained, using full field digital mammography with 3D tomosynthesis views in the MLO projection. Computer aided detection with the [employer] 7.2-H was employed. FINDINGS: The breasts contain [...] date for the next mammogram. ([id number] / [id number]) , [id number] Dictating Physician: ISH KNOWLES MD Electronically Signed [...] RESULTING AGENCY - 04/24/2018 9:45 AM EST [id number] THINPREP PAP, IMAGED: NEGATIVE FOR SQUAMOUS INTRAEPITHELIAL [...] PAP HX: NEGATIVE, LMP: 04/03/18 Eunice Carolyn [facility] CYTOLOGY ORDERABLES Final R esult HISTORICAL TESTING LAB RESULTING AGENCY from Last 3 Months or Most Recently Relevant to Health Maintenance Insurance [facility] [employer] Care Teams Heavy Equipment Service Manager Relationship Specialty Start Date End Date Jamey Cast MD [address] [place] [address] [address] [place] PCP - General Internal Medicine 07/02/12
--- OUTSIDE RECORDS SUMMARY | 2025-01-04 17:04 | XMS_ITS | Clinical Summary ---
Author Organization [facility] [employer] [facility] Address [address] [place] [address] [address] [place] [address] Care Team Providers Care Wet Crown Blocking Operator Name Role Phone Unavailable Primary Care Provider [...] COVID-19 Vaccine (1 - 2023-2 5 season) 2024 Influenza Vaccine (#1) 2024 02/21/2016 DTaP/Tdap/Td Vaccines [...]
--- OUTSIDE RECORDS SUMMARY | 2025-01-04 17:04 | XMS_ITS | Encounter Summary ---
Author Organization [employer] [facility] Address [address] [facility] [address] [place] [address] Care Team Providers Care Head Teller Name Role Phone Unavailable Primary Care Provider [...]
--- OUTSIDE RECORDS SUMMARY | 2025-01-04 17:04 | XMS_ITS | Encounter Summary ---
Author Organization [employer] Address [address] [facility] [address] [place] [address] Care Team Providers Care Personal Lines Insurance Advisor Name Role Phone Unavailable Primary Care Provider Unavailabl e Reason for Visit * Reason Onset Date Comments Appointment 06/29/2022 Encounter Details Date Type Department Care Team (Late st Contact Info) Description 06/29/2022 Telephone [facility] D[facility] [address] [place] [address] Kye Arenas DMD [address] [place] [address] Appointment Social History Tobacco Use Types Packs/Day [...]
== END 2025-01-04 16:29 | disposition home or self-care (01) ==
LOC: HO.HMCH 14:43
PROVIDERS: PCP Internal Medicine; Visit Provider Internal Medicine
DX: I25.119 Atherosclerotic heart disease of native coronary artery with unspecified angina pectoris (principal); I25.5 Ischemic cardiomyopathy; E78.00 Pure hypercholesterolemia, unspecified; R00.0 Tachycardia, unspecified; R73.01 Impaired fasting glucose; M79.671 Pain in right foot; M79.672 Pain in left foot; R20.2 Paresthesia of skin; E55.9 Vitamin D deficiency, unspecified; M51.360 Other intervertebral disc degeneration, lumbar region with discogenic back pain only; M25.50 Pain in unspecified joint; R30.0 Dysuria; F41.9 Anxiety disorder, unspecified

== ENCOUNTER → 2025-01-04 16:50 | Outpatient (BNV) | payer OTHER, SELFPAY | PROVIDERS: PCP Internal Medicine; Visit Provider Radiology Diagnostic Radiology | DX: M77.32 Calcaneal spur, left foot (principal) | CPT/HCPCS: 73630 ==

== ENCOUNTER 2025-01-07 08:47 | Outpatient (REF) | payer OTHER, SELFPAY ==
--- OUTSIDE RECORDS SUMMARY | 2025-01-07 09:52 | XMS_ITS | Clinical Summary ---
Author Organization [employer] [facility] Address [address] [facility] 7t [place] [address] Care Team Providers Care Quotation Clerk Name Role Phone Unavailable Primary Care Provider [...] Disability Screening 1970 Alcohol/Substance Use Screening 1984 Hepatitis C Screening 01/05/1990 Hepatitis B Vaccines [...]
--- OUTSIDE RECORDS SUMMARY | 2025-01-07 09:52 | XMS_ITS | Clinical Summary ---
Author Organization 175 [facility] Address [address] [place] [address] Phone Care Team Providers Care Stationary Engineer Apprentice Name Role Phone Jamey Cast MD Primary [...] LAPAROSCOPY PROCEDURE NEC OTHER SURGICAL HISTORY PROCEDURE: [place] CARDIOT EXPL W/RMVL FB ATR/VENTR THRMB W/O BYP Medical History Medical History Date Comments Hypertension 03/18/2013 DX:Hypertension Obesity 03/18/2013 DX:Obesity Vertigo 03/18/2013 DX:Vertigo Fibromyalgia 03/18/2013 DX:Fibromyalgia [place] (myocardial infarction) ( CMS/HCC V24, CMS/HCC V28) 2015 DX:[place] (myocardial infarction ) (HCC) Heart attack (CMS/HCC [...] Historical Provider HEALTH MAINTENANCE Final Result * [facility] SCREENING DIGITAL (07/11/2021 8:01 AM EDT) Anatomical Region Laterality Modality Mammography 07/10/2021 2:28 PM EDT Narrative 07/11/2021 8:01 AM EDT [facility] Diagnostic Imaging Department [address] [place] [address] Patient: JAMEYLIANA /Age/Sex: 1970 - 51 - F Unit#: [id number] Location/Status: [facility] CLI Mnemonic[facility] Order[facility] Physician: JAMEY CAST MD Tad Screening Digital - 07/10/21 - 1605 INDICATION: SCREENING COMPARISON: [facility] mammograms dating back to 05/26/2013 TECHNIQUE: CC and MLO views of the breasts were obtained, using full field digital mammography with 3D tomosynthesis views in the MLO projection. Computer aided detection with the [employer] 7.2-H was employed. FINDINGS: The breasts contain [...] target date for the next mammogram. G0202 [id number]) , [id number] Dictating Physician: ISH KNOWLES MD Electronically Signed by: ISH KNOWLES MD Dic Date/Time: 07/11/21 0758 Sign date/Time: 07/11/21 0801 Procedure Note Ish Knowles MD - 04/18/2022 [facility] Diagnostic Imaging Department [address] [place] [address] Patient: LIANA CONCEPCION /Age/Sex: 1970 - 51 - F Unit#: [id number] [facility]Ordering Site: [facility] Ordering Physician: JAMEY CAST MD Tad Screening Digital - 07/10/21 - 1605 INDICATION: SCREENING COMPARISON: [facility] mammograms dating back to 05/26/2013 TECHNIQUE: CC and MLO views of the breasts were obtained, using full field digital mammography with 3D tomosynthesis views in the MLO projection. Computer aided detection with the [employer] 7.2-H was employed. FINDINGS: The breasts contain [...] date for the next mammogram. (G0202 / [id number]) , [id number] Dictating Physician: ISH KNOWLES MD Electronically Signed [...] RESULTING AGENCY - 04/24/2018 9:45 AM EST [id number] THINPREP PAP, IMAGED: NEGATIVE FOR SQUAMOUS INTRAEPITHELIAL [...] PAP HX: NEGATIVE, LMP: 04/03/18 Eunice Carolyn [facility] LAB CYTOLOGY ORDERABLES Final R esult HISTORICAL TESTING LAB RESULTING AGENCY from Last 3 Months or Most Recently Relevant to Health Maintenance Insurance [facility] [employer] Care Teams Stationary Engineer Apprentice Relationship Specialty Start Date End Date Jamey Cast MD [address] [place] [address] [address] [place] PCP - General Internal Medicine 07/02/12
--- OUTSIDE RECORDS SUMMARY | 2025-01-07 09:52 | XMS_ITS | Encounter Summary ---
Author Organization [facility] Address [address] [facility] 7t [place] [address] Care Team Providers Care Mercantile Reporter Name Role Phone Unavailable Primary Care Provider [...]
--- OUTSIDE RECORDS SUMMARY | 2025-01-07 09:52 | XMS_ITS | Encounter Summary ---
Author Organization [employer] Address [address] [facility] 7t [place] [address] Care Team Providers Care Hand Edge Bander Name Role Phone Unavailable Primary Care Provider Unavailabl e Reason for Visit * Reason Onset Date Comments Appointment 06/29/2022 Encounter Details Date Type Department Care Team (Late st Contact Info) Description 06/29/2022 Telephone [facility] ADULT DENTAL [address] [place] [address] Kye Arenas DMD [address] [place] [address] Appointment Social History Tobacco Use Types Packs/Day [...]
[2025-01-07 11:21] LABS: Hemoglobin A1C 126.8124 umol/L; Total Hemoglobin (HGBA1C) 3473.2741 umol/L
[2025-01-07 12:58] LABS: Appearance Urine Clear; Glucose Urine UA Negative (Negative); PH 6.5 (5.0-9.0); Specific Gravity - Urine 1.010 (1.005-1.025)
== END 2025-01-07 08:48 | disposition home or self-care (01) ==
LOC: HO.LAB 08:47
PROVIDERS: PCP Internal Medicine; Visit Provider Internal Medicine
DX: R30.0 Dysuria (principal); R73.9 Hyperglycemia, unspecified
CPT/HCPCS: 36415; 81003; 83036

== ENCOUNTER 2025-02-17 16:09 | Outpatient (REF) | payer OTHER, SELFPAY ==
--- NOTE | ~2025-02-17 | XR_ITS ---
EXAMINATION: XR FEMUR, LEFT CLINICAL INFORMATION: R22.42 - Localized swelling, mass and lump, left lower limb COMPARISON: None available. TECHNIQUE: AP and lateral views of the left femur were obtained. FINDINGS: No acute or chronic bony abnormality or deformity is identified. There is no sign of fracture. Faint calcification is present in the soft tissues lateral to the greater trochanter XR/XR femur LT 2V IMPRESSION: Possible left gluteal calcific tendinitis. Electronically signed by: Curtis Shi MD 02/17/2025 04:49 PM EDT
--- NOTE | ~2025-02-17 | XR_ITS ---
EXAMINATION: XR FOOT, LEFT CLINICAL INFORMATION: M79.672 - Pain in left foot COMPARISON: None available. TECHNIQUE: AP, lateral, and oblique views of the left foot. FINDINGS: There is a small plantar calcaneal spur. There are no degenerative changes otherwise. Joint spaces and alignment is preserved. No sign of fracture is identified. XR/XR foot LT min 3V IMPRESSION: There is a small calcaneal spur, a nonspecific finding. Electronically signed by: Curtis Shi MD 02/17/2025 04:47 PM EDT
--- OUTSIDE RECORDS SUMMARY | 2025-02-17 22:00 | XMS_ITS | Clinical Summary ---
Author Organization 175 [facility] Address [address] [place] [address] Phone Care Team Providers Care Meter Calibrator Name Role Phone Jamey Cast MD Primary [...] LAPAROSCOPY PROCEDURE NEC OTHER SURGICAL HISTORY PROCEDURE: [place] CARDIOT EXPL W/RMVL FB ATR/VENTR THRMB W/O [...] 02/10/2008 Colorectal Cancer Screening: Colonoscopy 12/23/2033 12/24/2023 RSV Immunization Adult Patients (1 - 1-dose 75+ series) 01/05/2047 HIV Screening Completed 08/29/2020 Hepatitis C Screening [...] Associated Diagnosis Comments HM COLONOSCOPY Routine 12/24/2023 [facility] SCREENING DIGITAL Routine 07/11/2021 8:01 [...] Provider MD HEALTH MAINTENANCE Final Result * [facility] SCREENING DIGITAL (07/11/2021 8:01 AM EDT) Anatomical Region Laterality Modality Mammography 07/10/2021 2:28 PM EDT Narrative 07/11/2021 8:01 AM EDT [facility] Diagnostic Imaging Department [address] [place] [address] Patient: LIANA CONCEPCION /Age/Sex: 1970 - 51 - F Unit#: [id number] Location/Status: [facility]REG CLI Mnemonic[facility] Ordering Physician: JAMEY CAST MD Tad Screening Digital - 07/10/21 - 1601 INDICATION: SCREENING COMPARISON: [facility] mammograms dating back to 05/26/2013 TECHNIQUE: CC and MLO views of the breasts were obtained, using full field digital mammography with 3D tomosynthesis views in the MLO projection. Computer aided detection with the [employer] 7.2-H was employed. FINDINGS: The breasts contain [...] target date for the next mammogram. G0202 [id number]) , [id number] Dictating Physician: LAURA KNOWLES MD Electronically Signed by: LAURA KNOWLES MD Dic Date/Time: 07/11/21 0758 Sign date/Time: 07/11/21 0801 Procedure Note Laura Knowles MD - 04/18/2022 [facility] Diagnostic Imaging Department [address] [place] [address] Patient: LIANA CONCEPCION /Age/Sex: 1970 - 51 - F Unit#: [id number] Location/Status: [facility]/REG CLI Mnemonic/Ordering Site: [facility] Ordering Physician: JAMEY CAST MD Tad Screening Digital - 07/10/21 - 1605 INDICATION: SCREENING COMPARISON: [facility] mammograms dating back to 05/26/2013 TECHNIQUE: CC and MLO views of the breasts were obtained, using full field digital mammography with 3D tomosynthesis views in the MLO projection. Computer aided detection with the [employer] 7.2-H was employed. FINDINGS: The breasts contain [...] target date for the next mammogram. G0202 [id number]) , [id number] Dictating Physician: LAURA KNOWLES MD Electronically Signed [...] RESULTING AGENCY - 04/24/2018 9:45 AM EST [id number] THINPREP PAP, IMAGED: NEGATIVE FOR SQUAMOUS INTRAEPITHELIAL [...] Z12.31, MENOPAUSE, PAP HX: NEGATIVE, LMP: 04/03/18 us Eunice Leon CN LAB CYTOLOGY ORDERABLES Final R esult HISTORICAL TESTING LAB RESULTING AGENCY from Last 3 Months or Most Recently Relevant to Health Maintenance Insurance [facility] [employer] Care Teams Meter Calibrator Relationship Specialty Start Date End Date Jamey Cast MD [address] [place] [address] Amanda [address] [place] PCP - General Internal Medicine 07/02/12
== END 2025-02-17 16:10 | disposition home or self-care (01) ==
LOC: HO.XRAY 16:09
PROVIDERS: PCP Internal Medicine; Visit Provider Internal Medicine
DX: M79.672 Pain in left foot (principal); R22.42 Localized swelling, mass and lump, left lower limb
CPT/HCPCS: 73552; 73630

== ENCOUNTER → 2025-02-17 16:17 | Outpatient (BNV) | payer OTHER, SELFPAY | PROVIDERS: PCP Internal Medicine; Visit Provider Radiology Diagnostic Radiology | DX: M79.672 Pain in left foot (principal); R22.42 Localized swelling, mass and lump, left lower limb | CPT/HCPCS: 73552; 73630 ==

== ENCOUNTER 2025-03-02 13:22 | Outpatient (AMB) | payer OTHER, SELFPAY ==
--- NOTE | 2025-03-02 13:26 | A.OFFVIS_ITS ---
Vital Signs 03/02/25 13:28 Height 5 ft 2 in Weight 141 lb 1.533 oz BMI 25.8 BP 120/78 Blood Pressure Location Lt brachial Position Sitting Pulse 74 Intake Visit Reasons: 1 yr f/up Intake Note: 1 year follow-up with ekg feeling good Bleach Machine Operator Required: No Allergies lisinopril Allergy (Unknown, Verified 01/04/25 16:21) angioedema, throat swelling pravastatin Allergy (Unknown, Verified 01/04/25 16:21) myalgia, angioedema rosuvastatin Adverse Reaction (Unknown, Verified 01/04/25 16:21) myalgia Medication List - Last Reconciled 03/02/25 by Aren Mendez MD ascorbic acid (vitamin C) 500 mg PO DAILY aspirin (Ecotrin Low Strength) 81 mg PO DAILY blood pressure monitor As directed cholecalciferol (vitamin D3) 50 mcg PO DAILY coenzyme Q10 10 mg PO TID diclofenac sodium 1% (Arthritis Pain (diclofenac)) 4 grams topical QID evolocumab (Repatha SureClick) 140 mg subcut Q2W 4 weeks lidocaine 5% 1 patch topical DAILY 30 days sacubitril-valsartan 24-26 mg (Entresto) 1 tab PO BID [VIVISCAL PRO Take 2 tablets orally once a day; 90 days] HPI Comments Details: Susy comes for follow-up after 1 year. She has no new cardiac symptoms. She said she has stopped taking metoprolol because she was getting lightheadedness and with low blood pressure. Despite stopping the metoprolol she continues to have occasional lightheadedness. She does not drink much fluid in his day. Her last LDL was 83 mg/dL but she says that she was not getting her PCSK9 inhibitor therapy adequately. She denies any exertional chest pain. No shortness of breath, orthopnea, PND. No claudications. No prolonged palpitation irregular heartbeat. [facility] Medical History Benign essential hypertension Anxiety Tachycardia Visual impairment Throat pain Dizziness Overweight (BMI 25.0-29.9) Vitamin D deficiency Lumbar radiculopathy, chronic Lumbar degenerative disc disease Pityriasis rosea Pure hypercholesterolemia Coronary artery disease involving [place] coronary artery of [place] heart with angina pectoris Surgical History Hx of colonoscopy History of esophagogastroduodenoscopy (EGD) Stented coronary artery History of cardiac catheterization Family History Father Diabetes Hypertension Hypercholesteremia Mother Hypertension Diabetes Hypercholesteremia Family/Other FH: mental illness Other Mental health disorder Social History Housing: House Alcohol intake: never Patient Tobacco Use Status: Former Tobacco user e-Cigarette/Vaping Use: Never Used Second Hand Smoke Exposure: Yes service: No Current occupational status: employed 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 Cognitive needs: No Hearing needs: No Vision needs: No Review of Systems Const Denies chills, Denies fatigue, Denies fever(s), Denies frequent falls, Denies weakness, Denies weight gain and Denies weight loss ENT Denies dizziness Card Denies chest pain, Denies leg edema, Denies lightheadedness, Denies palpitations, Denies dyspnea, Denies dyspnea on exertion, Denies orthopnea and Denies other (loss of consciousness) Resp Denies cough, Denies dyspnea and Denies dyspnea on exertion GI Denies hematochezia and Denies change in stool character Musc Denies abnormal gait, Denies muscle weakness, Denies numbness, Denies radiating pain into limb and Denies tingling Neuro Denies abnormal gait, Denies dizziness, Denies frequent falls, Denies numbness, Denies tingling and Denies weakness Endo Denies fatigue and Denies palpitations Physical Exam Vital Signs: Last Vital Signs Pulse 74 03/02/25 13:28 BP 120/78 03/02/25 13:28 BMI result Body Mass Index 25.8 Const General: cooperative, comfortable, no acute distress, alert, awake and anxious Nutritional Appearance: overweight Orientation/consciousness: patient oriented x3 Limitations: no limitations Neck Neck: Yes trachea midline, Yes supple and Yes no JVD Resp Effort & Inspection: normal respiratory effort Auscultation: clear to auscultation bilaterally Cardio Jugular venous distension: no JVD Palpation: normal PMI Rate: regular rate Rhythm: regular rhythm Heart sounds: S1 normal heart sound present, S2 normal heart sound present, no click, no gallops, no murmurs and no rubs GI Auscultation: normal bowel sounds Skin General skin exam: no rashes or lesions noted Neuro General: patient oriented x3 and no focal motor deficits Extrem General: Yes no clubbing, cyanosis or edema Office Procedures EKG Details: EKG shows normal sinus rhythm nonspecific ST-T changes [id number], Complete Assessment & Plan Assessment & Plan (1) Coronary artery disease involving [place] coronary artery of [place] heart with angina pectoris: Comment: Had NSTEMI, S/P angioplasty (PTCA) in 02/2016; myocardial perfusion study done on 07/25/2017 was normal. Repeat study done at [facility] in 08/2020 showed normal imaging after exercise stress test at average estimated functional capacity. Mild small perfusion defects in the mid to basal anteroseptal wall and apex that improved on stress images, suggestive of artifact. LV function is borderline normal with an EF of 58% at rest and 52% with stress, with normal wall motion and thickening Code(s): I25.119 - Atherosclerotic heart disease of [place] coronary artery with unspecified angina pectoris Category: Medical Plan: CAD with prior PCI in 2020. Patient currently not having any symptoms suggestive of angina. Suggested to continue low-dose aspirin therapy for life. Continue aggressive lipid modification. She would like repeat lipid panel given her LDL may not reflect true LDL given that she is not getting her PCSK9 inhibitor therapy. If LDL still elevated advised her to start Zetia. Continue maintain activity level as tolerated. Continue aggressive blood pressure control. (2) Ischemic cardiomyopathy: Code(s): I25.5 - Ischemic cardiomyopathy Category: Medical Plan: Ischemic cardiomyopathy with hciw-gj-bkqbdums LV systolic dysfunction. She needs repeat echocardiogram. She is currently on Entresto therapy and tolerating well with some symptoms of lightheadedness. See below. Advise repeat echocardiogram. If she has persistent LV systolic dysfunction will consider adding low-dose metoprolol therapy again with her. Avoidance of cardiotoxic agent was discussed. Signs and symptoms of heart failure were discussed. (3) Lightheadedness: Code(s): R42 - Dizziness and giddiness Plan: Lightheadedness appears to be related to medical therapy also due to relative hypovolemia. Suggest to increase her volume of fluid intake. She will try that. Advised to continue monitor blood pressure at home maintain a log. Will follow up in the clinic otherwise in 1 year's time, sooner PRN. Thank you for allowing me to partake in her care Coding Level of Care Code Est Pt Level 4 (55117) Complex EM visit Add On G2211 Diagnoses Coronary artery disease involving [place] coronary artery of [place] heart with angina pectoris I25.119 Ischemic cardiomyopathy I25.5 Lightheadedness R42 CPT Codes EKG - CPT: 16013-[id number], Complete ([id number])
[2025-03-02 13:28] VITALS: BP 120/78; PULSE 74; BMI 25.8
--- OUTSIDE RECORDS SUMMARY | 2025-03-02 16:17 | XMS_ITS | Clinical Summary ---
Author Organization [employer] [facility] Address [address] [facility] 7t [place] [address] Care Team Providers Care Public Housing Interviewer Name Role Phone Unavailable Primary Care Provider [...] 5 season) 2024 Influenza Vaccine (#1) 2024 6, 02/21/2016 DTaP/Tdap/Td Vaccines (3 - T d [...]
--- OUTSIDE RECORDS SUMMARY | 2025-03-02 16:17 | XMS_ITS | Encounter Summary ---
Author Organization [employer] [facility] Address [address] [facility] 7t [place] [address] Care Team Providers Care Development Intern Name Role Phone Unavailable Primary Care Provider [...]
--- OUTSIDE RECORDS SUMMARY | 2025-03-02 16:17 | XMS_ITS | Encounter Summary ---
Author Organization [employer] Address [address] [facility] 7t [place] [address] Care Team Providers Care Printing Estimator Name Role Phone Unavailable Primary Care Provider Unavailabl e Reason for Visit * Reason Onset Date Comments Appointment 06/29/2022 Encounter Details Date Type Department Care Team (Late st Contact Info) Description 06/29/2022 Telephone [facility] ADULT DENTAL [address] [place] [address] Kye Arenas DMD [address] [place] [address] Appointment Social History Tobacco Use Types Packs/Day [...]
--- OUTSIDE RECORDS SUMMARY | 2025-03-02 16:17 | XMS_ITS | Clinical Summary ---
Author Organization 175 [facility] Address [address] [place] [address] Phone Care Team Providers Care Rn Angiography Name Role Phone Jamey Cast MD Primary [...] LAPAROSCOPY PROCEDURE NEC OTHER SURGICAL HISTORY PROCEDURE: [place] CARDIOT EXPL W/RMVL FB ATR/VENTR THRMB W/O BYP Medical History Medical History Date Comments Hypertension 03/18/2013 DX:Hypertension Obesity 03/18/2013 DX:Obesity Vertigo 03/18/2013 DX:Vertigo Fibromyalgia 03/18/2013 DX:Fibromyalgia [place] (myocardial infarction) ( CMS/HCC V24, CMS/HCC V28) 2015 DX:[place] (myocardial infarction ) (HCC) Heart attack (CMS/HCC [...] Associated Diagnosis Comments HM COLONOSCOPY Routine 12/24/2023 [facility] SCREENING DIGITAL Routine 07/11/2021 8:01 AM EDT Encounter for screening mammogram for malignant neoplasm of breast HEPATITIS C SCREENING Routine 08/29/2020 HIV SCREENING Routine 08/29/2020 PAP SMEAR Routine 04/15/2018 from Last 3 Months or Most Recently Relevant to Health Maintenance Results * Colonoscopy (12/24/2023) Colonoscopy abstracted, no interpretation Anatomical Region Laterality Modality Other us Historical Provider MD HEALTH MAINTENANCE Final Result * [facility] SCREENING DIGITAL (07/11/2021 8:01 AM EDT) Anatomical Region Laterality Modality Mammography 07/10/2021 2:28 PM EDT Narrative 07/11/2021 8:01 AM EDT [facility] Diagnostic Imaging Department [address] [place] [address] Patient: LIANA CONCEPCION /Age/Sex: 1970 - 51 - F Unit#: [id number] Location/Status: [facility]/REG CLI Mnemonic[facility]ician: JAMEY CAST MD Tad Screening Digital - 07/10/21 - 160 INDICATION: SCREENING COMPARISON: [facility] mammograms dating back to 05/26/2013 TECHNIQUE: CC and MLO views of the breasts were obtained, using full field digital mammography with 3D tomosynthesis views in the MLO projection. Computer aided detection with the [employer] 7.2-H was employed. FINDINGS: The breasts contain [...] target date for the next mammogram. G0202 [id number]) , [id number] Dictating Physician: LAURA KNOWLES MD Electronically Signed by: LAURA KNOWLES MD Dic Date/Time: 07/11/21 0758 Sign date/Time: 07/11/21 0801 Procedure Note Laura Knowles MD - 04/18/2022 [facility] Diagnostic Imaging Department [address] [place] [address] Patient: LIANA CONCEPCION /Age/Sex: 1970 - 51 - F Unit#: [id number] Location/Status: SPDIMAM/REG CLI Mnemonic/Ordering Site: [facility] Ordering Physician: JAMEY CAST MD Tad Screening Digital - 07/10/21 - 1605 INDICATION: SCREENING COMPARISON: [facility] mammograms dating back to 05/26/2013 TECHNIQUE: CC and MLO views of the breasts were obtained, using full field digital mammography with 3D tomosynthesis views in the MLO projection. Computer aided detection with the [employer] 7.2-H was employed. FINDINGS: The breasts contain [...] target date for the next mammogram. G0202 [id number]) , [id number] Dictating Physician: LAURA KNOWLES MD Electronically Signed [...] RESULTING AGENCY - 04/24/2018 9:45 AM EST [id number] THINPREP PAP, IMAGED: NEGATIVE FOR SQUAMOUS INTRAEPITHELIAL [...] Most Recently Relevant to Health Maintenance Insurance [facility] HE[employer] PLAN Care Teams Rn Angiography Relationship Specialty Start Date End Date Jamey Cast MD [address] [place] [address] Amanda [address] [place] PCP - General Internal Medicine 07/02/12
== END 2025-03-02 13:51 | disposition home or self-care (01) ==
LOC: HO.HCS 13:23
PROVIDERS: PCP Internal Medicine; Visit Provider Internal Medicine Cardiovascular Disease
DX: I25.119 Atherosclerotic heart disease of native coronary artery with unspecified angina pectoris (principal); I25.5 Ischemic cardiomyopathy; R42 Dizziness and giddiness
CPT/HCPCS: 93010; 99214

== ENCOUNTER → 2025-03-02 13:22 | Outpatient (BNVA) | payer OTHER, SELFPAY | PROVIDERS: PCP Internal Medicine; Visit Provider Internal Medicine Cardiovascular Disease | DX: I25.5 Ischemic cardiomyopathy (principal); I25.119 Atherosclerotic heart disease of native coronary artery with unspecified angina pectoris; I10 Essential (primary) hypertension; R42 Dizziness and giddiness | CPT/HCPCS: 93005; 99212 ==

== ENCOUNTER → 2025-03-30 14:53 | Outpatient (REF) | payer OTHER, SELFPAY ==
--- NOTE | 2025-03-30 14:55 | CA_ITS ---
Transthoracic Echocardiogram Patient (Last, First, Middle): Susy Concepcion, Gender: F Date of : 1970 Age: 55 Procedure Date: 03/30/2025 Procedure Type: Transthoracic Echocardiogram Location: OP Height: 157.48 cm Weight: 63.96 kg BSA: 1.65 m2 Heart Rate: bpm BP: 120 / 78 mmHg Butter Liquefier: JONATHAN Referring MD: Aren Mendez MD Symptoms: I25.10 - Atherosclerotic heart disease of barrow coronary artery without... Study Quality: Adequate ECG Rhythm: Sinus Conclusions: - The left ventricular systolic function is low normal. The visually estimated ejection fraction is between 50-55%. - No obvious valvular pathology seen on this study. Findings Left Ventricle Normal left ventricular cavity size. There is normal left ventricular wall thickness. The left ventricular systolic function is low normal. The visually estimated ejection fraction is between 50-55%. There is no evidence of regional wall motion abnormalities. Diastolic function is normal for age. Right Ventricle Mildly increased right ventricular cavity size. There is normal right ventricular systolic function. Atria Both atria are normal in size. Aortic Valve There is a normal trileaflet aortic valve. There is no aortic valve stenosis. There is no aortic valve regurgitation. Mitral Valve The mitral valve appears normal. There is no mitral valve regurgitation. There is no mitral valve stenosis. Pulmonic Valve The pulmonic valve is likely normal. Tricuspid Valve Normal tricuspid valve structure. There is trace tricuspid valve regurgitation. There is no evidence of pulmonary hypertension. Great Vessels The asc aorta is normal in size. Venous The inferior vena cava is normal in size and collapses greater than 50% with inspiration. Pericardium/Pleural There is no evidence of pericardial effusion. Prior Study Comparison Changes noted compared to prior study dated: 02/05/2023. LVEF slightly higher than prior study. Recommendations, Care & Conclusions No obvious valvular pathology seen on this study. Measurements 2D Linear Measurements IVSd: 0.90 0.6-0.9/0.6-1.0 cm LVIDd: 4.99 3.9-5.3/4.2-5.9 cm LVIDd Index: 3.02 2.4-3.2/2.2-3.1 cm/m2 LVIDs: 3.48 2.0-3.6 cm LVPWd: 0.99 0.7-1.1 cm LA Diam: 3.20 2.7-3.8/3.0-4.0 cm LAIDs Index: 1.94 1.5-2.3 cm/m2 LV Mass: 208.58 67-162/88-224 g LV Mass Index: 126.41 43-95/49-115 g/m2 LVOT Diam: 1.90 3.0+(-)1.3 cm 2D Systolic Function EF 4C: 59.70 >55% EF 2C: 57.50 >55% EF BiP: 59.00 >55% Mitral Valve MV Pk E: 0.77 MV PK A: 0.59 MV Decel Time: 224.00 E/A: 1.30 E'Lateral: 11.30 E'Medial: 7.94 E/E' Med: 9.70 E/E' Lat: 6.80 PHT: 66.00 MVA PHT: 3.33 Decel [place]: 3.42 Aortic Valve AoV Pk Silviano: 1.44 AoV Mn Silviano: 0.98 AoV VTI: 0.32 AoV Pk Grad: 8.00 Aov Mn Grad: 4.00 DEVORAH Cont.VTI: 1.85 LVOT LVOT Pk Silviano: 0.95 LVOT Mn Silviano: 0.61 LVOT VTI: 0.21 LVOT Pk Grad: 4.00 LVOT Mn Grad: 2.00 LVOT Diam: 1.90 LVOT Area: 2.84 Diastolic Function MV Pk E: 0.77 MV Pk A: 0.59 E/A: 1.30 E'Medial: 7.94 E/E' Med: 9.70 E' Laterial: 11.30 E/E' Lat: 6.80 Right Ventricle TAPSE (mm): 20.30 TVS' Silviano: 10.20 Tricuspid Valve TR Pk Silviano: 2.16 TR Pk Grad: 19.00 RA Press: 3.00 RVSP: 22.00 Great Vessels Aorta Sinus of Valsalva: 2.98 2.0-3.[address] [place]: 1.97 1.7-3.4 cm Ao Asc: 3.00 2.1-3.4 cm Pulmonary Veins Pulm Vein S/D 1.30 Updated in Other Vendor System with Status of Final Samson Pineda MD electronically signed on 03/31/2025 4:33:01 PM with status of Final
--- OUTSIDE RECORDS SUMMARY | 2025-03-30 16:44 | XMS_ITS | Clinical Summary ---
Author Organization [employer] [facility] Address [address] [place] [address] Care Team Providers Care Tanning Solution Maker Name Role Phone Unavailable Primary Care Provider [...] Years (1 of 1 - PCV) 01/05/2022 RSV Patients and Patients Aged 60 years or older (1 - Risk 50-74 years 1-dose series) 01/05/2022 Zoster Vaccines (1 of 2) 01/05/2022 Tobacco Screening 08/23/2023 08/22/2022 COVID-19 Vaccine (1 - 2024-2 6 season) 2024 Influenza Vaccine (#1) 2024 6, 02/21/2016 DTaP/Tdap/Td Vaccines (3 - T d or Tdap) 03/30/2029 03/30/2019, 02/10/2008 HIB Vaccines Aged Out No longer eligi [...]
--- OUTSIDE RECORDS SUMMARY | 2025-03-30 16:44 | XMS_ITS | Encounter Summary ---
Author Organization [employer] [facility] Address [address] [place] [address] Care Team Providers Care Private Household Worker Name Role Phone Unavailable Primary Care Provider [...]
--- OUTSIDE RECORDS SUMMARY | 2025-03-30 16:44 | XMS_ITS | Encounter Summary ---
Author Organization [employer] Address [address] [place] [address] Care Team Providers Care Remedial Reading Teacher Name Role Phone Unavailable Primary Care Provider Unavailabl e Reason for Visit * Reason Onset Date Comments Appointment 06/29/2022 Encounter Details Date Type Department Care Team (Late st Contact Info) Description 06/29/2022 Telephone [facility] [address] [place] [address] Kye Arenas DMD [address] [place] [address] Appointment Social History Tobacco Use Types Packs/Day [...]
--- OUTSIDE RECORDS SUMMARY | 2025-03-30 16:44 | XMS_ITS | Clinical Summary ---
Author Organization [address] [facility] Address [address] [place] [address] Phone Care Team Providers Care Telecommunications Network Planner Name Role Phone Jamey Cast MD Primary [...] LAPAROSCOPY PROCEDURE NEC OTHER SURGICAL HISTORY PROCEDURE: HI CARDIOT EXPL W/RMVL FB ATR/VENTR THRMB W/O BYP Medical History Medical History Date Comments Hypertension 03/18/2013 DX:Hypertension Obesity 03/18/2013 DX:Obesity Vertigo 03/18/2013 DX:Vertigo Fibromyalgia 03/18/2013 DX:Fibromyalgia [place] (my[place] infarction) ( CMS/HCC V24, CMS/HCC V28) 2015 DX:[place] (my[place] infarction ) (HCC) Heart attack (CMS/HCC [...] Cancer Screening: P ap Smear 04/15/2021 04/15/2018, 04/15/2018 Pneumococcal Vaccine: 50+ Years (1 of 1 - PCV) 01/05/2022 Zoster Vaccines (1 of 2) 01/05/2022 Cholesterol Screening (Lipid Panel) 04/07/2022 Social Influencers of Health Screening 04/07/2022 Hypertension/CHF/CAD Annual BMP Blood Test 04/13/2022 Breast Cancer Screening 07/12/2023 07/12/19, 07/24/2018, 07/22/2017 Depression Screening 04/29/2024 COVID-19 Vaccine (1 - 2024-2 6 season) 2024 Influenza Vaccine (#1) 2024 02/21/2016 [...] Associated Diagnosis Comments HM COLONOSCOPY Routine 12/24/2023 [facility] SCREENING DIGITAL Routine 07/11/2021 8:01 AM EDT Encounter for screening mammogram for malignant neoplasm of breast HEPATITIS C SCREENING Routine 08/29/2020 HIV SCREENING Routine 08/29/2020 PAP SMEAR Routine 04/15/2018 from Last 3 Months or Most Recently Relevant to Health Maintenance Results * Colonoscopy (12/24/2023) Colonoscopy abstracted, no interpretation Anatomical Region Laterality Modality Other us Historical Provider MD HEALTH MAINTENANCE Final Result * [facility] SCREENING DIGITAL (07/11/2021 8:01 AM EDT) Anatomical Region Laterality Modality Mammography 07/10/2021 2:28 PM EDT Narrative 07/11/2021 8:01 AM EDT [facility] Diagnostic Imaging Department [address] [place] [address] Patient: LIANA CONCEPCION /Age/Sex: 1970 - 51 - F Unit#: [id number] [facility] Mn[facility]onic[facility]Ordering Site: [facility] Ordering Physician: JAMEY CAST MD [facility] Screening Digital - 07/10/21 - [id number] INDICATION: SCREENING COMPARISON: [facility] mammograms dating back to 05/26/2013 TECHNIQUE: CC and MLO views of the breasts were obtained, using full field digital mammography with 3D tomosynthesis views in the MLO projection. Computer aided detection with the [employer].2-H was employed. FINDINGS: The breasts contain heterogeneously [...] target date for the next mammogram. G0202 / [id number]) , [id number] Dictating Physician: LAURA KNOWLES MD Electronically Signed by: LAURA KNOWLES MD Dic Date/Time: 07/11/21 0758 Sign date/Time: 07/11/21 0801 Procedure Note Laura Knowles MD - 04/18/2022 [facility] Diagnostic Imaging Department [address] [place] [id number] Patient: LIANA CONCEPCION /Age/Sex: 1970 - 51 - F Unit#: [id number] Location/Status: [facility]/REG CLI Mnemonic/Ordering Site: [facility] Ordering Physician: JAMEY CAST MD [facility] Screening Digital - 07/10/21 - [id number] INDICATION: SCREENING COMPARISON: [facility] mammograms dating back to 05/26/2013 TECHNIQUE: CC and MLO views of the breasts were obtained, using full field digital mammography with 3D tomosynthesis views in the MLO projection. Computer aided detection with the [employer] 7.2-H was employed. FINDINGS: The breasts contain [...] target date for the next mammogram. G0202 [id number]) , [id number] Dictating Physician: LAURA KNOWLES MD Electronically Signed [...] RESULTING AGENCY - 04/24/2018 9:45 AM EST [id number] THINPREP PAP, IMAGED: NEGATIVE FOR SQUAMOUS INTRAEPITHELIAL [...] PAP HX: NEGATIVE, LMP: 04/03/18 us Eunice Carolyn CN LAB CYTOLOGY ORDERABLES Final R esult HISTORICAL TESTING LAB RESULTING AGENCY from Last 3 Months or Most Recently Relevant to Health Maintenance [place] [id number] [facility] Care Teams Telecommunications Network Planner Relationship Specialty Start Date End Date Jamey Cast MD [address] [place] [address] Amanda [address] LAILA Zimmerman PCP - General Internal Medicine 07/02/12
== END ==
LOC: HO.CARD 14:53
PROVIDERS: PCP Internal Medicine; Visit Provider Internal Medicine Cardiovascular Disease
DX: I25.10 Atherosclerotic heart disease of native coronary artery without angina pectoris (principal); I25.5 Ischemic cardiomyopathy
CPT/HCPCS: 93306

== ENCOUNTER → 2025-03-30 14:55 | Outpatient (BNV) | payer OTHER, SELFPAY | PROVIDERS: PCP Internal Medicine; Visit Provider Internal Medicine | DX: I25.10 Atherosclerotic heart disease of native coronary artery without angina pectoris (principal) | CPT/HCPCS: 93306 ==